=== PATIENT | male | born 1935 | race Caucasian/White ===

== ENCOUNTER 2022-10-11 11:00 | Outpatient (OUT) | payer MEDICARE, OTHER, SELFPAY ==
--- NOTE | 2022-10-11 11:08 | XR_ITS ---
The [address] [address] Patient Name: IRVIN DE OLIVEIRA MRN: [id number] date: 1935 Sex: M Assigned Patient Location: [facility] Current Patient Location: Accession/Order Number: [id number] Exam Date: 10/11/2022 11:15 Report Date: 10/12/2022 06:52 At the request of: ANDREIA LAWLER Procedure: XR pelvis 1-2V PROCEDURE: XR pelvis 1-2V HISTORY: Contusion Of Pelvis S30.0XXA ; right buttock pain radiating into right leg since falling one month ago COMPARISON: None. FINDINGS: BONES:Mild narrowing of the hip joint spaces with small periarticular osteophytes. 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 Degenerative changes of the sacroiliac joints. Mechanical fusion of the visible lumbar spine. SOFT TISSUES:Calcifications within soft tissues projecting left of the pelvis may represent heterotopic bone formation from remote injury or injection granulomas within the gluteus. EFFUSION:None visible. OTHER: Negative. XR/XR pelvis 1-2V IMPRESSION: 1. Multifocal moderate degenerative changes. No appreciable acute abnormality. Electronically authenticated by: DENIA HARRISON Date: 10/12/2022 06:52
== END 2022-10-11 11:01 | disposition home or self-care (01) ==
PROVIDERS: PCP Internal Medicine; Visit Provider Internal Medicine
DX: S30.0XXA Contusion of lower back and pelvis, initial encounter (principal)
CPT/HCPCS: 72170

== ENCOUNTER 2023-05-26 10:16 | Outpatient (OUT) | payer MEDICARE, OTHER, SELFPAY ==
[2023-05-26 10:56] LABS: Basophils Absolute Auto 0.1 10^3/uL (0.0-0.1); Basophils Percent Auto 0.5 % (0.2-2.0); Eosinophils Absolute Auto 0.5 10^3/uL (0.0-0.7); Eosinophils Percent Auto 4.8 % (0.9-7.0); Hematocrit 50.2 % (42.0-54.0); Hemoglobin 15.5 g/dL (14.0-18.0); Immature Granulocytes Abs Auto 0.04 10^3/uL (0.00-0.03); Immature Granulocytes Pct Auto 0.4 % (0.0-0.5); Lymphocytes Percent Auto 30.3 % (20.5-60.0); Mean Corpuscular HGB Conc 30.9 g/dL (29.9-35.2); Mean Corpuscular Hemoglobin 30.4 pg (25.9-34.0); Mean Corpuscular Volume 98.4 fL (80.0-94.0); Mean Platelet Volume 10.7 fL (9.5-13.5); Monocytes Percent Auto 9.5 % (1.7-12.0); Neutrophils Absolute Auto 5.4 10^3/uL (1.4-6.5); Neutrophils Percent Auto 54.5 % (43.0-75.0); Platelet Count 247 10^3/uL (150-450); Red Cell Distribution Width 13.1 % (11.0-15.0)
[2023-05-26 12:45] LABS: Alanine Aminotransferase 18 U/L (16-63); Anion Gap 15.5; BUN Creatinine Ratio 19.4; Calcium 9.3 mg/dL (8.5-10.1); Carbon Dioxide 29.3 mmol/L (21.0-32.0); Chloride 105 mmol/L (98-107); Chol HDL Ratio 1.9; Cholesterol 118 mg/dL (<=200); Estimated GFR (African America >60 (>=60); Estimated GFR (Non-African Ame >60 (>=60); Glucose 167 mg/dL (74-106); HDL Cholesterol 63 mg/dL (40-60); Potassium 3.8 mmol/L (3.5-5.1); Sodium 146 mmol/L (136-145); Triglycerides 87 mg/dL (<=150); VLDL CHOLESTEROL 17.4 mg/dL
[2023-05-26 13:56] LABS: Estimated Average Glucose 143 mg/dL; Glycohemoglobin A1C 6.6 % (4.5-6.2)
== END 2023-05-26 10:17 | disposition home or self-care (01) ==
LOC: LAB 10:16
PROVIDERS: PCP Internal Medicine; Visit Provider Internal Medicine
DX: E11.65 Type 2 diabetes mellitus with hyperglycemia (principal); E78.01 Familial hypercholesterolemia; I10 Essential (primary) hypertension; Z79.899 Other long term (current) drug therapy
CPT/HCPCS: 36415; 80048; 80061; 82043; 83036; 84460; 85025

== ENCOUNTER 2024-03-21 12:47 | Outpatient (OUT) | payer MEDICARE, OTHER, SELFPAY ==
--- OUTSIDE RECORDS SUMMARY | 2024-03-21 13:03 | XMS_ITS | CCD ---
Author Organization [facility] Care Team Providers Care Fire Lookout Name Role Phone PHYSICIAN, DEFAULT Unavailable Unavailable PHYSICIAN, DEFAULT Unavailable Unavailable YULIA RIBEIRO Unavailable Unavailable GRADY RAMIREZEB Osbaldo Unavailable Unavailable GRADY RAMIREZEB A Unavailable Unavailable YULIA RIBEIRO Unavailable Unavailable YULIA RIBEIRO Unavailable Unavailable Jasiel Lawler Primary Care Provider JASIEL LAWLER Primary Care Unavailable SEYMOUR ESPITIA HLee Admitting Unavailable SEYMOUR ESPITIA HLee Attending Unavailable MICHAEL LANE I Consulting Unavailable JASIEL LAWLER Primary Care Physician Petar Lizama Unavailable Dave Vega Unavailable Gabriella Ferrara Unavailable Jasiel Lawler Unavailable BUCKY, DR BOSWELL Attending Unavailable BALL, DR BOSWELL Consulting Unavailable BALL, DR BOSWELL Primary Care Unavailable BALL, DR BOSWELL Admitting Unavailable BALL, DR BOSWELL Consulting Unavailable BUCKY, DR BOSWELL Primary Care Unavailable BALL, DR BOSWELL Admitting Unavailable BALL, DR BOSWELL Attending Unavailable BALL, DR BOSWELL Consulting Unavailable BUCKY, DR BOSWELL Primary Care Unavailable BUCKY, DR BOSWELL Admitting Unavailable BALL, DR BOSWELL Attending Unavailable HARPER BARRETO Attending Unavailable HARPER BARRETO Attending Unavailable Krishan NAGY Attending Unavailable Joanne Crenshaw Attending Unavailable Joanne Crenshaw Admitting Unavailable Jasiel Lawler Primary Care Unavailable DO Jasiel Lawler Primary Care Provider MATILDA Crenshaw Attending Provider [phone] Allergies Allergy Classification Reported Allergen(s) Allergy Type Date of Onset Reaction(s) Facility (2 sources) meperidine Drug Allergy 3 [facility]OF [facility] Repository (1 source) No Known Allergies; Translations: [No Known Allergies] Propensity to adverse reactions (disorder) [facility] Repository (20 sources) Meperidine; Translations: [meperidine] Drug [place] Meperidine; Translations: [Demerol HCl] Drug Allergy [facility] Repository (1 source) patient allergy list reviewed by nurse or physicia Propensity to adverse reactions 3 Comment:Done ilab Other (1 source) Meperidine Drug Allergy 3 [facility] Repository Medications Current Medications Medication Drug Class(es) Dates Sig (Normalized) Sig (Original) acetaminophen 325 mg / HYDROcodone bitartrate 5 mg oral tablet (2 sources) Opioid Agonist Start: 08-20-2019 End: 08-27-2019 take 1 tablet by mouth every six hours as needed for pain HYDROcodone-acetami nophen (NORCO) 5-325 MG per tablet Indications: Spinal stenosis of thoracolumbar region , Pain , Lumbosacral spondylosis without myelopathy , Post-op pain Take 1 tablet by mouth every 6 hours as needed for Pain for up to 7 days. 20 tablet 0 08/20/2019 08/27/2019 Active Start: 08-16-2019 HYDROcodone-ac etaminophen (NORCO) 5-325 MG per tablet 1 tablet alogliptin 6.25 mg oral tablet (1 source) Start: 08-16-2019 alogliptin (NESINA) tablet 25 mg amLODIPine 10 mg oral tablet (20 sources) Dihydropyridine Calcium Channel [place] Start: 02-15-2015 take 10 mg by mouth once daily Amlodipine Active 10 MG PO Daily September 26, 2021 11:00pm Atenolol (1 source) beta-Adrenergic [place] Start: 08-16-2019 atenolol (TENORMIN) tablet 100 mg atenolol 100 mg / chlorthalidone 25 mg oral tablet (20 sources) Thiazide-like Diuretic, beta-Adrenergic [place] Start: 02-15-2015 take 1 tablet by mouth once daily Atenolol-Chlorth alidone Active 1 TAB PO Daily September 26, 2021 11:00pm Atenolol-Chlorth alidone 100-25 MG Oral for 90 Days Active atorvastatin 20 mg oral tablet (20 sources) HMG-CoA Reductase Inhibitor Start: 02-15-2015 take 20 mg by mouth once daily Atorvastatin Active 20 MG PO Daily September 26, 2021 11:00pm benazepril hydrochloride 40 mg oral tablet (20 sources) Angiotensin Converting Enzyme Inhibitor Start: 02-15-2015 take 40 mg by mouth once daily Benazepril Active 40 MG PO Daily September 26, 2021 11:00pm Blood Glucose Monitoring Suppl (TRUE METRIX AIR GLUCOSE METER) NICK (1 source) Blood Glucose Monitoring Suppl (TRUE METRIX AIR GLUCOSE METER) NICK True Metrix Air Glucose Meter 0 Active Calcium (5 sources) Phosphate Binder, Calcium Start: 02-15-2015 Calcium 500+D 1 tab(s), Chewed, Daily, Refill(s) 0, Prophylaxis Start Date: 02/15/15 Status: Ordered calcium carbonate 1250 mg / cholecalciferol 200 unt oral tablet (1 source) Vitamin D Start: 08-17-2019 take 1 tablet by mouth once daily 1 tablet, Oral, DAILY, First dose on 08/17/19 at 0900 Calcium Carbonate / Vitamin D (1 source) take 1 tablet by mouth once daily Calcium Carbonate-Vitamin D (CALCIUM 500 + D PO) Calcium 500 + D 1 tab QD 0 Active cephalexin 500 mg oral capsule (11 sources) Cephalosporin Antibacterial Start: 01-23-2023 take 1 capsule by mouth twice daily Cephalexin 500 MG 1 capsule Orally twice daily for 7 days Dec, Active Start: 01-03-2023 take 1 capsule by mo [facility] every eight hours Cephalexin 500 MG 1 capsule Orally every 8 hrs for 5 days Dec, Active Start: 08-20-2019 End: 08-27-2019 take 1 capsule by mouth every eight hours cephALEXin (KEFLEX) 500 MG capsule Take 1 capsule by mouth every 8 hours for 7 days 21 capsule 0 08/20/2019 08/27/2019 Active Start: 08-20-2019 End: 08-26-2019 take 1 dose by mouth three times daily 500 mg, Oral, EVERY 8 HOURS SCHEDULED (3 times per day), First dose on Sun08/20/19 at 0600, For 20 doses ciclopirox 80 mg/ml topical solution (3 sources) Start: 12-14-2017 apply 1 dose topical ly once daily Topical, NIGHTLY, First dose on 08/16/19 at 2100 Area affected Start: 11-02-2017 ciclopirox (LO PROX) 0.77 % cream Apply topically 2 times daily. 1 Tube 2 11/02/2017 Active cyclobenzaprine hydrochloride 10 mg oral tablet (20 sources) Muscle Relaxant Start: 09-27-2021 take 1 tablet by mouth every twenty-four hours Cyclobenzaprine HCl 10 MG 1 tablet at bedtime as needed Orally Once a day for 30 days Mar, Active Start: 08-08-2019 End: 08-21-2019 take 10 mg by mouth three times daily 10 mg, Oral, 3 TIMES DAILY, First dose on 08/16/19 at 1515 docusate sodium 50 mg / sennosides, chcf 8.6 mg oral capsule (20 sources) Start: 07-04-2021 take 1 capsule by [facility] every twenty-four hours Senna Plus 50-8.6 MG 1 capsule Orally Once a day for 30 days Jul, Active Start: 08-20-2019 End: 09-19-2019 take 1 tablet by mouth once daily sennosides-docusate sodium (SENOKOT-S) 8.6-50 MG tablet Take 1 tablet by mouth daily 30 tablet 0 08/20/2019 09/19/2019 Active DuoDERM CGF Extra Thin - (9 sources) Start: 01-23-2023 DuoDERM CGF Ex tra Thin - as directed Externally daily for 14 days Dec, Active empagliflozin 10 mg oral tablet (20 sources) Sodium-Glucose Cotransporter 2 Inhibitor Start: 11-24-2019 Jardiance Refills(s) 0, High blood sugar Start Date: 11/24/19 Status: Ordered Start: 08-17-2019 take 1 tablet by [facility] once daily Empagliflozin (Jardiance) 10 mg tablet Active 10 MG PO Daily September 26, 2021 11:00pm 0.4 ml enoxaparin sodium 100 mg/ml prefilled syringe (2 sources) Low Molecular Weight Heparin Start: 08-21-2019 inject 40 mg by subcutaneous injection once daily 40 mg, Subcutaneous, DAILY, First dose on Carmen 08/21/19 at 0900 Start: 08-16-2019 End: 08-19-2019 inject 40 mg by subcutaneous injection once daily 40 mg, Subcutaneous, DAILY, First dose on 08/16/19 at 1515 gabapentin 300 mg oral capsule (20 sources) Anti-epileptic Agent Start: 02-15-2015 take 300 mg by mouth four times daily Gabapentin Active 300 MG PO Four times daily September 26, 2021 11:00pm glucagon (rdna) 1 mg injection (1 source) Antihypoglycemic Agent Start: 08-16-2019 glucago n (rDNA) injection 1 mg 150 ml glucose 50 mg/ml injection (3 sources) Start: 08-16-2019 glucose (GLUTOSE) 40 % oral gel 15 g Start: 08-16-2019 dextrose 50 % IV solution Start: 08-16-2019 dextrose 5 % s olution Hydrocolloid Dressing (1 source) Start: 05-12-2023 Hydrocolloid Dressing Active EACH TOPICAL May 12, 2023 12:00am insulin lispro 100 unt/ml injectable solution (2 sources) Insulin Analog Start: 08-16-2019 insulin lispro (HUMALOG) injection vial 0-6 Units lisinopril 20 mg oral tablet (1 source) Angiotensin Converting Enzyme Inhibitor Start: 08-16-2019 lisinopril (PRINIVIL;ZESTRIL) tablet 40 mg metFORMIN hydrochloride 1000 mg oral tablet (20 sources) Biguanide Start: 05-12-2023 take 1000 mg by mouth twice daily at mealtime Metformin Active 1000 MG PO Twice daily with meals May 12, 2023 2:30pm Start: 09-27-2021 End: 05-12-2023 take 1000 mg by mouth once daily Metformin Discontinue d 1000 MG PO Daily September 26, 2021 11:00pm May 12, 2023 2:33pm Start: 08-16-2019 take 1000 mg by mout h twice daily at mealtime 1,000 mg, Oral, 2 TIMES DAILY WITH MEALS, First dose on 08/16/19 at 1700 Start: 02-15-2015 take 1 tablet by sean th twice daily metformin 1000 mg Tab 1,000 mg = 1 tab(s), Oral, BID, # 180 tab(s), Refills(s) 0, High blood sugar Start Date: 02/15/15 Status: Ordered miconazole nitrate 20 mg/ml topical cream (1 source) Azole Antifungal Start: 08-16-2019 apply 1 dose topically twice daily Topical, 2 TIMES DAILY, First dose on 08/16/19 at 2100 Apply to affected area. Substituted for Ciclopirox (LOPROX). 24 hr mirabegron 50 mg extended release oral tablet (20 sources) beta3-Adrenergic Agonist Start: 07-13-2021 take 1 tablet by mouth every twenty-four hours Myrbetriq 50 MG 1 tablet Orally Once a day Jul, Active 1 ml morphine sulfate 4 mg/ml cartridge (1 source) Opioid Agonist Start: 08-19-2019 4 mg, Intravenous, EVERY 4 HOURS PRN, Pain Moderate (4-6), Pain Severe (7-10), Starting 08/19/19 at 1541, For 4 doses, PACU & Post-op Multi Vitamins oral tablet (5 sources) Start: 02-15-2015 Multi Vitamins oral tablet Refill(s) 0 Start Date: 02/15/15 Status: Ordered Multiple Vitamins-Minerals (MULTIVITAMIN ADULT PO) (1 source) Multiple Vitamins-Minerals (MULTIVITAMIN ADULT PO) multivitamin 0 Active mupirocin 0.02 mg/mg topical ointment (10 sources) RNA Synthetase Inhibitor Antibacterial Start: 05-12-2023 Mupirocin Active 1 APPLIC TOPICAL Twice daily May 12, 2023 12:00am FreeTextSi application Externally Twice a day; Note: Source Status: Taking; Refills: 0; Qty: 22 Gram; Provider: Bucky Ly Start: 01-23-2023 Mupirocin 2 % 1 application Externally Twice a day for 30 days Dec, Active ondansetron 4 mg disintegrating oral tablet (1 source) Serotonin-3 Receptor Antagonist Start: 08-16-2019 take 4 mg by mouth every eight hours as needed for nausea 4 mg, Oral, EVERY 8 HOURS PRN, Nausea, Vomiting, Starting 08/16/19 at 1425 polyethylene glycol 3350 09125 mg powder for oral solution (1 source) Osmotic Laxative Start: 08-16-2019 17 g, Oral, DAILY PRN, Constipation, Starting 08/16/19 at 1455 First line therapy for constipation Promethazine (1 source) Phenothiazine Start: 08-16-2019 promethazine (PHENERGAN) tablet 12.5 mg SITagliptin 100 mg oral tablet (20 sources) Dipeptidyl Peptidase 4 Inhibitor Start: 02-15-2015 take 1 tablet by mouth once daily Sitagliptin Phosphate (Januvia) 100 mg tablet Active 100 MG PO Daily September 26, 2021 11:00pm tamsulosin hydrochloride 0.4 mg oral capsule (20 sources) alpha-Adrenergic [place] Start: 02-15-2015 take 0.4 mg by mouth once daily Tamsulosin Active 0.4 MG PO Daily September 26, 2021 11:00pm traMADol hydrochloride 50 mg oral tablet (20 sources) Opioid Agonist Start: 01-08-2023 take 1 tablet by mouth every eight hours as needed for pain traMADol HCl 50 MG 1 tablet Orally every 8 hours as needed for pain for 30 days Rx 04/03/22 w/ 2RF Apr, Active Start: 10-18-2022 take 1 tablet by sean th every eight hours as needed for pain traMADol HCl 50 MG 1 tablet Orally every 8 hours as needed for pain for 30 days start 10/18Sep, Active Start: 09-12-2022 take 1 tablet by sean th every eight hours as needed for pain traMADol HCl 50 MG 1 tablet Orally every 8 hours as needed for pain Aug, Active Start: 04-14-2022 take 1 tablet by sean th every eight hours as needed for pain traMADol HCl 50 MG 1 tablet Orally every 8 hours as needed for pain for 7 days Apr, Active triamcinolone acetonide 0.001 mg/mg topical ointment (20 sources) Corticosteroid Start: 05-12-2023 Triamcinolone Acetonide Active 1 APPLIC TOPICAL Twice daily May 12, 2023 12:00am FreeTextSi application Externally Twice a day; Note: Source Status: Taking; Refills: 0; Qty: 45 Gram; Provider: Bucky Ly Start: 05-12-2023 Triamcinolone Acetonide Active 1 APPLIC TOPICAL Twice daily May 12, 2023 12:00am FreeTextSi application Externally Twice a day; Note: Source Status: Taking; Provider: Bucky Ly Start: 11-17-2022 Triamcinolone Acetonide 0.1 % 1 application Externally Twice a day for 7 days Oct, Active Start: 03-22-2022 Triamcinolone Acetonide 0.5 % 1 application Externally Twice a day Mar, Active Start: 11-01-2021 Kenalog-40 Oct, 20 mg True Metrix Air Glucose Mete r w/Device (20 sources) True Metrix Air Glucose Meter w/Device as directed for 365 days Active True Metrix Blood Glucose Te st - (20 sources) Start: 07-18-2021 True Metrix Bl ood Glucose Test - 1 Each to test home BS As Directed BID Jul, Active True Metrix Bloo d Glucose Test - USE DIRECTED TWICE DAILY for 50 Active True Metrix Pro Blood Glucos e - (20 sources) True Metrix Pro Blood Glucose - Use to test home BS twice a day In Vitro daily for 30 days Active True Metrix Pro Blood Glucose - Use to test home BS qd In Vitro daily for 30 days Active True Metrix Pro Blood Glucose - as directed In Vitro daily for 30 days Active Completed/Discontinued Medications Medication Drug Class(es) Dates Sig (Normalized) Sig (Original) acetaminophen 325 mg / oxyCODONE hydrochloride 5 mg oral tablet (2 sources) Opioid Agonist Start: 08-04-2019 End: 08-20-2019 take 1 tablet by mouth twice daily 1 tablet, Oral, 2 TIMES DAILY, First dose on 08/16/19 at 2100 Maximum dose of acetaminophen is 4000 mg from all sources in 24 hours. betamethasone 0.5 mg/ml / clotrimazole 10 mg/ml topical cream (20 sources) Azole Antifungal, Corticosteroid Start: 06-18-2020 Clotrimazole-Betam ethasone 1-0.05 % 1 application as needed for rash Externally Twice a day May, Not-Taking/PRN ceFAZolin (ANCEF) 1 g in dextrose 5 % 50 mL IVPB (mini-bag) (1 source) Start: 08-19-2019 End: 08-20-2019 1 g, Intravenous, EVERY 8 HOURS, First dose on Sun08/19/19 at 1615, Until Discontinued, PACU & Post-op chlorhexidine gluconate 1.2 mg/ml mouthwash (20 sources) Start: 09-27-2021 End: 01-25-2023 Chlorhexidine Gluconate Discontinued 1 EACH MUCOUS MEM Daily September 26, 2021 11:00pm January 25, 2023 8:46am Chlorhexidine Gl uconate 0.12 % Mouth/Throat for 25 Days Not-Taking/PRN Chlorhexidine Gl uconate 0.12 % Mouth/Throat for 25 Days Not-Taking Chlorhexidine Gl uconate 0.12 % Mouth/Throat for 25 Days Not-Taking diclofenac sodium 0.01 mg/mg topical gel (20 sources) Nonsteroidal Anti-inflammatory Drug Start: 01-25-2022 Diclofenac Sodium 1 % apply a pea sized amount to affected area 2-4 times a daily Externally Dec, Not-Taking/PRN 1 ml HYDROmorphone hydrochloride 1 mg/ml cartridge (1 source) Opioid Agonist Start: 08-19-2019 End: 08-19-2019 HYDROmorphone (DILAUDID) injection 0.5 mg 10 ml lidocaine hydrochloride 10 mg/ml injection (1 source) Antiarrhythmic, Amide Local Anesthetic Start: 08-19-2019 End: 08-19-2019 lidocaine PF 1 % injection 1 mL methylPREDNISolone 4 mg oral tablet (20 sources) Corticosteroid Start: 12-06-2021 methylPREDNISolone 4 MG as directed Orally for 6 days Dec, Not-Taking/PRN nystatin 100 unt/mg topical powder (1 source) Polyene Antifungal Start: 01-25-2023 End: 05-12-2023 Nystatin Discontinued 1 APPLIC TOPICAL Twice daily 30 January 24, 2023 11:00pm May 12, 2023 2:30pm use as per wound care orders to the buttock rash areas 1000 ml sodium chloride 4.5 mg/ml injection (5 sources) Start: 08-18-2019 End: 08-19-2019 0.45 % sodium chloride infusion Start: 08-16-2019 10 mL, Intrave nous, EVERY 12 HOURS SCHEDULED (2 times per day), First dose on 08/16/19 at 2100 Start: 08-16-2019 take 10 mL intraveno us route once as needed 10 mL, Intravenous, PRN, Line Care, After every IV line use, Starting 08/16/19 at 1455 solifenacin succinate 5 mg oral tablet (3 sources) Cholinergic Muscarinic Antagonist Start: 09-06-2021 End: 01-25-2023 take 5 mg by mouth once daily Solifenacin Discontinued 5 MG PO Daily September 26, 2021 11:00pm January 25, 2023 8:46am Problems Active Problems Problem Classification Problem Date Documented Da te Episodic/Chronic Acquired foot deformities (1 source) Hammer toe; Translations: [Other hammer toe(s) (acquired), unspecified foot] Chronic Acquired foot deformities (20 sources) Foot-drop; Translations: [Foot drop, left foot] Episodic Acquired foot deformities (20 sources) Right foot drop; Translations: [Foot drop, right foot] Episodic Acute bronchitis (1 source) Acute bronchitis; Translations: [Acute bronchitis due to other specified organisms] Episodic Allergic reactions (2 sources) Exogenous dermatitis; Translations: [Unspecified contact dermatitis due to other agents] 03-01-2023 Episodic Chronic ulcer of skin (10 sources) Pressure ulcer of sacral region, stage 2; Translations: [Pressure injury of sacral region, stage 2] Chronic Conduction disorders (4 sources) Unspecified right bundle-branch block; Translations: [Right bundle branch block] Onset: 11-15-2017 08-20-2019 Chronic Congestive heart failure; nonhypertensive (20 sources) Chronic combined systolic and diastolic heart failure; Translations: [Chronic combined systolic (congestive) and diastolic (congestive) heart failure] Onset: 01-21-2016 Resolved: 07-16-2019 Chronic Coronary atherosclerosis and other heart disease (20 sources) Atherosclerotic heart disease of [place] coronary artery without angina pectoris; Translations: [Coronary arteriosclerosis] Onset: 12-17-2015 Resolved: 07-16-2019 08-20-2019 Chronic Diabetes mellitus with complications (20 sources) Hyperglycemia due to type 2 diabetes mellitus; Translations: [Polyneuropathy due to type 2 diabetes mellitus] Onset: 07-17-2018 08-20-2019 Chronic Diabetes mellitus without complication (3 sources) Type 2 diabetes mellitus without complications; Translations: [Diabetes mellitus] Onset: 11-15-2017 08-20-2019 Chronic Disorders of lipid metabolism (20 sources) Hyperlipidemia, unspecified; Translations: [Pure hypercholesterolemia] Onset: 04-02-1957 Resolved: 07-16-2019 Chronic Diverticulosis and diverticulitis (1 source) Diverticulosis of large intestine; Translations: [Diverticulosis of large intestine without perforation or abscess without bleeding] Onset: 01-02-2019 08-20-2019 E Codes: Natural/environment (1 source) Bitten or stung by nonvenomous insect and other nonvenomous arthropods, initial encounter Episodic Esophageal disorders (13 sources) Esophageal reflux finding; Translations: [Esophageal reflux] Resolved: 07-16-2019 Chronic Essential hypertension (20 sources) Essential (primary) hypertension; Translations: [Hypertensive disorder] Onset: 12-19-2012 Resolved: 07-16-2019 08-20-2019 Chronic Genitourinary symptoms and ill-defined conditions (20 sources) Incontinence without sensory awareness; Translations: [Urge incontinence] Onset: 07-05-2021 Chronic Genitourinary symptoms and ill-defined conditions (20 sources) Urgent desire to urinate; Translations: [Urgency of urination] Onset: 07-05-2021 Episodic Hyperplasia of prostate (20 sources) Benign prostatic hypertrophy with outflow obstruction; Translations: [Benign prostatic hyperplasia with lower urinary tract symptoms] Onset: 07-05-2021 Chronic Immunizations and screening for infectious disease (1 source) Vaccination given; Translations: [Encounter for immunization] Episodic Malaise and fatigue (3 sources) Malaise and fatigue; Translations: [Other malaise and fatigue] Onset: 01-15-2017 Resolved: 07-16-2019 01-25-2023 Episodic Other acquired deformities (20 sources) Spondylolisthesis; Translations: [Spondylolisthesis, cervical region] Episodic Other aftercare (20 sources) H/O: high risk medication; Translations: [Other intermission coordinator (current) drug therapy] Episodic Other aftercare (3 sources) Other intermission coordinator (current) drug therapy; Translations: [OTH DETENTION CURRENT DRUG THERAPY] Onset: 02-02-2022 Episodic Other aftercare (1 source) Long-term current use of drug therapy; Translations: [Other mcc (current) drug therapy] Episodic Other aftercare (1 source) Drug therapy finding; Translations: [Other mcc (current) drug therapy] 05-12-2023 Episodic Other and unspecified benign neoplasm (20 sources) Benign neoplasm of colon; Translations: [Benign neoplasm of descending colon] Resolved: 07-16-2019 Episodic Other and unspecified benign neoplasm (1 source) Benign neoplasm of descending colon; Translations: [Adenomatous polyp of descending colon] Episodic Other and unspecified benign neoplasm (1 source) Polyp of colon; Translations: [Polyp of colon] Episodic Other and unspecified benign neoplasm (1 source) Benign neoplasm of descending colon; Translations: [Benign neoplasm of descending colon] Episodic Other congenital anomalies (20 sources) Congenital pes planus of right foot; Translations: [Congenital pes planus, right foot] Chronic Other congenital anomalies (1 source) Congenital pes planus, right foot; Translations: [Congenital pes planus, right foot] Chronic Other connective tissue disease (3 sources) Trigger finger, right ring finger Onset: 11-01-2021 Resolved: 11-01-2021 Episodic Other connective tissue disease (1 source) Acquired trigger finger; Translations: [Trigger finger, right ring finger] Episodic Other diseases of kidney and ureters (3 sources) Urinary tract obstruction; Translations: [Other obstructive and reflux uropathy] Onset: 09-06-2021 Episodic Other diseases of veins and lymphatics (20 sources) Peripheral venous insufficiency; Translations: [Venous insufficiency (chronic) (peripheral)] 05-12-2023 Episodic Other diseases of veins and lymphatics (3 sources) Venous insufficiency (chronic) (peripheral); Translations: [Venous (peripheral) insufficiency, unspecified] Episodic Other gastrointestinal disorders (1 source) Constipation; Translations: [Constipation, unspecified] Episodic Other inflammatory condition of skin (1 source) Itching of skin; Translations: [Pruritus, unspecified] Episodic Other injuries and conditions due to external causes (20 sources) At moderate risk for fall; Translations: [History of falling] Episodic Other injuries and conditions due to external causes (2 sources) History of fall; Translations: [Personal history of fall] Onset: 07-28-2016 Resolved: 07-16-2019 Episodic Other nervous system disorders (20 sources) Chronic pain; Translations: [Other chronic pain] Chronic Other nervous system disorders (4 sources) Other chronic pain Onset: 08-23-2021 Resolved: 10-20-2021 Chronic Other nervous system disorders (20 sources) Lesion of ulnar nerve; Translations: [Lesion of ulnar nerve, bilateral upper limbs] Onset: 09-01-2013 Resolved: 07-16-2019 Chronic Other nervous system disorders (20 sources) Carpal tunnel syndrome; Translations: [Carpal tunnel syndrome, bilateral upper limbs] Resolved: 07-16-2019 Chronic Other nervous system disorders (2 sources) Abnormal gait; Translations: [Gait abnormality] Onset: 08-20-2019 08-20-2019 Episodic Other nervous system disorders (1 source) Postoperative pain ; Translations: [Post-op pain] Episodic Other non-traumatic joint disorders (20 sources) Pain in right knee; Translations: [Pain in right knee] Episodic Other nutritional; endocrine; and metabolic disorders (20 sources) Obesity; Translations: [Obesity, unspecified] Chronic Other nutritional; endocrine; and metabolic disorders (1 source) Obesity, unspecified Chronic Paralysis (2 sources) Paraparesis; 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] Onset: 08-16-2019 08-16-2019 Chronic [place]-; endo-; and myocarditis; cardiomyopathy (except that caused by tuberculosis or sexually transmitted disease) (20 sources) Dilated cardiomyopathy; Translations: [Dilated cardiomyopathy] Chronic Poisoning by nonmedicinal substances (1 source) Toxic effect of venom of other arthropod, accidental (unintentional), initial encounter; Translations: [Toxic effect of venom of arthropod, accidental, init] Episodic Residual codes; unclassified (20 sources) Obstructive sleep apnea syndrome; Translations: [Obstructive sleep apnea (adult) (pediatric)] Onset: 01-01-2018 Resolved: 07-16-2019 05-12-2023 Chronic Residual codes; unclassified (7 sources) Obstructive sleep apnea (adult) (pediatric); Translations: [Obstructive sleep apnea (adult)(pediatric)] Chronic Residual codes; unclassified (2 sources) Dependence on other enabling machines and devices; Translations: [Uses walker] 01-25-2023 Chronic Residual codes; unclassified (1 source) Pain; Translations: [Pain] Episodic Skin and subcutaneous tissue infections (3 sources) Cellulitis of right lower limb; Translations: [Cellulitis of right lower limb] Episodic Spondylosis; intervertebral disc disorders; other back problems (20 sources) Lumbosacral spondylosis without myelopathy; Translations: [Herniation of nucleus pulposus] Onset: 08-07-2017 Resolved: 10-20-2021 11-22-2017 Chronic Spondylosis; intervertebral disc disorders; other back problems (20 sources) Spinal stenosis; Translations: [Low back pain] Onset: 10-08-2018 Resolved: 08-23-2021 08-16-2019 Episodic Spondylosis; intervertebral disc disorders; other back problems (1 source) 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; Translations: [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] Onset: 11-22-2017 11-22-2017 Superficial injury; contusion (3 sources) Contusion of lower back and pelvis, initial encounter; Translations: [Contusion of foot] Onset: 08-04-2013 Resolved: 07-16-2019 Episodic Unclassified (2 sources) Unknown / UNK(Unknown) Onset: 11-15-2017 Unclassified (1 source) 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; Translations: [DETENTION (CURRENT) USE OF ORAL HYPOGLYCEMIC DRUGS] Onset: 11-15-2017 Unclassified (3 sources) Finding of sensation of bladder 11-08-2021 Unclassified (1 source) Irritant contact dermatitis due to fecal, urinary or dual incontinence; Translations: [Irritant contact dermatitis due to fecal, urinary or dual incontinence] Onset: 03-01-2023 Past or Other Problems Problem Classification Problem Date Documented Date Episodic/Chronic Abdominal pain (1 source) Right lower quadrant pain; Translations: [Right lower quadrant pain] Onset: 07-03-2017 Resolved: 07-16-2019 Episodic Deficiency and other anemia (1 source) Iron deficiency anemia; Translations: [Unspecified iron deficiency anemia] Onset: 01-21-2016 Resolved: 07-16-2019 Episodic Deficiency and other anemia (1 source) Anemia; Translations: [Anemia, unspecified] Onset: 01-13-2015 Resolved: 07-16-2019 Episodic Esophageal disorders (18 sources) Esophageal disorders; Translations: [Gastroesophageal reflux disease with esophagitis, unspecified whether hemorrhage] Nonspecific chest pain (2 sources) Chest pain; Translations: [Other chest pain] Onset: 01-28-2015 Resolved: 07-16-2019 Episodic Other connective tissue disease (1 source) H/O: arthrodesis; Translations: [Arthrodesis status] Onset: 08-03-2015 Resolved: 07-16-2019 Episodic Other lower respiratory disease (1 source) Pleurodynia Onset: 08-23-2021 Resolved: 08-23-2021 Episodic Other lower respiratory disease (1 source) Dyspnea; Translations: [Other forms of dyspnea] Onset: 01-28-2015 Resolved: 07-16-2019 Episodic Other nutritional; endocrine; and metabolic disorders (6 sources) Body mass index 30+ - obesity; Translations: [Body mass index 36.0-36.9, adult] Onset: 04-02-1959 Resolved: 07-16-2019 10-13-2019 Chronic Other nutritional; endocrine; and metabolic disorders (2 sources) Obese class I; Translations: [Body mass index 34.0-34.9, adult] Onset: 04-02-1959 Resolved: 07-16-2019 Chronic Other nutritional; endocrine; and metabolic disorders (1 source) Simple obesity ; Translations: [Other obesity due to excess calories] Onset: 04-02-1959 Resolved: 07-16-2019 Chronic Other nutritional; endocrine; and metabolic disorders (1 source) Morbid obesity; Translations: [Morbid (severe) obesity due to excess calories] Onset: 04-02-1959 Resolved: 07-16-2019 Chronic Other nutritional; endocrine; and metabolic disorders (1 source) Obese class II; Translations: [Body mass index 37.0-37.9, adult] Onset: 04-02-1959 Resolved: 07-16-2019 Chronic Other nutritional; endocrine; and metabolic disorders (1 source) Abnormal weight loss; Translations: [Abnormal weight loss] Resolved: 07-16-2019 Episodic Residual codes; unclassified (1 source) Requires influenza virus vaccination; Translations: [Need for prophylactic vaccination and inoculation, Influenza] Resolved: 07-16-2019 Episodic Unclassified (6 sources) Abnormal result of other cardiovascular function study; Translations: [Electrocardiogram abnormal] Onset: 01-28-2015 Resolved: 07-16-2019 11-20-2017 Episodic Unclassified (1 source) Low back pain, unspecified M54.50 Onset: 08-23-2021 Resolved: 08-23-2021 Unclassified (1 source) Long-term current use of drug therapy; Translations: [Long-term (current) use of other medications] Onset: 01-15-2017 Resolved: 07-16-2019 Viral infection (1 source) Verruca plantaris; Translations: [Plantar wart] Onset: 12-17-2015 Resolved: 07-16-2019 Episodic Results Test Name Value Interpretation Reference Range Facility Patient Education 09-06-19 Patient Education Obstetrics and Gynecology Overactive Bladder, Adult Overactive bladder is a condition in which a person has a sudden and frequent need to urinate. A person might also leak urine if he or she cannot get to the bathroom fast enough (urinary incontinence). Sometimes, symptoms can interfere with work or social activities. What are the causes? Overactive bladder is associated with poor nerve signals between your bladder and your brain. Your bladder may get the signal to empty before it is full. You may also have very sensitive muscles that make your bladder squeeze too soon. This condition may also be caused by other factors, such as: ? Medical conditions: ? Urinary tract infection. ? Infection of nearby tissues. ? Prostate enlargement. ? Bladder stones, inflammation, or tumors. ? Diabetes. ? Muscle or nerve weakness, especially from these conditions: ? A spinal cord injury. ? Stroke. ? Multiple sclerosis. ? Parkinson's disease. ? Other causes: ? Surgery on the uterus or urethra. ? Drinking too much caffeine or alcohol. ? Certain medicines, especially those that eliminate extra fluid in the body (diuretics). ? Constipation. What increases the risk? You may be at greater risk for overactive bladder if you: ? Are an older adult. ? Smoke. ? Are going through menopause. ? Have prostate problems. ? Have a neurological disease, such as stroke, dementia, Parkinson's disease, or multiple sclerosis (MS). ? Eat or drink alcohol, spicy food, caffeine, and other things that irritate the bladder. ? Are overweight or obese. What are the signs or symptoms? Symptoms of this condition include a sudden, strong urge to urinate. Other symptoms include: ? Leaking urine. ? Urinating 8 or more times a day. ? Waking up to urinate 2 or more times overnight. How is this diagnosed? This condition may be diagnosed based on: ? Your symptoms and medical history. ? A physical exam. ? Blood or urine tests to check for possible causes, such as infection. You may also need to see a health care provider who specializes in urinary tract problems. This is called a urologist. How is this treated? Treatment for overactive bladder depends on the cause of your condition and whether it is mild or severe. Treatment may include: ? Bladder training, such as: ? Learning to control the urge to urinate by following a schedule to urinate at regular intervals. ? Doing Kegel exercises to strengthen the pelvic floor muscles that support your bladder. ? Special devices, such as: ? Biofeedback. This uses sensors to help you become aware of your body's signals. ? Electrical stimulation. This uses electrodes placed inside the body (implanted) or outside the body. These electrodes send gentle pulses of electricity to strengthen the nerves or muscles that control the bladder. ? Women may use a plastic device, called a pessary, that fits into the vagina and supports the bladder. ? Medicines, such as: ? Antibiotics to treat bladder infection. ? Antispasmodics to stop the bladder from releasing urine at the wrong time. ? Tricyclic antidepressants to relax bladder muscles. ? Injections of botulinum toxin type A directly into the bladder tissue to relax bladder muscles. ? Surgery, such as: ? A device may be implanted to help manage the nerve signals that control urination. ? An electrode may be implanted to stimulate electrical signals in the bladder. ? A procedure may be done to change the shape of the bladder. This is done only in very severe cases. Follow these instructions at home: Eating and drinking ? Make diet or lifestyle changes recommended by your health care provider. These may include: ? Drinking fluids throughout the day and not only with meals. ? Cutting down on caffeine or alcohol. ? Eating a healthy and balanced diet to prevent constipation. This may include: ? Choosing foods that are high in fiber, such as beans, whole grains, and fresh fruits and vegetables. ? Limiting foods that are high in fat and processed sugars, such as fried and sweet foods. Lifestyle ? Lose weight if needed. ? Do not use any products that contain nicotine or tobacco. These include cigarettes, chewing tobacco, and vaping devices, such as e-cigarettes. If you need help quitting, ask your health care provider. General instructions ? Take [id number] and prescription medicines only as told by your health care provider. ? If you were prescribed an antibiotic medicine, take it as told by your health care provider. Do not stop taking the antibiotic even if you start to feel better. ? Use any implants or pessary as told by your health care provider. ? If needed, wear pads to absorb urine leakage. ? Keep a log to track how much and when you drink, and when you need to urinate. This will help your health care provider monitor yo (more content not included)... Normal [facility] Provider Letteron 09-05-2022 Provider Letter (Inserted Image. Yesenia ble to display) JASIEL LAWLER, [address] [place] [address] Re: IRVIN DE OLIVEIRA Date of : [address] BUCKY CALDERA, IRVIN MAIER was evaluated at [facility] 09/05/22 13:00:00 As this patient has been stable and doing well on current regimen, they will be released back to your care. He is taking Flomax once daily and says he already receives these refills through your office. Should the patient develop new symptoms or worsening condition in the future, do not hesitate to refer them back. Thanks! Provider Signature: Harper Barreto PA-C Physician [employer] Supervisor [facility] [address] [place] [address] Normal [facility] Urology Office/Clinic Noteon 09-05-2022 Urology Office/Clinic Note Chief Complaint Pt is here for 5m f/u HPI Staff Irvin is a 87 y.o. male PRW pt here for 5 month follow up. Previous DX: BPH, Incontinence & Nocturia. S/P TUIP done on 09/24/20, REZUM 10/30/19. *Tamsulosin 0.4mg QD therapy. Dysuria: denies Incomplete bladder emptying: denies Hematuria: denies Frequency: denies Urgency: yes Nocturia: 4-5x a night Stream: steady stream Leaking: yes Post void dripping: denies Wearing pads/ Depends: yes wears depends Urge incontinence: yes Stress incontinence: denies Incontinence without Sensory Awareness: yes Abdominal pain: denies Flank pain: denies Sexual complaints: _ Review of Systems PHQ Score Initial Depression Screen Score: 0 no fever, chills, malaise, myalgia. no rash/lesions. no chest pain, palpitations, or SOB. no abdominal pain, nausea, vomiting. no unilateral calf swelling, redness, pain Physical Exam Vitals & Measurements HT: 67 in HT: 170 cm WT: 86 kg WT: 189.2 lb BMI: 29.76 General: nontoxic, NAD Mouth: moist mucosa Lungs: normal respiratory effort Cardio: regular rate, good distal perfusion Abdomen: nondistended, no suprapubic distention or tenderness, no CVA tenderness Neurologic: Grossly normal Skin: No rashes or suspicious lesions Assessment/Plan 1. Urge incontinence (N39.41: Urge incontinence) continues to have incontinence throughout the day and frequency at night. at last visit I recommended timed voids (q2-3h during day) and stopping bladder irritants (coffee and peach tea). pt says he tried these recommendations for a day or two and it worked great but then he stopped. pt says I'm 87 years old, I'm not changing these things at this point. I explained that with him holding his urine >3hrs during day, it will be nearly impossible to control his bladder once it gets that full. also explained the affects that coffee and tea have on bladder. pt verbalizes understanding but does not wish to change these things at this time. pt failed oral medication for this previously. I feel risks outweigh benefits of alternative oral meds or more invasive tx options (like Botox) at this time. pt agrees. Ordered: E&M of Est. Patient Moderate 30-39 Min 92076 2. BPH with obstruction/lower urinary tract symptoms (N40.1: Benign prostatic hyperplasia with lower urinary tract symptoms) sp TURP August 2020 on Flomax. no bothersome side effects. no issues w low BP or falls. says PCP gives him refills. this will continue. return to clinic should steam worsen. Ordered: E&M of Est. Patient Moderate 30-39 Min 68410 Urnls Dip Stick Auto w/o Microscopy POC 27224 Other obstructive and reflux uropathy (N13.8: Other obstructive and reflux uropathy) discussed f/u 6-12 mos vs PRN. pt prefers PRN. letter sent to PCP. Follow-up With When Contact Information HARPER BARRETO PA-C, URL Only if needed [address] 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 Medications amLODIPine 10 mg Tab, 10 mg= 1 tab(s), Oral, Daily atenolol-chlorthalidone 100 mg-25 mg Tab, 1 tab(s), Oral, Daily atorvastatin 20 mg Tab, 20 mg= 1 tab(s), Oral, Daily benazepril 40 mg oral tablet, 40 mg= 1 tab(s), Oral, Daily Calcium 500+D, 1 tab(s), Chewed, Daily Flomax, 0.4 mg, Oral, Daily gabapentin 300 mg Cap, 300 mg= 1 cap(s), Oral, QID Januvia 100 mg Tab, 100 mg= 1 tab(s), Oral, Daily Jardiance metformin 1000 mg Tab, 1000 mg= 1 tab(s), Oral, BID Multi Vitamins oral tablet Allergies Demerol HCl meperidine (Unknown, AOF) Social History Alcohol - Low Risk, 09/06/2021 Current, Beer, 1-2 times per week, 09/06/2021 Substance Abuse - Denies Substance Abuse, 09/06/2021 Tobacco Never (less than 100 in lifetime) Tobacco Use:., 09/06/2021 Family History Asthma: Sister. Hypertension: Father. Migraine: Child. Primary malignant neoplasm of bone: Mother. Stroke: Father. Immunizations Vaccine Date Status SARS-CoV-2 (COVID-19) mRNAMUL.ORD![id number] 03/19/2022 Recorded influenza virus vaccine, inactivated 01/17/2022 Recorded influenza virus vaccine, inactivated 12/2020 Recorded SARS-CoV-2 (COVID-19) mRNA-1273 vaccine 05/2020 Recorded SARS-CoV-2 (COVID-19) mRNA-1273 vaccine 06/2019 Recorded influenza virus vaccine, in (more content not included)... Normal [facility] Comment on above: Result Comment: Electronically Signed By : HARPER BARRETO PA-C\.suzanne\Date and Time Signed: 09/05/22 17:49 EDT GLYCOHEMOGLOBIN A1Con 2022 ADA RECOMMENDATION SEE BELOW [facility] Comment on above: Result Comment: ADA RECOMMENDED LIMIT 4. 0 - 6.0 ADA THERAPEUTIC TARGET < 7.0 ACTION SUGGESTED > 7.0 Performed By: #### A 1C #### [facility] [address] [place] [address] Dr. Roseline Kennedy Glucose [Mass/Vol] 157 mg/dL Normal [facility] Comment on above: Performed By: #### A1C #### [facility] [address] [address] [address] Roseline Kennedy HbA1c (Bld) [Mass fraction] 7.1 % Critically high 4.5-6.2 [facility] Comment on above: Performed By: #### A1C #### [facility] [address] [address] [address] Roseline Kennedy ECHOCARDIO M/2D COMPLETEon 0 08-03-2022 ECHOCARDIO M/2D COMPLETE Patient: IRVIN DE OLIVEIRA Exam Date: 08/03/2022 : 1935 Gender:M Ordering : DR JASIEL LAWLER D.O. Admission #: [id number] Family : Order #: [id number] CLICK HERE TO VIEW EXAM ECHOCARDIOGRAM REPORT% PROCEDURE: CARDIO PULMONARY ECHOCARDIO M/2D COMP INDICATIONS: Chronic heart failure with reduced ejection fraction COMPARISON: None. DESCRIPTION: COMPLETE ECHOCARDIOGRAM Real-time transthoracic echocardiography with 2D, M-mode, spectral and color flow Doppler performed. QUALITY: Technical quality was good. LEFT VENTRICLE: Mild dilatation. Thickened septal wall. LV EF: Global left ventricular systolic function is moderately decreased. Visual estimation of left ventricular ejection fraction is 35-40%. Global hypokinesis. Abnormal septal motion; may be related to underlying bundle branch block. DIASTOLIC: Not adequately assessed due to heart rhythm. ATRIAL SEPTUM: Inadequately seen. LEFT ATRIUM: Severe dilatation. RIGHT ATRIUM: Moderate dilatation. RIGHT VENTRICLE: Normal chamber size. Normal right ventricular systolic function. TRICUSPID VALVE: Normal mobility and thickness. No stenosis with trivial regurgitation. No evidence of pulmonary hypertension. RVSP 25mmHg MITRAL VALVE: Normal mobility and thickness. No evidence of mitral valve stenosis. Mitral annular calcification. Mild mitral regurgitation. AORTIC VALVE: Normal trileaflet appearance. Normal leaflet mobility. No evidence of aortic valve stenosis. Trivial aortic regurgitation. AORTIC ROOT: Normal diameter and appearance. PULMONIC VALVE: Normal thickness and mobility. No stenosis. No regurgitation. PERICARDIUM: No evidence of pericardial effusion. IVC: Collapses with inspirations. Normal size. PLEURA: CONCLUSION: Global left ventricular systolic function is moderately reduced; visually estimated ejection fraction is 35 to 40%. Left ventricle is mildly dilated. Biatrial enlargement. Right ventricle is normal in size and systolic function. Mild mitral regurgitation. Adult Echocardiography Procedure Report Left Ventricle LVEDD (3.7 - 5.6 cm): 6.28 cm LVESD (2.2 - 4.0 cm): 4.85 cm LVIVS thickness (0.6 - 1.2 cm): 1.28 cm LVPW thickness (0.5 - 1.0 cm): 0.94 cm e': 0.14 m/s LVOT Max Gradient: 2.92 mm[Hg] Peak Velocity (LVOT): 0.86 m/s Mean Velocity (LVOT): 0.56 m/s LVOT Diameter 2.25 cm Left Ventricular Ejection Fraction: 44.92 %, 44.92 % Left Atrium LA Volume Index (2D A2C): 93.26 ml, 93.26 ml Left Atrium Systolic Dimension: 4.30 cm Mitral Valve Right Ventricle RV Internal Diastolic Dimension: 3.42 cm Aorta AO Root Diam: 3.16 cm Ascending Ao Diam: 2.79 cm Aortic Valve AoV Area (Peak Da): 2.30 cm2, 2.30 cm2 AoV Area (VTI): 2.37 cm2, 2.37 cm2 Peak Velocity(Antegrade Flow): 1.47 m/s Peak Gradient(Antegrade Flow): 8.70 mm[Hg] Mean Velocity(Antegrade Flow): 1.05 m/s Mean Gradient(Antegrade Flow): 5.04 mm[Hg] Velocity Time Integral: 31.71 cm Tricuspid Valve Peak Velocity (Regurgitant Flow): 2.33 m/s, 2.31 m/s Peak Velocity: 0.56 m/s Pulmonic Valve Mean Gradient: 1.39 mm[Hg], 1.57 mm[Hg] Mean Velocity: 0.56 m/s, 0.60 m/s Peak Velocity: 0.81 m/s, 0.81 m/s, 0.85 m/s Peak Gradient: 2.87 mm[Hg], 2.60 mm[Hg], 2.60 mm[Hg] Right Atrium Right Atrium Systolic Pressure: 74.20 ml, 74.20 ml Dictated by: Josh Roque M.D. on 08/04/2022 at 09:30 Approved by: Josh Roque M.D. on 08/04/2022 at 09:34 [facility] Patient Educationon 04-19-19 Patient Education Urology Urinary Incontinence Urinary incontinence refers to a condition in which a person is unable to control where and when to pass urine. A person with this condition will urinate when he or she does not mean to (involuntarily). What are the causes? This condition may be caused by: ? Medicines. ? Infections. ? Constipation. ? Overactive bladder muscles. ? Weak bladder muscles. ? Weak pelvic floor muscles. These muscles provide support for the bladder, intestine, and, in women, the uterus. ? Enlarged prostate in men. The prostate is a gland near the bladder. When it gets too big, it can pinch the urethra. With the urethra blocked, the bladder can weaken and lose the ability to empty properly. ? Surgery. ? Emotional factors, such as anxiety, stress, or post-traumatic stress disorder (PTSD). ? Pelvic organ prolapse. This happens in women when organs shift out of place and into the vagina. This shift can prevent the bladder and urethra from working properly. What increases the risk? The following factors may make you more likely to develop this condition: ? Older age. ? Obesity and physical inactivity. ? and childbirth. ? Menopause. ? Diseases that affect the nerves or spinal cord (neurological diseases). ? Long-term (chronic) coughing. This can increase pressure on the bladder and pelvic floor muscles. What are the signs or symptoms? Symptoms may vary depending on the type of urinary incontinence you have. They include: ? A sudden urge to urinate, but passing urine involuntarily before you can get to a bathroom (urge incontinence). ? Suddenly passing urine with any activity that forces urine to pass, such as coughing, laughing, exercise, or sneezing (stress incontinence). ? Needing to urinate often, but urinating only a small amount, or constantly dribbling urine (overflow incontinence). ? Urinating because you cannot get to the bathroom in time due to a physical disability, such as arthritis or injury, or communication and thinking problems, such as Alzheimer disease (functional incontinence). How is this diagnosed? This condition may be diagnosed based on: ? Your medical history. ? A physical exam. ? Tests, such as: ? Urine tests. ? X-rays of your kidney and bladder. ? Ultrasound. ? CT scan. ? Cystoscopy. In this procedure, a health care provider inserts a tube with a light and camera (cystoscope) through the urethra and into the bladder in order to check for problems. ? Urodynamic testing. These tests assess how well the bladder, urethra, and sphincter can store and release urine. There are different types of urodynamic tests, and they vary depending on what the test is measuring. To help diagnose your condition, your health care provider may recommend that you keep a log of when you urinate and how much you urinate. How is this treated? Treatment for this condition depends on the type of incontinence that you have and its cause. Treatment may include: ? Lifestyle changes, such as: ? Quitting smoking. ? Maintaining a healthy weight. ? Staying active. Try to get 150 minutes of moderate-intensity exercise every week. Ask your health care provider which activities are safe for you. ? Eating a healthy diet. ? Avoid high-fat foods, like fried foods. ? Avoid refined carbohydrates like white bread and white rice. ? Limit how much alcohol and caffeine you drink. ? Increase your fiber intake. Foods such as fresh fruits, vegetables, beans, and whole grains are healthy sources of fiber. ? Pelvic floor muscle exercises. ? Bladder training, such as lengthening the amount of time between bathroom breaks, or using the bathroom at regular intervals. ? Using techniques to suppress bladder urges. This can include distraction techniques or controlled breathing exercises. ? Medicines to relax the bladder muscles and prevent bladder spasms. ? Medicines to help slow or prevent the growth of a man's prostate. ? Botox injections. These can help relax the bladder muscles. ? Using pulses of electricity to help change bladder reflexes (electrical nerve stimulation). ? For women, using a medical biller to prevent urine leaks. This is a small, tampon-like, disposable device that is inserted into the urethra. ? Injecting collagen or carbon beads (bulking agents) into the urinary sphincter. These can help thicken tissue and close the bladder opening. ? Surgery. Follow these instructions at home: Lifestyle ? Limit alcohol and caffeine. These can fill your bladder quickly and irritate it. ? Keep yourself clean to help prevent odors and skin damage. Ask your doctor about special skin creams and cleansers that can protect the skin from urine. ? Consider wearing pads or adult diapers. Make sure to change them regularly, and always change them right after experiencing incontinence. General instructions ? Take iazq-emd-eoezomu and prescription medicines only as (more content not included)... Normal [facility] Urology Office/Clinic Noteon 04-19-2022 Urology Office/Clinic Note Chief Complaint 4 month f/u HPI Staff Irvin is a 87 y/o male here for a 4 month f/u w/PVR. Previous DX: BPH, Feeling of incomplete emptying, mixed incontinence, nocturia, urinary retention, urgency. DLS pt. was previously on Vesicare 5mg. ran out of refills and hasn't been taking it for at least a few months. doesn't think it worked when he was on it, but isn't sure. Pt is unaware when he actually needs to void. He wears a depends with a pad in it. He has accidents daily and has little to no control. No hematuria and denies and infections. Review of Systems PHQ Score Initial Depression Screen Score: 0 no fever, chills, malaise, myalgia. no rash/lesions. no chest pain, palpitations, or SOB. no abdominal pain, nausea, vomiting. no unilateral calf swelling, redness, pain Physical Exam Vitals & Measurements HR: 77(Peripheral) BP: 138/93 WT: 86.1 kg WT: 189.42 lb General: nontoxic, NAD Mouth: moist mucosa Lungs: normal respiratory effort Cardio: regular rate, good distal perfusion Abdomen: nondistended, no suprapubic distention or tenderness, no CVA tenderness Neurologic: Grossly normal Skin: No rashes or suspicious lesions Assessment/Plan 1. BPH with obstruction/lower urinary tract symptoms (N40.1: Benign prostatic hyperplasia with lower urinary tract symptoms) sp TURP August 2020 on Flomax reports variable stream, sometimes strong/steady sometimes dribbles. Ordered: E&M of Est. Patient Low 20-29 Min 42627 Urnls Dip Stick Auto w/o Microscopy POC 52740 2. Incontinence without sensory awareness (N39.42: Incontinence without sensory awareness) was previously on Vesicare 5 mg. doesn't think it helped. does not get urge to void, then when he does it's too late. encouraged q2-3hr timed voiding while awake. discussed bladder irritants - pt drinks 3c coffee in am then switches to tea the rest of the day. printed info given for him to review at home. f/u in 3 mos to see if lifestyle modifications improve sx at all. if not, can consider resuming Vesicare or trial another anticholinergic. Ordered: E&M of Est. Patient Low 20-29 Min 90524 3. Nocturia (R35.1: Nocturia) c/o q1h at last visit. says this has improved a lot. now only gets up a couple times per night. not sure what caused change. Ordered: E&M of Est. Patient Low 20-29 Min 58611 Follow-up With When Contact Information BERTRAND MONTERO, HARPER Ly, URL Within 3 months [address] [place] [place] [address] Additional Instructions: Patient Education Urinary Incontinence Problem List/Past Medical History Ongoing BMI 30.0-30.9,adult BPH with obstruction/lower urinary tract symptoms Feeling of incomplete bladder emptying Incontinence without sensory awareness Male urinary stress incontinence Mixed incontinence Nocturia Retention of urine Urge incontinence Urgency of urination Historical No qualifying data Procedure/Surgical History Cystoscopy (09/24/2020), Cystoscopy (10/02/2019), Cystourethroscopy with dilation of urethral stricture (09/06/2016), Bilateral replacement of knee joints, Cholecystectomy, Colonoscopy, Procedure on back, Transurethral water vapor ablation of prostate. Medications amLODIPine 10 mg Tab, 10 mg= 1 tab(s), Oral, Daily atenolol-chlorthalidone 100 mg-25 mg Tab, 1 tab(s), Oral, Daily atorvastatin 20 mg Tab, 20 mg= 1 tab(s), Oral, Daily benazepril 40 mg oral tablet, 40 mg= 1 tab(s), Oral, Daily Calcium 500+D, 1 tab(s), Chewed, Daily Flomax, 0.4 mg, Oral, Daily gabapentin 300 mg Cap, 300 mg= 1 cap(s), Oral, QID Januvia 100 mg Tab, 100 mg= 1 tab(s), Oral, Daily Jardiance metformin 1000 mg Tab, 1000 mg= 1 tab(s), Oral, BID Multi Vitamins oral tablet Vesicare 5 mg Tab, 5 mg= 1 tab(s), Oral, Daily, 2 refills, Not taking Allergies Demerol HCl meperidine (Unknown, AOF) Social History Alcohol - Low Risk, 09/06/2021 Current, Beer, 1-2 times per week, 09/06/2021 Substance Abuse - Denies Substance Abuse, 09/06/2021 Tobacco Never (less than 100 in lifetime) Tobacco Use:., 09/06/2021 Family History Asthma: Sister. Hypertension: Father. Migraine: Child. Primary malignant neoplasm of bone: Mother. Stroke: Father. Immunizations Vaccine Date Status SARS-CoV-2 (COVID-19) [id number] 03/19/2022 Recorded influenza virus vaccine, inactivated 01/17/2022 Recorded influenza virus vaccine, inactivated 12/2020 Recorded SARS-CoV-2 (COVID-19) mRNA-1273 vaccine 05/2020 Recorded SARS-CoV-2 (COVID-19) mRNA-1273 vaccine 06/2019 Recorded influenza virus vaccine, inactivated 01/01/2018 Recorded influenza virus vaccine, inactivated 01/15/2017 Recorded influenza virus vaccine, inactivated 01/21/2016 Recorded Lab Results Ambulatory Point of Care Results Bilirubin Urine Dipstick: Negative (04/19/22 15:03:00) Blood Urine Dipstick: Negative (04/19/22 15:03:00) Glucose Urine Dipstick: 3+ 1000 mg/dl (04/19/22 15:03:00) Ketones Urine Dipstick: Trace - 5 mg/dl (04/02 (more content not included)... Normal [facility] Comment on above: Result Comment: Electronically Signed By : HARPER BARRETO PA-C\.br\Date and Time Signed: 04/19/22 15:54 EST CBC AUTO DIFFon 01-30-2022 BASO # 0.1 103/ul Normal 0.0-0.1 [facility] Comment on above: Performed By: #### CBC #### [facility] [address] [address] [address] Roseline Kennedy Basophils/100 WBC (Bld) 0.7 % Normal 0.2-2.0 [facility] Comment on above: Performed By: #### CBC #### [facility] [address] [address] [address] Roseline Kennedy EO # 1.1 103/ul Critically high 0.0-0.7 [facility] Comment on above: Performed By: #### CBC #### [facility] [address] [place] [address] Dr. Roseline Kennedy Eosinophils/100 WBC (Bld) 12.2 % Critically high 0.9-7.0 [facility] Comment on above: Performed By: #### CBC #### [facility] [address] [place] [address] Dr. Roseline Kennedy Erythrocyte distribution width (RBC) [Ratio] 14.0 % Normal 11.0-15.0 [facility] Comment on above: Performed By: #### CBC #### [facility] [address] [place] [address] Dr. Roseline Kennedy Hematocrit (Bld) [Volume fraction] 48.1 % Normal 42.0-54.0 [facility] Comment on above: Performed By: #### CBC #### [facility] [address] [place] [address] Dr. Roseline Kennedy Hemoglobin (Bld) [Mass/Vol] 15.8 g/dL Normal 14.0-18.0 [facility] Comment on above: Performed By: #### CBC #### [facility] [address] [place] [address] Dr. Roseline Kennedy IG # 0.06 10e3/ul Critically high 0.00-0.03 [facility] Comment on above: Performed By: #### CBC #### [facility] [address] [place] [address] Dr. Roseline Kennedy IG % 0.7 % Critically high 0.0-0.5 [facility] Comment on above: Performed By: #### CBC #### [facility] [address] [place] [address] Dr. Roseline Kennedy LYMPH # 2.1 103/ul Normal 1.2-3.8 [facility] Comment on above: Performed By: #### CBC #### [facility] [address] [place] [address] Dr. Roseline Kennedy Lymphocytes/100 WBC (Bld) 23.3 % Normal 20.5-60.0 [facility] Comment on above: Performed By: #### CBC #### [facility] [address] [place] [address] Dr. Roseline Kennedy MANUAL DIFF REQ NO Normal [facility] Comment on above: Performed By: #### CBC #### [facility] [address] [place] [address] Dr. Roseline Kennedy MCH (RBC) [Entitic mass] 31.5 pg Normal 25.9-34.0 [facility] Comment on above: Performed By: #### CBC #### [facility] [address] [place] [address] Dr. Roseline Kennedy MCHC (RBC) [Mass/Vol] 32.8 g/dL Normal 29.9-35.2 [facility] Comment on above: Performed By: #### CBC #### [facility] [address] [place] [address] Dr. Roseline Kennedy MCV (RBC) [Entitic vol] 95.8 fL Critically high 80.0-94.0 [facility] Comment on above: Performed By: #### CBC #### [facility] [address] [place] [address] Dr. Roseline Kennedy MONO # 0.8 103/ul Normal 0.3-0.8 [facility] Comment on above: Performed By: #### CBC #### [facility] [address] [place] [address] Dr. Roseline Kennedy Monocytes/100 WBC (Bld) 9.3 % Normal 1.7-12.0 [facility] Comment on above: Performed By: #### CBC #### [facility] [address] [place] [address] Dr. Roseline Kennedy NEUT # 4.9 103/ul Normal 1.4-6.5 [facility] Comment on above: Performed By: #### CBC #### [facility] [address] [place] [address] Dr. Roseline Kennedy Neutrophils/100 WBC (Bld) 53.8 % Normal 43.0-75.0 [facility] Comment on above: Performed By: #### CBC #### [facility] [address] [address] [address] Roseline Kennedy Platelet mean volume (Bld) [Entitic vol] 10.0 fL Normal 9.5-13.5 [facility] Comment on above: Performed By: #### CBC #### [facility] [address] [address] [address] Roseline Kennedy PLT 260 103/ul Normal 150-450 [facility] Comment on above: Performed By: #### CBC #### [facility] [address] [address] [address] Roseline Kennedy RBC 5.02 106/ul Normal 4.70-6.10 [facility] Comment on above: Performed By: #### CBC #### [facility] [address] [place] [address] Dr. Roseline Kennedy WBC 9.0 103/ul Normal 4.0-11.0 [facility] Comment on above: Performed By: #### CBC #### [facility] [address] [address] [address] Roseline Kennedy GLYCOHEMOGLOBIN A1Con 2021 ADA RECOMMENDATION SEE BELOW Normal [facility] Comment on above: Result Comment: ADA RECOMMENDED LIMIT 4. 0 - 6.0 ADA THERAPEUTIC TARGET < 7.0 ACTION SUGGESTED > 7.0 Performed By: #### A 1C #### [facility] [address] [place] [address] Dr. Roseline Kennedy Glucose [Mass/Vol] 154 mg/dL Normal [facility] Comment on above: Performed By: #### A1C #### [facility] [address] [place] [address] Dr. Roseline Kennedy HbA1c (Bld) [Mass fraction] 7.0 % Critically high 4.5-6.2 [facility] Comment on above: Performed By: #### A1C #### [facility] [address] [place] [address] Dr. Roseline Kennedy LIPID PROFILEon 01-30-2022 CHOL-HDL RATIO NORM SEE BELOW Normal [facility] Comment on above: Result Comment: 3.3 - 4.4 LOW RISK 4.4 - 7.1 AVERAGE RISK 7.1 - 11.0 MODERATE RISK >11.0 HIGH RISK Performed By: #### A LT, BMP, LIPID #### [facility] [address] [place] [address] Dr. Roseline Kennedy Cholesterol [Mass/Vol] 113 mg/dL Normal <=200 [facility] Comment on above: Performed By: #### ALT, BMP, LIPID #### [facility] [address] [address] [address] Roseline Kennedy Cholesterol in HDL [Mass/Vol] 62 mg/dL Critically high 40-60 [facility] Comment on above: Performed By: #### ALT, BMP, LIPID #### [facility] [address] [place] [address] Dr. Roseline Kennedy Cholesterol in LDL [Mass/Vol] 31.0 mg/dL Normal [facility] Comment on above: Performed By: #### ALT, BMP, LIPID #### [facility] [address] [place] [address] Dr. Roseline Kennedy Cholesterol.tota l/Cholesterol in HDL [Mass ratio] 1.8 {ratio} Normal [facility] Comment on above: Performed By: #### ALT, BMP, LIPID #### [facility] [address] [place] [address] Dr. Roseline Kennedy HDL NORMAL > or = 60 mg/dl - LO W CARDIOVASCULAR RISK <40 mg/dl - HIGH CARDIOVASCULAR RISK Normal [facility] Comment on above: Performed By: #### ALT, BMP, LIPID #### [facility] [address] [place] [address] Dr. Roseline Kennedy LDL CALC NORMAL SEE BELOW Normal [facility] Comment on above: Result Comment: <100 mg/dl OPTIMAL 100 - 129 mg/dl NEAR OR ABOVE OPTIMAL 130 - 159 mg/dl BORDERLINE HIGH 160 - 189 mg/dl HIGH >190 mg/dl VERY HIGH Performed By: #### A LT, BMP, LIPID #### [facility] [address] [place] [address] Dr. Roseline Kennedy Triglyceride [Mass/Vol] 100 mg/dL Normal <=150 [facility] Comment on above: Performed By: #### ALT, BMP, LIPID #### [facility] [address] [address] [address] Roseline Kennedy VLDL CALC 20.0 mg/dL Normal [facility] Comment on above: Performed By: #### ALT, BMP, LIPID #### [facility] [address] [address] [address] Roseline Kennedy MICROALBUMIN, RAND URon 10-3 mALB <1.3 Normal <=30.0 [facility] Comment on above: Performed By: #### MALBR #### [facility] [address] [address] [address] Roseline Kennedy PROF CHEM 8 (BAS METB)on Anion gap [Moles/Vol] 11.9 mmol/L Normal [facility] Comment on above: Performed By: #### ALT, BMP, LIPID #### [facility] [address] [address] [address] Roseline Kennedy Calcium [Mass/Vol] 9.3 mg/dL Normal 8.5-10.1 [facility] Comment on above: Performed By: #### ALT, BMP, LIPID #### [facility] [address] [address] [address] Roseline Kennedy Chloride [Moles/Vol] 101 mmol/L Normal 98-107 [facility] Comment on above: Performed By: #### ALT, BMP, LIPID #### [facility] [address] [address] [address] Roseline Kennedy CO2 [Moles/Vol] 30.7 mmol/L Normal 21.0-32.0 [facility] Comment on above: Performed By: #### ALT, BMP, LIPID #### [facility] [address] [address] [address] Roseline Kennedy Creatinine [Mass/Vol] 0.97 mg/dL Normal 0.70-1.30 [facility] Comment on above: Performed By: #### ALT, BMP, LIPID #### [facility] [address] [address] [address] Roseline Kennedy EGFR-AF [place] >60 Normal >=60 [facility] Comment on above: Performed By: #### ALT, BMP, LIPID #### [facility] [address] [address] [address] Roseline Kennedy EGFR-NON AF [place] >60 Normal >=60 [facility] Comment on above: Performed By: #### ALT, BMP, LIPID #### [facility] [address] [address] [address] Roseline Kennedy Glucose [Mass/Vol] 150 mg/dL Critically high 74-106 [facility] Comment on above: Performed By: #### ALT, BMP, LIPID #### [facility] [address] [address] [address] Roseline Kennedy Potassium [Moles/Vol] 3.6 mmol/L Normal 3.5-5.1 [facility] Comment on above: Performed By: #### ALT, BMP, LIPID #### [facility] [address] [address] [address] Roseline Kennedy Sodium [Moles/Vol] 140 mmol/L Normal 136-145 [facility] Comment on above: Performed By: #### ALT, BMP, LIPID #### [facility] [address] [address] [address] Roseline Kennedy Urea nitrogen [Mass/Vol] 18.0 mg/dL Normal 7.0-18.0 [facility] Comment on above: Performed By: #### ALT, BMP, LIPID #### [facility] [address] [address] [address] Roseline Kennedy Urea nitrogen/Creatin ine [Mass ratio] 18.6 mg/mg Normal [facility] Comment on above: Performed By: #### ALT, BMP, LIPID #### [facility] [address] [address] [address] Roseline Kennedy [facility] 01-30-2022 ALT [Catalytic activity/Vol] 20 U/L Normal 16-63 [facility] Comment on above: Performed By: #### ALT, BMP, LIPID #### [facility] [address] [address] [address] 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 Feeling of incomplete bladder emptying Other obstructive and reflux uropathy Tests Performed Urnls Dip Stick Auto w/o Microscopy POC 14812 Your Care Team Attending Physician - Michael Trevino Jr., MD Primary Care Physician - JASIEL LAWLER DO This Is Your Medications List Contact prescribing physician if questions or concerns amlodipine (amLODIPine 10 mg Tab) atenolol-chlorthalidone (atenolol-chlorthalidone 100 mg-25 mg Tab) atorvastatin (atorvastatin 20 mg Tab) benazepril (benazepril 40 mg oral tablet) calcium-vitamin D (Calcium 500+D) empagliflozin (Jardiance) gabapentin (gabapentin 300 mg Cap) metformin (metformin 1000 mg Tab) multivitamin (Multi Vitamins oral tablet) sitagliptin (Januvia 100 mg Tab) solifenacin (Vesicare 5 mg Tab) tamsulosin (Flomax) Procedures Performed Cystoscopy (09/24/2020), Cystoscopy (10/02/2019), Cystourethroscopy with dilation of urethral stricture (09/06/2016), Bilateral replacement of knee joints, Cholecystectomy, Colonoscopy, Procedure on back, Transurethral water vapor ablation of prostate. Discharge Vitals Heart Rate (Peripheral) 66 Blood Pressure 122/74 Weight 86.1 kg Weight 86.1 kg What to do next Scheduled Follow-Up Appointments Sunday 10:30 AM EST With: Michael Trevino Jr., MD Where: [facility] Patient Educationon 11-09-19 22 Patient Education Urology Benign Prostatic Hyperplasia Benign prostatic hyperplasia (BPH) is an enlarged prostate gland that is caused by the normal aging process and not by cancer. The prostate is a walnut-sized gland that is involved in the production of semen. It is located in front of the rectum and below the bladder. The bladder stores urine and the urethra is the tube that carries the urine out of the body. The prostate may get bigger as a man gets older. An enlarged prostate can press on the urethra. This can make it harder to pass urine. The build-up of urine in the bladder can cause infection. Back pressure and infection may progress to bladder damage and kidney (renal) failure. What are the causes? This condition is part of a normal aging process. However, not all men develop problems from this condition. If the prostate enlarges away from the urethra, urine flow will not be blocked. If it enlarges toward the urethra and compresses it, there will be problems passing urine. What increases the risk? This condition is more likely to develop in men over the age of 50 years. What are the signs or symptoms? Symptoms of this condition include: ? Getting up often during the night to urinate. ? Needing to urinate frequently during the day. ? Difficulty starting urine flow. ? Decrease in size and strength of your urine stream. ? Leaking (dribbling) after urinating. ? Inability to pass urine. This needs immediate treatment. ? Inability to completely empty your bladder. ? Pain when you pass urine. This is more common if there is also an infection. ? Urinary tract infection (UTI). How is this diagnosed? This condition is diagnosed based on your medical history, a physical exam, and your symptoms. Tests will also be done, such as: ? A post-void bladder scan. This measures any amount of urine that may remain in your bladder after you finish urinating. ? A digital rectal exam. In a rectal exam, your health care provider checks your prostate by putting a lubricated, gloved finger into your rectum to feel the back of your prostate gland. This exam detects the size of your gland and any abnormal lumps or growths. ? An exam of your urine (urinalysis). ? A prostate specific antigen (PSA) screening. This is a blood test used to screen for prostate cancer. ? An ultrasound. This test uses sound waves to electronically produce a picture of your prostate gland. Your health care provider may refer you to a specialist in kidney and prostate diseases (urologist). How is this treated? Once symptoms begin, your health care provider will monitor your condition (active surveillance or watchful waiting). Treatment for this condition will depend on the severity of your condition. Treatment may include: ? Observation and yearly exams. This may be the only treatment needed if your condition and symptoms are mild. ? Medicines to relieve your symptoms, including: ? Medicines to shrink the prostate. ? Medicines to relax the muscle of the prostate. ? Surgery in severe cases. Surgery may include: ? Prostatectomy. In this procedure, the prostate tissue is removed completely through an open incision or with a laparoscope or robotics. ? Transurethral resection of the prostate (TURP). In this procedure, a tool is inserted through the opening at the tip of the penis (urethra). It is used to cut away tissue of the inner core of the prostate. The pieces are removed through the same opening of the penis. This removes the blockage. ? Transurethral incision (TUIP). In this procedure, small cuts are made in the prostate. This lessens the prostate's pressure on the urethra. ? Transurethral microwave thermotherapy (TUMT). This procedure uses microwaves to create heat. The heat destroys and removes a small amount of prostate tissue. ? Transurethral needle ablation (TUNA). This procedure uses radio frequencies to destroy and remove a small amount of prostate tissue. ? Interstitial laser coagulation (ILC). This procedure uses a laser to destroy and remove a small amount of prostate tissue. ? Transurethral electrovaporization (TUVP). This procedure uses electrodes to destroy and remove a small amount of prostate tissue. ? Prostatic urethral lift. This procedure inserts an implant to push the lobes of the prostate away from the urethra. Follow these instructions at home: ? Take iivj-njf-yypdglw and prescription medicines only as told by your health care provider. ? Monitor your symptoms for any changes. Contact your health care provider with any changes. ? Avoid drinking large amounts of liquid before going to bed or out in public. ? Avoid or reduce how much caffeine or alcohol you drink. ? Give yourself time when you urinate. ? Keep all follow-up visits as told by your health care provider. This is important. Contact a health care provider if: ? You have unexplained back pain. ? Your symptoms do not get better with treatment. ? You d (more content not included)... Normal [facility] Urology Office/Clinic Noteon 11-08-2021 Urology Office/Clinic Note Chief Complaint Patient in office for f/u with [facility] HPI Staff Patient in office for 2 month f/u w/PVR. Patient was started on Vesicare 5mg on 09/06/21, patient is also taking Tamsulosin 0.4mg. Patient states he has been having issues with urgency, and leaking prior to voiding. States when he gets up to go to the restroom, at times he cant not make it in time and or is unable to urinate. States he is up almost every hour at night to urinate. Denies any blood, and or burning. Dysuria: denies Incomplete bladder emptying: denies Hematuria: denies Frequency: denies Urgency: admits Nocturia: admits, every hour Stream: steady Leaking: admits Post void dripping: admits Wearing pads/ Depends: admits Urge incontinence: denies Stress incontinence: denies Incontinence without Sensory Awareness: denies Abdominal pain: denies Flank pain: denies Sexual complaints: _ History of Present Illness Tests reviewed: reviewed UA I have reviewed the previous health record information and history for this patient from Dr. Trevino. I have reviewed and verified the staff HPI to be accurate for this encounter. There have been no associated fever, chills, flank pain, or blood in the urine. Denies any urinary infections since last encounter. Review of Systems ROS - Provider Constitutional: denies weight loss, denies hot flashes. Eyes: denies eye problems. Gastrointestinal: denies nausea, denies vomiting. Cardiovascular: denies chest pain or angina. Integumentary: no dryness Musculoskeletal: denies musculoskeletal symptoms. ENMT: denies otolaryngeal symptoms. Respiratory: no shortness of breath. Heme/Lymph: denies easy bleeding tendency, denies easy bruising tendency. Psychiatric: no confusion, no anxiety. Genitourinary: denies dysuria, denies hematuria, denies discharge, denies urinary frequency, denies urinary hesitancy, denies nocturia, denies incontinence, denies genital sores, denies decreased libido, and denies erectile dysfunction. Physical Exam Vitals & Measurements HR: 66(Peripheral) BP: 122/74 WT: 86.1 kg WT: 86.1 kg General Appearance: alert, no distress, well nourished, well developed male. Genitourinary: normal scrotum, normal testes, normal urethra, normal epididymis, normal vas deferens/spermatic cord. Flank Pain: none. Bladder: nonpalpable. Assessment/Plan This patient is an 86-year-old male with a history of urinary incontinence. His incontinence is mostly urgency. States he has difficulty gets to the toilet bowl. He walks fairly slowly around. He is fairly stable. Slow. He was started on Vesicare 5 mg daily on his last visit in August 2021. Overall he thinks the medicine may be helping but only a small amount. He has a fair strength a little less urgency but he still has some urgency incontinence. We discussed the medication in detail and particularly the potential side effects of this medication. Presently does not seem to have any side effects. I like him to stay on Vesicare at 5 mg daily. He has at least 1 more refill will be glad to refill this prescription. We will plan to see him back in the office with a PVR in 4 months. Hopefully he will start having some significant improvement using this medication. Contact office if there is any significant changes. Reviewed urinalysis. No infection identified. 1. BPH with obstruction/lower urinary tract symptoms (N40.1: Benign prostatic hyperplasia with lower urinary tract symptoms) IPSS today; 15. UA today is negative. Pt gets up every hour during the night. Pt states he has urgency before and after meals. Pt to continue Tamsulosin 0.4mg qd. Pt will follow up in 4 months w/ PVR. Ordered: Measure Post Void residual urine and/or bladder capacity by US- non-imaging 77259 Urnls Dip Stick Auto w/o Microscopy POC 56037 Urnls Dip Stick Auto w/o Microscopy POC 45080 2. Mixed incontinence (N39.46: Mixed incontinence) S/p TURP done 09/24/2020 Ordered: Measure Post Void residual urine and/or bladder capacity by US- non-imaging 62816 Urnls Dip Stick Auto w/o Microscopy POC 08340 Urnls Dip Stick Auto w/o Microscopy POC 06632 3. Feeling of incomplete bladder emptying (R39.14: Feeling of incomplete bladder emptying) PVR today is 50mL. Pt wears depends daily. Pt feels his sxs have not improved greatly. Pt to continue VESICARE 5mg qd. Pt to call our office for refills. Ordered: Measure Post Void residual urine and/or bladder capacity by US- non-imaging 45149 Urnls Dip Stick Auto w/o Microscopy POC 73744 Urnls Dip Stick Auto w/o Microscopy POC 22691 Other obstructive and reflux uropathy (N13.8: Other obstructive and reflux uropathy) Follow-up With When Contact Information Uriel Damian MD, Michael Rivera, URO In 4 months [facility] [address], [place] [address] [phone] Additional Instructions: w/ PVR Patient Education Benign Prostatic Hyperplasia I, Magalie Sylvester, personally scribed for Dr. Trevino on 11/08/2021 11:38:02. Electronically signed (more content not included)... Normal [facility] Comment on above: Result Comment: Electronically Signed By : Uriel Damian MD, Michael Rivera\.br\Date and Time Signed: 11/08/21 11:42 EDT\.br\Electronically Co-Signed By: Magalie Sylvester\.br\Date and Time Co-Signed: 11/08/21 11:38 EDT POCT Glucoseon 08-21-2019 Glucose [Mass/Vol] 277 mg/dL Critically high 60-115 [facility] Comment on above: Performed By: #### CMP #### [facility] [address] [place] [address] POC Performed on ACCU-CHEK Normal [facility] Comment on above: Result Comment: Notified RN or MD Performed By: #### C MP #### [facility] [address] [place] [address] Glucose [Mass/Vol] 187 mg/dL Critically high 60-115 [facility] Comment on above: Performed By: #### CMP #### [facility] [address] [place] [address] POC Performed on ACCU-CHEK Normal [facility] Comment on above: Result Comment: Notified RN or MD Performed By: #### C MP #### [facility] [address] [place] [address] Glucose [Mass/Vol] 187 mg/dL High 60 - 115 mg/dl [facility], [place] Interpretation and review of laboratory results Abnormal [facility], [place] Performed on ACCU-CHEK [place], [place] Comment on above: Notified RN or MD Urinalysis, reflex to cultur stefania 08-21-2019 Bilirubin Ql (U) Negative Normal Negative [facility] Comment on above: Performed By: #### CMP #### [facility] [address] [place] [address] Clarity (U) Clear Normal Clear [facility] Comment on above: Performed By: #### CMP #### [facility] [address] [place] [address] Color (U) Yellow Normal Straw/Taliaferro [facility] Comment on above: Performed By: #### CMP #### [facility] [address] [place] [address] Glucose Ql (U) >=1000 Abnormal Negative [facility] Comment on above: Performed By: #### CMP #### [facility] [address] [place] [address] Hemoglobin Ql (U) Negative Normal Negative [facility] Comment on above: Performed By: #### CMP #### [facility] [address] [place] [address] Ketones Ql (U) TRACE Abnormal Negative [facility] Comment on above: Performed By: #### CMP #### [facility] [address] [place] [address] Leukocyte esterase Test strip Ql (U) Negative Normal Negative [facility] Comment on above: Performed By: #### CMP #### [facility] [address] [place] [address] Nitrite Ql (U) Negative Normal Negative [facility] Comment on above: Performed By: #### CMP #### [facility] [address] [place] [address] pH (U) 5.0 [pH] Normal 5.0-9.0 [facility] Comment on above: Performed By: #### CMP #### [facility] [address] [place] [address] Protein Ql (U) Negative Normal Negative [facility] Comment on above: Performed By: #### CMP #### [facility] [address] [place] [address] Specific gravity (U) [Rel density] 1.029 Normal 1.005-1.03 [facility] Comment on above: Performed By: #### CMP #### [facility] [address] [place] [address] Urine Reflexed to Culture Not Indicated Normal [facility] Comment on above: Performed By: #### CMP #### [facility] [address] [place] [address] Urobilinogen Qn (U) 0.2 {Nadeen'U}/dL Normal < 2.0 [facility] Comment on above: Performed By: #### CMP #### [facility] [address] [place] [address] FLUORO FOR SURGICAL PROCEDUR ESon 08-20-2019 Yohan, Chpo Incoming R adiant Results From [employer] - 08/20/2019 1:15 PM EDT EXAM: FLUORO FOR SURGICAL PROCEDURES HISTORY:R52 PAIN ICD10 R52 PAIN ICD10 Findings: Fluoroscopy time was 5.5 seconds A total of 5 fluoroscopic images were obtained by Dr. Espitia during the operative procedure involving the thoracic spine. Please refer to operative report for further details. IMPRESSION: FLUOROSCOPIC ASSISTANCE PROVIDED FOR OPERATIVE GUIDANCE. [place] FLUOROSCOPIC ASSISTA NCE PROVIDED FOR OPERATIVE GUIDANCE. [place] EXAM: FLUORO FOR MONIQUE GICAL PROCEDURES HISTORY:R52 PAIN ICD10 R52 PAIN ICD10 Findings: Fluoroscopy time was 5.5 seconds A total of 5 fluoroscopic images were obtained by Dr. Espitia during the operative procedure involving the thoracic spine. Please refer to operative report for further details. [place] POCT Glucoseon 08-20-2019 Glucose [Mass/Vol] 230 mg/dL Critically high 60-115 [facility] Comment on above: Performed By: #### CMP #### [facility] [address] [facility] [address] POC Performed on ACCU-CHEK Normal [facility] Comment on above: Performed By: #### CMP #### [facility] [address] [place] [address] Glucose [Mass/Vol] 230 mg/dL High 60 - 115 mg/dl [place] Interpretation and review of laboratory results Abnormal [place] Performed on ACCU-CHEK [place] Glucose [Mass/Vol] 186 mg/dL Critically high 60-115 [facility] Comment on above: Performed By: #### CMP #### [facility] [address] [place] [address] POC [facility] Comment on above: Result Comment: Notified RN or MD Performed By: #### C MP #### [facility] [address] [place] [address] Glucose [Mass/Vol] 186 mg/dL High 60 - 115 mg/dl [place] Interpretation and review of laboratory results Abnormal [place] Performed on ACCU-CHEK [place] Comment on above: Notified RN or MD Glucose [Mass/Vol] 209 mg/dL Critically high 60-115 [facility] Comment on above: Performed By: #### CMP #### [facility] [address] [place] [address] POC [facility] Comment on above: Result Comment: Notified RN or MD Performed By: #### C MP #### [facility] [address] [place] [address] Glucose [Mass/Vol] 209 mg/dL High 60 - 115 mg/dl [place] Interpretation and review of laboratory results Abnormal [place] Performed on ACCU-CHEK [place] Comment on above: Notified RN or MD Glucose [Mass/Vol] 138 mg/dL Critically high 60-115 [facility] Comment on above: Performed By: #### CMP #### [facility] [address] [place] [address] POC [facility] Comment on above: Result Comment: Notified RN or MD Performed By: #### C MP #### [facility] [address] [place] [address] Glucose [Mass/Vol] 138 mg/dL High 60 - 115 mg/dl [place] Interpretation and review of laboratory results Abnormal [place] Performed on ACCU-CHEK [place] Comment on above: Notified RN or MD URINE RT REFLEX TO CULTUREon 08-20-2019 Bilirubin Urine Negative Negative [place] Blood, Urine Negative Negative [place] Clarity, UA Clear Clear [place] Color, UA Yellow Straw/Taliaferro ow [place] Glucose, Ur >=1000 Abnormal Negative mg/dL [place] Interpretation and review of laboratory results Abnormal [place] Ketones Ql (U) TRACE Abnormal Negative mg/dL [place] Leukocyte esterase Test strip Ql (U) Negative Negative [place] Nitrite, Urine Negative Negative [place] pH, UA 5.0 [place] Protein (U) [Mass/Vol] Negative Negative mg/dL [place] Specific [place], UA 1.029 [place] Urine Reflex to Culture Not Indicated [place] Urobilinogen, Urine 0.2 <2.0 E.U./dL [place] FLUORO FOR SURGICAL PROCEDUR ESon 08-19-2019 FLUORO FOR SURGICAL PROCEDURES EXAM: FLUORO FOR SURGICAL PROCEDURES HISTORY:R52 PAIN ICD10 R52 PAIN ICD10 Findings: Fluoroscopy time was 5.5 seconds A total of 5 fluoroscopic images were obtained by Dr. Espitia during the operative procedure involving the thoracic spine. Please refer to operative report for further details. IMPRESSION: FLUOROSCOPIC ASSISTANCE PROVIDED FOR OPERATIVE GUIDANCE. Interpreted by: Jimenez Gomez MD Signed by: Jimenez Gomez MD 08/20/19 Final result Normal [facility] POCT Glucoseon 08-19-2019 Glucose [Mass/Vol] 163 mg/dL Critically high 60-115 [facility] Comment on above: Performed By: #### CMP #### [facility] [address] [place] [address] POC Performed on ACCU-CHEK Normal [facility] Comment on above: Result Comment: Notified RN or MD Performed By: #### C MP #### [facility] [address] [place] [address] Glucose [Mass/Vol] 163 mg/dL High 60 - 115 mg/dl [facility] [place], [place] Interpretation and review of laboratory results Abnormal [facility], [place] Performed on ACCU-CHEK [facility] Comment on above: Notified RN or MD Glucose [Mass/Vol] 144 mg/dL Critically high 60-115 [facility] Comment on above: Performed By: #### CMP #### [facility] [address] [place] [address] POC [facility] Normal [facility] Comment on above: Performed By: #### CMP #### [facility] [address] [place] [address] Glucose [Mass/Vol] 132 mg/dL Critically high 60-115 [facility] Comment on above: Performed By: #### UAR #### [facility] [address] [place] [address] POC Performed on ACCU-CHEK [facility] Comment on above: Performed By: #### UAR #### [facility] [address] [place] [address] Glucose [Mass/Vol] 144 mg/dL High 60 - 115 mg/dl [facility] Interpretation and review of laboratory results Abnormal [facility]- [place] Performed on ACCU-CHEK [facility]- [place], [place] Glucose [Mass/Vol] 132 mg/dL High 60 - 115 mg/dl [facility] Interpretation and review of laboratory results Abnormal [facility] Performed on ACCU-CHEK [facility] [place] Glucose [Mass/Vol] 136 mg/dL Critically high 60-115 [facility] Comment on above: Performed By: #### UAR #### [facility] [address] [place] [address] POC Performed on ACCU-CHEK Normal [facility] Comment on above: Performed By: #### UAR #### [facility] [address] [place] [address] Glucose [Mass/Vol] 136 mg/dL High 60 - 115 mg/dl [place] Interpretation and review of laboratory results Abnormal [place] Performed on ACCU-CHEK [facility], [place] Glucose [Mass/Vol] 124 mg/dL Critically high 60-115 [facility] Comment on above: Performed By: #### UAR #### [facility] [address] [place] [address] POC Performed on ACCU-CHEK Normal [facility] Comment on above: Performed By: #### UAR #### [facility] [address] [place] [address] Glucose [Mass/Vol] 124 mg/dL High 60 - 115 mg/dl [place] Interpretation and review of laboratory results Abnormal [facility], [place] Performed on ACCU-CHEK [facility] Surgical Specimenon 08-19-19 Surgical Specimen [facility] [address] [place] [address] FINAL SURGICAL PATHOLOGY REPORT Patient Name: IRVIN DE OLIVEIRA Accession No: [id number] Age Sex: 1935 Location: [facility] [id number] Account No: [id number] Collected: 08/19/2019 Med Rec No: [id number] Received: 08/20/2019 Attend Phys: SEYMOUR ESPITIA Completed: 08/22/2019 Perform Phys: SEYMOUR ESPITIA FINAL DIAGNOSIS: EPIDURAL TISSUE: 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 SPECIMEN: Epidural Tissue GROSS DESCRIPTION: Specimen received in formalin in a container labeled Irvin Yennifer and designated as spine . Specimen consists of brownish-schroeder soft to firm tissue which appears to be possibly lined by skin measuring 1.1 x 0.5 x 0.2 cm. The specimen is submitted in toto in one cassette after decalcification. ALIFA/NIR CPT: 83492 X1 12613 X1 Intradepartmental Consultation performed by: Dr. JEOVANNY NOBLE M.D., who concurs with the above diagnosis. Kenneth DEL ROSARIO M.D. 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 Procedure Date Date: 08/18/2019 Start: 10:22 AM Study Location: Portable Technical Quality: Adequate visualization Indications:Preop cardiac evaluation. Patient Status: Routine Height: 67 inches Weight: 195 pounds BSA: 2 m^2 BMI: 30.54 kg/m^2 BP: 140/83 mmHg Conclusions Summary Mildly reduced LV EF 45-50%, inferolateral hypokinesis. No significant valve disease. Normal estimated PA pressure. Abnormal diastolic relaxation. Signature Findings Left Ventricle Left ventricular ejection fraction is visually estimated at 45-50%. Normal left ventricular size and function. Normal left ventricular wall thickness. Septal hypertrophy. No LVOT obstruction. Impaired diastolic relaxation. Right Ventricle Normal right ventricle structure and function. Normal right ventricle systolic pressure. Left Atrium Mildly dilated left atrium. Right Atrium Normal right atrium. Mitral Valve Mild MVP with trivial MR. Tricuspid Valve Normal tricuspid valve structure and function. Aortic Valve Normal aortic valve structure and function. Pulmonic Valve Normal pulmonic valve structure and function. Pericardial Effusion No evidence of pericardial effusion. Aorta \ Miscellaneous The aorta is within normal limits. M-Mode Measurements (cm) LVIDd: 5.48 cm LVIDs: 4.41 cm IVSd: 1.28 cm IVSs: 1.43 cm LVPWd: 1.1 cm LVPWs: 1.38 cm Rt. Vent. Dimension: 3.6 cm AO Root Dimension: 3.38 cm ACS: 1.96 cm LA: 4.87 cm LVOT: 1.96 cm Doppler Measurements: AV Velocity:0.02 m/s MV Peak E-Wave: 0.55 m/s AV Peak Gradient: 8.28 mmHg MV Peak A-Wave: 0.93 m/s AV Mean Gradient: 3.96 mmHg AV Area (Continuity):1.89 cm^2 TR Velocity:1.96 m/s Estimated RAP:3 mmHg TR Gradient:15.44 mmHg RVSP:18.44 mmHg Valves Mitral Valve Peak E-Wave: 0.55 m/s Peak A-Wave: 0.93 m/s E/A Ratio: 0.59 Peak Gradient: 1.19 mmHg Deceleration Time: 236.6 msec Tissue Doppler E' Septal Velocity: 0.08 m/s E' Lateral Velocity: 0.07 m/s Aortic Valve Peak Velocity: 1.44 m/s Mean Velocity: 0.92 m/s Peak Gradient: 8.28 mmHg Mean Gradient: 3.96 mmHg Area (continuity): 1.89 cm^2 AV VTI: 31.46 cm Cusp Separation: 1.96 cm Tricuspid Valve Estimated RVSP: 18.44 mmHg Estimated RAP: 3 mmHg TR Velocity: 1.96 m/s TR Gradient: 15.44 mmHg Pulmonic Valve Peak Velocity: 1.02 m/s Peak Gradient: 4.2 mmHg Estimated PASP: 18.44 mmHg LVOT Peak Velocity: 0.82 m/s Mean Velocity: 0.58 m/s Peak Gradient: 2.57 mmHg Mean Gradient: 1.46 mmHg LVOT Diameter: 1.96 cm LVOT VTI: 19.72 cm Structures Left Atrium LA Dimension: 4.87 cm LA Area: 19.89 cm^2 LA/Aorta: 1.44 LA Volume/Index: 59.82 ml /30 m^2 Left Ventricle Diastolic Dimension: 5.48 cm Systolic Dimension: 4.41 cm Septum Diastolic: 1.28 cm Septum Systolic: 1.43 cm PW Diastolic: 1.1 cm PW Systolic: 1.38 cm FS: 19.5 % LV EDV/LV EDV Index: 146.34 ml/73 m^2 LV ESV/LV ESV Index: 88.35 ml/44 m^2 EF Calculated: 39.6 % LV Length: 8.09 cm LVOT Diameter: 1.96 cm Right Atrium RA Systolic Pressure: 3 mmHg Right Ventricle Diastolic Dimension: 3.6 cm RV Systolic Pressure: 18.44 mmHg Aorta/ Miscellaneous Aorta Aortic Root: 3.38 cm LVOT Diameter: 1.96 cm [facility] [place], [place] Yohan, Chpo Incoming C ardiovascular Results From [facility] - 08/18/2019 4:14 PM EDT Transthoracic Echocardiography Report (TTE) Demographics Patient Name YENNIFER Ly Gender Male Patient Number [id number] Race Ethnicity Visit Number [id number] Room Number W291 Corporate ID Date of Study 08/18/2019 Referring Physician Number Date of 1935 [employer] 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 Procedure Date Date: 08/18/2019 Start: 10:22 AM Study Location: Portable Technical Quality: Adequate visualization Indications:Preop cardiac evaluation. Patient Status: Routine Height: 67 inches Weight: 195 pounds BSA: 2 m^2 BMI: 30.54 kg/m^2 BP: 140/83 mmHg Conclusions Summary Mildly reduced LV EF 45-50%, inferolateral hypokinesis. No significant valve disease. Normal estimated PA pressure. Abnormal diastolic relaxation. Signature Findings Left Ventricle Left ventricular ejection fraction is visually estimated at 45-50%. Normal left ventricular size and function. Normal left ventricular wall thickness. Septal hypertrophy. No LVOT obstruction. Impaired diastolic relaxation. Right Ventricle Normal right ventricle structure and function. Normal right ventricle systolic pressure. Left Atrium Mildly dilated left atrium. Right Atrium Normal right atrium. Mitral Valve Mild MVP with trivial MR. Tricuspid Valve Normal tricuspid valve structure and function. Aortic Valve Normal aortic valve structure and function. Pulmonic Valve Normal pulmonic valve structure and function. Pericardial Effusion No evidence of pericardial effusion. Aorta \ Miscellaneous The aorta is within normal limits. M-Mode Measurements (cm) LVIDd: 5.48 cm LVIDs: 4.41 cm IVSd: 1.28 cm IVSs: 1.43 cm LVPWd: 1.1 cm LVPWs: 1.38 cm Rt. Vent. Dimension: 3.6 cm AO Root Dimension: 3.38 cm ACS: 1.96 cm LA: 4.87 cm LVOT: 1.96 cm Doppler Measurements: AV Velocity:0.02 m/s MV Peak E-Wave: 0.55 m/s AV Peak Gradient: 8.28 mmHg MV Peak A-Wave: 0.93 m/s AV Mean Gradient: 3.96 mmHg AV Area (Continuity):1.89 cm^2 TR Velocity:1.96 m/s Estimated RAP:3 mmHg TR Gradient:15.44 mmHg RVSP:18.44 mmHg Valves Mitral Valve Peak E-Wave: 0.55 m/s Peak A-Wave: 0.93 m/s E/A Ratio: 0.59 Peak Gradient: 1.19 mmHg Deceleration Time: 236.6 msec Tissue Doppler E' Septal Velocity: 0.08 m/s E' Lateral Velocity: 0.07 m/s Aortic Valve Peak Velocity: 1.44 m/s Mean Velocity: 0.92 m/s Peak Gradient: 8.28 mmHg Mean Gradient: 3.96 mmHg Area (continuity): 1.89 cm^2 AV VTI: 31.46 cm Cusp Separation: 1.96 cm Tricuspid Valve Estimated RVSP: 18.44 mmHg Estimated RAP: 3 mmHg TR Velocity: 1.96 m/s TR Gradient: 15.44 mmHg Pulmonic Valve Peak Velocity: 1.02 m/s Peak Gradient: 4.2 mmHg Estimated PASP: 18.44 mmHg LVOT Peak Velocity: 0.82 m/s Mean Velocity: 0.58 m/s Peak Gradient: 2.57 mmHg Mean Gradient: 1.46 mmHg LVOT Diameter: 1.96 cm LVOT VTI: 19.72 cm Structures Left Atrium LA Dimension: 4.87 cm LA Area: 19.89 cm^2 LA/Aorta: 1.44 LA Volume/Index: 59.82 ml /30 m^2 Left Ventricle Diastolic Dimension: 5.48 cm Systolic Dimension: 4.41 cm Septum Diastolic: 1.28 cm Septum Systolic: 1.43 cm PW Diastolic: 1.1 cm PW Systolic: 1.38 cm FS: 19.5 % LV EDV/LV EDV Index: 146.34 ml/73 m^2 LV ESV/LV ESV Index: 88.35 ml/44 m^2 EF Calculated: 39.6 % LV Length: 8.09 cm LVOT Diameter: 1.96 cm Right Atrium RA Systolic Pressure: 3 mmHg Right Ventricle Diastolic Dimension: 3.6 cm RV Systolic Pressure: 18.44 mmHg Aorta/ Miscellaneous Aorta Aortic Root: 3.38 cm LVOT Diameter: 1.96 cm [facility] [place] E[facility] 12 Lead - Chest Painon 0 08-18-2019 Atrial Rate 61 BPM [facility] [place] 72 degrees [facility] [place] P-R Interval 320 ms [facility] [employer] [place] Q-T Interval 468 ms [facility] QRS Duration 176 ms [facility] [place] QTc Calculation (Bazett) 471 ms [facility], [place] R [place] -83 degrees [facility] [place] T [place] -12 degrees [place] Ventricular Rate 61 BPM [place], [place] Sinus rhythm with 1s t degree AV block with occasional premature ventricular complexes Left axis deviation Right bundle branch block Possible Lateral infarct , age undetermined 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) Abnormal ECG When compared with ECG of 20-NOV-2017 08:05, Borderline criteria for Lateral infarct are now present Questionable change in initial forces of Inferior leads Confirmed by Ted Mcleod ([id number]) on 08/18/2019 4:39:50 PM [place], [place] Yohan, Chpo Incoming R esults From [place] - 08/18/2019 4:39 PM EDT Sinus rhythm with 1st degree AV block with occasional premature ventricular complexes Left axis deviation Right bundle branch block Possible Lateral infarct , age undetermined 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) Abnormal ECG When compared with ECG of 20-NOV-2017 08:05, Borderline criteria for Lateral infarct are now present Questionable change in initial forces of Inferior leads Confirmed by Ted Mcleod ([id number]) on 08/18/2019 4:39:50 PM [place] POCT Glucoseon 08-18-2019 Glucose [Mass/Vol] 141 mg/dL Critically high 60-115 [facility] Comment on above: Performed By: #### UAR #### [facility] [address] [place] [address] [facility] Comment on above: Result Comment: Notified RN or MD Performed By: #### U AR #### [facility] [address] [place] [address] Glucose [Mass/Vol] 141 mg/dL High 60 - 115 mg/dl [place] Interpretation and review of laboratory results Abnormal [place] Performed on ACCU-CHEK [place] Comment on above: Notified RN or MD Glucose [Mass/Vol] 179 mg/dL Critically high 60-115 [facility] Comment on above: Performed By: #### UAR #### [facility] [address] [place] [address] POC [facility] Comment on above: Result Comment: Notified RN or MD Performed By: #### U AR #### [facility] [address] [place] [address] Glucose [Mass/Vol] 179 mg/dL High 60 - 115 mg/dl [facility] Interpretation and review of laboratory results Abnormal [facility], [place] Performed on ACCU-CHEK [place] Comment on above: Notified RN or MD Glucose [Mass/Vol] 121 mg/dL Critically high 60-115 [facility] Comment on above: Performed By: #### UAR #### [facility] [address] [place] [address] POC [facility] Normal [facility] Comment on above: Result Comment: Notified RN or MD Performed By: #### U AR #### [facility] [address] [address] Glucose [Mass/Vol] 121 mg/dL High 60 - 115 mg/dl [place] Interpretation and review of laboratory results Abnormal [facility] [place] Performed on ACCU-CHEK [place] Comment on above: Notified RN or MD Glucose [Mass/Vol] 128 mg/dL Critically high 60-115 [facility] Comment on above: Performed By: #### UAR #### [facility] [address] [place] [address] POC Performed on ACCU-CHEK Normal [facility] Comment on above: Result Comment: Notified RN or MD Performed By: #### U AR #### [facility] [address] [address] Glucose [Mass/Vol] 128 mg/dL High 60 - 115 mg/dl [place] Interpretation and review of laboratory results Abnormal [facility], [place] Performed on ACCU-CHEK [place] Comment on above: Notified RN or MD MRI THORACIC SPINE WO CONTRA STon 08-17-2019 EXAMINATION: MRI THO RACIC SPINE WO CONTRAST DATE AND TIME:08/16/2019 2:30 PM CLINICAL HISTORY: Severe thoracic spine pain. thoracic spinal stenosis, progressve, gait instability COMPARISON: If available previous films were reviewed for comparison. Technique: Multiplanar multisequence MRI scans of the thoracic spine. Findings: Bones: The thoracic vertebrae are normally aligned with no evidence of fracture. There is normal marrow signal throughout the thoracic spine. Disc space: At T7-8 there is a central/right paracentric disc protrusion with deformity of the right half of the thoracic cord. There is prominent posterior soft tissue change suggestive of prominence of the ligamenta flava with possible ossification. These changes are resulting in [id number] central canal stenosis at this level. At T11-12 there is prominent posterior soft tissue density of low signal intensity in T2 consistent with thickening of ligamenta flava with probable ossification. This is combining with broad-based disc bulging resulting in severe/extreme spinal canal stenosis at this level. There may be some slight increase in cord signal intensity suggesting cord edema. Foraminal stenosis right greater than left. At T8-9 there is minimal disc bulging without canal or foraminal narrowing Remainder of the thoracic spine shows mild degenerative change with no signs of any additional disc herniation or spinal canal stenosis Soft tissues: There is no paraspinal soft tissue mass or fluid collection. [facility] [place], [place] Yohan, Chpo Incoming R adiant Results From [facility] - 08/17/2019 6:01 PM EDT EXAMINATION: MRI THORACIC SPINE WO CONTRAST DATE AND TIME:08/16/2019 2:30 PM CLINICAL HISTORY: Severe thoracic spine pain. thoracic spinal stenosis, progressve, gait instability COMPARISON: If available previous films were reviewed for comparison. Technique: Multiplanar multisequence MRI scans of the thoracic spine. Findings: Bones: The thoracic vertebrae are normally aligned with no evidence of fracture. There is normal marrow signal throughout the thoracic spine. Disc space: At T7-8 there is a central/right paracentric disc protrusion with deformity of the right half of the thoracic cord. There is prominent posterior soft tissue change suggestive of prominence of the ligamenta flava with possible ossification. These changes are resulting in [id number] central canal stenosis at this level. At T11-12 there is prominent posterior soft tissue density of low signal intensity in T2 consistent with thickening of ligamenta flava with probable ossification. This is combining with broad-based disc bulging resulting in severe/extreme spinal canal stenosis at this level. There may be some slight increase in cord signal intensity suggesting cord edema. Foraminal stenosis right greater than left. At T8-9 there is minimal disc bulging without canal or foraminal narrowing Remainder of the thoracic spine shows mild degenerative change with no signs of any additional disc herniation or spinal canal stenosis Soft tissues: There is no paraspinal soft tissue mass or fluid collection. IMPRESSION: At T11-12 there is broad-based disc bulging/protrusion combine with exuberant ligamenta flava resulting in severe/extreme spinal canal stenosis. There may be some mild cord edema. At T7-8 there is a right paracentric disc protrusion with contact and deformity of the right ventral thoracic cord. Mild/moderate canal stenosis at this level. No abnormal cord signal intensity at this level. [place] At T11-[address]-based disc bulging/protrusion combine with exuberant ligamenta flava resulting in severe/extreme spinal canal stenosis. There may be some mild cord edema. At T7-8 there is a right paracentric disc protrusion with contact and deformity of the right ventral thoracic cord. Mild/moderate canal stenosis at this level. No abnormal cord signal intensity at this level. [place] POCT Glucoseon 08-17-2019 Glucose [Mass/Vol] 189 mg/dL Critically high 60-115 [facility] Comment on above: Performed By: #### UAR #### [facility] [address] [facility] [address] POC [facility] Comment on above: Performed By: #### UAR #### [facility] [address] [place] [address] Glucose [Mass/Vol] 189 mg/dL High 60 - 115 mg/dl [place] Interpretation and review of laboratory results Abnormal [place] Performed on ACCU-CHEK [place] Glucose [Mass/Vol] 126 mg/dL Critically high 60-115 [facility] Comment on above: Performed By: #### UAR #### [facility] [address] [address] POC [facility] Comment on above: Performed By: #### UAR #### [facility] [address] [place] [address] Glucose [Mass/Vol] 126 mg/dL High 60 - 115 mg/dl [place] Interpretation and review of laboratory results Abnormal [place] Performed on ACCU-CHEK [place] Glucose [Mass/Vol] 138 mg/dL Critically high 60-115 [facility] Comment on above: Performed By: #### PGLU #### [facility] [address] [place] [address] POC [facility] Comment on above: Performed By: #### PGLU #### [facility] [address] [place] [address] Glucose [Mass/Vol] 138 mg/dL High 60 - 115 mg/dl [place] Interpretation and review of laboratory results Abnormal [place] Performed on ACCU-CHEK [place] Glucose [Mass/Vol] 142 mg/dL Critically high 60-115 [facility] Comment on above: Performed By: #### PGLU #### [facility] [address] [place] [address] POC [facility] Comment on above: Performed By: #### PGLU #### [facility] [address] [place] [address] Glucose [Mass/Vol] 142 mg/dL High 60 - 115 mg/dl [place] Interpretation and review of laboratory results Abnormal [place] Performed on ACCU-CHEK [place] TYPE AND SCREENon 08-17-2019 ABO/Rh Positive [place], [place] Type and Screen Capture 3 sc rn cellon 08-17-2019 Type and Screen Capture 3 scrn cell PATIENT: YENNIFER Ly LOC: [id number] BILL# : [id number] : 1935 SEX: M ORDERED BY: NUPUR MAE ORDERED : 08/17/2019 12:06 COLLECTED: 08/17/2019 13:57 ORDER : [id number] RECEIVED : 08/17/2019 14:37 TEST NAME RESULT UNITS RANGES ABN FL ST ABORH Capture O POS F Antibody 3 Cell Scrn Captu NEG F Normal [facility] Comment on above: Performed By: #### TS3C #### [facility] [address] [place] [address] XR CHEST STANDARD (2 VW)on 08-17-2019 NO ACTIVE LUNG DISEASE. [place] EXAMINATION: XR CHES T (2 VW). DATE AND TIME:08/16/2019 3:00 PM CLINICAL HISTORY: Shortness of breath Preop COMPARISONS: None FINDINGS: The heart, mediastinum and pulmonary vasculature are within normal limits. Visualized lung queen are clear. Bones unremarkable. [place], [place] Yohan, Chpo Incoming R adiant Results From [employer] - 08/17/2019 8:10 AM EDT EXAMINATION: XR CHEST (2 VW). DATE AND TIME:08/16/2019 3:00 PM CLINICAL HISTORY: Shortness of breath Preop COMPARISONS: None FINDINGS: The heart, mediastinum and pulmonary vasculature are within normal limits. Visualized lung queen are clear. Bones unremarkable. IMPRESSION: NO ACTIVE LUNG DISEASE. [place] CBC Auto Differentialon 07-31 Basophils (Bld) [#/Vol] 0.1 10*3/uL 0 - 0.2 K/uL [place] Basophils/100 WBC (Bld) 1.0 % [place] Eosinophils (Bld) [#/Vol] 0.4 10*3/uL 0 - 0.7 K/uL [place] Eosinophils/100 WBC (Bld) 4 % [place] Erythrocyte distribution width (RBC) [Ratio] 17.1 % High 11.5 - 14.5 % [place] Hematocrit (Bld) [Volume fraction] 46.2 % 42 - 52 % [place] Hemoglobin (Bld) [Mass/Vol] 15.5 g/dL 14 - 18 g/dL [place] Interpretation and review of laboratory results Abnormal [place] Lymphocytes (Bld) [#/Vol] 2.0 10*3/uL 1 - 4.8 K/uL [place] Lymphocytes/100 WBC (Bld) 22.8 % [place] MCH (RBC) [Entitic mass] 30.4 pg 27 - 31.3 pg [place] MCHC (RBC) [Mass/Vol] 33.6 % 33 - 37 % [place] MCV (RBC) [Entitic vol] 90.4 fL 80 - 100 fL [place] Monocytes (Bld) [#/Vol] 0.9 10*3/uL High 0.2 - 0.8 K/uL [place] Monocytes/100 WBC (Bld) 9.5 % [place] Neutrophils Absolute 5.6 K/uL 1.4 - 6.5 K/uL [place] Neutrophils/100 WBC (Bld) 62.7 % [place] Platelets (Bld) [#/Vol] 257 10*3/uL 130 - 400 K/uL [place] RBC (Bld) [#/Vol] 5.11 10*6/uL [place] WBC (Bld) [#/Vol] 9.0 10*3/uL 4.8 - 10.8 K/uL [place] CBC With Platelet and Differ entialon 08-16-2019 Basophils (Bld) [#/Vol] 0.1 10*3/uL Normal 0.0-0.2 [facility] Comment on above: Performed By: #### CBCWD #### [facility] [address] [place] [address] Basophils/100 WBC (Bld) 1.0 % Normal [facility] Comment on above: Performed By: #### CBCWD #### [facility] [address] [place] [address] Eosinophils (Bld) [#/Vol] 0.4 10*3/uL Normal 0.0-0.7 [facility] Comment on above: Performed By: #### CBCWD #### [facility] [address] [place] [address] Eosinophils/100 WBC (Bld) 4.0 % Normal [facility] Comment on above: Performed By: #### CBCWD #### [facility] [address] [place] [address] Erythrocyte distribution width (RBC) [Ratio] 17.1 % Critically high 11.5-14.5 [facility] Comment on above: Performed By: #### CBCWD #### [facility] [address] [place] [address] Hematocrit (Bld) [Volume fraction] 46.2 % Normal 42.0-52.0 [facility] Comment on above: Performed By: #### CBCWD #### [facility] [address] [place] [address] Hemoglobin (Bld) [Mass/Vol] 15.5 g/dL Normal 14.0-18.0 [facility] Comment on above: Performed By: #### CBCWD #### [facility] [address] [place] [address] Lymphocytes (Bld) [#/Vol] 2.0 10*3/uL Normal 1.0-4.8 [facility] Comment on above: Performed By: #### CBCWD #### [facility] [address] [place] [address] Lymphocytes/100 WBC (Bld) 22.8 % Normal [facility] Comment on above: Performed By: #### CBCWD #### [facility] [address] [place] [address] MCH (RBC) [Entitic mass] 30.4 pg Normal 27.0-31.3 [facility] Comment on above: Performed By: #### CBCWD #### [facility] [address] [place] [address] MCHC (RBC) [Mass/Vol] 33.6 % Normal 33.0-37.0 [facility] Comment on above: Performed By: #### CBCWD #### [facility] [address] [place] [address] MCV (RBC) [Entitic vol] 90.4 fL Normal 80.0-100.0 [facility] Comment on above: Performed By: #### CBCWD #### [facility] [address] [place] [address] Monocytes (Bld) [#/Vol] 0.9 10*3/uL Critically high 0.2-0.8 [facility] Comment on above: Performed By: #### CBCWD #### [facility] [address] [place] [address] Monocytes/100 WBC (Bld) 9.5 % Normal [facility] Comment on above: Performed By: #### CBCWD #### [facility] [address] [place] [address] Neutrophils (Bld) [#/Vol] 5.6 10*3/uL Normal 1.4-6.5 [facility] Comment on above: Performed By: #### CBCWD #### [facility] [address] [place] [address] Neutrophils/100 WBC (Bld) 62.7 % Normal [facility] Comment on above: Performed By: #### CBCWD #### [facility] [address] [place] [address] Platelets (Bld) [#/Vol] 257 10*3/uL Normal 130-400 [facility] Comment on above: Performed By: #### CBCWD #### [facility] [address] [place] [address] RBC (Bld) [#/Vol] 5.11 10*6/uL Normal 4.70-6.10 [facility] Comment on above: Performed By: #### CBCWD #### [facility] [address] [place] [address] WBC (Bld) [#/Vol] 9.0 10*3/uL Normal 4.8-10.8 [facility] Comment on above: Performed By: #### CBCWD #### [facility] [address] [place] [address] Comprehensive Metabolic Pane chaparro 08-16-2019 Albumin [Mass/Vol] 4.1 g/dL Normal 3.5-4.6 [facility] Comment on above: Performed By: #### CMP #### [facility] [address] [place] [address] ALP [Catalytic activity/Vol] 65 U/L Normal 35-104 [facility] Comment on above: Performed By: #### CMP #### [facility] [address] [place] [address] ALT [Catalytic activity/Vol] 12 U/L Normal 0-41 [facility] Comment on above: Performed By: #### CMP #### [facility] [address] [place] [address] Anion gap [Moles/Vol] 16 mmol/L Critically high 9-15 [facility] Comment on above: Performed By: #### CMP #### [facility] [address] [place] [address] AST [Catalytic activity/Vol] 23 U/L Normal 0-40 [facility] Comment on above: Result Comment: Specimen hemolysis has e xceeded the interference as defined by Tara. Value may be falsely increased. Suggest recollection if clinically indicated. Performed By: #### C MP #### [facility] [address] [place] [address] Bilirubin [Mass/Vol] 1.0 mg/dL Critically high 0.2-0.7 [facility] Comment on above: Performed By: #### CMP #### [facility] [address] [place] [address] Calcium [Mass/Vol] 9.6 mg/dL Normal 8.5-9.9 [facility] Comment on above: Performed By: #### CMP #### [facility] [address] [place] [address] Chloride [Moles/Vol] 102 mmol/L Normal 95-107 [facility] Comment on above: Performed By: #### CMP #### [facility] [address] [place] [address] CO2 [Moles/Vol] 27 mmol/L Normal 20-31 [facility] Comment on above: Performed By: #### CMP #### [facility] [address] [place] [address] Creatinine [Mass/Vol] 0.70 mg/dL Normal 0.70-1.20 [facility] Comment on above: Performed By: #### CMP #### [facility] [address] [place] [address] GFR/1.73 sq M predicted among blacks MDRD (S/P/Bld) [Vol rate/Area] mL/min/{1.73_m2} Normal >60 [facility] Comment on above: Result Comment: >60 mL/min/1.73m2 EGFR, calc. for ages 18 and older using the MDRD formula (not corrected for weight), is valid for stable renal function. Performed By: #### C MP #### [facility] [address] [place] [address] GFR/1.73 sq M.predicted MDRD (S/P/Bld) [Vol rate/Area] mL/min/{1.73_m2} Normal >60 [facility] Comment on above: Result Comment: >60 mL/min/1.73m2 EGFR, calc. for ages 18 and older using the MDRD formula (not corrected for weight), is valid for stable renal function. Performed By: #### C MP #### [facility] [address] [place] [address] Globulin (S) [Mass/Vol] 2.8 g/dL Normal 2.3-3.5 [facility] Comment on above: Performed By: #### CMP #### [facility] [address] [place] [address] Glucose [Mass/Vol] 129 mg/dL Critically high 70-99 [facility] Comment on above: Performed By: #### CMP #### [facility] [address] [place] [address] Potassium [Moles/Vol] 3.9 mmol/L Normal 3.4-4.9 [facility] Comment on above: Performed By: #### CMP #### [facility] [address] [place] [address] Protein [Mass/Vol] 6.9 g/dL Normal 6.3-8.0 [facility] Comment on above: Performed By: #### CMP #### [facility] [address] [place] [address] Sodium [Moles/Vol] 145 mmol/L Critically high 135-144 [facility] Comment on above: Performed By: #### CMP #### [facility] [address] [place] [address] Urea nitrogen [Mass/Vol] 17 mg/dL Normal 8-23 [facility] Comment on above: Performed By: #### CMP #### [facility] [address] [place] [address] Albumin [Mass/Vol] 4.1 g/dL 3.5 - 4.6 g/dL [place] ALP [Catalytic activity/Vol] 65 U/L 35 - 104 U/L [place] ALT [Catalytic activity/Vol] 12 U/L 0 - 41 U/L [place] Anion gap [Moles/Vol] 16 mmol/L High [place] AST [Catalytic activity/Vol] 23 U/L 0 - 40 U/L [place] Comment on above: Specimen hemolysis has exceeded the inte rference as defined by Tara. Value may be falsely increased. Suggest recollection if clinically indicated. Bilirubin Ql (U) 1.0 mg/dL High 0.2 - 0.7 mg/dL [place] Calcium [Mass/Vol] 9.6 mg/dL 8.5 - 9.9 mg/dL [place] Chloride [Moles/Vol] 102 mmol/L [place] CO2 [Moles/Vol] 27 mmol/L [place] Creatinine [Mass/Vol] 0.7 mg/dL 0.7 - 1.2 mg/dL [place] GFR >60.0 >60 [place] Comment on above: >60 mL/min/1.73m2 EGFR, calc. for ages 1 8 and older using the MDRD formula (not corrected for weight), is valid for stable renal function. GFR Non- >60.0 >60 [place] Comment on above: >60 mL/min/1.73m2 EGFR, calc. for ages 1 8 and older using the MDRD formula (not corrected for weight), is valid for stable renal function. Globulin (S) [Mass/Vol] 2.8 g/dL 2.3 - 3.5 g/dL [place] Glucose [Mass/Vol] 129 mg/dL High 70 - 99 mg/dL [place] Interpretation and review of laboratory results Abnormal [place] Potassium [Moles/Vol] 3.9 mmol/L [place] Protein [Mass/Vol] 6.9 g/dL 6.3 - 8 g/dL [place] Sodium [Moles/Vol] 145 mmol/L High [place] Urea nitrogen [Mass/Vol] 17 mg/dL 8 - 23 mg/dL [facility] MRI THORACIC SPINE WO CONTRA STon 08-16-2019 MRI THORACIC SPINE WO CONTRAST EXAMINATION: MRI THORACIC SPINE WO CONTRAST DATE AND TIME:08/16/2019 2:30 PM CLINICAL HISTORY: Severe thoracic spine pain. thoracic spinal stenosis, progressve, gait instability COMPARISON: If available previous films were reviewed for comparison. Technique: Multiplanar multisequence MRI scans of the thoracic spine. Findings: Bones: The thoracic vertebrae are normally aligned with no evidence of fracture. There is normal marrow signal throughout the thoracic spine. Disc space: At T7-8 there is a central/right paracentric disc protrusion with deformity of the right half of the thoracic cord. There is prominent posterior soft tissue change suggestive of prominence of the ligamenta flava with possible ossification. These changes are resulting in yubm-iw-qtodjlym central canal stenosis at this level. At T11-12 there is prominent posterior soft tissue density of low signal intensity in T2 consistent with thickening of ligamenta flava with probable ossification. This is combining with broad-based disc bulging resulting in severe/extreme spinal canal stenosis at this level. There may be some slight increase in cord signal intensity suggesting cord edema. Foraminal stenosis right greater than left. At T8-9 there is minimal disc bulging without canal or foraminal narrowing Remainder of the thoracic spine shows mild degenerative change with no signs of any additional disc herniation or spinal canal stenosis Soft tissues: There is no paraspinal soft tissue mass or fluid collection. IMPRESSION: At T11-12 there is broad-based disc bulging/protrusion combine with exuberant ligamenta flava resulting in severe/extreme spinal canal stenosis. There may be some mild cord edema. At T7-8 there is a right paracentric disc protrusion with contact and deformity of the right ventral thoracic cord. Mild/moderate canal stenosis at this level. No abnormal cord signal intensity at this level. Interpreted by: Jimenez Gomez MD Signed by: Jimenez Gomez MD 08/17/19 Final result Normal [facility] POCT Glucoseon 08-16-2019 Glucose [Mass/Vol] 121 mg/dL Critically high 60-115 [facility] Comment on above: Performed By: #### PGLU #### [facility] [address] [place] [address] POC Performed on ACCU-CHEK Normal [facility] Comment on above: Result Comment: Notified RN or MD Performed By: #### P GLU #### [facility] [address] [place] [address] Glucose [Mass/Vol] 121 mg/dL High 60 - 115 mg/dl [place], [place] Interpretation and review of laboratory results Abnormal [place] Performed on ACCU-CHEK [place] Comment on above: Notified RN or MD Glucose [Mass/Vol] 193 mg/dL Critically high 60-115 [facility] Comment on above: Performed By: #### PGLU #### [facility] [address] [place] [address] POC [facility] Comment on above: Performed By: #### PGLU #### [facility] [address] [place] [address] Glucose [Mass/Vol] 193 mg/dL High 60 - 115 mg/dl [place] Interpretation and review of laboratory results Abnormal [place] Performed on ACCU-CHEK [place] Sedimentation Rateon 020 Sedimentation Rate 8 mm Normal 0-20 [facility] Comment on above: Performed By: #### ESR #### [facility] [address] [place] [address] Sed Rate 8 mm 0 - 20 mm [place] Urinalysis, reflex to cultur stefania 08-16-2019 Bilirubin Ql (U) Negative Normal Negative [facility] Comment on above: Performed By: #### UAR #### [facility] [address] [place] [address] Clarity (U) Clear Normal Clear [facility] Comment on above: Performed By: #### UAR #### [facility] [address] [place] [address] Color (U) Yellow Normal Straw/Taliaferro [facility] Comment on above: Performed By: #### UAR #### [facility] [address] [place] [address] Glucose Ql (U) >=1000 Abnormal Negative [facility] Comment on above: Performed By: #### UAR #### [facility] [address] [place] [address] Hemoglobin Ql (U) Negative Normal Negative [facility] Comment on above: Performed By: #### UAR #### [facility] [address] [place] [address] Ketones Ql (U) Negative Normal Negative [facility] Comment on above: Performed By: #### UAR #### [facility] [address] [place] [address] Leukocyte esterase Test strip Ql (U) Negative Normal Negative [facility] Comment on above: Performed By: #### UAR #### [facility] [address] [place] [address] Nitrite Ql (U) Negative Normal Negative [facility] Comment on above: Performed By: #### UAR #### [facility] [address] [place] [address] pH (U) 7.0 [pH] Normal 5.0-9.0 [facility] Comment on above: Performed By: #### UAR #### [facility] [address] [place] [address] Protein Ql (U) Negative Normal Negative [facility] Comment on above: Performed By: #### UAR #### [facility] [address] [place] [address] Specific gravity (U) [Rel density] 1.036 Normal 1.005-1.03 [facility] Comment on above: Performed By: #### UAR #### [facility] [address] [place] [address] Urine Reflexed to Culture Not Indicated Normal [facility] Comment on above: Performed By: #### UAR #### [facility] [address] [place] [address] Urobilinogen Qn (U) 1.0 {Nadeen'U}/dL Normal < 2.0 [facility] Comment on above: Performed By: #### UAR #### [facility] [address] [place] [address] Urine Reflex to Cultureon Bilirubin Urine Negative Negative [place] Blood, Urine Negative Negative [place] Clarity, UA Clear Clear [place] Color, UA Yellow Straw/Taliaferro [place] Glucose, Ur >=1000 Abnormal Negative mg/dL [place] Interpretation and review of laboratory results Abnormal [place] Ketones Ql (U) Negative Negative mg/dL [place] Leukocyte esterase Test strip Ql (U) Negative Negative [place] Nitrite, Urine Negative Negative [place] pH, UA 7.0 [place] Protein (U) [Mass/Vol] Negative Negative mg/dL [place] Specific [place], UA 1.036 [place] Urine Reflex to Culture Not Indicated [place] Urobilinogen, Urine 1.0 <2.0 E.U./dL [place] XR CHEST (2 VW)on 08-16-2019 XR CHEST (2 VW) EXAMINATION: XR CHES T (2 VW). DATE AND TIME:08/16/2019 3:00 PM CLINICAL HISTORY: Shortness of breath Preop COMPARISONS: None FINDINGS: The heart, mediastinum and pulmonary vasculature are within normal limits. Visualized lung queen are clear. Bones unremarkable. IMPRESSION: NO ACTIVE LUNG DISEASE. Interpreted by: Jimenez Gomez MD Signed by: Jimenez Gomez MD 08/17/19 Final result Normal [facility] Cardiovascular Lab Reporton 11-16-2017 Cardiovascular Lab Report [facility] Patient Name: Irvin De Oliveira MR #[facility] [id number] Physician: Bear Ramirez M.D.Department of Service Date: 11/15/2017Medicine Birthdate: 1935Division of Room #: [facility]iologyAdult CardiovascularUT [facility] Hospitaler[address] [place], [place] [address]Kfzfz Fax Cardiovascular Laboratory ReportFINAL IMPRESSION:Mild single-vessel coronary artery disease.INDICATION: Irvin De Oliveira is an 82-year-old male who is planned for a backsurgery. He had a stress test, which was positive for lateral ischemiawith an EF of 40%. Thus, he was considered for heart catheterization.PROCEDURE:Coronar y angiography.RECOMMENDATIONS:The current angiogram demonstrates mild epicardial coronary artery disease.He can undergo surgery as per schedule.METHODS:After risks, benefits, and alternatives were explained to the patient, hewas brought to catheterization lab in a fasting state. Right wrist wasdraped and prepped in usual sterile fashion. Using a modified Seldingertechnique, 6-German sheath was placed in right radial artery. Then, a6-German JL3.5 and JR5 catheter used for coronary angiography. Aftercoronary angiography was performed, catheter was removed and hemostasis wasobtained with TR band. There were no complications during the procedure.HEMODYNAMIC DATA:AO 165/87 (120).TOTAL CONTRAST: 40 mL.TOTAL FLUORO TIME: 4.5 minutes.CORONARY ANGIOGRAPHY:1. Left main. This is a moderate-sized vessel, bifurcates into LAD and circumflex. Left main is angiographically normal.2. Circumflex. This gives rise to 2 obtuse marginal branches, which are angiographically normal.3. LAD. The proximal LAD is normal. The mid LAD has 20% to 30% plaque stenosis. Distal LAD is angiographically normal. The diagonal branches coming off the LAD are angiographically normal.4. Right coronary artery: This is large, dominant, and is angiographically normal.Electronically Signed by:Bear Ramirez M.D. 11/27/2017 02:51 P Bear Ramirez M.D.Date Dict: 11/15/2017/02:26 P/Bear Ramirez M.D.Date Trans: 11/16/2017 04:54 [id number]: Yulia Ribeiro M.D. [address] [place], [place] [id number] Charly Polo M.D. [address] [place] [id number] [facility] Vital Signs Date Time Vital Sign Value Performing Clinician Facility 05-16-2023 14:41-0500 Body height 170.18 cm DO Jasiel Ball Work Phone: [facility] 05-16-2023 14:41-0500 Body mass index (BMI) [Ratio] 28.3 kg/m2 DO Jasiel Ball Work Phone: [facility] 05-16-2023 14:41-0500 Body weight 82.15 kg DO Jasiel Ball Work Phone: [facility] 05-16-2023 14:41-0500 Diastolic blood pressure 73 mm[Hg] DO Jasiel Ball Work Phone: [facility] 05-16-2023 14:41-0500 Heart rate 64 /min DO Jasiel Ball Work Phone: [facility] 05-16-2023 14:41-0500 Respiratory rate 12 /min DO Jasiel Ball Work Phone: [facility] 05-16-2023 14:41-0500 Systolic blood pressure 131 mm[Hg] DO Jasiel Ball Work Phone: [facility] 03-01-2023 14:54-0500 Body height 170.18 cm DO Jasiel Ball Work Phone: [facility] 03-01-2023 14:54-0500 Body mass index (BMI) [Ratio] 28.1 kg/m2 DO Jasiel Ball Work Phone: [facility] 03-01-2023 14:54-0500 Body weight 81.64 kg DO Jasiel Ball Work Phone: [facility] 03-01-2023 14:49-0500 Body temperature 97.3 [degF] DO Jasiel Ball Work Phone: [facility] 03-01-2023 14:49-0500 Diastolic blood pressure 75 mm[Hg] DO Jasiel Ball Work Phone: [facility] 03-01-2023 14:49-0500 Heart rate 71 /min DO Jasiel Ball Work Phone: [facility] 03-01-2023 14:49-0500 Respiratory rate 20 /min DO Jasiel Ball Work Phone: [facility] 03-01-2023 14:49-0500 Systolic blood pressure 140 mm[Hg] DO Jasiel Ball Work Phone: [facility] 02-13-2023 14:30-0500 Body height 171.45 cm Jasiel Ball Other [facility] [employer] Other 02-13-2023 14:30-0500 Body mass index (BMI) [Ratio] 28.27 kg/m2 Jasiel Ball Other [facility] [employer] Other 02-13-2023 14:30-0500 Body weight 83.1 kg Jasiel Ball Other [facility] Other 02-13-2023 14:30-0500 Diastolic blood pressure 73 mm[Hg] Jasiel Ball Other [facility] Other 02-13-2023 14:30-0500 Respiratory rate 12 /min Jasiel Ball Other [facility] Other 02-13-2023 14:30-0500 Systolic blood pressure 119 mm[Hg] Jasiel Ball Other [facility] Other 01-23-2023 13:45-0400 Body height 171.45 cm Jasiel Ball Other [facility] Other 01-23-2023 13:45-0400 Body mass index (BMI) [Ratio] 27.77 kg/m2 Jasiel Ball Other [facility] Other 01-23-2023 13:45-0400 Body weight 81.65 kg Jasiel Ball Other [facility] Other 01-23-2023 13:45-0400 Diastolic blood pressure 73 mm[Hg] Jasiel Ball Other [facility] Other 01-23-2023 13:45-0400 Respiratory rate 12 /min Jasiel Ball Other [facility] Other 01-23-2023 13:45-0400 Systolic blood pressure 123 mm[Hg] Jasiel Ball Other [facility] Other 11-17-2022 14:00-0400 Body height 171.45 cm Jasiel Ball Other [facility] Other 11-17-2022 14:00-0400 Body mass index (BMI) [Ratio] 28.61 kg/m2 Jasiel Ball Other [facility] Other 11-17-2022 14:00-0400 Body weight 84.1 kg Jasiel Ball Other [facility] Other 11-17-2022 14:00-0400 Diastolic blood pressure 69 mm[Hg] Jasiel Ball Other [facility] Other 11-17-2022 14:00-0400 Respiratory rate 16 /min Jasiel Ball Other [facility] Other 11-17-2022 14:00-0400 Systolic blood pressure 128 mm[Hg] Jasiel Ball Other [facility] Other 10-10-2022 15:15-0400 Body height 171.45 cm Jasiel Ball Other [facility] Other 10-10-2022 15:15-0400 Body mass index (BMI) [Ratio] 27.93 kg/m2 Jasiel Ball Other [facility] Other 10-10-2022 15:15-0400 Body weight 82.1 kg Jasiel Ball Other [facility] Other 10-10-2022 15:15-0400 Diastolic blood pressure 71 mm[Hg] Jasiel Ball Other [facility] Other 10-10-2022 15:15-0400 Respiratory rate 16 /min Jasiel Ball Other [facility] Other 10-10-2022 15:15-0400 Systolic blood pressure 125 mm[Hg] Jasiel Ball Other [facility] Other 07-18-2022 15:00-0400 Body height 171.45 cm Jasiel Ball Other [facility] Other 07-18-2022 15:00-0400 Body mass index (BMI) [Ratio] 28.76 kg/m2 Jasiel Ball Other [facility] Other 07-18-2022 15:00-0400 Body weight 84.55 kg Jasiel Ball Other [facility] Other 07-18-2022 15:00-0400 Diastolic blood pressure 75 mm[Hg] Jasiel Ball Other [facility] Other 07-18-2022 15:00-0400 Respiratory rate 20 /min Jasiel Ball Other [facility] Other 07-18-2022 15:00-0400 Systolic blood pressure 144 mm[Hg] Jasiel Ball Other [facility] [employer] Other 04-19-2022 15:09-0500 Blood Pressure Location HARPERBASIM BARRETO [facility] 04-19-2022 15:09-0500 Diastolic blood pressure 93 mm[Hg] HARPER BARRETO [facility] 04-19-2022 15:09-0500 Heart rate 77 /min HARPER BARRETO [facility] 04-19-2022 15:09-0500 Systolic blood pressure 138 mm[Hg] HARPER BARRETO [facility] 04-14-2022 15:00-0500 Body height 171.45 cm Jasiel Ball Other [facility] [employer] Other 04-14-2022 15:00-0500 Body mass index (BMI) [Ratio] 29.16 kg/m2 Jasiel Ball Other [facility] [employer] Other 04-14-2022 15:00-0500 Body weight 85.73 kg Jasiel Ball Other [facility] Other 04-14-2022 15:00-0500 Diastolic blood pressure 70 mm[Hg] Jasiel Ball Other [facility] Other 04-14-2022 15:00-0500 Respiratory rate 20 /min Jasiel Ball Other [facility] Other 04-14-2022 15:00-0500 Systolic blood pressure 122 mm[Hg] Jasiel Ball Other [facility] Other 11-08-2021 11:24-0400 Blood Pressure Location Michael Uriel Damian [facility] 11-08-2021 11:24-0400 Diastolic blood pressure 74 mm[Hg] Michael Uriel Damian [facility] 11-08-2021 11:24-0400 Heart rate 66 /min Michael Uriel Damian [facility] 11-08-2021 11:24-0400 Systolic blood pressure 122 mm[Hg] Michael Uriel Damian [facility] 11-01-2021 09:00-0400 Body height 171.45 cm Gabriella Ferrara Other [facility] [employer] Other 11-01-2021 09:00-0400 Body mass index (BMI) [Ratio] 29.16 kg/m2 Gabriella Calvpuja Other [facility] [employer] Other 11-01-2021 09:00-0400 Body weight 85.73 kg Gabriella Salvadorpuja Other [facility] Other 10-20-2021 16:00-0400 Body height 171.45 cm Petar Lizama Other [facility] Other 10-20-2021 16:00-0400 Body mass index (BMI) [Ratio] 29.16 kg/m2 Petar Lizama Other [facility] Other 10-20-2021 16:00-0400 Body weight 85.73 kg Petar Lizama Other [facility] Other 10-20-2021 16:00-0400 Diastolic blood pressure 62 mm[Hg] Petar Lizama Other [facility] Other 10-20-2021 16:00-0400 Systolic blood pressure 110 mm[Hg] Petar Lizama Other [facility] Other 09-08-2021 15:00-0400 Body height 171.45 cm Petar Lizama Other [facility] Other 09-08-2021 15:00-0400 Diastolic blood pressure 60 mm[Hg] Petar Lizama Other [facility] Other 09-08-2021 15:00-0400 SaO2% (BldA) [Mass fraction] 99 % Petar Lizama Other [facility] Other 09-08-2021 15:00-0400 Systolic blood pressure 110 mm[Hg] Petar Lizama Other [facility] Other 09-06-2021 11:19-0400 Blood Pressure Location Michael Trevino Jr. [facility] 09-06-2021 11:19-0400 Diastolic blood pressure 65 mm[Hg] Michael Trevino Jr. [facility] 09-06-2021 11:19-0400 Heart rate 58 /min Michael Trevino Jr. [facility] 09-06-2021 11:19-0400 Respiratory rate 18 /min Michael Trevino Jr. [facility] 09-06-2021 11:19-0400 Systolic blood pressure 108 mm[Hg] Michael Trevino Jr. [facility] 08-23-2021 10:20-0400 Body height 171.45 cm Dave Silvia Other [facility] Other 08-23-2021 10:20-0400 Body mass index (BMI) [Ratio] 27.77 kg/m2 Dave Vega Other [facility] Other 08-23-2021 10:20-0400 Body weight 81.65 kg Dave Vega Other [facility] Other 07-05-2021 10:49-0400 Blood Pressure Location Michael Trevino Jr. [facility] 07-05-2021 10:49-0400 Diastolic blood pressure 72 mm[Hg] Michael Trevino Jr. [facility] 07-05-2021 10:49-0400 Heart rate 61 /min Michael Trevino Jr. [facility] 07-05-2021 10:49-0400 Respiratory rate 16 /min Michael Trevino Jr. [facility] 07-05-2021 10:49-0400 Systolic blood pressure 125 mm[Hg] Michael Trevino Jr. [facility] 08-21-2019 07:45-0400 Body Temperature 99 [degF] [facility] [place] 08-21-2019 07:45-0400 BP Diastolic 84 mm[Hg] [facility] , [place] 08-21-2019 07:45-0400 BP Systolic 131 mm[Hg] [facility] [place] 08-21-2019 07:45-0400 Pulse (Heart Rate) 83 /min [facility] 08-21-2019 07:45-0400 Pulse Oximetry 95 % [facility] [place] 08-21-2019 04:12-0400 Respiratory Rate 16 /min [facility] [place] 08-20-2019 07:17-0400 BMI (Body Mass Index) 31.03 kg/m2 [facility] 08-20-2019 07:17-0400 Body weight 89.86 kg [facility] [place] 08-20-2019 07:17-0400 Height 170.2 cm [place], [place] Encounters Encounter Date Encounter Type Care Provider Facility Start: 05-16-2023 End: 05-16-2023 ambulatory DO Jasiel Lalwer Work Phone: [facility] Work Phone: Start: 05-16-2023 End: 05-16-2023 Patient encounter procedure DO Jasiel Lawler Work Phone: [facility] Work Phone: Start: 04-23-2023 End: 04-23-2023 ambulatory Jasiel Lawler Other [facility] Other Start: 04-23-2023 Telephone encounter Jasiel [facility] Start: 04-09-2023 End: 04-09-2023 ambulatory Jasiel Lawler Other [facility] Other Start: 04-09-2023 Telephone encounter Jasiel Lawler [facility] Start: 04-03-2023 End: 04-03-2023 ambulatory Jasiel Lawler Other [facility] Other Start: 04-03-2023 Telephone encounter Jasiel Lawler [facility] Start: 03-28-2023 End: 03-28-2023 ambulatory Jasiel Lawler Other [facility] Other Start: 03-28-2023 Telephone encounter Jasiel Lawler [facility] Start: 03-19-2023 End: 03-19-2023 ambulatory Jasiel Lawler Other [facility] Other Start: 03-19-2023 Telephone encounter Jasiel Lawler [facility] Start: 03-01-2023 End: 03-01-2023 ambulatory Joanne Mayasey Facility:[facility] Start: 03-01-2023 End: 03-01-2023 Discharged Recurring DO Jasiel Lawler Work Phone: [facility] Work Phone: Start: 02-13-2023 End: 02-13-2023 ambulatory Jasiel Lawler Other [facility] Other Start: 02-13-2023 Patient encounter procedure Jasiel Lawler [facility] Start: 02-09-2023 End: 02-09-2023 ambulatory Jasiel Lawler Other [facility] Other Start: 02-09-2023 Telephone encounter Jasiel WHIT[facility]IDE [facility] Start: 01-23-2023 End: 01-23-2023 ambulatory Jasiel Lawler Other [facility] Other Start: 01-23-2023 Patient encounter procedure Jasiel Lawler [facility] Start: 01-23-2023 Telephone encounter Jasiel Ball [facility] Start: 01-08-2023 End: 01-08-2023 ambulatory Jasiel Ball Other [facility] Other Start: 01-08-2023 Telephone encounter Jasiel Ball [facility] Start: 01-03-2023 End: 01-03-2023 ambulatory Jasiel Ball Other [facility] Other Start: 01-03-2023 Office outpatient vi sit 15 minutes Jasiel Ball [facility] Start: 12-18-2022 End: 12-18-2022 ambulatory Jasiel Ball Other [facility] Other Start: 12-18-2022 Telephone encounter Jasiel Ball [facility] Start: 12-11-2022 End: 12-11-2022 ambulatory Jasiel Ball Other [facility] Other Start: 12-11-2022 Telephone encounter Jasiel Ball [facility] Start: 11-17-2022 End: 11-17-2022 ambulatory Jasiel Ball Other [facility] Other Start: 11-17-2022 Office outpatient vi sit 25 minutes Jasiel Ball [facility] Start: 11-03-2022 End: 11-03-2022 ambulatory Jasiel Ball Other [facility] Other Start: 11-03-2022 Telephone encounter Jasiel Ball [facility] Start: 10-18-2022 End: 10-18-2022 ambulatory Jasiel Ball Other [facility] Other Start: 10-18-2022 Telephone encounter Jasiel Ball [facility] Start: 10-13-2022 End: 10-13-2022 ambulatory Jasiel Ball Other [facility] Other Start: 10-13-2022 Telephone encounter Jasiel Ball [facility] Start: 10-10-2022 End: 10-10-2022 ambulatory Jasiel Bucky Other [facility] Other Start: 10-10-2022 Office outpatient vi sit 15 minutes Jasiel Lawler [facility] Start: 09-12-2022 End: 09-12-2022 ambulatory Jasiel Lawler Other [facility] Other Start: 09-12-2022 Telephone encounter Jasiel Bucky [facility] Start: 09-05-2022 End: 09-06-2022 ambulatory HARPER BARRETO Facility:[facility] Start: 09-05-2022 End: 09-05-2022 Patient encounter procedure HARPER BARRETO [facility] Start: 08-08-2022 End: 08-08-2022 ambulatory Jasiel Lawler Other [facility] Other Start: 08-08-2022 Telephone encounter Jasiel Bucky [facility] Start: 08-04-2022 Telephone encounter Jasiel Lawler [facility] Start: 08-04-2022 End: 08-05-[address] JASIEL LAWLER [facility] Other Start: 08-03-2022 End: 08-04-[address] JASIEL LAWLER Facility: Start: 07-18-2022 End: 07-18-2022 ambulatory Jasiel Lawler Other [facility] Other Start: 07-18-2022 Office outpatient vi sit 25 minutes Jasiel Lawler [facility] Start: 07-11-2022 End: 07-11-2022 ambulatory Jasiel Lawler Other [facility] Other Start: 07-11-2022 Telephone encounter Jasiel Bucky [facility] Start: 06-29-2022 End: 06-29-2022 ambulatory Jasiel Lawler Other [facility] Other Start: 06-29-2022 Telephone encounter [facility] Start: 04-19-2022 End: 04-20-2022 ambulatory HARPER Malachi BERTRAND Facility:[facility] Start: 04-19-2022 End: 04-19-2022 Patient encounter procedure HARPER BARRETO [facility] Start: 04-14-2022 End: 04-14-2022 ambulatory Jasiel Lawler Other [facility] Other Start: 04-14-2022 Office outpatient vi sit 25 minutes Jasiel Lwaler [facility] Start: 04-04-2022 End: 04-04-2022 ambulatory Jasiel Lawler Other [facility] Other Start: 04-04-2022 Telephone encounter Jasiel [facility] Start: 03-21-2022 Adult health examination Kemal elina [facility] Other [facility] Other Start: 01-30-2022 End: 01-31-[address] JASIEL LAWLER Facility: Start: 01-25-2022 End: 01-25-2022 ambulatory Gabriella Ferrara Other [facility] Other Start: 01-25-2022 Office outpatient vi sit 15 minutes Gabriella Josias [facility] Start: 12-06-2021 End: 12-06-2021 ambulatory Gabriellatalia Ferrara Other [facility] Other Start: 12-06-2021 Office outpatient vi sit 15 minutes Gabriella Calvey [facility] Start: 11-08-2021 End: 11-09-2021 ambulatory Krishan NAGY Facility:[facility] [place] Start: 11-08-2021 End: 11-08-2021 Patient encounter procedure Michael Trevino Jr. [facility] Start: 11-07-2021 End: 11-07-2021 ambulatory Dave Vega Other [facility] Other Start: 11-07-2021 Telephone encounter Dave Vega [facility] Start: 11-01-2021 End: 11-01-2021 ambulatory Gabriella Ferrara Other [facility] Other Start: 11-01-2021 Office outpatient ne w 30 minutes Gabriella Madeleineey [facility] Start: 10-20-2021 End: 10-20-2021 ambulatory Petar Lizama Other [facility] Other Start: 10-20-2021 Office outpatient vi sit 25 minutes Petar Dl [facility] Start: 09-09-2021 End: 09-09-2021 ambulatory Petar Dl Other [facility] Other Start: 09-09-2021 Telephone encounter Petar Dl [facility] Start: 09-08-2021 End: 09-08-2021 ambulatory Petar Dl Other [facility] Other Start: 09-08-2021 Office consultation new/estab patient 60 min Petar Dl [facility] Start: 09-06-2021 End: 09-06-2021 Patient encounter procedure Michael Trevino Jr. [facility] Start: 08-23-2021 End: 08-23-2021 ambulatory Dave Vega Other [facility] Other Start: 08-23-2021 Office outpatient ne w 30 minutes Dave Vega [facility] Start: 07-05-2021 End: 07-05-2021 Patient encounter procedure Michael Trevino Jr. [facility] Start: 08-16-2019 End: 08-21-2019 Evaluation and management of inpatient JASIEL LAWLER [facility] Start: 08-16-2019 End: 08-21-2019 Evaluation and management of inpatient Aiden Rangel Work Phone: [id number] Comment on above: Spinal stenosis of t horacolumbar region (Primary Dx); Pain; Lumbosacral spondylosis without myelopathy; Post-op pain Start: 11-15-2017 End: 11-16-2017 Patient encounter BERKLEYPABLITO RAMIREZ Facility:[facility] Start: 11-13-2017 End: 11-14-2017 Patient encounter DEFAULT PHYSICIAN Facility:[facility] Procedures Date Procedure Procedure Detail Performing Clinician Start: 09-24-2020 Cystoscopy Michael stovall Jr. Start: 10-02-2019 Cystoscopy Michael stovall Jr. Start: 08-21-2019 INCENTIVE SPIROMETRY RT JASIEL LAWLER Start: 08-21-2019 Gluc bld gluc mntr d ev cleared fda spec home use JASIEL LAWLER Start: 08-21-2019 INCENTIVE SPIROMETRY RT JASIEL LAWLER Start: 08-21-2019 INITIATE OXYGEN THER APY PROTOCOL JASIEL LAWLER Start: 08-21-2019 Gluc bld gluc mntr d ev cleared fda spec home use Unknown Provider Result Start: 08-21-2019 INCENTIVE SPIROMETRY RT JASIEL LAWLER Start: 08-21-2019 Gluc bld gluc mntr d ev cleared fda spec home use JASIEL LAWLER Start: 08-21-2019 Urnls dip stick/tabl et rgnt auto w/o microscopy JASIEL LAWLER Start: 08-21-2019 Gluc bld gluc mntr d ev cleared fda spec home use JASIEL LAWLER Start: 08-21-2019 STRAIGHT CATH JASIEL LAWLER Start: 08-21-2019 INCENTIVE SPIROMETRY RT JASIEL Start: 08-20-2019 Gluc bld gluc mntr d ev cleared fda spec home use JASIEL LAWLER Start: 08-20-2019 Urnls dip stick/tabl et rgnt auto w/o microscopy Ramya Hennessy Work Phone: Start: 08-20-2019 INCENTIVE SPIROMETRY RT JASIEL Start: 08-20-2019 Gluc bld gluc mntr d ev cleared fda spec home use Unknown Provider Result Start: 08-20-2019 INCENTIVE SPIROMETRY RT JASIEL Start: 08-20-2019 Gluc bld gluc mntr d ev cleared fda spec home use JASIEL Start: 08-20-2019 INCENTIVE SPIROMETRY RT JASIEL Start: 08-20-2019 Gluc bld gluc mntr d ev cleared fda spec home use Unknown Provider Result Start: 08-20-2019 DISCHARGE PATIENT KEMAL MIN BALL Start: 08-20-2019 AMB EXTERNAL REFERRA L TO PHYSICAL THERAPY JASIEL Start: 08-20-2019 INCENTIVE SPIROMETRY RT JASIEL Start: 08-20-2019 INCENTIVE SPIROMETRY RT JASIEL Start: 08-20-2019 Gluc bld gluc mntr d ev cleared fda spec home use JASIEL Start: 08-20-2019 INCENTIVE SPIROMETRY RT JASIEL Start: 08-20-2019 Gluc bld gluc mntr d ev cleared fda spec home use Unknown Provider Result Start: 08-20-2019 Gluc bld gluc mntr d ev cleared fda spec home use JASIEL Start: 08-20-2019 INCENTIVE SPIROMETRY RT JASIEL Start: 08-20-2019 INITIATE OXYGEN THER APY PROTOCOL JASIEL Start: 08-20-2019 Gluc bld gluc mntr d ev cleared fda spec home use Unknown Provider Result Start: 08-20-2019 INCENTIVE SPIROMETRY RT JASIEL Start: 08-20-2019 RADIOLOGY REPORT BENJAM IN [place] Start: 08-20-2019 Gluc bld gluc mntr d ev cleared fda spec home use JASIEL Start: 08-20-2019 RADIOLOGY REPORT Hpf Sc anning Start: 08-20-2019 Gluc bld gluc mntr d ev cleared fda spec home use JASIEL Start: 08-20-2019 INCENTIVE SPIROMETRY RT JASIEL Start: 08-19-2019 INCENTIVE SPIROMETRY RT JASIEL Start: 08-19-2019 Gluc bld gluc mntr d ev cleared fda spec home use JASIEL Start: 08-19-2019 INCENTIVE SPIROMETRY RT JASIEL Start: 08-19-2019 Gluc bld gluc mntr d ev cleared fda spec home use Unknown Provider Result Start: 08-19-2019 DIET CARB CONTROL KEMAL MIN BALL Start: 08-19-2019 IP CONSULT TO REHAB/ TCU ADMISSION COORDINATOR JASIEL Start: 08-19-2019 OT EVAL AND TREAT KEMAL MIN BALL Start: 08-19-2019 PT EVAL AND TREAT KEMAL MIN BALL Start: 08-19-2019 FLUORO FOR SURGICAL PROCEDURES JASIEL LAWLER Start: 08-19-2019 CATHETER REMOVAL BENJAM IN [place] Start: 08-19-2019 INCENTIVE SPIROMETRY RT JASIEL LAWLER Start: 08-19-2019 TRANSFER PATIENT NIA IN [place] Start: 08-19-2019 Gluc bld gluc mntr d ev cleared fda spec home use Unknown Provider Result Start: 08-19-2019 Level iv surg pathol ogy gross&microscopic exam JASIEL LAWLER Start: 08-19-2019 FLUORO FOR SURGICAL PROCEDURES Seymour Frieda Espitia Work Phone: Start: 08-19-2019 INCENTIVE SPIROMETRY RT JASIEL LAWLER Start: 08-19-2019 Gluc bld gluc mntr d ev cleared fda spec home use Unknown Provider Result Start: 08-19-2019 Gluc bld gluc mntr d ev cleared fda spec home use JASIEL LAWLER Start: 08-19-2019 INCENTIVE SPIROMETRY RT JASIEL LAWLER Start: 08-19-2019 End: 08-19-2019 Lamnotmy incl w/dcmprsn nrv root 1 intrspc lumbr Seymour Frieda Espitia Work Phone: Start: 08-19-2019 Gluc bld gluc mntr d ev cleared fda spec home use Unknown Provider Result Start: 08-19-2019 Level iv surg pathol ogy gross&microscopic exam JASIEL LAWLER Start: 08-19-2019 INITIATE OXYGEN THER APY PROTOCOL JASIEL LAWLER Start: 08-19-2019 Gluc bld gluc mntr d ev cleared fda spec home use JASIEL LAWLER Start: 08-19-2019 Gluc bld gluc mntr d ev cleared fda spec home use Unknown Provider Result Start: 08-19-2019 Gluc bld gluc mntr d ev cleared fda spec home use JASIEL LAWLER Start: 08-19-2019 Gluc bld gluc mntr d ev cleared fda spec home use JASIEL LAWLER Start: 08-18-2019 Gluc bld gluc mntr d ev cleared fda spec home use JASIEL LAWLER Start: 08-18-2019 Gluc bld gluc mntr d ev cleared fda spec home use Unknown Provider Result Start: 08-18-2019 Gluc bld gluc mntr d ev cleared fda spec home use JASIEL LAWLER Start: 08-18-2019 Gluc bld gluc mntr d ev cleared fda spec home use Unknown Provider Result Start: 08-18-2019 Gluc bld gluc mntr d ev cleared fda spec home use JASIEL LAWLER Start: 08-18-2019 Echo tthrc r-t 2d w/ wom-mode compl spec&colr d JASIEL LAWLER Start: 08-18-2019 Gluc bld gluc mntr d ev cleared fda spec home use Unknown Provider Result Start: 08-18-2019 Echo tthrc r-t 2d w/ wom-mode compl spec&colr d Michael Lane Work Phone: Start: 08-18-2019 INITIATE OXYGEN THER APY PROTOCOL JASIEL LAWLER Start: 08-18-2019 Gluc bld gluc mntr d ev cleared fda spec home use JASIEL LAWLER Start: 08-18-2019 Gluc bld gluc mntr d ev cleared fda spec home use Unknown Provider Result Start: 08-18-2019 Gluc bld gluc mntr d ev cleared fda spec home use JASIEL LAWLER Start: 08-18-2019 Gluc bld gluc mntr d ev cleared fda spec home use JASIEL LAWLER Start: 08-17-2019 Gluc bld gluc mntr d ev cleared fda spec home use JASIEL LAWLER Start: 08-17-2019 Gluc bld gluc mntr d ev cleared fda spec home use Unknown Provider Result Start: 08-17-2019 Gluc bld gluc mntr d ev cleared fda spec home use JASIEL LAWLER Start: 08-17-2019 Gluc bld gluc mntr d ev cleared fda spec home use Unknown Provider Result Start: 08-17-2019 TYPE AND SCREEN YANET LAWLER Start: 08-17-2019 Antibody screen Aiden Rangel Start: 08-17-2019 Mri spinal canal tho racic w/o contrast matrl JASIEL LAWLER Start: 08-17-2019 Blood typing serologic abo Seymour H. Nupur Work Phone: Start: 08-17-2019 Gluc bld gluc mntr d ev cleared fda spec home use JASIEL LAWLER Start: 08-17-2019 Mri spinal canal tho racic w/o contrast matrl Seymour H. Nupur Work Phone: Start: 08-17-2019 Gluc bld gluc mntr d ev cleared fda spec home use Unknown Provider Result Start: 08-17-2019 Gluc bld gluc mntr d ev cleared fda spec home use JASIEL LAWLER Start: 08-17-2019 INITIATE OXYGEN THER APY PROTOCOL JASIEL LAWLER Start: 08-17-2019 Gluc bld gluc mntr d ev cleared fda spec home use Unknown Provider Result Start: 08-17-2019 Gluc bld gluc mntr d ev cleared fda spec home use JASIEL LAWLER Start: 08-17-2019 Gluc bld gluc mntr d ev cleared fda spec home use JASIEL LAWLER Start: 08-16-2019 Gluc bld gluc mntr d ev cleared fda spec home use JASIEL LAWLER Start: 08-16-2019 Gluc bld gluc mntr d ev cleared fda spec home use Unknown Provider Result Start: 08-16-2019 Radiologic exam chest 2 views JASIEL LAWLER Start: 08-16-2019 Gluc bld gluc mntr d ev cleared fda spec home use JASIEL LAWLER Start: 08-16-2019 Radiologic exam chest 2 views Seymour Frieda Espitia Work Phone: Start: 08-16-2019 IP CONSULT TO CARDIOLOGY JASIEL BUCKY Start: 08-16-2019 FULL CODE JASIEL Cruz ALL Start: 08-16-2019 INITIATE OXYGEN THER APY PROTOCOL JASIEL BUCKY Start: 08-16-2019 NEURO CHECKS JASIEL Cruz ALL Start: 08-16-2019 NURSING SWALLOW ASSESSMENT JASIEL LAWLER Start: 08-16-2019 PATIENT STATUS (DIRECT) JASIEL LAWLER Start: 08-16-2019 TOBACCO CESSATION EDUCATION JASIEL LAWLER Start: 08-16-2019 Gluc bld gluc mntr d ev cleared fda spec home use Unknown Provider Result Start: 08-16-2019 NOTIFY PHYSICIAN (SPECIFY) JASIEL LAWLER Start: 08-16-2019 REASON FOR NO MECHAN ICAL VTE PROPHYLAXIS JASIEL LAWLER Start: 08-16-2019 VITAL SIGNS JASIEL Cruz ALL Start: 08-16-2019 Sedimentation rate r bc automated JASIEL LAWLER Start: 08-16-2019 Ecg routine ecg w/le ast 12 lds w/i&r JSAIEL LAWLER Start: 08-16-2019 Blood count complete auto&auto difrntl wbc JASIEL LAWLER Start: 08-16-2019 Comprehensive metabolic panel JASIEL LAWLER Start: 08-16-2019 Urnls dip stick/tabl et rgnt auto w/o microscopy JASIEL LAWLER Start: 08-16-2019 PATIENT STATUS (FROM ED OR OR/PROCEDURAL) JASIEL BUCKY Start: 08-16-2019 Sedimentation rate r bc automated [employer] Work Phone: Start: 08-16-2019 Ecg routine ecg w/le ast 12 lds i&r only [employer] Work Phone: Start: 08-16-2019 Blood count complete auto&auto difrntl wbc Aiden Rangel Work Phone: Start: 08-16-2019 Comprehensive metabolic panel Aiden Rangel Work Phone: Start: 08-16-2019 Urnls dip stick/tabl et rgnt auto w/o microscopy Aiden Rangel Work Phone: Start: 09-06-2016 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 Transurethral water vapor ablation of prostate Michael Trevino Plan of Treatment Date Care Activity Detail Author Start: 08-15-2020 Creatinine measurement Creatinine mo nitoring [place], [place] Start: 08-15-2020 Potassium monitoring Potassium monit [place]ing [place] Start: 12-02-2019 Influenza vaccination Flu vacc ine (Season Ended) [place] Start: 09-05-2019 End: 09-05-2019 Office Visit 09/05/2019 Office Visit Neurosurgery Seymour Espitia MD [address], [address] [place] [address] [employer] Start: 09-22-2018 Annual Wellness Visi t (AWV) Annual Wellness Visit (AWV) [place], [place] Start: 2002 Pneumococcal 65+ yea rs Vaccine (1 of 1 - PPSV23) Pneumococcal 65+ years Vaccine (1 of 1 - PPSV23) [place] Start: 1987 Shingles Vaccine (1 of 2) Bolden gles Vaccine (1 of 2) [place] Start: 02-29-1956 DTaP/Tdap/Td vaccine (1 - Tdap) DTaP/Tdap/Td vaccine (1 - Tdap) [place], [place] Start: 1947 Lipid panel Lipid screen [place], [place] Incentive spirometry Incentive s pirometry Respiratory Care Routine Every 2hr while awake until discontinued starting 08/19/2019 [place] Comment on above: Every 2hr while awak e until discontinued starting 08/19/2019 Initiate Oxygen Ther apy Protocol Initiate Oxygen Therapy Protocol Respiratory Care Routine Daily until discontinued starting 08/16/2019 [place] Comment on above: Daily until disconti nued starting 08/16/2019 POCT glucose [place], [place] Comment on above: 4X Daily (AC & HS) u ntil discontinued starting 08/16/2019 As Needed until disc ontinued starting 08/16/2019 Surgical Pathology [place], [place] Comment on above: Release Upon Orderin g for 1 Occurrences starting 08/19/2019 End: 08-19-2019 Surgical Pathology Surgical Pathology Lab Routine Once for 1 Occurrences starting 08/19/2019 until 08/19/2019 [place] Comment on above: Once for 1 Occurrenc es starting 08/19/2019 until 08/19/2019 Immunizations Immunization Date Immunization Notes Care Provider Kieran shipley 02-13-2023 influenza, high dose seasonal, preservative-free Jasiel Lawler Other [facility] Other 02-13-2023 influenza virus vaccine, unspecified formulation DO Jasiel Lawler Work Phone: [facility] 03-19-2022 SARS-CoV-2 (COVID-19 ) [id number] [place] [facility] 01-17-2022 influenza virus vaccine, split virus (incl. purified surface antigen) Jasiel Lawler Other [facility] [employer] Other 01-17-2022 influenza virus vaccine, unspecified formulation [place] [facility] 01-04-2021 influenza virus vaccine, split virus (incl. purified surface antigen) Jasiel Lawler Other [facility] [employer] Other 01-04-2021 influenza virus vaccine, unspecified formulation DO Jaseil Lawler Work Phone: [facility] 12-31-2020 influenza virus vaccine, unspecified formulation Michael Trevino Jr. [facility] 05-31-2020 SARS-CoV-2 (COVID-19 ) mRNA-1273 vaccine Michael Trevino Jr. [facility] 01-19-2020 influenza virus vaccine, split virus (incl. purified surface antigen) Jasiel Lawler Other [facility] [employer] Other 01-19-2020 influenza virus vaccine, unspecified formulation DO Jasiel Lawler Work Phone: [facility] 06-01-2019 SARS-CoV-2 (COVID-19 ) mRNA-1273 vaccine Michael Trevino Jr. [facility] 01-13-2019 influenza virus vaccine, split virus (incl. purified surface antigen) Jasiel Lawler Other [facility] [employer] Other 01-13-2019 influenza virus vaccine, unspecified formulation DO Jasiel Lawler Work Phone: [facility] 01-01-2018 influenza virus vaccine, split virus (incl. purified surface antigen) Jasiel Lawler Other [facility] [employer] Other 01-01-2018 influenza virus vaccine, unspecified formulation [place] [facility] 01-15-2017 influenza virus vaccine, split virus (incl. purified surface antigen) Jasiel Lawler Other [facility] [employer] Other 01-15-2017 influenza virus vaccine, unspecified formulation [place] [facility] 01-21-2016 influenza virus vaccine, split virus (incl. purified surface antigen) Jasiel Lawler Other [facility] [employer] Other 01-21-2016 influenza virus vaccine, unspecified formulation [place] [facility] 01-12-2015 influenza virus vaccine, split virus (incl. purified surface antigen) Jasiel Lawler Other [facility] [employer] Other 01-12-2015 influenza virus vaccine, unspecified formulation DO Jasiel Lawler Work Phone: [facility] 01-12-2015 pneumococcal conjuga te vaccine, 13 valent Jasiel Lawler Other [facility] 01-23-2014 tetanus and diphther ia toxoids, adsorbed, preservative free, for adult use (5 Lf of tetanus toxoid and 2 Lf of diphtheria toxoid) Jasiel Lawler Other [facility] 01-20-2013 tetanus and diphther ia toxoids, adsorbed, preservative free, for adult use (5 Lf of tetanus toxoid and 2 Lf of diphtheria toxoid) Jasiel Lawler Other [facility] 12-13-2011 tetanus and diphther ia toxoids, adsorbed, preservative free, for adult use (5 Lf of tetanus toxoid and 2 Lf of diphtheria toxoid) Jasiel Lawler Other [facility] 12-07-2010 pneumococcal polysaccharide vaccine, 23 valent Jasiel Lawler Other [facility] Payers Date Payer Category Payer Self-pay 2022 [employer] ( [employer] others) 2017 [employer] ( [employer] others) [id number] 2017 Medicare xxxxxxxxx [id number] 1959 [employer] ( and others) [id number] 1959 Unknown [id number] 1937 Unknown [id number] 1937 Unknown [id number] 1937 Unknown [id number] 1937 Unknown [id number] 1937 Unknown [id number] 1937 Unknown [id number] 1937 Unknown [id number] 1937 Unknown [id number] Unknown Unknown [id number] Social History Date Type Detail Facility Start: 08-20-2019 End: 03-01-2023 Tobacco smoking status NHIS Never smoker [place] Start: 08-20-2019 Alcohol intake Current drinke r of alcohol (finding) [place] Start: 08-20-2019 History SDOH Social Connections Phone 5 [place] Start: 08-20-2019 History SDOH Social Connections Get Together 2 [place] Start: 08-20-2019 History SDOH Social Connections Meetings 1 [place] Start: 08-20-2019 History SDOH Social Connections Living 3 [place] Start: 08-20-2019 History SDOH Physica l Activity DPW 0 [place] Start: 08-20-2019 History SDOH Education 13 [place] Start: 11-20-2017 Alcohol Comment occ [place] Sex Assigned At Not on file [place] Exposure to SARS-CoV -2 (event) Unable to assess [place] Tobacco smoking status Never [facility] Sex Assigned At Male [facility] [employer] Start: 1935 Sex Assigned At Male F [facility] Medical Equipment Procedure Code Equipment Code Equipment Original Text Equipment Identifier Dates Floseal Hemostat Matrx 5ml Needle Free [id number] Start: 11-22-2017 [id number] Start: 03-19-2022 True Metrix Gluc ose Test Strip [id number] Patient-worn bon e growth electromagnetic stimulator [id number] [facility] Start: 04-02-2012 Functional Status Date Assessment Result Facility 09-05-2022 Functional Status N/A [facility] 04-19-2022 Functional Status N/A [facility] 11-08-2021 Functional Status N/A [facility] [employer] Clinical Notes 07-05-2021 to 04-23-2023 Note Date & Type Note Facility 04-23-2023 Evaluation note Encounter Date Diagnosis Assessment Notes Apr, Controlled type 2 diabetes mellitus with hyperglycemia, without long-term current use of insulin (ICD-10 - E11.65) [facility] Other 01-08-2024 Evaluation note* Encounter Date Diagnosis Assessment Notes Treatment Notes Treatment Clinical Notes Apr, Benign prostatic hyperplasia with lower urinary tract symptoms (ICD-10 - N40.1) [facility] Other 01-02-2024 Evaluation note* Encounter Date Diagnosis Assessment Notes Treatment Notes Treatment Clinical Notes Apr, Lumbosacral spondylosis (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) [facility] Other 12-27-2023 Evaluation note* Encounter Date Diagnosis Assessment Notes Treatment Notes Treatment Clinical Notes Mar, Lumbosacral spondylosis (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) [facility] Other 12-18-2023 Evaluation note* Encounter Date Diagnosis Assessment Notes Treatment Notes Treatment Clinical Notes Mar, Controlled type 2 diabetes mellitus with hyperglycemia, without long-term current use of insulin (ICD-10 - E11.65) [facility] Other 11-14-2023 Evaluation note* Encounter Date Diagnosis Assessment Notes Treatment Notes Treatment Clinical Notes Jan, Medicare annual wellness visit, subsequent (ICD-10 - Z00.00) Personalized health advice was given to the beneficiary including a written plan for screenings discussed and provided. Advanced care planning reviewed and/or information given as requested. Additional counseling was provided here today in regards to, [ ]. The above visit was performed by [ ], under direct supervision of [ ]. Document reviewed and amended by provider signed below. Jan, Ischemic cardiomyopathy (ICD-10 - I25.5) ECHOCARDIOGRAM - 08/2020 - LVEF 45-50%. Abnormal septal motion. - The right ventricle is normal in size and systolic function. This patient is stable without activity related CP, dyspnea or lightheadedness. They are instructed to continue exercise and AHA diet plan. Continue secondary prevention measures. Jan, Chronic HFrEF (heart failure with reduced ejection fraction) (ICD-10 - I50.22) ECHOCARDIOGRAM - 08/2020 - LVEF 45-50%. Abnormal septal motion. - The right ventricle is normal in size and systolic function. Instructed on low salt diet, exercise and daily weights. Instructed to notify office for any unexpected weight gain > 3lbs and/or increased dyspnea, difficulty breathing during sleep, worsening lower extremity swelling, chest pain or lightheadedness. Reviewed GDMT w/ beta blockers, HENRIETTA/ARB/ARNI, MRA and SGLT-2 Jan, Primary hypertension (ICD-10 - I10) This patient is instructed to consume a healthy, low-fat, low-salt diet. They are also encouraged to continue exercise to achieve/maintain a normal BMI. Jan, Controlled type 2 diabetes mellitus with hyperglycemia, without long-term current use of insulin (ICD-10 - E11.65) This patient is following a comprehensive diabetic treatment plan. They are checking their feet daily for calluses and nonhealing ulcers. They are being seen for yearly dilated eye examinations. Goals: SBP less than 130, LDL less than 100, FBS less than 140, A1C less than 7%. They are checking their BS daily, will which are reviewed at the office visit. Continue regular routine monitoring of A1C,] Microalbumin, Dilated eye exam and Foot exam Jan, Controlled type 2 diabetes mellitus with diabetic polyneuropathy, without long-term current use of insulin (ICD-10 - E11.42) Inspect feet daily for cuts and calluses.Recommend diabetic shoes and inserts to prevent callus formation.Fall precautions. Jan, SNEHA (obstructive sleep apnea) (ICD-10 - G47.33) This patient is aware of the benefits associated with SNEHA: With continued use, the patient reduces the risk for NC, CVA, HTN, cardiac dysrhythmias and sudden cardiac deaths.The patient is also aware of the association between SNEHA and morning headaches, daytime somnolence, fatigue and obesity Intolerant to mask, only tried for 2 wks. Jan, Hyperlipidemia type II (ICD-10 - E78.01) Instructed on diet and exercise with continued statin therapy.Discussed the beneficial effects of lowering cholesterol in reducing the risk for cerebrovascular and cardiovascular disease. Jan, Chronic venous insufficiency (ICD-10 - I87.2) Avoid salt and elevate lower extremities, support stockings, inspect legs and feet daily for blisters and ulcerations. Jan, Lumbosacral spondylosis (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) The patient is instructed to avoid bending, twisting or lifting. They are to use intermittent heat and ice as needed. They may schedule a massage or gentle manipulation. They may safely use Tylenol as needed. No significant improvement w/ PT, pain management. Jan, Post-void dribbling (ICD-10 - N39.43) Jan, Benign prostatic hyperplasia with lower urinary tract symptoms (ICD-10 - N40.1) Jan, High risk medication use (ICD-10 - Z79.899) Check CBC, ALT [facility] Other 11-10-2023 Evaluation note* Encounter Date Diagnosis Assessment Notes Treatment Notes Treatment Clinical Notes Jan, Hyperlipidemia type II (ICD-10 - E78.01) [facility] Other 10-24-2023 Evaluation note* Encounter Date Diagnosis Assessment Notes Treatment Notes Treatment Clinical Notes Dec, Pressure injury of sacral region, stage 2 (ICD-10 - L89.152) Shallow ulcer, approximately 1cm in diameter on the left buttocks. Surrounding skin is erythematous, irritated w/o bleeding or drainage. Instructed to keep pressure off area: - sit on donut - lie on sides Instructed to cleanse after BM w/ medicated wipes and keep dry. Dec, Controlled type 2 diabetes mellitus with hyperglycemia, without long-term current use of insulin (ICD-10 - E11.65) This patient is following a comprehensive diabetic treatment plan. They are checking their feet daily for calluses and nonhealing ulcers. They are being seen for yearly dilated eye examinations. Goals: SBP less than 130, LDL less than 100, FBS less than 140, A1C less than 7%. They are checking their BS daily, will which are reviewed at the office visit. Continue regular routine monitoring of A1C,] Microalbumin, Dilated eye exam and Foot exam Dec, Primary hypertension (ICD-10 - I10) This patient is instructed to consume a healthy, low-fat, low-salt diet. They are also encouraged to continue exercise to achieve/maintain a normal BMI. [facility] Other 10-09-2023 Evaluation note* Encounter Date Diagnosis Assessment Notes Treatment Notes Treatment Clinical Notes Dec, Lumbar spondylosis with myelopathy (ICD-10 - M47.16) [facility] Other 10-04-2023 Evaluation note* Encounter Date Diagnosis Assessment Notes Treatment Notes Treatment Clinical Notes Dec, Insect bite (nonvenomous), left thigh, initial encounter (ICD-10 - S70.362A) Continue Triamcinolone cream Cool compresses Avoid scratching Dec, Bitten or stung by nonvenomous insect and other nonvenomous arthropods, initial encounter (ICD-10 - W57.XXXA) Dec, Cellulitis of left lower extremity (ICD-10 - L03.116) Elevate, cleanse w/ soap and water. Begin antibiotics [facility] Other 09-18-2023 Evaluation note* Encounter Date Diagnosis Assessment Notes Treatment Notes Treatment Clinical Notes Dec, Ischemic cardiomyopathy (ICD-10 - I25.5) [facility] Other 09-11-2023 Evaluation note* Encounter Date Diagnosis Assessment Notes Treatment Notes Treatment Clinical Notes Dec, Essential hypertension (ICD-10 - I10) [facility] Other 08-18-2023 Evaluation note* Encounter Date Diagnosis Assessment Notes Treatment Notes Treatment Clinical Notes Oct, Ischemic cardiomyopathy (ICD-10 - I25.5) This patient is stable without activity related CP, dyspnea or lightheadedness. They are instructed to continue exercise and AHA diet plan. Continue secondary prevention measures Oct, Chronic HFrEF (heart failure with reduced ejection fraction) (ICD-10 - I50.22) ECHOCARDIOGRAM - 08/2020 - LVEF 45-50%. Abnormal septal motion. - The right ventricle is normal in size and systolic function. Instructed on low salt diet, exercise and daily weights. Instructed to notify office for any unexpected weight gain > 3lbs and/or increased dyspnea, difficulty breathing during sleep, worsening lower extremity swelling, chest pain or lightheadedness. Reviewed GDMT w/ beta blockers, HENRIETTA/ARB/ARNI, MRA and SGLT-2 Oct, Controlled type 2 diabetes mellitus with hyperglycemia, without long-term current use of insulin (ICD-10 - E11.65) This patient is following a comprehensive diabetic treatment plan. They are checking their feet daily for calluses and nonhealing ulcers. They are being seen for yearly dilated eye examinations. Goals: SBP less than 130, LDL less than 100, FBS less than 140, AC and A1C less than 7%. They are checking their BS daily, will which are reviewed at the office visit. Continue regular routine monitoring of A1C,] Microalbumin, Dilated eye exam and Foot exam Oct, Controlled type 2 diabetes mellitus with diabetic polyneuropathy, without long-term current use of insulin (ICD-10 - E11.42) Inspect feet daily for cuts and calluses.Recommend diabetic shoes and inserts to prevent callus formation.Fall precautions. Oct, Hyperlipidemia type II (ICD-10 - E78.01) Instructed on diet and exercise with continued statin therapy.Discussed the beneficial effects of lowering cholesterol in reducing the risk for cerebrovascular and cardiovascular disease. Oct, SNEHA (obstructive sleep apnea) (ICD-10 - G47.33) This patient is aware of the benefits associated with SNEHA: With continued use, the patient reduces the risk for NC, CVA, HTN, cardiac dysrhythmias and sudden cardiac deaths.The patient is also aware of the association between SNEHA and morning headaches, daytime somnolence, fatigue and obesity, which also has been improved with continued use.The patient is compliant with treatment, wearing the equipment every night for greater than 4 hours.The patient is instructed to continue use of the CPAP for SNEHA treatment. Oct, Primary hypertension (ICD-10 - I10) This patient is instructed to consume a healthy, low-fat, low-salt diet. They are also encouraged to continue exercise to achieve/maintain a normal BMI. 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 They are instructed to continue exercise and AHA diet plan. Continue secondary prevention measures Oct, Chronic HFrEF (heart failure with reduced ejection fraction) (ICD-10 - I50.22) ECHOCARDIOGRAM - 08/2020 - LVEF 45-50%. Abnormal septal motion. - The right ventricle is normal in size and systolic function. Instructed on low salt diet, exercise and daily weights. Instructed to notify office for any unexpected weight gain > 3lbs and/or increased dyspnea, difficulty breathing during sleep, worsening lower extremity swelling, chest pain or lightheadedness. Reviewed GDMT w/ beta blockers, HENRIETTA/ARB/ARNI, MRA and SGLT-2 Oct, Controlled type 2 diabetes mellitus with hyperglycemia, without long-term current use of insulin (ICD-10 - E11.65) This patient is following a comprehensive diabetic treatment plan. They are checking their feet daily for calluses and nonhealing ulcers. They are being seen for yearly dilated eye examinations. Goals: SBP less than 130, LDL less than 100, FBS less than 140, AC and A1C less than 7%. They are checking their BS daily, will which are reviewed at the office visit. Continue regular routine monitoring of A1C,] Microalbumin, Dilated eye exam and Foot exam Oct, Controlled type 2 diabetes mellitus with diabetic polyneuropathy, without long-term current use of insulin (ICD-10 - E11.42) Inspect feet daily for cuts and calluses.Recommend diabetic shoes and inserts to prevent callus formation.Fall precautions. Oct, Hyperlipidemia type II (ICD-10 - E78.01) Instructed on diet and exercise with continued statin therapy.Discussed the beneficial effects of lowering cholesterol in reducing the risk for cerebrovascular and cardiovascular disease. Oct, SNEHA (obstructive sleep apnea) (ICD-10 - G47.33) This patient is aware of the benefits associated with SNEHA: With continued use, the patient reduces the risk for NC, CVA, HTN, cardiac dysrhythmias and sudden cardiac deaths.The patient is also aware of the association between SNEHA and morning headaches, daytime somnolence, fatigue and obesity, which also has been improved with continued use.The patient is compliant with treatment, wearing the equipment every night for greater than 4 hours.The patient is instructed to continue use of the CPAP for SNEHA treatment. Oct, Primary hypertension (ICD-10 - I10) This patient is instructed to consume a healthy, low-fat, low-salt diet. They are also encouraged to continue exercise to achieve/maintain a normal BMI. 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 They are to use intermittent heat and ice as needed. They may schedule a massage or gentle manipulation. They may safely use Tylenol as needed. [facility] Other 08-04-2023 Evaluation note* Encounter Date Diagnosis Assessment Notes Treatment Notes Treatment Clinical Notes Oct, Controlled type 2 diabetes mellitus with hyperglycemia, without long-term current use of insulin (ICD-10 - E11.65) [facility] Other 07-19-2023 Evaluation note* Encounter Date Diagnosis Assessment Notes Treatment Notes Treatment Clinical Notes Sep, Lumbar spondylosis with myelopathy (ICD-10 - M47.16) [facility] Other 07-11-2023 Evaluation note* Encounter Date Diagnosis Assessment Notes Treatment Notes Treatment Clinical Notes Sep, Contusion of pelvis, initial encounter (ICD-10 - S30.0XXA) Ice, heat and Voltaren Gel XR to r/o fx Continue activity as tolerated Fall precaution Sep, Pain in right knee (ICD-10 - M25.561) Ice/heat and Voltaren Gel. ROM exercises, quad exercises Fall precaution Sep, Lumbosacral spondylosis (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) The patient is instructed to avoid bending, twisting or lifting. They are to use intermittent heat and ice as needed. They may schedule a massage. They may safely use Tylenol as needed. Sep, Foot drop, right (ICD-10 - M21.371) Fall precaution, use of cane for stability. Stopped use of AFO brace Sep, Other chronic pain (ICD-10 - G89.29) [facility] Other 06-13-2023 Evaluation note* Encounter Date Diagnosis Assessment Notes Treatment Notes Treatment Clinical Notes Aug, Lumbar spondylosis with myelopathy (ICD-10 - M47.16) [facility] Other 06-06-2023 Hospital Discharge instructions Patient Education 09/05/2022 17:47:33 Overactive Bladder, Adult Overactive Bladder, Adult Overactive bladder is a condition in which a person has a sudden and frequent need to urinate. A person might also leak urine if he or she cannot get to the bathroom fast enough (urinary incontinence). Sometimes, symptoms can interfere with work or social activities. What are the causes? Overactive bladder is associated with poor nerve signals between your bladder and your brain. Your bladder may get the signal to empty before it is full. You may also have very sensitive muscles thatmake your bladder squeeze too soon. This condition may also be caused by other factors, such as: Medical conditions: ?Urinary tract infection. ?Infection of nearby tissues. ?Prostate enlargement. ?Bladder stones, inflammation, or tumors. ?Diabetes. ?Muscle or nerve weakness, especially from these conditions: ?A spinal cord injury. ?Stroke. ?Multiple sclerosis. ?Parkinson's disease. Other causes: ?Surgery on the uterus or urethra. ?Drinking too much caffeine or alcohol. ?Certain medicines, especially those that eliminate extra fluid in the body (diuretics). ?Constipation. What increases the risk? You may be at greater risk for overactive bladder if you: Are an older adult. Smoke. Are going through menopause. Have prostate problems. Have a neurological disease, such as stroke, dementia, Parkinson's disease, or multiple sclerosis (MS). Eat or drink alcohol, spicy food, caffeine, and other things that irritate the bladder. Are overweight or obese. What are the signs or symptoms? Symptoms of this condition include a sudden, strong urge to urinate. Other symptoms include: Leaking urine. Urinating 8 or more times a day. Waking up to urinate 2 or more times overnight. How is this diagnosed? This condition may be diagnosed based on: Your symptoms and medical history. A physical exam. Blood or urine tests to check for possible causes, such as infection. You may also need to see a health care provider who specializes in urinary tract problems. This is called a urologist. How is this treated? Treatment for overactive bladder depends on the cause of your condition and whether it is mild or severe. Treatment may include: Bladder training, such as: ?Learning to control the urge to urinate by following a schedule to urinate at regular intervals. ?Doing Kegel exercises to strengthen the pelvic floor muscles that support your bladder. Special devices, such as: ?Biofeedback. This uses sensors to help you become aware of your body's signals. ?Electrical stimulation. This uses electrodes placed inside the body (implanted) or outside the body. These electrodes send gentle pulses of electricity to strengthen the nerves or muscles that control the bladder. ?Women may use a plastic device, called a pessary, that fits into the vagina and supports the bladder. Medicines, such as: ?Antibiotics to treat bladder infection. ?Antispasmodics to stop the bladder from releasing urine at the wrong time. ?Tricyclic antidepressants to relax bladder muscles. ?Injections of botulinum toxin type A directly into the bladder tissue to relax bladder muscles. Surgery, such as: ?A device may be implanted to help manage the nerve signals that control urination. ?An electrode may be implanted to stimulate electrical signals in the bladder. ?A procedure may be done to change the shape of the bladder. This is done only in very severe cases. Follow these instructions at home: Eating and drinking Make diet or lifestyle changes recommended by your health care provider. These may include: ?Drinking fluids throughout the day and not only with meals. ?Cutting down on caffeine or alcohol. ?Eating a healthy and balanced diet to prevent constipation. This may include: ?Choosing foods that are high in fiber, such as beans, whole grains, and fresh fruits and vegetables. ?Limiting foods that are high in fat and processed sugars, such as fried and sweet foods. Lifestyle Lose weight if needed. Do not use any products that contain nicotine or tobacco. These include cigarettes, chewing tobacco, and vaping devices, such as e-cigarettes. If you need help quitting, ask your health care provider. General instructions Take sqmr-dpp-wrpphbu and prescription medicines only as told by your health care provider. If you were prescribed an antibiotic medicine, take it as told by your health care provider. Do notstop taking the antibiotic even if you start to feel better. Use any implants or pessary as told by your health care provider. If needed, wear pads to absorb urine leakage. Keep a log to track how much and when you drink, and when you need to urinate. This will help your health care provider monitor your condition. Keep all follow-up visits. This is important. Contact a health care provider if: You have a fever or chills. Your symptoms do not get better with treatment. Your pain and discomfort get worse. You have more frequent urges to urinate. Get help right away if: You are not able to control your bladder. Summary Overactive bladder refers to a condition in which a person has a sudden and frequent need to urinate. Several conditions may lead to an overactive bladder. Treatment for overactive bladder depends on the cause and severity of your condition. Making lifestyle changes, doing Kegel exercises, keeping a log, and taking medicines can help with this condition. This information is not intended to replace advice given to you by your health care provider. Make sure you discuss any questions you have with your health care provider. Document Revised: 12/06/2020 Document Reviewed: 12/06/2020 [employer] Patient Education 2022 [employer]. Follow Up Care 04/19/2022 15:27:00 With:BERTRAND MONTERO, HARPER Ly, URL Address: [address] [place] [address] Business (1) When: only if needed [facility] 05-05-2023 Evaluation note* Encounter Date Diagnosis Assessment Notes Treatment Notes Treatment Clinical Notes July, Chronic HFrEF (heart failure with reduced ejection fraction) (ICD-10 - I50.22) ECHOCARDIOGRAM: - LVEF is 35 to 40%. Left ventricle is mildly dilated. - Biatrial enlargement. - Right ventricle is normal in size and systolic function. - Mild mitral regurgitation. [facility] Other 04-18-2023 Evaluation note* Encounter Date Diagnosis Assessment Notes Treatment Notes Treatment Clinical Notes Jul, Ischemic cardiomyopathy (ICD-10 - I25.5) ECHOCARDIOGRAM - 08/2020 - LVEF 45-50%. Abnormal septal motion. - The right ventricle is normal in size and systolic function. Low salt diet, consistent exercise routine, continue secondary prevention measures. - control BP, LDL<70, A1C<7.5% Jul, Chronic HFrEF (heart failure with reduced ejection fraction) (ICD-10 - I50.22) Continue GDMT Low salt diet, daily weights. Extra dose of diuretic for unexplained weight gain > 3lbs No change in medications Echocardiogram qoy Jul, Essential hypertension (ICD-10 - I10) This patient is instructed to consume a healthy, low-fat, low-salt diet. They are also encouraged to continue exercise to achieve/maintain a normal BMI. Jul, Controlled type 2 diabetes mellitus with hyperglycemia, without long-term current use of insulin (ICD-10 - E11.65) This patient is following a comprehensive diabetic treatment plan. They are checking their feet daily for calluses and nonhealing ulcers. They are being seen for yearly dilated eye examinations. Goals: SBP less than 130, LDL less than 100, FBS less than 140, AC and A1C less than 7%. They are checking their BS daily, will which are reviewed at the office visit. A1C:due Jul, Controlled type 2 diabetes mellitus with diabetic polyneuropathy, without long-term current use of insulin (ICD-10 - E11.42) Inspect feet daily for cuts and calluses.Recommend diabetic shoes and inserts to prevent callus formation.Fall precautions. Jul, SNEHA (obstructive sleep apnea) (ICD-10 - G47.33) This patient is aware of the benefits associated with SNEHA: With continued use, the patient reduces the risk for NC, CVA, HTN, cardiac dysrhythmias and sudden cardiac deaths.The patient is also aware of the association between SNEHA and morning headaches, daytime somnolence, fatigue and obesity, which also has been improved with continued use.The patient is compliant with treatment, wearing the equipment every night for greater than 4 hours.The patient is instructed to continue use of the CPAP for SNEHA treatment. Jul, Chronic venous insufficiency (ICD-10 - I87.2) Avoid salt and elevate lower extremities, support stockings, inspect legs and feet daily for blisters and ulcerations. Jul, Lumbar spondylosis with myelopathy (ICD-10 - M47.16) The patient is instructed to avoid bending, twisting or lifting. They are to use intermittent heat and ice as needed. They may schedule a massage or gentle manipulation. They may safely use Tylenol as needed. Jul, Hyperlipidemia type II (ICD-10 - E78.01) Diet and exercise with continued statin therapy. [facility] Other 01-18-2023 Hospital Discharge instructions Patient Education 04/19/2022 15:53:57 Urinary Incontinence Urinary Incontinence Urinary incontinence refers to a condition in which a person is unable to control where and when topass urine. A person with this condition will urinate when he or she does not mean to (involuntarily). What are the causes? This condition may be caused by: Medicines. Infections. Constipation. Overactive bladder muscles. Weak bladder muscles. Weak pelvic floor muscles. These muscles provide support for the bladder, intestine, and, in women,the uterus. Enlarged prostate in men. The prostate is a gland near the bladder. When it gets too big, it can pinch the urethra. With the urethra blocked, the bladder can weaken and lose the ability to empty properly. Surgery. Emotional factors, such as anxiety, stress, or post-traumatic stress disorder (PTSD). Pelvic organ prolapse. This happens in women when organs shift out of place and into the vagina. This shift can prevent the bladder and urethra from working properly. What increases the risk? The following factors may make you more likely to develop this condition: Older age. Obesity and physical inactivity. and childbirth. Menopause. Diseases that affect the nerves or spinal cord (neurological diseases). Long-term (chronic) coughing. This can increase pressure on the bladder and pelvic floor muscles. What are the signs or symptoms? Symptoms may vary depending on the type of urinary incontinence you have. They include: A sudden urge to urinate, but passing urine involuntarily before you can get to a bathroom (urge incontinence). Suddenly passing urine with any activity that forces urine to pass, such as coughing, laughing, exercise, or sneezing (stress incontinence). Needing to urinate often, but urinating only a small amount, or constantly dribbling urine (overflow incontinence). Urinating because you cannot get to the bathroom in time due to a physical disability, such as arthritis or injury, or communication and thinking problems, such as Alzheimer disease (functional incontinence). How is this diagnosed? This condition may be diagnosed based on: Your medical history. A physical exam. Tests, such as: ?Urine tests. ?X-rays of your kidney and bladder. ?Ultrasound. ?CT scan. ?Cystoscopy. In this procedure, a health care provider inserts a tube with a light and camera (cystoscope) through the urethra and into the bladder in order to check for problems. ?Urodynamic testing. These tests assess how well the bladder, urethra, and sphincter can store and release urine. There are different types of urodynamic tests, and they vary depending on what the test is measuring. To help diagnose your condition, your health care provider may recommend that you keep a log of when you urinate and how much you urinate. How is this treated? Treatment for this condition depends on the type of incontinence that you have and its cause. Treatment may include: Lifestyle changes, such as: ?Quitting smoking. ?Maintaining a healthy weight. ?Staying active. Try to get 150 minutes of moderate-intensity exercise every week. Ask your health care provider which activities are safe for you. ?Eating a healthy diet. ?Avoid high-fat foods, like fried foods. ?Avoid refined carbohydrates like white bread and white rice. ?Limit how much alcohol and caffeine you drink. ?Increase your fiber intake. Foods such as fresh fruits, vegetables, beans, and whole grains are healthy sources of fiber. Pelvic floor muscle exercises. Bladder training, such as lengthening the amount of time between bathroom breaks, or using the bathroom at regular intervals. Using techniques to suppress bladder urges. This can include distraction techniques or controlled breathing exercises. Medicines to relax the bladder muscles and prevent bladder spasms. Medicines to help slow or prevent the growth of a man's prostate. Botox injections. These can help relax the bladder muscles. Using pulses of electricity to help change bladder reflexes (electrical nerve stimulation). For women, using a medical biller to prevent urine leaks. This is a small, tampon-like, disposable device that is inserted into the urethra. Injecting collagen or carbon beads (bulking agents) into the urinary sphincter. These can help thicken tissue and close the bladder opening. Surgery. Follow these instructions at home: Lifestyle Limit alcohol and caffeine. These can fill your bladder quickly and irritate it. Keep yourself clean to help prevent odors and skin damage. Ask your doctor about special skin creams and cleansers that can protect the skin from urine. Consider wearing pads or adult diapers. Make sure to change them regularly, and always change them right after experiencing incontinence. General instructions Take plog-xef-ujaostg and prescription medicines only as told by your health care provider. Use the bathroom about every 3 4 hours, even if you do not feel the need to urinate. Try to empty your bladder completely every time. After urinating, wait a minute. Then try to urinate again. Make sure you are in a relaxed position while urinating. If your incontinence is caused by nerve problems, keep a log of the medicines you take and the times you go to the bathroom. Keep all follow-up visits as told by your health care provider. This is important. Contact a health care provider if: You have pain that gets worse. Your incontinence gets worse. Get help right away if: You have a fever or chills. You are unable to urinate. You have redness in your groin area or down your legs. Summary Urinary incontinence refers to a condition in which a person is unable to control where and when topass urine. This condition may be caused by medicines, infection, weak bladder muscles, weak pelvic floor muscles, enlargement of the prostate (in men), or surgery. The following factors increase your risk for developing this condition: older age, obesity, and childbirth, menopause, neurological diseases, and chronic coughing. There are several types of urinary incontinence. They include urge incontinence, stress incontinence, overflow incontinence, and functional incontinence. This condition is usually treated first with lifestyle and behavioral changes, such as quitting smoking, eating a healthier diet, and doing regular pelvic floor exercises. Other treatment options include medicines, bulking agents, medical devices, electrical nerve stimulation, or surgery. This information is not intended to replace advice given to you by your health care provider. Make sure you discuss any questions you have with your health care provider. Document Released: 04/26/2005 Document Revised: 03/29/2018 Document Reviewed: 06/28/2017 [employer] Patient Education 2020 [employer]. Follow Up Care 11/08/2021 11:37:35 With:HARPER BARRETO PA-C, URL Address: [address] [place] [address] When:3 months [facility] 01-13-2023 Evaluation note* Encounter Date Diagnosis Assessment Notes Treatment Notes Treatment Clinical Notes Apr, Controlled type 2 diabetes mellitus with hyperglycemia, without long-term current use of insulin (ICD-10 - E11.65) This patient is following a comprehensive diabetic treatment plan. They are checking their feet daily for calluses and nonhealing ulcers. They are being seen for yearly dilated eye examinations. Goals: SBP less than 130, LDL less than 100, FBS less than 140, AC and A1C less than 7%. They are checking their BS daily, will which are reviewed at the office visit. A1C: Apr, Ischemic cardiomyopathy (ICD-10 - I25.5) This patient is stable without activity related CP, dyspnea or lightheadedness. They are instructed to continue exercise and AHA diet plan. Apr, Dilated cardiomyopathy (ICD-10 - I42.0) Avoid salt, exercise, daily weights and continue GDMT. Notify office w/ weight gain > 3lbs, SOB or increased peripheral edema Apr, Essential hypertension (ICD-10 - I10) This patient is instructed to consume a healthy, low-fat, low-salt diet. They are also encouraged to continue exercise to achieve/maintain a normal BMI. Apr, Hyperlipidemia type II (ICD-10 - E78.01) Diet and exercise with continued statin therapy. Apr, SNEHA (obstructive sleep apnea) (ICD-10 - G47.33) This patient is aware of the benefits associated with SNEHA: With continued use, the patient reduces the risk for NC, CVA, HTN, cardiac dysrhythmias and sudden cardiac deaths. The patient is also aware of the association between SNEHA and morning headaches, daytime somnolence, fatigue and obesity, Noncompliant despite evidence for reducing risk for stroke, heart attack and AF Apr, Lumbar spondylosis with myelopathy (ICD-10 - M47.16) The patient is instructed to avoid bending, twisting or lifting. They are to use intermittent heat and ice as needed. They may schedule a massage or gentle manipulation. They may safely use Tylenol as needed. Tramadol for severe pain. Discussed PT and pain management as optional treatments Apr, Obesity (BMI 30-39.9) (ICD-10 - E66.9) This patient has been instructed on a low-fat, high-fiber diet. They are instructed to reduce calories, portion sizes and snacks. It is recommended that they exercise for 30 minutes, 3-5 times weekly. Apr, Other Diet and exerci se with continued statin therapy. This patient is aware of the benefits associated with SNEHA: With continued use, the patient reduces the risk for NC, CVA, HTN, cardiac dysrhythmias and sudden cardiac deaths. The patient is also aware of the association between SNEHA and morning headaches, daytime somnolence, fatigue and obesity, which also has been improved with continued use. The patient is compliant with treatment, wearing the equipment every night for greater than 4 hours. The patient is instructed to continue use of the CPAP for SNEHA treatment. The patient is instructed to avoid bending, twisting or lifting. They are to use intermittent heat and ice as needed. They may schedule a massage or gentle manipulation. They may safely use Tylenol as needed. [facility] Other 10-26-2022 Evaluation note* Encounter Date Diagnosis Assessment Notes Treatment Notes Treatment Clinical Notes Dec, Trigger ring finger of right hand (ICD-10 - M65.341) Patient appears to be doing well at this time. We will continue to monitor. Call with symptom reoccurance or questions/concerns. Sent in topical diclofenac gel to use as needed. [facility] Other 09-06-2022 Evaluation note* Encounter Date Diagnosis Assessment Notes Treatment Notes Treatment Clinical Notes Dec, Trigger ring finger of right hand (ICD-10 - M65.341) Patient has improved with cortisone injection, rx given for Medrol Dosepak [facility] Other 08-09-2022 Hospital Discharge instructions Patient Education 11/08/2021 11:32:16 Benign Prostatic Hyperplasia Benign Prostatic Hyperplasia Benign prostatic hyperplasia (BPH) is an enlarged prostate gland that is caused by the normal agingprocess and not by cancer. The prostate is a walnut-sized gland that is involved in the production of semen. It is located in front of the rectum and below the bladder. The bladder stores urine and the urethra is the tube that carries the urine out of the body. The prostate may get bigger as a man gets older. An enlarged prostate can press on the urethra. This can make it harder to pass urine. The build-up of urine in the bladder can cause infection. Back pressure and infection may progress to bladder damage and kidney (renal) failure. What are the causes? This condition is part of a normal aging process. However, not all men develop problems from this condition. If the prostate enlarges away from the urethra, urine flow will not be blocked. If it enlarges toward the urethra and compresses it, there will be problems passing urine. What increases the risk? This condition is more likely to develop in men over the age of 50 years. What are the signs or symptoms? Symptoms of this condition include: Getting up often during the night to urinate. Needing to urinate frequently during the day. Difficulty starting urine flow. Decrease in size and strength of your urine stream. Leaking (dribbling) after urinating. Inability to pass urine. This needs immediate treatment. Inability to completely empty your bladder. Pain when you pass urine. This is more common if there is also an infection. Urinary tract infection (UTI). How is this diagnosed? This condition is diagnosed based on your medical history, a physical exam, and your symptoms. Tests will also be done, such as: A post-void bladder scan. This measures any amount of urine that may remain in your bladder after you finish urinating. A digital rectal exam. In a rectal exam, your health care provider checks your prostate by putting a lubricated, gloved finger into your rectum to feel the back of your prostate gland. This exam detects the size of your gland and any abnormal lumps or growths. An exam of your urine (urinalysis). A prostate specific antigen (PSA) screening. This is a blood test used to screen for prostate cancer. An ultrasound. This test uses sound waves to electronically produce a picture of your prostate gland. Your health care provider may refer you to a specialist in kidney and prostate diseases (urologist). How is this treated? Once symptoms begin, your health care provider will monitor your condition (active surveillance or watchful waiting). Treatment for this condition will depend on the severity of your condition. Treatment may include: Observation and yearly exams. This may be the only treatment needed if your condition and symptoms are mild. Medicines to relieve your symptoms, including: ?Medicines to shrink the prostate. ?Medicines to relax the muscle of the prostate. Surgery in severe cases. Surgery may include: ?Prostatectomy. In this procedure, the prostate tissue is removed completely through an open incision or with a laparoscope or robotics. ?Transurethral resection of the prostate (TURP). In this procedure, a tool is inserted through the opening at the tip of the penis (urethra). It is used to cut away tissue of the inner core of the prostate. The pieces are removed through the same opening of the penis. This removes the blockage. ?Transurethral incision (TUIP). In this procedure, small cuts are made in the prostate. This lessens the prostate's pressure on the urethra. ?Transurethral microwave thermotherapy (TUMT). This procedure uses microwaves to create heat. The heat destroys and removes a small amount of prostate tissue. ?Transurethral needle ablation (TUNA). This procedure uses radio frequencies to destroy and remove a small amount of prostate tissue. ?Interstitial laser coagulation (ILC). This procedure uses a laser to destroy and remove a small amount of prostate tissue. ?Transurethral electrovaporization (TUVP). This procedure uses electrodes to destroy and remove a small amount of prostate tissue. ?Prostatic urethral lift. This procedure inserts an implant to push the lobes of the prostate away from the urethra. Follow these instructions at home: Take tlxa-fgb-cxxwxon and prescription medicines only as told by your health care provider. Monitor your symptoms for any changes. Contact your health care provider with any changes. Avoid drinking large amounts of liquid before going to bed or out in public. Avoid or reduce how much caffeine or alcohol you drink. Give yourself time when you urinate. Keep all follow-up visits as told by your health care provider. This is important. Contact a health care provider if: You have unexplained back pain. Your symptoms do not get better with treatment. You develop side effects from the medicine you are taking. Your urine becomes very dark or has a bad smell. Your lower abdomen becomes distended and you have trouble passing your urine. Get help right away if: You have a fever or chills. You suddenly cannot urinate. You feel lightheaded, or very dizzy, or you faint. There are large amounts of blood or clots in the urine. Your urinary problems become hard to manage. You develop moderate to severe low back or flank pain. The flank is the side of your body between the ribs and the hip. These symptoms may represent a serious problem that is an emergency. Do not wait to see if the symptoms will go away. Get medical help right away. Call your local emergency services (911 in the [place] Do not drive yourself to the hospital. Summary Benign prostatic hyperplasia (BPH) is an enlarged prostate that is caused by the normal aging process and not by cancer. An enlarged prostate can press on the urethra. This can make it hard to pass urine. This condition is part of a normal aging process and is more likely to develop in men over the age of 50 years. Get help right away if you suddenly cannot urinate. This information is not intended to replace advice given to you by your health care provider. Make sure you discuss any questions you have with your health care provider. Document Released: 03/19/2006 Document Revised: 02/11/2019 Document Reviewed: 04/23/2017 [employer] Patient Education [employer] Follow Up Care 09/06/2021 11:57:04 With:Uriel Damian MD, Michael Rivera URO Address: [facility] [address], [place] [address]- [phone] When:Within 4 Month(s) Comments:w/ REINIER [facility] 08-02-2022 Evaluation note* Encounter Date Diagnosis Assessment Notes Treatment Notes Treatment Clinical Notes Oct, Trigger ring finger of right hand (ICD-10 - M65.341) This appears to trigger finger. We discussed the cause of this condition and the treatment options. We discussed stretching of the finger as well as massage of the palmar MCP region. We discussed the use of cortisone injection into the palmar aspect of the hand at the trigger site can be helpful in relieving painful symptoms. We also discussed the option of surgical release which can eliminate the problem. We performed a marcaine/40mg kenalog cortisone injection into the palmar aspect of the finger near at the A1 melany under sterile technique. The patient tolerated this well without complication. We discussed that the finger may feel numb and tingle for hours after this injection. [facility] Other 07-21-2022 Evaluation note* Encounter Date Diagnosis Assessment Notes Treatment Notes Treatment Clinical Notes Sep, Degenerative disc disease, cervical (ICD-10 - M50.30) Continue with current treatment plan. Sep, Cervical spondylosis (ICD-10 - M47.812) 86 year old male here for follow up for chronic pain. He voices complaints of neck and bilateral shoulder pain with radiation into the back of the head. He also voices complaints of mild low back pain and numbness and tingling in bilateral calves. He feels pain can negatively impact his ADLs and sleeping pattern. Pertinent imaging of the cervical spine were reviewed and discussed in detail with the patient which showed multiple levels of disc degeneration and arthritis as well as a lesion near the brain stem, possible meningioma. Patient denies any persistant dizziness or headaches at this time. I recommend he follow up with Dr Vega for surgical evaluation prior to proceeding with interventional options for neck pain. If his pain persists or worsens, we will consider proceeding with a cervical facet MBB in the future. Patient is advised to call the office for a follow up appointment after Neurosurgery consultation. Sep, Sacroiliitis (ICD-10 - M46.1) Patient feels low back pain is manageable at this time. Continue with current treatment plan. Sep, Lumbosacral spondylosis (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) Stable. Sep, Chronic pain (ICD-10 - G89.29) Continue with current treatment plan. [facility] Other 06-09-2022 Evaluation note* Encounter Date Diagnosis Assessment Notes Treatment Notes Treatment Clinical Notes Aug, Sacroiliitis (ICD-10 - M46.1) 86 y/o male here with complaints of low back pain with intermittent numbness/tingling down the bilateral lower extremities. He also notes drop foot on the right. He feels his low back pain is most bothersome today. He states his pain started at least 16 years ago. He reports 5 prior back surgeries with Dr. Espitia, with the last one being in 2012. He states he has had physical therapy throughout the years which provided some marginal improvement. He also voices complaints of neck pain, most bothersome in the mornings. Prior to examining the patient, I reviewed progress notes from his referring physician Dr Vega. I also independently reviewed recent MRI of the lumbar spine which shows, L5-S1 fusion as well as multilevel foraminal stenosis and facet arthropathy. Anatomy of spine discussed in detail with patient in regards to patients condition. I recommend we proceed with a bilateral sacroiliac joint injection under fluoroscopic guidance. Risks and benefits of procedure explained to patient; patient verbalizes understanding. Aug, Lumbosacral spondylosis (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) In the future if the pain persists, we can consider proceeding with a lumbar facet MBB followed by a RFA if applicable under fluoroscopic guidance. 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 Proceed with current treatment plan Aug, Chronic pain (ICD-10 - G89.29) Continue with current treatment plan Aug, Other Medical deci jazmin making shows a new problem to me with further workup planned or suggested with the potential for extensive treatment options that were considered with the most applicable given this patient's situation as noted above. Treatment options considered include a combination of physical therapy approaches, pharmacologic management, and interventional procedures. Those most applicable to the patient were discussed at this time. Risk of complications and/or morbidity and mortality is high given that acute and chronic pain poses a threat to life and bodily function if undertreated, poorly treated or with failure to maintain adequate treatment and timely followup. Given the serious and fluctuating nature of pain with extensive consideration for whenever pain changes, there always remains the possibility of prolonged functional impairment requiring constant patient reassessment and high-level medical decision making. The amount and complexity of data reviewed is high given that patient labs, radiology reports, and other test were obtained, reviewed and summarized as applicable from the physician portal and/or outside medical records. Pertinent positive and negative findings were considered in medical decision-making. [facility] Other [id number] Hospital Discharge instructions Patient Education 09/06/2021 11:55:48 Overactive Bladder, Adult Overactive Bladder, Adult Overactive bladder refers to a condition in which a person has a sudden need to pass urine. The person may leak urine if he or she cannot get to the bathroom fast enough (urinary incontinence). A person with this condition may also wake up several times in the night to go to the bathroom. Overactive bladder is associated with poor nerve signals between your bladder and your brain. Your bladder may get the signal to empty before it is full. You may also have very sensitive muscles thatmake your bladder squeeze too soon. These symptoms might interfere with daily work or social activities. What are the causes? This condition may be associated with or caused by: Urinary tract infection. Infection of nearby tissues, such as the prostate. Prostate enlargement. Surgery on the uterus or urethra. Bladder stones, inflammation, or tumors. Drinking too much caffeine or alcohol. Certain medicines, especially medicines that get rid of extra fluid in the body (diuretics). Muscle or nerve weakness, especially from: ?A spinal cord injury. ?Stroke. ?Multiple sclerosis. ?Parkinson's disease. Diabetes. Constipation. What increases the risk? You may be at greater risk for overactive bladder if you: Are an older adult. Smoke. Are going through menopause. Have prostate problems. Have a neurological disease, such as stroke, dementia, Parkinson's disease, or multiple sclerosis (MS). Eat or drink things that irritate the bladder. These include alcohol, spicy food, and caffeine. Are overweight or obese. What are the signs or symptoms? Symptoms of this condition include: Sudden, strong urge to urinate. Leaking urine. Urinating 8 or more times a day. Waking up to urinate 2 or more times a night. How is this diagnosed? Your health care provider may suspect overactive bladder based on your symptoms. He or she will diagnose this condition by: A physical exam and medical history. Blood or urine tests. You might need bladder or urine tests to help determine what is causing your overactive bladder. You might also need to see a health care provider who specializes in urinary tract problems (urologist). How is this treated? Treatment for overactive bladder depends on the cause of your condition and whether it is mild or severe. You can also make lifestyle changes at home. Options include: Bladder training. This may include: ?Learning to control the urge to urinate by following a schedule that directs you to urinate at regular intervals (timed voiding). ?Doing Kegel exercises to strengthen your pelvic floor muscles, which support your bladder. Toning these muscles can help you control urination, even if your bladder muscles are overactive. Special devices. This may include: ?Biofeedback, which uses sensors to help you become aware of your body's signals. ?Electrical stimulation, which uses electrodes placed inside the body (implanted) or outside the body. These electrodes send gentle pulses of electricity to strengthen the nerves or muscles that control the bladder. ?Women may use a plastic device that fits into the vagina and supports the bladder (pessary). Medicines. ?Antibiotics to treat bladder infection. ?Antispasmodics to stop the bladder from releasing urine at the wrong time. ?Tricyclic antidepressants to relax bladder muscles. ?Injections of botulinum toxin type A directly into the bladder tissue to relax bladder muscles. Lifestyle changes. This may include: ?Weight loss. Talk to your health care provider about weight loss methods that would work best for you. ?Diet changes. This may include reducing how much alcohol and caffeine you consume, or drinking fluids at different times of the day. ?Not smoking. Do not use any products that contain nicotine or tobacco, such as cigarettes and e-cigarettes. If you need help quitting, ask your health care provider. Surgery. ?A device may be implanted to help manage the nerve signals that control urination. ?An electrode may be implanted to stimulate electrical signals in the bladder. ?A procedure may be done to change the shape of the bladder. This is done only in very severe cases. Follow these instructions at home: Lifestyle Make any diet or lifestyle changes that are recommended by your health care provider. These may include: ?Drinking less fluid or drinking fluids at different times of the day. ?Cutting down on caffeine or alcohol. ?Doing Kegel exercises. ?Losing weight if needed. ?Eating a healthy and balanced diet to prevent constipation. This may include: ?Eating foods that are high in fiber, such as fresh fruits and vegetables, whole grains, and beans. ?Limiting foods that are high in fat and processed sugars, such as fried and sweet foods. General instructions Take khhg-rmi-jtoypzn and prescription medicines only as told by your health care provider. If you were prescribed an antibiotic medicine, take it as told by your health care provider. Do notstop taking the antibiotic even if you start to feel better. Use any implants or pessary as told by your health care provider. If needed, wear pads to absorb urine leakage. Keep a journal or log to track how much and when you drink and when you feel the need to urinate. This will help your health care provider monitor your condition. Keep all follow-up visits as told by your health care provider. This is important. Contact a health care provider if: You have a fever. Your symptoms do not get better with treatment. Your pain and discomfort get worse. You have more frequent urges to urinate. Get help right away if: You are not able to control your bladder. Summary Overactive bladder refers to a condition in which a person has a sudden need to pass urine. Several conditions may lead to an overactive bladder. Treatment for overactive bladder depends on the cause and severity of your condition. Follow your health care provider's instructions about lifestyle changes, doing Kegel exercises, keeping a journal, and taking medicines. This information is not intended to replace advice given to you by your health care provider. Make sure you discuss any questions you have with your health care provider. Document Released: 01/13/2010 Document Revised: 07/10/2019 Document Reviewed: 04/04/2018 [employer] Patient Education 2020 [employer]. Follow Up Care 07/05/2021 11:30:39 With:Uriel Damian MD, Michael Rivera, URO Address: [facility] [address], [place] [address]- When:11/06/2021 Comments:w/ REINIER [facility] 05-24-2022 Evaluation note* Encounter Date Diagnosis Assessment Notes Treatment Notes Treatment Clinical Notes July, Other chronic pain (ICD-10 - G89.29) July, Low back pain, unspecified (ICD-10 - M54.50) July, Rib pain on right side (ICD-10 - R07.81) July, Fusion of lumbar spine (ICD-10 - M43.26) This is a gentleman who has had an extensive lumbar fusion with advanced age imbalance. He has rib pain on the right that comes and goes and he has low back pain that comes and goes sometimes; it depends if he plays shuffle board or not. I have independently reviewed the MRI of the lumbar spine that shows overall adequate canal extensive lumbar fusion multiple levels of foraminal narrowing. At this point I see no evidence for surgical intervention on this patient, his pain needs to be taken care of in the arena of pain management. A referral will be sent [facility] Other 04-05-2022 Hospital Discharge instructions Patient Education 07/05/2021 11:10:16 Transurethral Resection of the Prostate Transurethral Resection of the Prostate Transurethral resection of the prostate (TURP) is the removal (resection) of part of the gland thatproduces semen (prostate gland). This procedure is done to treat benign prostatic hyperplasia (BPH). BPH is an abnormal, noncancerous (benign) increase in the number of cells that make up the prostate tissue. BPH causes the prostate to get bigger. The enlarged prostate can push against or block thetube that drains urine from the bladder out of the body (urethra). BPH can affect normal urine flowby causing bladder infections, difficulty controlling bladder function, and difficulty emptying thebladder. The goal of TURP is to remove enough prostate tissue to allow for a normal flow of urine. The procedure will allow you to empty your bladder more completely when you urinate so that you can urinate less often. In a transurethral resection, a thin telescope with a light, a tiny camera, and an electric cuttingedge (resectoscope) is passed through the urethra and into the prostate. The opening of the urethrais at the end of the penis. Tell a health care provider about: Any allergies you have. All medicines you are taking, including vitamins, herbs, eye drops, creams, and yqyd-hbt-airaatz medicines. Any problems you or family members have had with anesthetic medicines. Any blood disorders you have. Any surgeries you have had. Any medical conditions you have. Any prostate infections you have had. What are the risks? Generally, this is a safe procedure. However, problems may occur, including: Infection. Bleeding. Allergic reactions to medicines. Damage to other structures or organs, such as: ?The urethra. ?The bladder. ?Muscles that surround the prostate. Difficulty getting an erection. Inability to control when you urinate (incontinence). Scarring, which may cause problems with urine flow. What happens before the procedure? Medicines Ask your health care provider about: Changing or stopping your regular medicines. This is especially important if you are taking diabetes medicines or blood thinners. Taking medicines such as aspirin and ibuprofen. These medicines can thin your blood. Do not take these medicines unless your health care provider tells you to take them. Taking oajd-hza-vtfpltf medicines, vitamins, herbs, and supplements. Eating and drinking Follow instructions from your health care provider about eating and drinking, which may include: 8 hours before the procedure stop eating heavy meals or foods, such as meat, fried foods, or fatty foods. 6 hours before the procedure stop eating light meals or foods, such as toast or cereal. 6 hours before the procedure stop drinking milk or drinks that contain milk. 2 hours before the procedure stop drinking clear liquids. Staying hydrated Follow instructions from your health care provider about hydration, which may include: Up to 2 hours before the procedure you may continue to drink clear liquids, such as water, clear fruit juice, black coffee, and plain tea. General instructions You may have a physical exam. You may have a blood or urine sample taken. Ask your health care provider what steps will be taken to help prevent infection. These may include: ?Washing skin with a germ-killing soap. ?Taking antibiotic medicine. Plan to have someone take you home from the hospital or clinic. You may not be able to drive for upto 10 days after your procedure. Plan to have a responsible adult care for you for at least 24 hours after you leave the hospital orclinic. This is important. What happens during the procedure? An IV will be inserted into one of your veins. You will be given one or more of the following: ?A medicine to help you relax (sedative). ?A medicine to make you fall asleep (general anesthetic). ?A medicine that is injected into your spine to numb the area below and slightly above the injection site (spinal anesthetic). Your legs will be placed in foot rests (stirrups) so that your legs are apart and your knees are bent. The resectoscope will be passed through your urethra to your prostate. Parts of your prostate will be resected using the cutting edge of the resectoscope. The resectoscope will be removed. A small, thin tube (catheter) will be passed through your urethra and into your bladder. The catheter will drain urine into a bag outside of your body. ?Fluid may be passed through the catheter to keep the catheter open. The procedure may vary among health care providers and hospitals. What happens after the procedure? Your blood pressure, heart rate, breathing rate, and blood oxygen level will be monitored until youleave the hospital or clinic. You may continue to receive fluids and medicines through an IV. You may have some pain. Pain medicine will be available to help you. You will have a catheter draining your urine. ?You may have blood in your urine. Your catheter may be kept in until your urine is clear. ?Your urinary drainage will be monitored. If necessary, your bladder may be rinsed out (irrigated) through your catheter. You will be encouraged to walk around as soon as possible. You may have to wear compression stockings. These stockings help prevent blood clots and reduce swelling in your legs. Do not drive for 24 hours if you were given a sedative during your procedure. Summary Transurethral resection of the prostate (TURP) is the removal (resection) of part of the gland thatproduces semen (prostate gland). The goal of this procedure is to remove enough prostate tissue to allow for a normal flow of urine. Follow instructions from your health care provider about taking medicines and about eating and drinking before the procedure. This information is not intended to replace advice given to you by your health care provider. Make sure you discuss any questions you have with your health care provider. Document Released: 03/19/2006 Document Revised: 07/09/2019 Document Reviewed: 12/18/2018 [employer] Patient Education 2020 [employer]. Follow Up Care 11/30/2020 15:18:02 With:Michael Trevino Jr., MD, URO Address: [facility] [address], [place] [address]- [phone] When:09/04/2021 [facility] evaluation + Plan note Future Appointments Appointment Date:09/06/2021 11:15:00 AM Scheduled Provider:Michael Trevino Jr., MD Location:[facility] Appointment Type:URO Office Visit [facility] evaluation + Plan note Future Appointments Appointment Date:11/08/2021 10:45:00 AM Scheduled Provider:Michael Trevino Jr., MD Location:[facility] Appointment Type:URO Office Visit [facility] evaluation + Plan note Future Appointments Appointment Date:03/28/2022 10:30:00 AM Scheduled Provider:Michael Trevino Jr., MD Location:[facility] Appointment Type:URO Office Visit [facility] evaluation + Plan note Future Appointments Appointment Date:07/18/2022 01:00:00 PM Scheduled Provider:HARPER BARRETO PA-C Location:[facility] Appointment Type:URO Office Visit [facility] [employer] Other Evaluation note* Diagnosis Onset Date Resolution Status Urinary incontinence chronic Uses walker chronic Weakness chronic Incontinence associated dermatitis resolved Chronic HFrEF (heart failure with reduced ejection fraction) acute Chronic venous insufficiency acute [id number] acute [id number] acute Hyperlipidemia type II acute Ischemic cardiomyopathy acut e Lumbosacral spondylosis acut e SNEHA (obstructive sleep apnea) acute Primary hypertension acute [facility] Work Phone: History general Narrative - Reported* Type Description Date Medical History Esophageal reflux Medical History hypertension Medical History hyperlipidemia Medical History diabetes mallitus Medical History ischemic cardiomyopathy Surgical History back surgery X5 Surgical History Bilateral TKA Surgical History Ulnar Nerve Surgical History [facility] Hospitalization History See Above ilab Other Hisuvwq general Narrative - Reported* Type Description Date Medical History Chronic bilateral lo w back pain with left-sided sciatica Medical History Chronic bilateral lo w back pain with right-sided sciatica Medical History High risk medication use Medical History Flat foot [pes planus] (acquired ), right foot Medical History 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, without long-term current use of insulin Medical History 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 Medical History Ischemic cardiomyopathy Medical History Dilated cardiomyopathy Medical History Benign prostatic hyp erplasia with lower urinary tract symptoms, symptom details unspecified Medical History Gastroesophageal ref lux disease with esophagitis, unspecified whether hemorrhage Medical History SNEHA (obstructive sleep apnea) Medical History Controlled type 2 di abetes mellitus with hyperglycemia, without long-term current use of insulin Medical History Lumbar spondylosis with myelopat hy Medical History Chronic venous insufficiency Medical History Hyperlipidemia type II Medical History Essential hypertension Medical History Foot drop, left Medical History Foot drop, right Medical History Adenomatous polyp of descending colon Medical History ASHD (arteriosclerotic heart dis ease) Medical History 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 Medical History Carpal tunnel syndrome, bilatera l Medical History Congenital pes planus, right alyssa t Medical History Obesity (BMI 30-39.9) Surgical History back surgery X5 Surgical History Bilateral TKA 2003 Surgical History Ulnar Nerve Surgical History [facility] 12/2017 Surgical History TURP, with Cystoscopy 09/24/2020 Surgical History Colonoscopy - 2003, 2006, 01/2015 Surgical History Lumbar Decompression, Lumbar Fu jazmin 2004 Surgical History Discectomy/Fusion L3L4 2011 Surgical History Right Shoulder Arthroscopy Surgical History Discectomy Lumbar Spine 2012 Surgical History Left Ulnar Nerve Release 12/2017 Surgical History Left CTR 09/2013 Hospitalization History See Above ilab Other Hospital course Narrative No data available for this section [facility] progress note No data available for this section [facility] reason for referral (narrative)* Reason Referral for sacral pressure ulceration Diagnosis 1 Pressure injury of s acral region, stage 2 (L89.152) Referral Organization [facility] Bucky conrad Referring Provider First Name Jasiel Referring Provider Last Name Bucky Referring Provider Specialty Internal Me dicine Referred Organization [facility] Referred Address [place], [place],[address] Referred Provider Specialty Wound Care Referral Priority Routine General Notes Mr. De Oliveira is being r eferred for a sacral ulcer. This has developed over the past several months. His back condition renders him sedentary, which has contributed to this problem. He also is diabetic, which results in prolonged healing and increased risk for deep infection. ilab Other Summary Purpose Family History Relationship Condition Age at Onset Recorded Date/T ned sister Hypertension Unknown father Hypertension Unknown Coronary artery disease Unknown Cerebrovascular accident (CVA) Unknown Unknown Not Specified Malignant neoplasm of bone Unknown Advance Directives Documents on File Type Date Recorded Patient Natural Resource Specialist Expl anation Advance Directives and Livin g Will 11/22/2017 8:38 AM Advance Directives and Livin g Will 11/22/2017 8:39 AM Power of Automatic Dry Starch Operator 11/22/2017 8:36 AM Latest Code Status on File Code Status Date Activated Date Inactivated Comments Full Code 08/16/2019 2:57 PM Full Code 08/16/2019 2:25 PM 08/16/2019 2:57 PM Full Code 11/22/2017 2:02 PM 11/23/2017 1:51 PM Full Code 10/11/2017 11:59 AM 10/14/2017 2:32 AM Advance Directive Response Recorded Date/ Time Advance Directives No August 28, 201 8 1:11pm Reason for Referral Status Reason Specialty Diagnoses / Procedures Referred By Contact Referred To Contact Open Specialty Services Required Physical Therapy Diagnoses Spinal stenosis of thoracolumbar region Lumbosacral spondylosis without myelopathy Ramya Hennessy, PRACTICE MANAGEMENT CONSULTANT - IMPLANT POLISHER [address] [place] [address] Scheduling Instructions S/p t-spine decompression bilateral lower extremity weakness Reason *Waiting for appt Evaluate and Treat Rib and Low Back Pain Diagnosis 1 Other chronic pain ( G89.29) Referral Organization [facility] Ne urosurgery Referring Provider First Name Dave Referring Provider Last Name Silvia Referring Provider Specialty Neurologica l Surgery Referred Organization [facility] Pain Managemen t Referred Provider Petar Lizama Referred Address [address] [place] [address] ,[place], [place],[address] Referred Provider Specialty Pain Medicin e Referral Priority Routine General Notes Fore, Niki M 022 07:26:20 AM >Received today and sent P2P Reason Please evaluate and treat for left cerebellar lesion found on MRI, possible meningioma Diagnosis 1 Cervical spondylosis (M47.812) Referral Organization [facility] Pain Managemen t Referring Provider First Name Petar Referring Provider Last Name Dl Referring Provider Specialty Pain Medici ne Referred Organization [facility] Sp[facility] Center Referred Provider Dave Vega Referred Address [address] [place] [address] ,[place], [place],[address] Referred Provider Specialty Neurological Surgery Referral Priority Routine Discharge Instructions * Discharge Instr - Activity* Carrie Keating RN - 08/20/2019 2:45 PM EDT Up as tolerated per neuro spine orders * Additional Instructions* Ramya Hennessy, MATIDLA - IMPLANT POLISHER - 08/20/2019 dication given may have significant effects after discharge. Therefore on the day of surgery: 1) you should be accompanied by a responsible adult upon discharge and for 24 hours after surgery. Do not drive a motor vehicle, operate machinery, power tools or appliance, drink alcoholic beverages, or make critical decisions for 24 hours 2) Be aware of dizziness, which may cause a fall. Change positions slowly. 3) Eating: you may resume your regular diet but it is better to increase intake slowly with mild foods and working up to your regular diet. 4) Nausea/Vomiting: Nausea and vomiting may occur as you become more active or begin to increase food intake. If this should happen, decrease activity and return to liquids. 5) Pain: Your surgeon may have given you a prescription for pain medication. Take pain medication with food as prescribed. Pain medication may cause constipation, so drink plenty of fluids. You may need to use laxatives. 6) Ice: You may use a cool pack to operative site for 20 min 5-6 times a day as needed for comfort. 8) Dressing: Change dressing as frequently as needed to keep clean and dry. Remove all sticky tape in 5 days. May shower in three days. Do not put soap or soak on the incision until healed. 9) INCREASE ACTIVITY TOLERATED AND INSTRUCTED. GO BY HOW YOU FEEL. 10) See physical therapist when advised by your physician 11) Call your doctor at [phone] for an appointment (or follow up as scheduled). 12) If have an order for X-Rays have done within a week before your follow up appointment. ? Contact OFFICE IF o Increased redness, swelling, excess drainage, and/or pain to surgery site. As well as new onset fevers and or chills. These could signify an infection. o Calf or thigh tenderness to touch as well as increased swelling or redness. This could signify a clot formation. o Numbness or tingling to an area around the incision site or below the incision site (toes). Or ifthe operative extremity becomes cold, blue. o Any rash appears, increased or new onset nausea/vomiting occur. This may indicate a reaction to amedication. o Temp is 38.5 C (101F) 12) If you have any concerns or questions, please call OFFICE. The 24- hour phone is [phone] 13) If you are unable to contact your surg Patient is to use ice bags 10 minutes on 10 minutes off as needed basis Patient may shower in 5 days postop. Patient is to ambulate as much as possible Patient is to not drive until follow up documented in this encounter History of Present Illness * Michael Lane MD - 08/21/2019 11:01 AM EDT Progress Note Patient: Irvin De Oliveira Unit/Bed: W291/W291-01 Date of : 1935 Acct: [id number] Admitting Diagnosis: Spinal stenosis of thoracolumbar region [M48.05] Weakness of both lower limbs [R29.898] Admit Date: 08/16/2019 Hospital Day: 5 Chief Complaint: Post OP Histories: Past Medical History: Diagnosis Date Arthritis Asthma as a child Back pain Basal cell carcinoma Broken wrist right Cancer (HCC) CTS (carpal tunnel syndrome) Foot drop, right foot Hammertoe Herniated nucleus pulposus History of broken leg right History of cardiac cath 2018 WNL Hyperlipidemia Hypertension 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 Shoulder injury left Past Surgical History: Procedure Laterality Date BLEPHAROPLASTY Bilateral CARPAL TUNNEL RELEASE Right CATARACT REMOVAL Bilateral COLONOSCOPY EYE SURGERY JOINT REPLACEMENT LUMBAR SPINE SURGERY N/A 08/19/2019 THORACIC DECOMPRESSION T11, T12 REMOVAL OF IBGS performed by Seymour Espitia MD at [facility] [place] LAMNOTMY INCL W/DCMPRSN NRV ROOT 1 INTRSPC LUMBR N/A 11/22/2017 T 12- L1 DISKECTOMY RIGHT THORACIC DISC performed by Seymour Espitia MD at [facility] OR SHOULDER SURGERY Right tendons SPINE SURGERY cages x3 TOTAL KNEE ARTHROPLASTY Bilateral both twice Family History Problem Relation Age of Onset Cancer Mother Thyroid Disease Mother High Blood Pressure Father Stroke Father Other Father stomach issues COPD Sister Asthma Sister Allergic Rhinitis Sister Heart Disease Sister No Known Problems Son No Known Problems Son Obesity Daughter Migraines Daughter Social History Socioeconomic History Marital status: Spouse name: Shazia Number of children: 4 Years of education: 12 Highest education level: High school graduate Occupational History Occupation: retired Employer: [employer] 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 Comment: [employer] [place] Social Needs Financial resource strain: Not hard at all Food insecurity Worry: Never true Inability: Never true Transportation needs Medical: No Non-medical: No Tobacco Use Smoking status: Never Smoker Smokeless tobacco: Never Used Substance and Sexual Activity Alcohol use: Yes Comment: occ Drug use: No Sexual activity: Not Currently Partners: Female Lifestyle Physical activity Days per week: 0 days Minutes per session: 0 min Stress: Only a little Relationships Social connections Talks on phone: More than three times a week Gets together: Once a week Attends [employer] service: 1 to 4 times per year Active member of club or organization: No Attends meetings of clubs or organizations: Never Relationship status: Intimate partner violence Fear of current or ex partner: No Emotionally abused: No Physically abused: No Forced sexual activity: No Other Topics Concern None Social History Narrative Lives With: Spouse Type of Home: [address] [facility] Home Layout: One level Home Access: Stairs to enter without rails Entrance Stairs - Number of Steps: 2 Bathroom Shower/Tub: Walk-in shower Bathroom Equipment: Grab bars in shower, Shower chair Home Equipment: Rolling walker ADL Assistance: Independent Homemaking Responsibilities: No Ambulation Assistance: Independent Transfer Assistance: Independent Active Imagery Analyst: No Subjective/HPI discharge held due to confusion last pm. AO3 this am. No cp no sob. Walked in room. Eating ok. Feet legs feel better. EKG: Review of Systems: Review of Systems Constitutional: Negative. Negative for diaphoresis and fatigue. HENT: Negative. Eyes: Negative. Respiratory: Negative. Negative for cough, chest tightness, shortness of breath, wheezing and stridor. Cardiovascular: Negative. Negative for chest pain, palpitations and leg swelling. Gastrointestinal: Negative. Negative for blood in stool and nausea. Genitourinary: Negative. Musculoskeletal: Positive for arthralgias, back pain and gait problem. Skin: Negative. Neurological: Positive for weakness. Negative for dizziness, syncope and light-headedness. Hematological: Negative. Psychiatric/Behavioral: Negative. Physical Examination: BP 131/84 Pulse 83 Temp 99 F (37.2 C) Resp 16 Ht 5' 7 (1.702 m) Wt 198 lb 1.6 oz (89.9 kg) SpO2 95% BMI 31.03 kg/m Physical Exam Constitutional: He appears healthy. No distress. HENT: Normal cephalic and Atraumatic Eyes: Pupils are equal, round, and reactive to light. Neck: Normal range of motion and thyroid normal. Neck supple. No JVD present. No neck adenopathy. No thyromegaly present. Cardiovascular: Normal rate, regular rhythm, intact distal pulses and normal pulses. Murmur heard. Pulmonary/Chest: Effort normal and breath sounds normal. He has no wheezes. He has no rales. He exhibits no tenderness. Abdominal: Soft. Bowel sounds are normal. There is no abdominal tenderness. Musculoskeletal: Normal range of motion. General: No tenderness or edema. Neurological: He is alert and oriented to person, place, and time. Skin: Skin is warm. No cyanosis. Nails show no clubbing. LABS: CBC: Lab Results Component Value Date WBC 9.0 08/16/2019 RBC 5.11 08/16/2019 HGB 15.5 08/16/2019 HCT 46.2 08/16/2019 MCV 90.4 08/16/2019 MCH 30.4 08/16/2019 MCHC 33.6 08/16/2019 RDW 17.1 08/16/2019 PLT 257 08/16/2019 CBC with Differential: Lab Results Component Value Date WBC 9.0 08/16/2019 RBC 5.11 08/16/2019 HGB 15.5 08/16/2019 HCT 46.2 08/16/2019 PLT 257 08/16/2019 MCV 90.4 08/16/2019 MCH 30.4 08/16/2019 MCHC 33.6 08/16/2019 RDW 17.1 08/16/2019 LYMPHOPCT 22.8 08/16/2019 MONOPCT 9.5 08/16/2019 BASOPCT 1.0 08/16/2019 MONOSABS 0.9 08/16/2019 LYMPHSABS 2.0 08/16/2019 EOSABS 0.4 08/16/2019 BASOSABS 0.1 08/16/2019 CMP: Lab Results Component Value Date NA 145 08/16/2019 K 3.9 08/16/2019 CL 102 08/16/2019 CO2 27 08/16/2019 BUN 17 08/16/2019 CREATININE 0.70 08/16/2019 GFRAA >60.0 08/16/2019 LABGLOM >60.0 08/16/2019 GLUCOSE 129 08/16/2019 PROT 6.9 08/16/2019 LABALBU 4.1 08/16/2019 CALCIUM 9.6 08/16/2019 BILITOT 1.0 08/16/2019 ALKPHOS 65 08/16/2019 AST 23 08/16/2019 ALT 12 08/16/2019 BMP: Lab Results Component Value Date NA 145 08/16/2019 K 3.9 08/16/2019 CL 102 08/16/2019 CO2 27 08/16/2019 BUN 17 08/16/2019 LABALBU 4.1 08/16/2019 CREATININE 0.70 08/16/2019 CALCIUM 9.6 08/16/2019 GFRAA >60.0 08/16/2019 LABGLOM >60.0 08/16/2019 GLUCOSE 129 08/16/2019 Magnesium: No results found for: MG Troponin: No results found for: TROPONINI Active Hospital Problems Diagnosis Date Noted Gait abnormality [R26.9] 08/20/2019 Priority: Low Spinal stenosis of thoracolumbar region [M48.05] 08/16/2019 Priority: Low Weakness of both lower limbs [R29.898] 08/16/2019 Priority: Low Type 2 diabetes mellitus with hyperglycemia (HCC) [E11.65] 07/17/2018 Priority: Low Right bundle branch block [I45.10] 11/20/2017 Priority: Low Hypertensive disorder [I10] 11/20/2017 Priority: Low Diabetes mellitus (HCC) [E11.9] 11/20/2017 Priority: Low Coronary arteriosclerosis [I25.10] 11/20/2017 Priority: Low Lumbosacral spondylosis without myelopathy [M47.817] 08/07/2017 Priority: Low Assessment/Plan: 1. POD2 Neurosurgery - Thoracic Spine 2. Echo - Prelim results EF 40-45. Inferior wall hypokinesis 3. 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 No angina complaints. 5. Continue BB 6. OK for dc * Michael Lane MD - 08/20/2019 10:49 AM EDT Progress Note Patient: Irvin De Oliveira Unit/Bed: W291/W291-01 Date of : 1935 Acct: [id number] Admitting Diagnosis: Spinal stenosis of thoracolumbar region [M48.05] Weakness of both lower limbs [R29.898] Admit Date: 08/16/2019 Hospital Day: 4 Chief Complaint: Post OP Histories: Past Medical History: Diagnosis Date Arthritis Asthma as a child Back pain Basal cell carcinoma Broken wrist right Cancer (HCC) CTS (carpal tunnel syndrome) Foot drop, right foot Hammertoe Herniated nucleus pulposus History of broken leg right History of cardiac cath 2018 WNL Hyperlipidemia Hypertension 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 Shoulder injury left Past Surgical History: Procedure Laterality Date BLEPHAROPLASTY Bilateral CARPAL TUNNEL RELEASE Right CATARACT REMOVAL Bilateral COLONOSCOPY EYE SURGERY JOINT REPLACEMENT LUMBAR SPINE SURGERY N/A 08/19/2019 THORACIC DECOMPRESSION T11, T12 REMOVAL OF IBGS performed by Seymour Espitia MD at [facility] [place] LAMNOTMY INCL W/DCMPRSN NRV ROOT 1 INTRSPC LUMBR N/A 11/22/2017 T 12- L1 DISKECTOMY RIGHT THORACIC DISC performed by Seymour Espitia MD at [facility] [place] SHOULDER SURGERY Right tendons SPINE SURGERY cages x3 TOTAL KNEE ARTHROPLASTY Bilateral both twice Family History Problem Relation Age of Onset Cancer Mother Thyroid Disease Mother High Blood Pressure Father Stroke Father Other Father stomach issues COPD Sister Asthma Sister Allergic Rhinitis Sister Heart Disease Sister No Known Problems Son No Known Problems Son Obesity Daughter Migraines Daughter Social History Socioeconomic History Marital status: Spouse name: None Number of children: None Years of education: None Highest education level: None Occupational History Occupation: retired Social Needs Financial resource strain: None Food insecurity Worry: Never true Inability: Never true Transportation needs Medical: No Non-medical: No Tobacco Use Smoking status: Never Smoker Smokeless tobacco: Never Used Substance and Sexual Activity Alcohol use: Yes Comment: occ Drug use: No Sexual activity: None Lifestyle Physical activity Days per week: 0 days Minutes per session: 0 min Stress: Only a little Relationships Social connections Talks on phone: More than three times a week Gets together: Once a week Attends [employer] service: 1 to 4 times per year Active member of club or organization: No Attends meetings of clubs or organizations: Never Relationship status: Intimate partner violence Fear of current or ex partner: No Emotionally abused: No Physically abused: No Forced sexual activity: No Other Topics Concern None Social History Narrative Lives With: Spouse Type of Home: [address] [facility] Home Layout: One level Home Access: Stairs to enter without rails Entrance Stairs - Number of Steps: 2 Bathroom Shower/Tub: Walk-in shower Bathroom Equipment: Grab bars in shower, Shower chair Home Equipment: Rolling walker ADL Assistance: Independent Homemaking Responsibilities: No Ambulation Assistance: Independent Transfer Assistance: Independent Active Imagery Analyst: No Subjective/HPI no events overnight. No cp no sob. Legs feel little better. Walked little w assist. EKG: Review of Systems: Review of Systems Constitutional: Negative. Negative for diaphoresis and fatigue. HENT: Negative. Eyes: Negative. Respiratory: Negative. Negative for cough, chest tightness, shortness of breath, wheezing and stridor. Cardiovascular: Negative. Negative for chest pain, palpitations and leg swelling. Gastrointestinal: Negative. Negative for blood in stool and nausea. Genitourinary: Negative. Musculoskeletal: Positive for arthralgias, back pain and gait problem. Skin: Negative. Neurological: Positive for weakness. Negative for dizziness, syncope and light-headedness. Hematological: Negative. Psychiatric/Behavioral: Negative. Physical Examination: BP 120/78 Pulse 86 Temp 97.5 F (36.4 C) (Oral) Resp 16 Ht 5' 7 (1.702 m) Wt 198 lb 1.6 oz (89.9 kg) SpO2 92% BMI 31.03 kg/m Physical Exam Constitutional: He appears healthy. No distress. HENT: Normal cephalic and Atraumatic Eyes: Pupils are equal, round, and reactive to light. Neck: Normal range of motion and thyroid normal. Neck supple. No JVD present. No neck adenopathy. No thyromegaly present. Cardiovascular: Normal rate, regular rhythm, intact distal pulses and normal pulses. Murmur heard. Pulmonary/Chest: Effort normal and breath sounds normal. He has no wheezes. He has no rales. He exhibits no tenderness. Abdominal: Soft. Bowel sounds are normal. There is no abdominal tenderness. Musculoskeletal: Normal range of motion. General: No tenderness or edema. Neurological: He is alert and oriented to person, place, and time. Skin: Skin is warm. No cyanosis. Nails show no clubbing. LABS: CBC: Lab Results Component Value Date WBC 9.0 08/16/2019 RBC 5.11 08/16/2019 HGB 15.5 08/16/2019 HCT 46.2 08/16/2019 MCV 90.4 08/16/2019 MCH 30.4 08/16/2019 MCHC 33.6 08/16/2019 RDW 17.1 08/16/2019 PLT 257 08/16/2019 CBC with Differential: Lab Results Component Value Date WBC 9.0 08/16/2019 RBC 5.11 08/16/2019 HGB 15.5 08/16/2019 HCT 46.2 08/16/2019 PLT 257 08/16/2019 MCV 90.4 08/16/2019 MCH 30.4 08/16/2019 MCHC 33.6 08/16/2019 RDW 17.1 08/16/2019 LYMPHOPCT 22.8 08/16/2019 MONOPCT 9.5 08/16/2019 BASOPCT 1.0 08/16/2019 MONOSABS 0.9 08/16/2019 LYMPHSABS 2.0 08/16/2019 EOSABS 0.4 08/16/2019 BASOSABS 0.1 08/16/2019 CMP: Lab Results Component Value Date NA 145 08/16/2019 K 3.9 08/16/2019 CL 102 08/16/2019 CO2 27 08/16/2019 BUN 17 08/16/2019 CREATININE 0.70 08/16/2019 GFRAA >60.0 08/16/2019 LABGLOM >60.0 08/16/2019 GLUCOSE 129 08/16/2019 PROT 6.9 08/16/2019 LABALBU 4.1 08/16/2019 CALCIUM 9.6 08/16/2019 BILITOT 1.0 08/16/2019 ALKPHOS 65 08/16/2019 AST 23 08/16/2019 ALT 12 08/16/2019 BMP: Lab Results Component Value Date NA 145 08/16/2019 K 3.9 08/16/2019 CL 102 08/16/2019 CO2 27 08/16/2019 BUN 17 08/16/2019 LABALBU 4.1 08/16/2019 CREATININE 0.70 08/16/2019 CALCIUM 9.6 08/16/2019 GFRAA >60.0 08/16/2019 LABGLOM >60.0 08/16/2019 GLUCOSE 129 08/16/2019 Magnesium: No results found for: MG Troponin: No results found for: TROPONINI Active Hospital Problems Diagnosis Date Noted Gait abnormality [R26.9] 08/20/2019 Priority: Low Spinal stenosis of thoracolumbar region [M48.05] 08/16/2019 Priority: Low Weakness of both lower limbs [R29.898] 08/16/2019 Priority: Low Type 2 diabetes mellitus with hyperglycemia (HCC) [E11.65] 07/17/2018 Priority: Low Right bundle branch block [I45.10] 11/20/2017 Priority: Low Hypertensive disorder [I10] 11/20/2017 Priority: Low Diabetes mellitus (HCC) [E11.9] 11/20/2017 Priority: Low Coronary arteriosclerosis [I25.10] 11/20/2017 Priority: Low Lumbosacral spondylosis without myelopathy [M47.817] 08/07/2017 Priority: Low Assessment/Plan: 1. POD1 Neurosurgery - Thoracic Spine 2. Echo - Prelim results EF 40-45. Inferior wall hypokinesis 3. 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 No angina complaints. 5. Continue BB 6. Plan dc tomorrow if continues to do well. * Chaim Hendrix, OTR/L - 08/20/2019 10:36 AM EDT [facility] OCCUPATIONAL THERAPY EVALUATION - ACUTE NAME: Irvin De Oliveira : 1935 (84 y.o.) CODE STATUS: Full Code Room: [place] [address] Date of Service: 08/20/2019 Patient Diagnosis(es): Spinal stenosis of thoracolumbar region [M48.05] Weakness of both lower limbs [R29.898] Chief Complaint Patient presents with Back Pain Patient Active Problem List Diagnosis Date Noted Gait abnormality 08/20/2019 Spinal stenosis of thoracolumbar region 08/16/2019 Weakness of both lower limbs 08/16/2019 Diverticulosis of large intestine without perforation or abscess without bleeding 01/02/2019 Low back pain 10/08/2018 Type 2 diabetes mellitus with hyperglycemia (HCC) 07/17/2018 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 11/22/2017 Coronary arteriosclerosis 11/20/2017 Diabetes mellitus (HCC) 11/20/2017 Electrocardiogram abnormal 11/20/2017 Hypertensive disorder 11/20/2017 Right bundle branch block 11/20/2017 Herniated nucleus pulposus 11/20/2017 Lumbosacral spondylosis without myelopathy 08/07/2017 Past Medical History: Diagnosis Date Arthritis Asthma as a child Back pain Basal cell carcinoma Broken wrist right Cancer (HCC) CTS (carpal tunnel syndrome) Foot drop, right foot Hammertoe Herniated nucleus pulposus History of broken leg right History of cardiac cath 2018 WNL Hyperlipidemia Hypertension 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 Shoulder injury left Past Surgical History: Procedure Laterality Date BLEPHAROPLASTY Bilateral CARPAL TUNNEL RELEASE Right CATARACT REMOVAL Bilateral COLONOSCOPY EYE SURGERY JOINT REPLACEMENT LUMBAR SPINE SURGERY N/A 08/19/2019 THORACIC DECOMPRESSION T11, T12 REMOVAL OF IBGS performed by Seymour Espitia [place] [facility] [place] LAMNOTMY INCL W/DCMPRSN NRV ROOT 1 INTRSPC LUMBR N/A 11/22/2017 T 12- L1 DISKECTOMY RIGHT THORACIC DISC performed by Seymour Espitia MD at [facility] [place] SHOULDER SURGERY Right tendons SPINE SURGERY cages x3 TOTAL KNEE ARTHROPLASTY Bilateral both twice Restrictions;Fall Safety Devices: Safety Devices Safety Devices in place: Yes Type of devices: All fall risk precautions in place Subjective:Pt pleasant and cooperative with session. Pain Reassessment: 07/10 back pain Prior Level of Function: Social/Functional History Lives With: Spouse Type of Home: House Home Layout: One level Home Access: Stairs to enter without rails Entrance Stairs - Number of Steps: 2 Bathroom Shower/Tub: Walk-in shower Bathroom Equipment: Grab bars in shower, Shower chair Home Equipment: Rolling walker ADL Assistance: Independent Homemaking Assistance: Needs assistance Homemaking Responsibilities: No Ambulation Assistance: Independent Transfer Assistance: Independent Active Imagery Analyst: No Additional Comments: pt has had 5 back surgeries per pt report- reports current pain is no worse than prior to surgery OBJECTIVE: Orientation Status: Orientation Overall Orientation Status: Within Functional Limits Observation: Observation/Palpation Posture: Fair Observation: mild flexed posture Cognition Status: Cognition Overall Cognitive Status: WFL Perception Status: Perception Overall Perceptual Status: WFL Sensation Status: Sensation Overall Sensation Status: Impaired Light Touch: Partial deficits in the LLE, Partial deficits in the RLE, Partial deficits in the LUE Vision and Hearing Status: Vision Vision: Impaired Vision Exceptions: Wears glasses for reading Hearing Hearing: Exceptions to WFL Hearing Exceptions: Bilateral hearing aid, Hard of hearing/hearing concerns ROM: LUE AROM (degrees) LUE AROM : WFL Left Hand AROM (degrees) Left Hand AROM: WFL RUE AROM (degrees) RUE AROM : WFL Right Hand AROM (degrees) Right Hand AROM: WFL Strength: LUE Strength Gross LUE Strength: WFL L Hand General: 4/5 RUE Strength Gross RUE Strength: WFL R Hand General: 4/5 Coordination, Tone, Quality of Movement: Tone RUE RUE Tone: Normotonic Tone LUE LUE Tone: Normotonic Coordination Movements Are Fluid And Coordinated: Yes Hand Dominance: Hand Dominance Hand Dominance: Right ADL Status: ADL Feeding: Unable to assess(comment) Grooming: Setup UE Bathing: Setup LE Bathing: Minimal assistance UE Dressing: Stand by assistance LE Dressing: Minimal assistance Toileting: Unable to assess(comment) Therapy lee for assistance levels Independent = Pt. is able to perform task with no assistance but may require a device Stand by assistance = Pt. does not perform task at an independent level but does not need physical assistance, requires verbal cues Minimal, Moderate, Maximal Assistance = Pt. requires physical assistance (25%, 50%, 75% assist fromhelper) for task but is able to actively participate in task Dependent = Pt. requires total assistance with task and is not able to actively participate with task completion Functional Mobility: Transfers Sit to stand: Contact guard assistance Stand to sit: Contact guard assistance Bed Mobility Bed mobility Supine to Sit: Stand by assistance Sit to Supine: Stand by assistance Seated and Standing Balance: Balance Sitting Balance: Supervision Standing Balance: Contact guard assistance Functional Endurance: Activity Tolerance Activity Tolerance: Patient Tolerated treatment well Activity Tolerance: fair- D/C Recommendations: OT D/C RECOMMENDATIONS REQUIRES OT FOLLOW UP: Yes Equipment Recommendations: OT Education: OT Follow Up: OT D/C RECOMMENDATIONS REQUIRES OT FOLLOW UP: Yes Assessment/Discharge Disposition: Performance deficits / Impairments: Decreased functional mobility , Decreased endurance, Decreased balance, Decreased ADL status, Decreased strength, Decreased posture Prognosis: Good Discharge Recommendations: Continue to assess pending progress Decision Making: Medium Complexity History: multiple Exam: 6 deficits Assistance / Modification: Min A Six Click Score How much help for putting on and taking off regular lower body clothing?: A Little How much help for Bathing?: A Little How much help for Toileting?: None How much help for putting on and taking off regular upper body clothing?: None How much help for taking care of personal grooming?: None How much help for eating meals?: None AM-PAC Inpatient Daily Activity Raw Score: 22 AM-PAC Inpatient ADL T-Scale Score : 47.1 ADL Inpatient CMS 0-100% Score: 25.8 Plan: Plan Times per week: 1-4x/wk Current Treatment Recommendations: Strengthening, Balance Training, Endurance Training, Functional Mobility Training, Equipment Evaluation, Education, & procurement, Self-Care / ADL, Neuromuscular Re-education Goals: Patient will: - Improve functional endurance to tolerate/complete 12-18 mins of ADL's - Be indpeendent in UB ADLs - Be SBA in LB ADLs - Be independent in ADL transfers without LOB - Be independent in toileting tasks - Improve bilateral UE strength and endurance to Fair+ in order to participate in self-care activities as projected. - Access appropriate D/C site with as few architectural barriers as possible. Patient Goal: Patient goals : To return to home with spouse Discussed and agreed upon: Yes Comments: Therapy Time: OT Individual Minutes Time In: 0840 Time Out: 0900 Minutes: 20 Electronically signed by: Chaim Hendrix OTR/Nicole 08/20/2019, 10:36 AM * Lana Flynn, PT - 08/20/2019 10:34 AM EDT Physical Therapy Med Surg Initial Assessment Facility/Department: [address] ORTHO TELE Room: W291/W291-01 NAME: Irvin De Oliveira : 1935 (84 y.o.) CODE STATUS: Full Code Date of Service: 08/20/2019 Patient Diagnosis(es): Spinal stenosis of thoracolumbar region [M48.05] Weakness of both lower limbs [R29.898] Chief Complaint Patient presents with Back Pain Patient Active Problem List Diagnosis Date Noted Gait abnormality 08/20/2019 Spinal stenosis of thoracolumbar region 08/16/2019 Weakness of both lower limbs 08/16/2019 Diverticulosis of large intestine without perforation or abscess without bleeding 01/02/2019 Low back pain 10/08/2018 Type 2 diabetes mellitus with hyperglycemia (HCC) 07/17/2018 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 11/22/2017 Coronary arteriosclerosis 11/20/2017 Diabetes mellitus (HCC) 11/20/2017 Electrocardiogram abnormal 11/20/2017 Hypertensive disorder 11/20/2017 Right bundle branch block 11/20/2017 Herniated nucleus pulposus 11/20/2017 Lumbosacral spondylosis without myelopathy 08/07/2017 Past Medical History: Diagnosis Date Arthritis Asthma as a child Back pain Basal cell carcinoma Broken wrist right Cancer (HCC) CTS (carpal tunnel syndrome) Foot drop, right foot Hammertoe Herniated nucleus pulposus History of broken leg right History of cardiac cath 2018 WNL Hyperlipidemia Hypertension 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 Shoulder injury left Past Surgical History: Procedure Laterality Date BLEPHAROPLASTY Bilateral CARPAL TUNNEL RELEASE Right CATARACT REMOVAL Bilateral COLONOSCOPY EYE SURGERY JOINT REPLACEMENT LUMBAR SPINE SURGERY N/A 08/19/2019 THORACIC DECOMPRESSION T11, T12 REMOVAL OF IBGS performed by Seymour Espitia MD at [facility] [place] LAMNOTMY INCL W/DCMPRSN NRV ROOT 1 INTRSPC LUMBR N/A 11/22/2017 T 12- L1 DISKECTOMY RIGHT THORACIC DISC performed by Seymour Espitia MD at [facility] [place] SHOULDER SURGERY Right tendons SPINE SURGERY cages x3 TOTAL KNEE ARTHROPLASTY Bilateral both twice Chart Reviewed: Yes Patient assessed for rehabilitation services?: Yes Family / Caregiver Present: No General Comment Comments: Pt awake in bed, agreeable to PT eval. Restrictions: Restrictions/Precautions: Fall Risk Position Activity Restriction Other position/activity restrictions: [employer]as[employer] SUBJECTIVE: Subjective: Per nsg staff report, pt was very agitated/confused last night, is alert, oriented, cooperative this a.m. Pain Pre Treatment Pain Screening Pain at present: 4 Intervention List: Patient able to continue with treatment;Patient declined any intervention Post Treatment Pain Screening: Pain Screening Patient Currently in Pain: Yes Pain Assessment Pain Level: 4 Pain Type: Chronic pain Pain Location: Back(radiates across low back) Prior Level of Function: Social/Functional History Lives With: Spouse Type of Home: House Home Layout: One level Home Access: Stairs to enter without rails Entrance Stairs - Number of Steps: 2 Bathroom Shower/Tub: Walk-in shower Bathroom Equipment: Grab bars in shower, Shower chair Home Equipment: Rolling walker(sleeps in recliner) ADL Assistance: Independent Homemaking Assistance: Needs assistance(spouse provides) Homemaking Responsibilities: No Ambulation Assistance: Independent(WW) Transfer Assistance: Independent Active Imagery Analyst: No Additional Comments: pt has had 5 back surgeries per pt report- reports current pain is no worse than prior to surgery OBJECTIVE: Vision: Impaired Vision Exceptions: Wears glasses for reading Hearing: Exceptions to WFL Hearing Exceptions: Bilateral hearing aid;Hard of hearing/hearing concerns Cognition: Overall Orientation Status: Within Functional Limits(demo's mild confusion with tasks) Follows Commands: Within Functional Limits Observation/Palpation Posture: Fair(fwd flexed, kyphotic, rigid) ROM: RLE AROM: WFL LLE AROM : WFL Strength: Strength RLE Comment: grossly 4-/5 throughout, ankle PF 3+/5, ankle DF 1+/5 Strength LLE Comment: grossly 4-/5 throughout Neuro: Balance Sitting - Static: Good Sitting - Dynamic: Good Standing - Static: Fair;- Standing - Dynamic: Fair;- Comments: pt compensates appropriately for balance deficits with BUE support on walker Sensation Overall Sensation Status: Impaired(bilat feet with numbness, reports occasional episodes in hands) Bed mobility Supine to Sit: Stand by assistance Transfers Sit to Stand: Stand by assistance Stand to sit: Stand by assistance Bed to Chair: Stand by assistance(pt required cues for safety and sequencing) Ambulation Ambulation?: Yes Ambulation 1 Surface: level tile Device: Rolling Walker Assistance: Stand by assistance Quality of Gait: pt with high steppage gait R hip to compensate for R foot drop, flexed posture Distance: 100 ft Comments: pt with minimal ability to correct posture, reports it hurts - encouraged to continue topractice upright to re-strengthen back extensors and decrease spinal stresses Activity Tolerance Activity Tolerance: Patient Tolerated treatment well Activity Tolerance: fatigued with 100 ft gait PT Education PT Education: Goals;PT Role;Precautions;General Safety;Equipment ASSESSMENT: Body structures, Functions, Activity limitations: Decreased functional mobility ;Decreased strength;Decreased endurance;Decreased balance;Decreased ROM;Increased pain Decision Making: Medium Complexity History: medium Exam: high Clinical Presentation: medium Prognosis: Good DISCHARGE RECOMMENDATIONS: Discharge Recommendations: Continue to assess pending progress, Patient would benefit from continued therapy after discharge Assessment: Pt demonstrates the above deficits and decline in functional mobility s/p lumbar surgery. Pt would benefit from physical therapy to address above deficits and allow for safe return home at highest level of function, decrease risk for falls, and improve QOL. REQUIRES PT FOLLOW UP: Yes PLAN OF CARE: Plan Times per week: 3-6 Current Treatment Recommendations: Strengthening, Functional Mobility Training, Neuromuscular Re-education, Home Exercise Program, Equipment Evaluation, Education, & procurement, Transfer Training, Gait Training, Safety Education & Training, Balance Training, Endurance Training, Pain Management, Patient/Caregiver Education & Training, Stair training Safety Devices Type of devices: Call light within reach, Chair alarm in place, Telesitter in use Goals: Patient goals : to go home skilled nursing goals ad terminal makeup operator goal 1: pt to be indep with transfers skilled nursing goal 2: pt to ambulate >150 ft with WW modified indep ad terminal makeup operator goal 3: pt to navigate 4 steps with supervision ad terminal makeup operator goal 4: pt to be indep with HEP [facility] (6 CLICK) BASIC MOBILITY [facility] Inpatient Mobility Raw Score : 18 Therapy Time: Individual Time In 0840 Time Out 0900 Minutes 20 Lana Flynn PT, 08/20/19 at 10:34 AM Definitions for assistance levels Independent = pt does not require any physical supervision or assistance from another person for activity completion. Device may be needed. Stand by assistance = pt requires verbal cues or instructions from another person, close to but nottouching, to perform the activity Minimal assistance= pt performs 75% or more of the activity; assistance is required to complete theactivity Moderate assistance= pt performs 50% of the activity; assistance is required to complete the activity Maximal assistance = pt performs 25% of the activity; assistance is required to complete the activity Dependent = pt requires total physical assistance to accomplish the task * Ramya Hennessy, MATILDA - IMPLANT POLISHER - 08/20/2019 8:02 AM EDT DAILY PROGRESS NOTE POD: 1 Patient doing fairly well Vitals: 08/20/19 0717 BP: 120/78 Pulse: 86 Resp: 16 Temp: 97.5 F (36.4 C) SpO2: 92% Temp (24hrs), Av.6 F (35.9 C), Min:95.5 F (35.3 C), Max:98.4 F (36.9 C) Pain Control Good No chest pain or shortness of breath. No calf pain Exam: Incision(s): surgical dressing in place Dressing clean, dry, and intact Operative extremity shows neuro vascular status intact. Flexion and extension intact on operative extremity Calves soft and non-tender without evidence of DVT. . Labs reviewed: CBC: No results for input(s): WBC, HGB, PLT in the last 72 hours. BMP: No results for input(s): NA, K, CL, CO2, BUN, CREATININE, GLUCOSE in the last 72 hours. I&O I/O last 3 completed shifts: In: 1240 [P.O.:240; I.V.:1000] Out: 2775 [Urine:2775] Assessment: Good Post Operative Course. Pt was very confused and combative postt anesthesia- he is ok and alert this am. We will see how he does with therapy and plan will be home with antibiotic and stool softner sent to pharmacy. remove montes and make sure no urinary retention prior to d/c PT/ OT Plan: Ok to d/c if above met Ramya Hennessy IMPLANT POLISHER 08/20/2019 8:02 AM * Rachele Wallis RCP - 08/19/2019 7:48 PM EDT Patient refused to do Incentive spirometer * Harmony Gauthier RN - 08/19/2019 7:36 PM EDT Per report pt came back from surgery violent, tried to punch his nurse, and being aggressive to others. He is on 1:1 now. Will monitor. * Malissa Garcia RN - 08/19/2019 4:50 PM EDT Condition is stable and ready to return to 2WT. Patient was very angry and belligerent d/t Montes catheter earlier while in PACU. Contacted Dr. Espitia, and order was received for removal of catheter. However, since that time, he has become much more relaxed and calm, dozing quietly throughout remainderof PACU care. Therefore will transfer with Montes catheter in place, as he is now tolerating iti. Assessment unchanged. Nasal cannula very effective placed near mouth d/t his mouth breathing. * Simi Cooper RN - 08/19/2019 12:44 PM EDT Report to Karrie Garcia RN aware that consent still needs signed. Patient is resting comfortably currently. Respirations even unlabored. Rails up, call cord in reach. * Dona Grider RN - 08/19/2019 12:14 PM EDT 0721: Shift handoff complete. Pt is in bed with eyes closed. No complaints or needs voiced. Bed [facility] with wheels locked and alarm on. Bedside table and call light within reach. Will continue to monitor throughout this shift. 0845: Shift assessment complete. Pt is A&O x 4, LS are clear, BS are active x 4 quadrants, HR is NSR. Pt denies any needs at this time. 1047: Report given to the short stay nurse for this pts surgery with Dr. Espitia. Pt informed that he would not be able to wear any jewelry or clothing other than the hospital gown when he goes to surgery. Pt verbalized understanding. 1126: Pt departed unit en route to surgery at this time. 1708: Pt arrived back to his room at this time. Pt transferred from cart to bed via 1 transporter, 1 SCOURING PADS SUPERVISOR and 1 RN. Pt tolerated well. Linens removed from under pt by SCOURING PADS SUPERVISOR and RN. VS set up to cycle every 15 minutes. RN assessed pts surgical incisions. 2 incisions located in the middle of the mid to lower back. Surgical glue closure, no drainage noted and open to air. Ice pack removed during transfe r. Pt is still lethargic and unable to stay awake to participate in a bedside swallow eval. Will continue to monitor. 1600: Pt attempting to get out of bed, unable to be redirected. Pt because physically and verbally aggressive with this RN cussing and telling her to get out of his house, grabbing RNs finger and twisting it, swinging at RN in attempt to punch her. Carmine Potts, bail bondsman spoke with pt and attemptedto redirect pt. Pt stated he would do what Carmine wanted him to do because Carmine was bigger than him. This RN recommended to KIRAN Lou that the pt be a 1:1. Will continue to monitor. * Simi Cooper RN - 08/19/2019 12:[address] neumann and Dr. Espitia are aware that consent needs to be done. Dr. Espitia said that he will write itout. * Simi Cooper RN - 08/19/2019 12:10 PM EDT To block area in stable condition. * Michael Lane MD - 08/18/2019 10:49 AM EDT Progress Note Patient: Irvin De Oliveira Unit/Bed: W291/W291-01 Date of : 1935 Acct: [id number] Admitting Diagnosis: Spinal stenosis of thoracolumbar region [M48.05] Weakness of both lower limbs [R29.898] Admit Date: 08/16/2019 Hospital Day: 2 Chief Complaint: Preop Histories: Past Medical History: Diagnosis Date Arthritis Asthma as a child Back pain Basal cell carcinoma Broken wrist right Cancer (HCC) CTS (carpal tunnel syndrome) Foot drop, right foot Hammertoe Herniated nucleus pulposus History of broken leg right History of cardiac cath 2018 WNL Hyperlipidemia Hypertension 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 Shoulder injury left Past Surgical History: Procedure Laterality Date BLEPHAROPLASTY Bilateral CARPAL TUNNEL RELEASE Right CATARACT REMOVAL Bilateral COLONOSCOPY EYE SURGERY JOINT REPLACEMENT ND LAMNOTMY INCL W/DCMPRSN NRV ROOT 1 INTRSPC LUMBR N/A 11/22/2017 T 12- L1 DISKECTOMY RIGHT THORACIC DISC [place]ymour Espitia [place] [facility] [place] SHOULDER SURGERY Right tendons SPINE SURGERY cages x3 TOTAL KNEE ARTHROPLASTY Bilateral both twice Family History Problem Relation Age of Onset Cancer Mother Thyroid Disease Mother High Blood Pressure Father Stroke Father Other Father stomach issues COPD Sister Asthma Sister Allergic Rhinitis Sister Heart Disease Sister No Known Problems Son No Known Problems Son Obesity Daughter Migraines Daughter Social History Socioeconomic History Marital status: Spouse name: None Number of children: None Years of education: None Highest education level: None Occupational History None Social Needs Financial resource strain: None Food insecurity Worry: None Inability: None Transportation needs Medical: None Non-medical: None Tobacco Use Smoking status: Never Smoker Smokeless tobacco: Never Used Substance and Sexual Activity Alcohol use: Yes Comment: occ Drug use: No Sexual activity: None Lifestyle Physical activity Days per week: None Minutes per session: None Stress: None Relationships Social connections Talks on phone: None Gets together: None Attends presybeterian service: None Active member of club or organization: None Attends meetings of clubs or organizations: None Relationship status: None Intimate partner violence Fear of current or ex partner: None Emotionally abused: None Physically abused: None Forced sexual activity: None Other Topics Concern None Social History Narrative None Subjective/HPI no events overnight. No cp no sob EKG: Review of Systems: Review of Systems Constitutional: Negative. Negative for diaphoresis and fatigue. HENT: Negative. Eyes: Negative. Respiratory: Negative. Negative for cough, chest tightness, shortness of breath, wheezing and stridor. Cardiovascular: Negative. Negative for chest pain, palpitations and leg swelling. Gastrointestinal: Negative. Negative for blood in stool and nausea. Genitourinary: Negative. Musculoskeletal: Positive for arthralgias, back pain and gait problem. Skin: Negative. Neurological: Positive for weakness. Negative for dizziness, syncope and light-headedness. Hematological: Negative. Psychiatric/Behavioral: Negative. Physical Examination: BP 126/76 Pulse 59 Temp 97.3 F (36.3 C) (Oral) Resp 16 Ht 5' 7 (1.702 m) Wt 195 lb (88.5kg) SpO2 97% BMI 30.54 kg/m Physical Exam Constitutional: He appears healthy. No distress. HENT: Normal cephalic and Atraumatic Eyes: Pupils are equal, round, and reactive to light. Neck: Normal range of motion and thyroid normal. Neck supple. No JVD present. No neck adenopathy. No thyromegaly present. Cardiovascular: Normal rate, regular rhythm, intact distal pulses and normal pulses. Murmur heard. Pulmonary/Chest: Effort normal and breath sounds normal. He has no wheezes. He has no rales. He exhibits no tenderness. Abdominal: Soft. Bowel sounds are normal. There is no abdominal tenderness. Musculoskeletal: Normal range of motion. General: No tenderness or edema. Neurological: He is alert and oriented to person, place, and time. Skin: Skin is warm. No cyanosis. Nails show no clubbing. LABS: CBC: Lab Results Component Value Date WBC 9.0 08/16/2019 RBC 5.11 08/16/2019 HGB 15.5 08/16/2019 HCT 46.2 08/16/2019 MCV 90.4 08/16/2019 MCH 30.4 08/16/2019 MCHC 33.6 08/16/2019 RDW 17.1 08/16/2019 PLT 257 08/16/2019 CBC with Differential: Lab Results Component Value Date WBC 9.0 08/16/2019 RBC 5.11 08/16/2019 HGB 15.5 08/16/2019 HCT 46.2 08/16/2019 PLT 257 08/16/2019 MCV 90.4 08/16/2019 MCH 30.4 08/16/2019 MCHC 33.6 08/16/2019 RDW 17.1 08/16/2019 LYMPHOPCT 22.8 08/16/2019 MONOPCT 9.5 08/16/2019 BASOPCT 1.0 08/16/2019 MONOSABS 0.9 08/16/2019 LYMPHSABS 2.0 08/16/2019 EOSABS 0.4 08/16/2019 BASOSABS 0.1 08/16/2019 CMP: Lab Results Component Value Date NA 145 08/16/2019 K 3.9 08/16/2019 CL 102 08/16/2019 CO2 27 08/16/2019 BUN 17 08/16/2019 CREATININE 0.70 08/16/2019 GFRAA >60.0 08/16/2019 LABGLOM >60.0 08/16/2019 GLUCOSE 129 08/16/2019 PROT 6.9 08/16/2019 LABALBU 4.1 08/16/2019 CALCIUM 9.6 08/16/2019 BILITOT 1.0 08/16/2019 ALKPHOS 65 08/16/2019 AST 23 08/16/2019 ALT 12 08/16/2019 BMP: Lab Results Component Value Date NA 145 08/16/2019 K 3.9 08/16/2019 CL 102 08/16/2019 CO2 27 08/16/2019 BUN 17 08/16/2019 LABALBU 4.1 08/16/2019 CREATININE 0.70 08/16/2019 CALCIUM 9.6 08/16/2019 GFRAA >60.0 08/16/2019 LABGLOM >60.0 08/16/2019 GLUCOSE 129 08/16/2019 Magnesium: No results found for: MG Troponin: No results found for: TROPONINI Active Hospital Problems Diagnosis Date Noted Spinal stenosis of thoracolumbar region [M48.05] 08/16/2019 Priority: Low Weakness of both lower limbs [R29.898] 08/16/2019 Priority: Low Assessment/Plan: 1. Preop Neurosurgery - Moderate but acceptable risk for planned surgery. 2. Echo - Prelim results EF 40-45. Inferior wall hypokinesis 3. 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 No angina complaints. 5. Continue BB * Seymour Espitia MD - 08/18/2019 9:36 AM EDT Patient: Irvin De Oliveira Unit/Bed: [facility]/W[facility] Date of : 1935 Acct: [id number] Admitting Diagnosis: Spinal stenosis of thoracolumbar region [M48.05] Weakness of both lower limbs [R29.898] Admit Date: 08/16/2019 Hospital Day: 2 Current Medications: Scheduled Meds: ceFAZolin 2 g Intravenous Event Host to OR sodium chloride flush 10 mL Intravenous 2 times per day amLODIPine 10 mg Oral Daily atorvastatin 20 mg Oral Daily calcium-vitamin D 1 tablet Oral Daily metFORMIN 1,000 mg Oral BID WC tamsulosin 0.4 mg Oral Daily miconazole Topical BID empagliflozin 10 mg Oral Daily ciclopirox Topical Nightly gabapentin 300 mg Oral 4x Daily oxyCODONE-acetaminophen 1 tablet Oral BID cyclobenzaprine 10 mg Oral TID sodium chloride flush 10 mL Intravenous 2 times per day enoxaparin 40 mg Subcutaneous Daily atenolol 100 mg Oral Daily And chlorthalidone 25 mg Oral Daily lisinopril 40 mg Oral Daily alogliptin 25 mg Oral Daily insulin lispro 0-12 Units Subcutaneous TID WC insulin lispro 0-6 Units Subcutaneous Nightly Continuous Infusions: dextrose PRN Meds:.sodium chloride flush, acetaminophen, HYDROcodone 5 mg - acetaminophen OR HYDROcodone5 mg - acetaminophen, ondansetron, sodium chloride flush, acetaminophen OR acetaminophen, polyethylene glycol, promethazine OR ondansetron, glucose, dextrose, glucagon (rDNA), dextrose . dextrose Recent Labs 08/16/19 1230 WBC 9.0 HGB 15.5 HCT 46.2 MCV 90.4 PLT 257 Recent Labs 08/16/19 1230 NA 145* K 3.9 CL 102 CO2 27 BUN 17 CREATININE 0.70 Recent Labs 08/16/19 1230 AST 23 ALT 12 BILITOT 1.0* ALKPHOS 65 No results for input(s): LIPASE, AMYLASE in the last 72 hours. Recent Labs 08/16/19 1230 PROT 6.9 Imaging Results: Xr Chest Standard (2 Vw) Result Date: 08/17/2019 EXAMINATION: XR CHEST (2 VW). DATE AND TIME:08/16/2019 3:00 PM CLINICAL HISTORY: Shortness of breathPreop COMPARISONS: None FINDINGS: The heart, mediastinum and pulmonary vasculature are within normal limits. Visualized lung queen are clear. Bones unremarkable. NO ACTIVE LUNG DISEASE. Mri Thoracic Spine Wo Contrast Result Date: 08/17/2019 EXAMINATION: MRI THORACIC SPINE WO CONTRAST DATE AND TIME:08/16/2019 2:30 PM CLINICAL HISTORY: Severe thoracic spine pain. thoracic spinal stenosis, progressve, gait instability COMPARISON: If available previous films were reviewed for comparison. Technique: Multiplanar multisequence MRI scans of the thoracic spine. Findings: Bones: The thoracic vertebrae are normally aligned with no evidence of fracture. There is normal marrow signal throughout the thoracic spine. Disc space: At T7-8 there is acentral/right paracentric disc protrusion with deformity of the right half of the thoracic cord. There is prominent posterior soft tissue change suggestive of prominence of the ligamenta flava with possible ossification. These changes are resulting in [id number]-[id number] central canal stenosis at thislevel. At T11-12 there is prominent posterior soft tissue density of low signal intensity in T2 consistent with thickening of ligamenta flava with probable ossification. This is combining with broad-based disc bulging resulting in severe/extreme spinal canal stenosis at this level. There may be some slight increase in cord signal intensity suggesting cord edema. Foraminal stenosis right greater than left. At T8-9 there is minimal disc bulging without canal or foraminal narrowing Remainder of the thoracic spine shows mild degenerative change with no signs of any additional disc herniation or spinal canal stenosis Soft tissues: There is no paraspinal soft tissue mass or fluid collection. At T11-12 there is broad-based disc bulging/protrusion combine with exuberant ligamenta flava resulting in severe/extreme spinal canal stenosis. There may be some mild cord edema. At T7-8 there is a right paracentric disc protrusion with contact and deformity of the right ventral thoracic cord. Mild/moderate canal stenosis at this level. No abnormal cord signal intensity at this level. BP (!) 140/83 Pulse 59 Temp 97.3 F (36.3 C) (Oral) Resp 16 Ht 5' 7 (1.702 m) Wt 195 lb (88.5 kg) SpO2 97% BMI 30.54 kg/m Co pain and weakness low exs weaknes illiopsoas bilat and ta Numbness Mri noted Pending card clearance Or in am for thoraci decom Removal of the ibgs documented in this encounter Assessments Diagnosis Spinal stenosis of thoracolumbar region Spinal stenosis of thoracic region Pain Generalized pain Lumbosacral spondylosis without myelopathy Post-op pain Other acute postoperative pain Weakness of both lower limbs Other musculoskeletal symptoms referable to limbs Right bundle branch block Hypertensive disorder Unspecified essential hypertension Diabetes mellitus (HCC) Type II or unspecified type diabetes mellitus without mention of complication, not stated as uncontrolled Coronary arteriosclerosis Coronary atherosclerosis of unspecified type of vessel, [place] or graft Gait abnormality Abnormality of gait Type 2 diabetes mellitus with hyperglycemia (HCC) Type II or unspecified type diabetes mellitus without mention of complication, not stated as uncontrolled Chief Complaint and Reason for Visit Chief Complaint Open Wound 3 month Reason for Visit Urinary incontinence Uses walker Weakness Incontinence associated dermatitis Chronic HFrEF (heart failure with reduced ejection fraction) Chronic venous insufficiency [id number] Hyperlipidemia type II Ischemic cardiomyopathy Lumbosacral spondylosis SNEHA (obstructive sleep apnea) Primary hypertension Additional Source Comments (unrecognized sect ion and content) No Status Records FoundNo Status Records FoundNo Status Records FoundNo Status Records FoundNo Status Records Found INFORMATION SOURCE (unrecogn ized section and content) DATE CREATED AUTHOR 11/30/2017 [facility] DATE CREATED AUTHOR AUTHOR'S ORGANIZ ATION 08/22/2019 [facility] DATE CREATED AUTHOR AUTHOR'S ORGANIZ ATION 08/11/2022 [facility] DATE CREATED AUTHOR AUTHOR'S ORGANIZ ATION 09/10/2022 [facility] [place] DATE CREATED AUTHOR AUTHOR'S ORGANIZ ATION 05/11/2023 [facility] Reason for Visit (unrecogniz ed section and content) Reason Comments Back Pain Status Reason Specialty Diagnoses / Procedures Referre d By Contact Referred To Contact Diagnoses Spinal stenosis of thoracolumbar region Weakness of both lower limbs Seymour Espitia MD [address], [address] [place] [address] [facility] Care Team (unrecognized sect ion and content) Team Status: Active Member Role Status Dates Jasiel Lawler DO Primary Care Provider Active Team Status: Inactive Member Role Status Dates Jasiel Lawler DO Primary Care Provider Active Start: March 01, 2023 End: March 01, 2023 Joanne Crenshaw APRN Attending Provider Active St art: March 01, 2023 End: March 01, 2023 Team Status: Inactive Member Role Status Dates Jasiel Lawler DO Primary Care Provide r, Attending Provider Active Start: May 16, 2023 End: May 16, 2023 Goals (unrecognized section and content) Goals may be documented in a n alternate section FOR RECORDS PERTAINING TO PATIENTS WHO ARE OR HAVE BEEN ENROLLED IN A CHEMICAL DEPENDENCY/SUBSTANCEABUSE PROGRAM, SOME INFORMATION MAY BE OMITTED. This clinical summary was aggregated from multiple sources. Caution should be exercised in using it in the provision of clinical care. This summary normalizes information from multiple sources, and as a consequence, information in this document may materially change the coding, format and clinical context of patient data. In addition, data may be omitted in some cases. CLINICAL DECISIONS SHOULD BE BASED ON THE PRIMARY CLINICAL RECORDS. [facility]. provides no warranty or guarantee of the accuracy or completeness of information in this document.
[2024-03-21 13:12] LABS: Basophils Absolute Auto 0.1 10^3/uL (0.0-0.1); Basophils Percent Auto 0.7 % (0.2-2.0); Eosinophils Absolute Auto 0.5 10^3/uL (0.0-0.7); Eosinophils Percent Auto 4.9 % (0.9-7.0); Hematocrit 47.7 % (42.0-54.0); Hemoglobin 15.3 g/dL (14.0-18.0); Immature Granulocytes Abs Auto 0.03 10^3/uL (0.00-0.03); Immature Granulocytes Pct Auto 0.3 % (0.0-0.5); Lymphocytes Percent Auto 30.4 % (20.5-60.0); Mean Corpuscular HGB Conc 32.1 g/dL (29.9-35.2); Mean Corpuscular Hemoglobin 31.1 pg (25.9-34.0); Mean Platelet Volume 10.1 fL (9.5-13.5); Monocytes Absolute Auto 0.9 10^3/uL (0.3-0.8); Monocytes Percent Auto 9.1 % (1.7-12.0); Neutrophils Absolute Auto 5.4 10^3/uL (1.4-6.5); Neutrophils Percent Auto 54.6 % (43.0-75.0); Platelet Count 286 10^3/uL (150-450); Red Blood Count 4.92 10^6/uL (4.70-6.10); Red Cell Distribution Width 12.7 % (11.0-15.0); White Blood Count 9.9 10^3/uL (4.0-11.0)
[2024-03-21 13:54] LABS: Microalbumin Urine Random <1.3 mg/dL (<=30.0)
[2024-03-21 13:59] LABS: Estimated Average Glucose 140 mg/dL; Glycohemoglobin A1C 6.5 % (4.5-6.2)
[2024-03-21 14:24] LABS: Alanine Aminotransferase 17 U/L (16-63); Albumin Globulin Ratio 1.1; Albumin Level 3.8 g/dL (3.4-5.0); Alkaline Phosphatase 76 U/L (46-116); Anion Gap 11.8; Aspartate Amino Transferase 17 U/L (15-37); BUN Creatinine Ratio 19.1; Bilirubin Total 1.5 mg/dL (0.2-1.0); Calcium 9.3 mg/dL (8.5-10.1); Carbon Dioxide 33.1 mmol/L (21.0-32.0); Chloride 105 mmol/L (98-107); Chol HDL Ratio 1.8; Cholesterol 120 mg/dL (<=200); Estimated GFR (African America >60 (>=60 mL/min/1.73m^2); Estimated GFR (Non-African Ame >60 (>=60 mL/min/1.73m^2); Globulin 3.4 g/dL; Glucose 107 mg/dL (74-106); HDL Cholesterol 67 mg/dL (40-60); Potassium 3.9 mmol/L (3.5-5.1); Sodium 146 mmol/L (136-145); Total Protein 7.2 g/dL (6.4-8.2); Triglycerides 66 mg/dL (<=150); VLDL CHOLESTEROL 13.2 mg/dL
== END 2024-03-21 12:48 | disposition home or self-care (01) ==
LOC: LAB 12:49
PROVIDERS: PCP Internal Medicine; Visit Provider Internal Medicine
DX: R53.83 Other fatigue (principal); E11.65 Type 2 diabetes mellitus with hyperglycemia; I25.5 Ischemic cardiomyopathy; E78.01 Familial hypercholesterolemia; I10 Essential (primary) hypertension
CPT/HCPCS: 36415; 80053; 80061; 82043; 83036; 84443; 85025

== ENCOUNTER 2024-09-11 08:56 | Outpatient (OUT) | payer MEDICARE, OTHER, SELFPAY ==
--- OUTSIDE RECORDS SUMMARY | 2024-09-11 09:01 | XMS_ITS | Continuity of Care Document ---
Author Name [facility] Organization [facility] Care Team Providers Care Mold Maker Name Role Phone [facility] Unavailable Unavailable Medications Combined list of outpatient medications from Department of Defense and Veterans Affairs facilities.Medications provided include 1) outpatient medications from the last 15 months, and 2) patient-reported medications. Medication Details Route Status Patient Instructions Prescription Expires Prescription Number Last Dispense Date Ordering Provider Order Date Order Qty Source GABAPENTIN (GABAPENTIN ), 300 MG, CAPSULE, ORAL, TutorspreeVIS PHARMA,, 500 ea. BOTTLE Active [id number] 2023 120 Pharmac y Data Transac tion Service Facilit y Social History Combined list of available smoking, tobacco, and other social history from Department of Defense and Veterans Affairs facilities. Social History Type Response Date Comment Sourc e This section is an empty social history section. DoD
--- OUTSIDE RECORDS SUMMARY | 2024-09-11 09:03 | XMS_ITS | Clinical Summary ---
Author Organization [employer] Address [id number] [address] [place] [address] Care Team Providers Care Caustics Loader Name Role Phone Unavailable Primary Care Provider Unavailabl e Social History Tobacco Use Types Packs/Day Years Used Date Smoking Tobacco: Never Assessed Childcare Answer Date Recorded Childcare Unknown 09/11/2018 Employment Answer Date Recorded Employment Unknown 09/11/2018 Purpose - Life Answer Date Recorded Purpose and direction in life Unknown Sex and Gender Information Value Date Recorded Sex Assigned at Not on file Legal Sex Male 11:25 AM EDT Gender Identity Not on file Sexual Orientation Not on file Plan of Treatment Health Maintenance Due Date Last Done Comments Depression Screening 1947 Tobacco Screening 1947 DTaP,Tdap and Td Vaccines (1 - Tdap) 02/29/1956 Zoster (Shingles) Vaccine (1 of 2) 1987 Fall Risk Screening 2002 Influenza Vaccine 12/01/2024 Medical Devices Not on file Insurance MEDICARE HMO/PPO - GENERIC PLAN QPD
--- OUTSIDE RECORDS SUMMARY | 2024-09-11 09:03 | XMS_ITS | Encounter Summary ---
Author Organization [facility] Address [address] [place] [address] Care Team Providers Care Chief Deputy Coroner Name Role Phone Jasiel Smith DO Primary Care Provider [phone] Reason for Visit * Reason Comments Medication Refill Encounter Details Date Type Department Care Team (Late st Contact Info) Description 09/12/[address] [facility] Neurosurgery [address] [place] [address] Seymour Arias MD Medication Refill Social History Tobacco Use Types Packs/Day Years Used Date Smoking Tobacco: Never Smokeless Tobacco: Never Alcohol Use Standard Drinks/Week Comments Yes 0 (1 standard drink = 0.6 oz pur e alcohol) occ Social Connection and Isolat ion Panel [NHANES] Answer Date Recorded Frequency of Communication w ith Friends and Family More than three times a week 08/20/2019 Frequency of Social Gatherin gs with Friends and Family Once a week 08/20/2019 Attends Temple Services 1 to 4 times per year 08/20/2019 Active Member of Clubs or Organizations No 08/20/2019 Attends Club or Organization Meetings Never 08/20/2019 Marital Status 08/20/2019 Overall Financial Resource Strain (CARDIA) Answe r Date Recorded Difficulty of Paying Living Expenses Not hard at all 08/20/2019 [facility] Occupat ional Health - Occupational Stress Questionnaire Answer Date Recorded Feeling of Stress Only a little 08/20/2019 Exercise Vital Sign Answer Date Recorde d Days of Exercise per Week 0 days 2019 Minutes of Exercise per Session 0 min 08/20/2019 Hunger Vital Sign Answer Date Recorded Worried About Running Out of Food in the Last Ye ar Never true 08/20/2019 Ran Out of Food in the Last Year Never true 08/20/2019 PRAPARE - Transportation Answer Date Re corded Lack of Transportation (Medical) No 08/20/2019 Lack of Transportation (Non-Medical) No 08/20/2019 Education Answer Date Recorded What is the highest level of school you have completed or the highest degree you have received? 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
--- OUTSIDE RECORDS SUMMARY | 2024-09-11 09:03 | XMS_ITS | Encounter Summary ---
Author Organization [facility] Address [address] [place] [address] Care Team Providers Care Beveller Operator Name Role Phone Jasiel Smith DO Primary Care Provider [phone] Encounter Details Date Type Department Care Team (Late st Contact Info) Description 10/10/2017 [facility] Scan [address] [place], [place] [id number] Inna Desai, RN Social History Tobacco Use Types Packs/Day Years Used Date Smoking Tobacco: Never Smokeless Tobacco: Never Sex and Gender Information Value Date Recorded Sex Assigned at Not on file Legal Sex Male 9:22 AM EST Gender Identity Not on file Sexual Orientation Not on file documented as of this encounter Plan of Treatment Not on file documented as of this encounter Visit Diagnoses Not on filedocumented in this encounter Care Teams Beveller Operator Relationship Specialty Start Date End Date Jasiel Smith DO PCP - General Internal Medicine 07/10/17 documented as of this encounter
--- OUTSIDE RECORDS SUMMARY | 2024-09-11 09:03 | XMS_ITS | Clinical Summary ---
Author Organization [facility] Address [address] [place] [address] Care Team Providers Care Embedded Systems Software Developer Name Role Phone Jasiel Smith DO Primary Care Provider Allergies Active Allergy Reactions Criticality Noted Date Comments Meperidine 07/10/2017 Mental status change Medications metFORMIN (GLUCOPHAGE) 1000 MG tablet Take 1,000 mg by mouth 2 times daily (with meals) Active SITagliptin (JANUVIA) 100 MG tablet Take 100 mg by mouth daily Active atorvastatin (LIPITOR) 20 MG tablet Take 20 mg by mouth daily Active amLODIPine (NORVASC) 10 MG tablet Take 10 mg by mouth daily Active tamsulosin (FLOMAX) 0.4 MG capsule Take 0.4 mg by mouth daily Active ciclopirox (LOPROX) 0.77 % cream Apply topically 2 times daily. 1 Tube 2 11/03/19 18 Active atenolol-chlor thalidone (TENORETIC) 100-25 MG per tablet atenolol 100 mg-chlorthalidone 25 mg tablet Take 1 tablet every day by oral route for 90 days. Active ACCU-CHEK SOFTCLIX LANCETS MISC Accu-Chek Softclix Lancets Active benazepril (LOTENSIN) 40 MG tablet benazepril 40 mg tablet Active Calcium Carbonate-Deysi min D (CALCIUM 500 + D PO) Calcium 500 + D 1 tab QD Active empagliflozin (JARDIANCE) 10 MG tablet Jardiance 10 mg tablet Active Blood Glucose Monitoring Suppl (TRUE METRIX AIR GLUCOSE METER) NICK True Metrix Air Glucose Meter Active Multiple Vitamins-Bar Machine Operator Production als (MULTIVITAMIN ADULT PO) multivitamin Active blood glucose test strips (ASCENSIA AUTODISC ;ONE TOUCH ULTRA TEST ) strip True Metrix Glucose Test Strip Active ciclopirox (PENLAC) 8 % solution Apply to toenails daily. 1 Bottle 5 12/15/19 18 Active gabapentin (NEURONTIN) 300 MG capsule Take 1 capsule by mouth 4 times daily for 30 days.. 90 capsule 12/20/19 18 Active cyclobenzaprin e (FLEXERIL) 10 MG tablet cyclobenzaprine 10 mg tablet TAKE 1 TABLET BY MOUTH EVERY NIGHT NEEDED FOR MUSCLE SPASMS Active cephALEXin (KEFLEX) 500 MG capsule TAKE 1 CAPSULE BY MOUTH THREE TIMES DAILY 11/26/19 21 Active MYRBETRIQ 50 MG TB24 TAKE 1 TABLET BY MOUTH DAILY 12/08/19 21 Active Active Problems Problem Noted Date Diagnosed Date Gait abnormality 08/20/2019 Spinal stenosis of thoracolumbar region 08/16/19 Weakness of both lower limbs 08/16/2019 Diverticulosis of large inte maicol without perforation or abscess without bleeding 01/02/2019 Low back pain 10/08/2018 Type 2 diabetes mellitus with hyperglycemia 07/01 Herniation of nucleus pulpos us of thoracic intervertebral disc 11/22/2017 Coronary arteriosclerosis 11/20/2017 Diabetes mellitus 11/20/2017 Electrocardiogram abnormal 11/20/2017 Hypertensive disorder 11/20/2017 Right bundle branch block 11/20/2017 Herniated nucleus pulposus 11/20/2017 Lumbosacral spondylosis without myelopathy 08/07 Immunizations Immunization Administration Dates Next Due Influenza, FLUAD, (age 65 y+), IM, Trivalent PF, 0.5mL 01/01/2018 Family History Medical History Relation Name Comments Obesity Daughter 1 Migraines Daughter 2 High Blood Pressure Father Other Father stomach issues Stroke Father Cancer Mother Thyroid Disease Mother Allergic Rhinitis Sister Asthma Sister COPD Sister Heart Disease Sister No Known Problems Son 1 No Known Problems Son 2 Relation Name Status Comments Daughter 1 Alive Daughter 2 Alive Father Mother Sister Alive Son 1 Alive Son 2 Alive Social History Tobacco Use Types Packs/Day Years [...] and Family Once a week 08/20/2019 Attends Buddhism Services 1 to 4 times per year 08/20/2019 Active Member of Clubs or Organizations No 08/20/2019 Attends Club or Organization Meetings Never 08/20/2019 Marital Status 08/20/2019 Overall Financial Resource Strain (CARDIA) Answe r Date Recorded Difficulty of Paying Living Expenses Not hard at all 08/20/2019 [facility] of Occupat ional Health - Occupational Stress [...] file 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 on 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 on file Not on file Last Filed Vital Signs Vital Sign Reading Time Taken Comments Blood Pressure 131/84 08/21/2019 7:45 AM EDT Pulse 83 08/21/2019 7:45 AM EDT Temperature 36.2 C (97.1 F) 01/11/2021 1:28 PM EDT Respiratory Rate 16 08/21/2019 4:12 AM EDT Oxygen Saturation 95% 08/21/2019 7:45 AM EDT Inhaled Oxygen Concentration - - Weight 83.5 kg (184 lb) 01/11/2021 1:28 PM EDT Height 170.2 cm (5' 7 ) 01/11/2021 1:28 PM EDT Body Mass Index 28.82 01/11/2021 1:28 PM EDT Plan of Treatment Not on file Medical Devices Implanted Type Area Driver Education Instructor Device Identifier Shelf Expiration Date Model / Serial / Lot Floseal Hemostat Matrx 5ml Needle Free Implanted:Qty: 1 on 11/22/2017 by Seymour Arias MD at [facility] Bone/Caraway t/Tissue/ Human/Syn th [facility] 04/11/2019 [id number] / / [id number] Insurance [facility] MED[facility] [employer] FOR LIFE MEDICARE SUPP [facility] MEDICARE [facility] MEDICARE SUPP Advance Directives Documents on File Type Date Recorded Patient Fire And Safety Helper Expl anation ACP-Advance Directive 11/22/2017 8:39 AM ACP-Advance Directive 11/22/2017 8:38 AM ACP-Advance Directive 11/22/2017 8:38 AM ACP-Power of Stencil Inspector 11/22/2017 8:36 AM * Full Code (Latest Code Status on File) Date Activated Date Inactivated Comments 08/16/2019 2:57 PM 08/21/2019 1:21 PM * Full Code Date Activated Date Inactivated Comments 08/16/2019 2:25 PM 08/16/2019 2:57 PM * Full Code Date Activated Date Inactivated Comments 11/22/2017 2:02 PM 11/23/2017 1:51 PM * Full Code Date Activated Date Inactivated Comments 10/11/2017 11:59 AM 10/14/2017 2:32 AM Care Teams Embedded Systems Software Developer Relationship Specialty Start Date End Date Jasiel Smith DO PCP - General Internal Medicine 07/10/17
--- OUTSIDE RECORDS SUMMARY | 2024-09-11 09:03 | XMS_ITS | Clinical Summary ---
Author Organization [facility] Address [address] [place] [address] Care Team Providers Care Anodiser Name Role Phone Jasiel Smith DO Primary Care Provider [phone] Active Problems Problem Noted Date Diagnosed Date Coronary artery disease invo lving [place] coronary artery of [place] heart without angina pectoris 08/30/2022 CHF (congestive heart failur e), NYHA class II, acute on chronic, systolic 08/30/2022 Benign hypertensive cardiomyopathy with heart fa ilure 08/30/2022 Mixed dyslipidemia 08/30/2022 Social History Tobacco Use Types Packs/Day Years Used Date Smoking Tobacco: Never Assessed [place] Safety & Environment Answer Date Rec orded Fear of Current or Ex-Partner Not on file Emotionally Abused Not on file 05/24/2023 Physically Abused Not on file 05/24/2023 Sexually Abused Not on file 05/24/2023 Physically or Sexually Abused Not on file Sex and Gender Information Value Date Recorded Sex Assigned at Not on file Legal Sex Male 9:55 PM EDT Gender Identity Not on file Sexual Orientation Not on file Last Filed Vital Signs Vital Sign Reading Time Taken Comments Blood Pressure 124/69 07/08/2021 9:13 AM EDT Pulse - - Temperature - - Respiratory Rate - - Oxygen Saturation 99% 07/08/2021 9:12 AM EDT Inhaled Oxygen Concentration - - Weight 86.6 kg (191 lb) 07/08/2021 9:06 AM EDT Height 170.2 cm (5' 7 ) 07/08/2021 9:03 AM EDT Body Mass Index 29.91 07/08/2021 9:03 AM EDT Plan of Treatment Health Maintenance Due Date Last Done Comments Diabetes: Hemoglobin A1C 1937 Medicare Annual Wellness (AWV) 1937 Diabetes: Retinopathy Screening 1947 Depression Screening 1949 Diabetes: Urine Protein Screening 02/29/1956 Pneumococcal Vaccine: 50+ Years (1 of 2 - PCV) 02/29/1956 Adult Tetanus 1959 Zoster Vaccines (1 of 2) 1987 Fall Risk Screening 2002 COVID-19 Vaccine (2 - season) 2023 03/19/2022 Influenza Vaccine (Season Ended) 2024 01/17/2022, 01/01/2018, 01/15/2017, Additional history exists HIB Vaccines Aged Out No longer eligi ble based on patient's age to complete this topic HPV Vaccines Aged Out No longer eligi ble based on patient's age to complete this topic IPV Vaccines Aged Out No longer eligi ble based on patient's age to complete this topic Meningococcal B Vaccine Aged Out No l onger eligible based on patient's age to complete this topic Meningococcal Vaccine Aged Out No chaparro michael eligible based on patient's age to complete this topic Rotavirus Vaccines Aged Out No longer eligible based on patient's age to complete this topic Insurance [employer] MEDICARE ADVANTAGE [facility] Care Teams Anodiser Relationship Specialty Start Date End Date Jasiel Smith DO [address] [place] [address] PCP - General 08/25/22
--- OUTSIDE RECORDS SUMMARY | 2024-09-11 09:03 | XMS_ITS | Referral Summary ---
Author Organization [facility] Address [address] [place] [address] Care Team Providers Care Licensing Registration Examiner Name Role Phone Jasiel Smith DO Primary Care Provider [phone] Active Problems Problem Noted Date Diagnosed Date Coronary artery disease invo lving [place] coronary artery of [place] heart without angina pectoris 08/30/2022 CHF (congestive heart failur e), NYHA class II, acute on chronic, systolic 08/30/2022 Benign hypertensive cardiomyopathy with heart fa ilure 08/30/2022 Mixed dyslipidemia 08/30/2022 Social History Tobacco Use Types Packs/Day Years Used Date Smoking Tobacco: Never Assessed [place] Safety & Environment Answer Date Rec orded [...] 07/08/2021 9:03 AM EDT Plan of Treatment Not on file Insurance [facility] MEDICARE ADVANTAGE [facility] Care Teams Licensing Registration Examiner Relationship Specialty Start Date End Date Jasiel Smith DO [address] [facility] [place] [id number] PCP - General 08/25/22
--- OUTSIDE RECORDS SUMMARY | 2024-09-11 09:03 | XMS_ITS | Encounter Summary ---
Author Organization [facility] Address [address] [place] [address] Care Team Providers Care Reservationist Name Role Phone Jasiel Smith DO Primary Care Provider [phone] Reason for Visit * Reason Comments Medication Refill Encounter Details Date Type Department Care Team (Late st Contact Info) Description 09/11/2020 Refill [facility] Neurosurgery [address] [place] [address] Seymour Arias MD Medication Refill Social History [...] and Family Once a week 08/20/2019 Attends Rastafarian Services 1 to 4 times per year 08/20/2019 Active Member of Clubs or Organizations No 08/20/2019 Attends Club or Organization Meetings Never 08/20/2019 Marital Status 08/20/2019 Overall Financial Resource Strain (CARDIA) Answe r Date Recorded Difficulty of Paying Living Expenses Not hard at all 08/20/2019 [facility] [place] of Occupat ional Health - Occupational Stress [...] file Not on 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
--- OUTSIDE RECORDS SUMMARY | 2024-09-11 09:03 | XMS_ITS | Encounter Summary ---
Author Organization [facility] Address [address] [place] [address] Care Team Providers Care Landscape Gardener Name Role Phone Jasiel Smith DO Primary Care Provider [phone] Reason for Visit * Reason Comments Medication Refill Encounter Details Date Type Department Care Team (Late st Contact Info) Description 10/18/2020 Refill [facility] Neurosurgery [address] [place] [address] Seymour Arias MD Medication Refill Social History [...] and Family Once a week 08/20/2019 Attends Church Services 1 to 4 times per year 08/20/2019 Active Member of Clubs or Organizations No 08/20/2019 Attends Club or Organization Meetings Never 08/20/2019 Marital Status 08/20/2019 Overall Financial Resource Strain (CARDIA) Answe r Date Recorded Difficulty of Paying Living Expenses Not hard at all 08/20/2019 [facility] [place] of Occupat ional Health - Occupational Stress [...] file Not on file 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
--- OUTSIDE RECORDS SUMMARY | 2024-09-11 09:03 | XMS_ITS | Clinical Summary ---
Author Organization [facility] Address [address] [place] [address] Care Team Providers Care Personal Computer Network Engineer Name Role Phone Unavailable Primary Care Provider Unavailabl e Social History Tobacco Use Types Packs/Day Years Used Date Smoking Tobacco: Never Assessed Sex and Gender Information Value Date Recorded Sex Assigned at Not on file Legal Sex Male 8:34 PM EDT Gender Identity Not on file Sexual Orientation Not on file Plan of Treatment Not on file Insurance [employer] MEDICARE ADVANTAGE
--- OUTSIDE RECORDS SUMMARY | 2024-09-11 09:14 | XMS_ITS | CCD ---
Author Organization [facility] Care Team Providers Care Development Expert Name Role Phone PHYSICIAN, DEFAULT Unavailable Unavailable PHYSICIAN, DEFAULT Unavailable Unavailable YULIA RIBEIRO Unavailable Unavailable GRADY RAMIREZEB Osbaldo Unavailable Unavailable GRADY RAMIREZEB A Unavailable Unavailable YULIA RIBEIRO Unavailable Unavailable YULIA RIBEIRO Unavailable Unavailable Jasiel Lawler Primary Care Provider [phone] JASIEL LAWLER Primary Care Unavailable SEYMOUR ESPITIA [...] Primary Care Provider MATILDA Crenshaw Attending Provider Allergies Allergy Classification Reported Allergen(s) Allergy Type Date of Onset Reaction(s) Facility (2 sources) meperidine Drug Allergy 3 AOF [facility] Repository (1 source) No Known Allergies; Translations: [No Known Allergies] Propensity to adverse reactions (disorder) [facility] Repository (20 sources) Meperidine; Translations: [meperidine] Drug Allergy 3 Unknown, AOF, Confusion [place], [place] (1 source) Meperidine; Translations: [Demerol HCl] Drug Allergy [facility] Repository (1 source) patient allergy list reviewed by nurse or physicia Propensity to adverse reactions 3 Comment:Done [email or web address] Other (1 source) Meperidine Drug Allergy 3 [facility] Repository Medications Current Medications Medication Drug [...] Start: 01-03-2023 take 1 capsule by mo [facility] every eight hours Cephalexin 500 MG 1 [...] 1515 docusate sodium 50 mg / sennosides, residential 8.6 mg oral capsule (20 sources) Start: 07-04-2021 take 1 capsule by [facility] every twenty-four hours Senna Plus [...] Ordered Start: 08-17-2019 take 1 tablet by [facility] once daily Empagliflozin (Jardiance) 10 mg [...] Starting 08/16/19 at 1425 polyethylene glycol 3350 23772 mg powder for oral solution (1 source) [...] (20 sources) Opioid Agonist Start: 01-08-2023 take 50 mg by mouth every eight hours Tramadol Active 50 MG PO Q8H January 24, 2023 11:00pm Start: 10-18-2022 take 1 tablet by sean [...] Oral, 2 TIMES DAILY, First dose on Sun08/16/19 at 2100 Maximum dose of acetaminophen is [...] Dec, Not-Taking/PRN nystatin 100 unt/mg topical powder (2 sources) Polyene Antifungal Start: 01-25-2023 End: 05-12-2023 Nystatin Discontinued 1 APPLIC TOPICAL Twice daily January 24, 2023 11:00pm May 12, 2023 [...] 1455 solifenacin succinate 5 mg oral tablet (4 sources) Cholinergic Muscarinic Antagonist Start: 09-06-2021 End: [...] to other specified organisms] Episodic Allergic reactions (4 sources) Exogenous dermatitis; Translations: [Unspecified contact dermatitis [...] disease (20 sources) 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; Translations: [Coronary arteriosclerosis] Onset: 12-17-2015 Resolved: 07-16-2019 08-20-2019 Chronic Diabetes mellitus with complications (20 sources) Hyperglycemia due to type 2 diabetes mellitus; Translations: [Polyneuropathy due to type 2 diabetes mellitus] Onset: 07-17-2018 08-20-2019 Chronic Diabetes mellitus without complication (5 sources) Type 2 diabetes mellitus without complications; [...] [Encounter for immunization] Episodic Malaise and fatigue (5 sources) Malaise and fatigue; Translations: [Other malaise and fatigue] Onset: 01-15-2017 Resolved: 07-16-2019 01-25-2023 Episodic Other acquired deformities (20 sources) Spondylolisthesis; Translations: [Spondylolisthesis, cervical region] Episodic Other aftercare (20 sources) H/O: high risk medication; Translations: [Other long-term (current) drug therapy] Episodic Other aftercare (3 sources) Other weight checker (current) drug therapy; Translations: [OTH PRISON CURRENT DRUG THERAPY] Onset: 02-02-2022 Episodic Other aftercare (1 source) Long-term current use of drug therapy; Translations: [Other long-term (current) drug therapy] Episodic Other aftercare (1 source) Drug therapy finding; Translations: [Other weight checker (current) drug therapy] 05-12-2023 Episodic Other and [...] sleep apnea (adult)(pediatric)] Chronic Residual codes; unclassified (4 sources) Dependence on other enabling machines and [...] / UNK(Unknown) Onset: 11-15-2017 Unclassified (1 source) manager home improvement (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) use of oral hypoglycemic drugs; Translations: [LEARNING TECHNOLOGIES SPECIALIST (CURRENT) USE OF ORAL HYPOGLYCEMIC DRUGS] Onset: 11-15-2017 Unclassified (3 sources) Finding of sensation of bladder 11-08-2021 Unclassified (1 source) Irritant contact dermatitis due to fecal, urinary or dual incontinence; Translations: [Irritant contact dermatitis due to fecal, urinary or dual incontinence] Onset: 03-01-2023 Unclassified (2 sources) Inflammatory disorder; Translations: [Inflammation] 01-25-2023 Past or Other Problems Problem Classification Problem [...] reflux disease with esophagitis, unspecified whether hemorrhage] Mycoses (2 sources) Candidiasis; Translations: [Candidiasis, unspecified] 02-15-2023 Episodic Nonspecific chest pain (2 sources) Chest pain; [...] health care provider. General instructions ? Take bkub-nts-twygtqe and prescription medicines only as told by [...] monitor yo (more content not included)... Normal [facility] Provider Letteron 09-05-2022 Provider Letter (Inserted Image. Yesenia ble to display) JASIEL LAWLER, [address] [place] [address] Re: IRVIN DE OLIVEIRA Date of : [address] LAWLER DO, IRVIN MAIER was evaluated at [facility] 09/05/22 13:00:00 As this patient [...] Thanks! Provider Signature: Harper Barreto PA-C Physician [employer] [facility] [address] [place] [address] Normal [facility] Office/Clinic Noteon 09-05-2022 Urology Office/Clinic [...] E&M of Est. Patient Moderate 30-39 Min 13198 2. BPH with obstruction/lower urinary tract symptoms (N40.1: Benign prostatic hyperplasia with lower urinary tract symptoms) sp TURP August 2020 on Flomax. no bothersome side effects. no issues w low BP or falls. says PCP gives him refills. this will continue. return to clinic should steam worsen. Ordered: E&M of Est. Patient Moderate 30-39 Min 53278 Urnls Dip Stick Auto w/o Microscopy POC 58728 Other obstructive and reflux uropathy (N13.8: Other obstructive and reflux uropathy) discussed f/u 6-12 mos vs PRN. pt prefers PRN. letter sent to PCP. Follow-up With When Contact Information BERTRAND MONTERO, HARPER Ly, URL Only if needed [address] [place] [address] [facility] (1) Additional Instructions: Patient Education Overactive Bladder, [...] Father. Immunizations Vaccine Date Status SARS-CoV-2 (COVID-19) mRNAMUL.ORD![id number] 03/19/2022 Recorded influenza virus vaccine, inactivated 01/17/2022 Recorded influenza virus vaccine, inactivated 12/2020 Recorded SARS-CoV-2 (COVID-19) mRNA-1273 vaccine 05/2020 Recorded SARS-CoV-2 (COVID-19) mRNA-1273 vaccine 06/2019 Recorded influenza virus vaccine, in (more content not included)... Normal [facility] Comment on above: Result Comment: Electronically Signed By : HARPER BARRETO PA-C\.suzanne\Date and Time Signed: 09/05/22 17:49 EDT GLYCOHEMOGLOBIN A1Con 2022 ADA RECOMMENDATION SEE BELOW Normal [facility] Comment on above: Result Comment: ADA RECOMMENDED LIMIT 4. 0 - 6.0 ADA THERAPEUTIC TARGET < 7.0 ACTION SUGGESTED > 7.0 Performed By: #### A 1C #### [facility] [address] [place] [address] Dr. Roseline Kennedy Glucose [Mass/Vol] 157 mg/dL Normal [facility] Comment on above: Performed By: #### A1C #### [facility] [address] [address] [address] Roseline Kennedy HbA1c (Bld) [Mass fraction] 7.1 % Critically high 4.5-6.2 [facility] Comment on above: Performed By: #### A1C #### [facility] [address] [address] [address] Roseline Kennedy ECHOCARDIO M/2D COMPLETEon 0 08-03-2022 ECHOCARDIO M/2D COMPLETE Patient: IRVIN DE OLIVEIRA Exam Date: 08/03/2022 : 1935 Gender:M Ordering : DR JASIEL LAWLER D.O. Admission #: [id number] Family : Order #: [id number] CLICK HERE TO VIEW EXAM ECHOCARDIOGRAM REPORT% [...] Josh Roque M.D. on 08/04/2022 at 09:34 Normal [facility] Patient Educationon 04-19-19 Patient Education Urology [...] stimulation). ? For women, using a medical radiation dosimetrist to prevent urine leaks. This is a [...] after experiencing incontinence. General instructions ? Take sogz-yoj-dxpbjwn and prescription medicines only as (more content not included)... Normal [facility] Office/Clinic Noteon 04-19-2022 Urology Office/Clinic Note [...] E&M of Est. Patient Low 20-29 Min 97292 Urnls Dip Stick Auto w/o Microscopy POC 09982 2. Incontinence without sensory awareness (N39.42: Incontinence [...] E&M of Est. Patient Low 20-29 Min 09546 3. Nocturia (R35.1: Nocturia) c/o q1h at last visit. says this has improved a lot. now only gets up a couple times per night. not sure what caused change. Ordered: E&M of Est. Patient Low 20-29 Min 02792 Follow-up With When Contact Information BRETRAND MONTERO, HARPER Ly, ASHLEY Within 3 months [address] [place] [address] Additional Instructions: Patient Education Urinary Incontinence Problem [...] Father. Immunizations Vaccine Date Status SARS-CoV-2 (COVID-19) mRNAMUL.ORD![id number] 03/19/2022 Recorded influenza virus vaccine, inactivated 01/17/2022 [...] mg/dl (04/02 (more content not included)... Normal [facility] Comment on above: Result Comment: Electronically Signed By : HARPER BARRETO PA-C\Date and Time Signed: 04/19/22 15:54 EST CBC AUTO DIFFon 01-30-2022 BASO # 0.1 103/ul Normal 0.0-0.1 [facility] Comment on above: Performed By: #### CBC #### [facility] [address] [address] [address] Roseline Kennedy Basophils/100 WBC (Bld) 0.7 % Normal 0.2-2.0 [facility] Comment on above: Performed By: #### CBC #### [facility] [address] [address] [address] Roseline Kennedy EO # 1.1 103/ul Critically high 0.0-0.7 [facility] Comment on above: Performed By: #### CBC #### [facility] [address] [place] [address] Dr. Roseline Kennedy Eosinophils/100 WBC (Bld) 12.2 % Critically high 0.9-7.0 [facility] Comment on above: Performed By: #### CBC #### [facility] [address] [place] [address] Dr. Roseline Kennedy Erythrocyte distribution width (RBC) [Ratio] 14.0 % Normal 11.0-15.0 [facility] Comment on above: Performed By: #### CBC #### [facility] [address] [place] [address] Dr. Roseline Kennedy Hematocrit (Bld) [Volume fraction] 48.1 % Normal 42.0-54.0 [facility] Comment on above: Performed By: #### CBC #### [facility] [address] [place] [address] Dr. Roseline Kennedy Hemoglobin (Bld) [Mass/Vol] 15.8 g/dL Normal 14.0-18.0 [facility] Comment on above: Performed By: #### CBC #### [facility] [address] [place] [address] Dr. Roseline Kennedy IG # 0.06 10e3/ul Critically high 0.00-0.03 [facility] Comment on above: Performed By: #### CBC #### [facility] [address] [place] [address] Dr. Roseline Kennedy IG % 0.7 % Critically high 0.0-0.5 [facility] Comment on above: Performed By: #### CBC #### [facility] [address] [place] [address] Dr. Roseline Kennedy LYMPH # 2.1 103/ul Normal 1.2-3.8 [facility] Comment on above: Performed By: #### CBC #### [facility] [address] [place] [address] Dr. Roseline Kennedy Lymphocytes/100 WBC (Bld) 23.3 % Normal 20.5-60.0 [facility] Comment on above: Performed By: #### CBC #### [facility] [address] [place] [address] Dr. Roseline Kennedy MANUAL DIFF REQ NO Normal [facility] Comment on above: Performed By: #### CBC #### [facility] [address] [place] [address] Dr. Roseline Kennedy MCH (RBC) [Entitic mass] 31.5 pg Normal 25.9-34.0 [facility] Comment on above: Performed By: #### CBC #### [facility] [address] [place] [address] Dr. Roseline Kennedy MCHC (RBC) [Mass/Vol] 32.8 g/dL Normal 29.9-35.2 [facility] Comment on above: Performed By: #### CBC #### [facility] [address] [place] [address] Dr. Roseline Kennedy MCV (RBC) [Entitic vol] 95.8 fL Critically high 80.0-94.0 [facility] Comment on above: Performed By: #### CBC #### [facility] [address] [place] [address] Dr. Roseline Kennedy MONO # 0.8 103/ul Normal 0.3-0.8 [facility] Comment on above: Performed By: #### CBC #### [facility] [address] [place] [address] Dr. Roseline Kennedy Monocytes/100 WBC (Bld) 9.3 % Normal 1.7-12.0 [facility] Comment on above: Performed By: #### CBC #### [facility] [address] [place] [address] Dr. Roseline Kennedy NEUT # 4.9 103/ul Normal 1.4-6.5 [facility] Comment on above: Performed By: #### CBC #### [facility] [address] [place] [address] Dr. Roseline Kennedy Neutrophils/100 WBC (Bld) 53.8 % Normal 43.0-75.0 [facility] Comment on above: Performed By: #### CBC #### [facility] [address] [address] [address] Roseline Kennedy Platelet mean volume (Bld) [Entitic vol] 10.0 fL Normal 9.5-13.5 [facility] Comment on above: Performed By: #### CBC #### [facility] [address] [address] [address] Roseline Kennedy PLT 260 103/ul Normal 150-450 [facility] Comment on above: Performed By: #### CBC #### [facility] [address] [address] [address] Roseline Kennedy RBC 5.02 106/ul Normal 4.70-6.10 [facility] Comment on above: Performed By: #### CBC #### [facility] [address] [place] [address] Dr. Roseline Kennedy WBC 9.0 103/ul Normal 4.0-11.0 [facility] Comment on above: Performed By: #### CBC #### [facility] [address] [place] [address] Dr. Roseline Kennedy GLYCOHEMOGLOBIN A1Con 2021 ADA RECOMMENDATION SEE BELOW Normal [facility] Comment on above: Result Comment: ADA RECOMMENDED LIMIT 4. 0 - 6.0 ADA THERAPEUTIC TARGET < 7.0 ACTION SUGGESTED > 7.0 Performed By: #### A 1C #### [facility] [address] [place] [address] Dr. Roseline Kennedy Glucose [Mass/Vol] 154 mg/dL Normal [facility] Comment on above: Performed By: #### A1C #### [facility] [address] [address] [address] Roseline Kennedy HbA1c (Bld) [Mass fraction] 7.0 % Critically high 4.5-6.2 [facility] Comment on above: Performed By: #### A1C #### [facility] [address] [place] [address] Dr. Roseline Kennedy LIPID PROFILEon 01-30-2022 CHOL-HDL RATIO NORM SEE BELOW Normal [facility] Comment on above: Result Comment: 3.3 - 4.4 LOW RISK 4.4 - 7.1 AVERAGE RISK 7.1 - 11.0 MODERATE RISK >11.0 HIGH RISK Performed By: #### A LT, BMP, LIPID #### [facility] [address] [address] [address] Roseline Kennedy Cholesterol [Mass/Vol] 113 mg/dL Normal <=200 [facility] Comment on above: Performed By: #### ALT, BMP, LIPID #### [facility] [address] [address] [address] Roseline Kennedy Cholesterol in HDL [Mass/Vol] 62 mg/dL Critically high 40-60 [facility] Comment on above: Performed By: #### ALT, BMP, LIPID #### [facility] [address] [address] [address] Roseline Kennedy Cholesterol in LDL [Mass/Vol] 31.0 mg/dL Normal [facility] Comment on above: Performed By: #### ALT, BMP, LIPID #### [facility] [address] [address] [address] Roseline Kennedy Cholesterol.tota l/Cholesterol in HDL [Mass ratio] 1.8 {ratio} Normal [facility] Comment on above: Performed By: #### ALT, BMP, LIPID #### [facility] [address] [address] [address] Roseline Kennedy HDL NORMAL > or = 60 mg/dl - LO W CARDIOVASCULAR RISK <40 mg/dl - HIGH CARDIOVASCULAR RISK Normal [facility] Comment on above: Performed By: #### ALT, BMP, LIPID #### [facility] [address] [address] [address] Roseline Kennedy LDL CALC NORMAL SEE BELOW Normal [facility] Comment on above: Result Comment: <100 mg/dl OPTIMAL 100 - 129 mg/dl NEAR OR ABOVE OPTIMAL 130 - 159 mg/dl BORDERLINE HIGH 160 - 189 mg/dl HIGH >190 mg/dl VERY HIGH Performed By: #### A LT, BMP, LIPID #### [facility] [address] [address] [address] Roseline Kennedy Triglyceride [Mass/Vol] 100 mg/dL Normal <=150 [facility] Comment on above: Performed By: #### ALT, BMP, LIPID #### [facility] [address] [place] [address] Dr. Roseline Kennedy VLDL CALC 20.0 mg/dL Normal [facility] Comment on above: Performed By: #### ALT, BMP, LIPID #### [facility] [address] [place] [address] Dr. Roseline Kennedy MICROALBUMIN, RAND URon 10-3 mALB <1.3 Normal <=30.0 [facility] Comment on above: Performed By: #### MALBR #### [facility] [address] [place] [address] Dr. Roseline Kennedy PROF CHEM 8 (BAS METB)on Anion gap [Moles/Vol] 11.9 mmol/L Normal [facility] Comment on above: Performed By: #### ALT, BMP, LIPID #### [facility] [address] [place] [address] Dr. Roseline Kennedy Calcium [Mass/Vol] 9.3 mg/dL Normal 8.5-10.1 [facility] Comment on above: Performed By: #### ALT, BMP, LIPID #### [facility] [address] [place] [address] Dr. Roseline Kennedy Chloride [Moles/Vol] 101 mmol/L Normal 98-107 [facility] Comment on above: Performed By: #### ALT, BMP, LIPID #### [facility] [address] [place] [address] Dr. Roseline Kennedy CO2 [Moles/Vol] 30.7 mmol/L Normal 21.0-32.0 [facility] Comment on above: Performed By: #### ALT, BMP, LIPID #### [facility] [address] [place] [address] Dr. Roseline Kennedy Creatinine [Mass/Vol] 0.97 mg/dL Normal 0.70-1.30 [facility] Comment on above: Performed By: #### ALT, BMP, LIPID #### [facility] [address] [address] [address] Roseline Kennedy EGFR-AF GUYANESE >60 Normal >=60 [facility] Comment on above: Performed By: #### ALT, BMP, LIPID #### [facility] [address] [address] [address] Roseline Kennedy EGFR-NON AF GUYANESE >60 Normal >=60 [facility] Comment on above: Performed By: #### ALT, BMP, LIPID #### [facility] [address] [address] [address] Roseline Kennedy Glucose [Mass/Vol] 150 mg/dL Critically high 74-106 [facility] Comment on above: Performed By: #### ALT, BMP, LIPID #### [facility] [address] [address] [address] Roseline Kennedy Potassium [Moles/Vol] 3.6 mmol/L Normal 3.5-5.1 [facility] Comment on above: Performed By: #### ALT, BMP, LIPID #### [facility] [address] [place] [address] Dr. Roseline Kennedy Sodium [Moles/Vol] 140 mmol/L Normal 136-145 [facility] Comment on above: Performed By: #### ALT, BMP, LIPID #### [facility] [address] [address] [address] Roseline Kennedy Urea nitrogen [Mass/Vol] 18.0 mg/dL Normal 7.0-18.0 [facility] Comment on above: Performed By: #### ALT, BMP, LIPID #### [facility] [address] [place] [address] Dr. Roseline Kennedy Urea nitrogen/Creatin ine [Mass ratio] 18.6 mg/mg Normal [facility] Comment on above: Performed By: #### ALT, BMP, LIPID #### [facility] [address] [address] [address] Roseline Kennedy [facility] 01-30-2022 ALT [Catalytic activity/Vol] 20 U/L Normal 16-63 [facility] Comment on above: Performed By: #### ALT, BMP, LIPID #### [facility] [address] [address] [address] 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 Feeling of incomplete bladder emptying Other obstructive and reflux uropathy Tests Performed Urnls Dip Stick Auto w/o Microscopy POC 02456 Your Care Team Attending Physician - Michael [...] Trevino Jr., MD Where: [facility] Patient Educationon 11-09-19 Patient Education Urology Benign Prostatic Hyperplasia Benign [...] Follow these instructions at home: ? Take wmzy-udg-vukvcyb and prescription medicines only as told by [...] You d (more content not included)... [facility] Office/Clinic Noteon 11-08-2021 Urology Office/Clinic [...] urine and/or bladder capacity by US- non-imaging 61672 Urnls Dip Stick Auto w/o Microscopy POC 92162 Urnls Dip Stick Auto w/o Microscopy POC 03485 2. Mixed incontinence (N39.46: Mixed incontinence) S/p TURP done 09/24/2020 Ordered: Measure Post Void residual urine and/or bladder capacity by US- non-imaging 33301 Urnls Dip Stick Auto w/o Microscopy POC 47415 Urnls Dip Stick Auto w/o Microscopy POC 55491 3. Feeling of incomplete bladder emptying (R39.14: Feeling of incomplete bladder emptying) PVR today is 50mL. Pt wears depends daily. Pt feels his sxs have not improved greatly. Pt to continue VESICARE 5mg qd. Pt to call our office for refills. Ordered: Measure Post Void residual urine and/or bladder capacity by US- non-imaging 94630 Urnls Dip Stick Auto w/o Microscopy POC 95007 Urnls Dip Stick Auto w/o Microscopy POC 49838 Other obstructive and reflux uropathy (N13.8: Other obstructive and reflux uropathy) Follow-up With When Contact Information Uriel Damian MD, Michael Rivera, URO In 4 months [facility] [address], [place] [address]- [phone] Additional Instructions: w/ PVR Patient Education Benign Prostatic Hyperplasia I, Magalie Sylvester, personally scribed for Dr. Trevino on 11/08/2021 11:38:02. Electronically signed (more content not included)... [facility] Comment on above: Result Comment: Electronically Signed By : Uriel Damian MD, Michael Rivera\.br\Date and Time Signed: 11/08/21 11:42 EDT\.br\Electronically Co-Signed By: Magalie Sylvester\.br\Date and Time Co-Signed: 11/08/21 11:38 EDT POCT Glucoseon 08-21-2019 Glucose [Mass/Vol] 277 mg/dL Critically high 60-115 [facility] Comment on above: Performed By: #### CMP #### [facility] [address] [place] [address] POC Performed on [facility] Comment on above: Result Comment: Notified RN or MD Performed By: #### C MP #### [facility] [address] [place] [address] Glucose [Mass/Vol] 187 mg/dL Critically high 60-115 [facility] Comment on above: Performed By: #### CMP #### [facility] [address] [place] [address] POC Performed on [facility] Comment on above: Result Comment: Notified RN or MD Performed By: #### C MP #### [facility] [address] [place] [address] Glucose [Mass/Vol] 187 mg/dL High 60 - 115 mg/dl [facility] [place], [place] Interpretation and review of laboratory results Abnormal [facility], [place] Performed on ACCU-CHEK [facility] [place], [place] Comment on above: Notified RN or MD Urinalysis, reflex to cultur stefania 08-21-2019 Bilirubin Ql (U) Negative Normal Negative [facility] Comment on above: Performed By: #### CMP #### [facility] [address] [place] [address] Clarity (U) Clear Normal Clear [facility] Comment on above: Performed By: #### CMP #### [facility] [address] [place] [address] Color (U) Yellow Normal Straw/Barber [facility] Comment on above: Performed By: #### CMP #### [facility] [address] [place] [address] Glucose Ql (U) >=1000 Abnormal Negative [facility] Comment on above: Performed By: #### CMP #### [facility] [address] [place] [address] Hemoglobin Ql (U) Negative Normal Negative [facility] Comment on above: Performed By: #### CMP #### [facility] [address] [place] [address] Ketones Ql (U) TRACE Abnormal Negative [facility] Comment on above: Performed By: #### CMP #### [facility] [address] [place] [address] Leukocyte esterase Test strip Ql (U) Negative Normal Negative [facility] Comment on above: Performed By: #### CMP #### [facility] [address] [place] [address] Nitrite Ql (U) Negative Normal Negative [facility] Comment on above: Performed By: #### CMP #### [facility] [address] [place] [address] pH (U) 5.0 [pH] Normal 5.0-9.0 [facility] Comment on above: Performed By: #### CMP #### [facility] [address] [place] [address] Protein Ql (U) Negative Normal Negative [facility] Comment on above: Performed By: #### CMP #### [facility] [address] [place] [address] Specific gravity (U) [Rel density] 1.029 Normal 1.005-1.03 [facility] Comment on above: Performed By: #### CMP #### [facility] [address] [place] [address] Urine Reflexed to Culture Not Indicated Normal [facility] Comment on above: Performed By: #### CMP #### [facility] [address] [place] [address] Urobilinogen Qn (U) 0.2 {Nadeen'U}/dL Normal < 2.0 [facility] Comment on above: Performed By: #### CMP #### [facility] [address] [place] [address] FLUORO FOR SURGICAL PROCEDUR ESon 08-20-2019 Yohan, Chpo Incoming R adiant Results From [facility]/Pacs - 08/20/2019 1:15 PM EDT EXAM: FLUORO FOR SURGICAL PROCEDURES HISTORY:R52 PAIN ICD10 R52 PAIN ICD10 Findings: Fluoroscopy time was 5.5 seconds A total of 5 fluoroscopic images were obtained by Dr. Espitia during the operative procedure involving the thoracic spine. Please refer to operative report for further details. IMPRESSION: FLUOROSCOPIC ASSISTANCE PROVIDED FOR OPERATIVE GUIDANCE. [place] FLUOROSCOPIC ASSISTA NCE PROVIDED FOR OPERATIVE GUIDANCE. [place] EXAM: FLUORO FOR MONIQUE GICAL PROCEDURES HISTORY:R52 PAIN ICD10 R52 PAIN ICD10 Findings: Fluoroscopy time was 5.5 seconds A total of 5 fluoroscopic images were obtained by Dr. Espitia during the operative procedure involving the thoracic spine. Please refer to operative report for further details. [place] POCT Glucoseon 08-20-2019 Glucose [Mass/Vol] 230 mg/dL Critically high 60-115 [facility] Comment on above: Performed By: #### CMP #### [facility] [address] [place] [address] POC Performed on ACCU-CHEK Normal [facility] Comment on above: Performed By: #### CMP #### [facility] [address] [place] [address] Glucose [Mass/Vol] 230 mg/dL High 60 - 115 mg/dl [facility] Interpretation and review of laboratory results Abnormal [facility] Performed on ACCU-CHEK [facility] [place] Glucose [Mass/Vol] 186 mg/dL Critically high 60-115 [facility] Comment on above: Performed By: #### CMP #### [facility] [address] [place] [address] POC Performed on ACCU-CHEK Normal [facility] Comment on above: Result Comment: Notified RN or MD Performed By: #### C MP #### [facility] [address] [place] [address] Glucose [Mass/Vol] 186 mg/dL High 60 - 115 mg/dl [facility] [place] Interpretation and review of laboratory results Abnormal [facility] [place] Performed on ACCU-CHEK [facility] [place], [place] Comment on above: Notified RN or MD Glucose [Mass/Vol] 209 mg/dL Critically high 60-115 [facility] Comment on above: Performed By: #### CMP #### [facility] [address] [place] [address] POC Performed on ACCU-CHEK Normal [facility] Comment on above: Result Comment: Notified RN or MD Performed By: #### C MP #### [facility] [address] [place] [address] Glucose [Mass/Vol] 209 mg/dL High 60 - 115 mg/dl [facility] [place] Interpretation and review of laboratory results Abnormal [facility] [place] Performed [place] ACCU-CHEK [facility] [place] Comment on above: Notified RN or MD Glucose [Mass/Vol] 138 mg/dL Critically high 60-115 [facility] Comment on above: Performed By: #### CMP #### [facility] [address] [place] [address] POC Performed on ACCU-CHEK Normal [facility] Comment on above: Result Comment: Notified RN or MD Performed By: #### C MP #### [facility] [address] [place] [address] Glucose [Mass/Vol] 138 mg/dL High 60 - 115 mg/dl [place] Interpretation and review of laboratory results Abnormal [place] Performed on ACCU-CHEK [place] Comment on above: Notified RN or MD URINE RT REFLEX TO CULTUREon 08-20-2019 Bilirubin Urine Negative Negative [place] Blood, Urine Negative Negative [place] Clarity, UA Clear Clear [place] Color, UA Yellow Straw/Barber [place] Glucose, Ur >=1000 Abnormal Negative mg/dL [place] Interpretation and review of laboratory results Abnormal [place] Ketones Ql (U) TRACE Abnormal Negative mg/dL [place] Leukocyte esterase Test strip Ql (U) Negative Negative [place] Nitrite, Urine Negative Negative [place] pH, UA 5.0 [place] Protein (U) [Mass/Vol] Negative Negative mg/dL [place] Specific [place], UA 1.029 [place] Urine Reflex to Culture Not Indicated [place] Urobilinogen, Urine 0.2 <2.0 E.U./dL [place] FLUORO FOR SURGICAL PROCEDUR ESon 08-19-2019 [...] Jimenez Gomez MD 08/20/19 Final result Normal [facility] POCT Glucoseon 08-19-2019 Glucose [Mass/Vol] 163 mg/dL Critically high 60-115 [facility] Comment on above: Performed By: #### CMP #### [facility] [address] [place] [address] POC Performed on ACCU-CHEK Normal [facility] Comment on above: Result Comment: Notified RN or MD Performed By: #### C MP #### [facility] [address] [place] [address] Glucose [Mass/Vol] 163 mg/dL High 60 - 115 mg/dl [facility] [place] Interpretation and review of laboratory results Abnormal [facility] [place] Performed on ACCU-CHEK [place] Comment on above: Notified RN or MD Glucose [Mass/Vol] 144 mg/dL Critically high 60-115 [facility] Comment on above: Performed By: #### CMP #### [facility] [address] [place] [address] POC Performed on ACCU-CHEK Normal [facility] Comment on above: Performed By: #### CMP #### [facility] [address] [place] [address] Glucose [Mass/Vol] 132 mg/dL Critically high 60-115 [facility] Comment on above: Performed By: #### UAR #### [facility] [address] [place] [address] POC Performed on ACCU-CHEK Normal [facility] Comment on above: Performed By: #### UAR #### [facility] [address] [place] [address] Glucose [Mass/Vol] 144 mg/dL High 60 - 115 mg/dl [facility] [place] Interpretation and review of laboratory results Abnormal [facility] [place] Performed on ACCU-CHEK [facility] Glucose [Mass/Vol] 132 mg/dL High 60 - 115 mg/dl [facility] [place] Interpretation and review of laboratory results Abnormal [facility] [place] Performed [place] ACCU-CHEK [facility] Glucose [Mass/Vol] 136 mg/dL Critically high 60-115 [facility] Comment on above: Performed By: #### UAR #### [facility] [address] [place] [address] POC Performed on ACCU-CHEK Normal [facility] Comment on above: Performed By: #### UAR #### [facility] [address] [place] [address] Glucose [Mass/Vol] 136 mg/dL High 60 - 115 mg/dl [place] Interpretation and review of laboratory results Abnormal [facility] Performed on ACCU-CHEK [facility], [place] Glucose [Mass/Vol] 124 mg/dL Critically high 60-115 [facility] Comment on above: Performed By: #### UAR #### [facility] [address] [place] [address] POC Performed on ACCU-CHEK Normal [facility] Comment on above: Performed By: #### UAR #### [facility] [address] [facility] [place] [address] Glucose [Mass/Vol] 124 mg/dL High 60 - 115 mg/dl [place] Interpretation and review of laboratory results Abnormal [facility] Performed on ACCU-CHEK [facility], [place] Surgical Specimenon 08-19-19 Surgical Specimen [facility] [address] [place] [address] FINAL SURGICAL PATHOLOGY REPORT Patient Name: YENNIFER IRVIN Ly Accession No: [id number] Age Sex: 1935 Location: [facility] [id number] Account No: [id number] Collected: 08/19/2019 Med Rec No: [id number] Received: 08/20/2019 Attend Phys: SEYMOUR ESPITIA Completed: 08/22/2019 Perform Phys: SEYMOUR ESPITIA FINAL DIAGNOSIS: EPIDURAL TISSUE: 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 SPECIMEN: Epidural Tissue GROSS DESCRIPTION: Specimen received in formalin in a container labeled Irvin De Oliveira and designated as spine . Specimen consists of brownish-schroeder soft to firm tissue which appears to be possibly lined by skin measuring 1.1 x 0.5 x 0.2 cm. The specimen is submitted in toto in one cassette after decalcification. KATLIN/NIR CPT: 61088 X1 99891 X1 Intradepartmental Consultation performed by: Dr. JEOVANNY NOBLE M.D., who concurs with the above diagnosis. Kenneth DEL ROSARIO M.D. 08/22/2019 Electronically signed out by Page 1 of 1 [facility] Comment on above: Performed By: #### ESR #### [facility] [address] [place] [address] ECHO Complete 2D W Doppler W Coloron 08-18-2019 Transthoracic Echoca rdiography Report (TTE) Demographics Patient Name YENNIFER Ly Gender Male Patient Number [id number] Race Ethnicity Visit Number [id number] Room Number W291 Corporate ID Date of Study 08/18/2019 Referring Physician Number Date of 1935 Neurosurgery Research Director Lissette Valadez RDCS Age 84 year(s) Interpreting [facility] Cardiology Physician Ted Mcleod MD Procedure [...] cm LVOT Diameter: 1.96 cm [facility]- [place] Yohan, Chpo Incoming C ardiovascular Results From [facility] - 08/18/2019 4:14 PM EDT Transthoracic Echocardiography Report (TTE) Demographics Patient Name YENNIFER Ly Gender Male Patient Number [id number] Race Ethnicity Visit Number [id number] Room Number W291 Corporate ID Date of Study 08/18/2019 Referring Physician Number Date of 1935 Neurosurgery Research Director Lissette Valadez RDCS Age 84 year(s) Interpreting [facility] Cardiology Physician Ted Mcleod MD Procedure [...] Root: 3.38 cm LVOT Diameter: 1.96 [facility] [place] E[facility] 12 Lead - Chest Painon 0 08-18-2019 Atrial Rate 61 BPM [facility] [place], [place] P [place] 72 degrees [facility], [place] P-R Interval 320 ms [facility] Q-T Interval 468 ms [facility] QRS Duration 176 ms [facility] QTc Calculation (Bazett) 471 ms [facility], [place] R [place] -83 degrees [facility] [place] T [place] -12 degrees [facility] [place] Ventricular Rate 61 BPM [facility] Sinus rhythm with 1s t degree AV block with occasional premature ventricular complexes Left axis deviation Right bundle branch block Possible Lateral infarct , age undetermined 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 Comment on above: Performed By: #### UAR #### [facility] [address] [place] [address] POC Performed on ACCU-CHEK Normal [facility] Comment on above: Result Comment: Notified RN or MD Performed By: #### U AR #### [facility] [address] [place] [address] Glucose [Mass/Vol] 141 mg/dL High 60 - 115 mg/dl [facility] [place] ROD[place] Interpretation and review of laboratory results Abnormal [place] Performed on ACCU-CHEK [place] Comment on above: Notified RN or MD Glucose [Mass/Vol] 179 mg/dL Critically high 60-115 [facility] Comment on above: Performed By: #### UAR #### [facility] [address] [place] [address] POC Performed on ACCU-CHEK Normal [facility] Comment on above: Result Comment: Notified RN or MD Performed By: #### U AR #### [facility] [address] [place] [address] Glucose [Mass/Vol] 179 mg/dL High 60 - 115 mg/dl [place] Interpretation and review of laboratory results Abnormal [place] Performed [place] ACCU-CHEK [place] Comment on above: Notified RN or MD Glucose [Mass/Vol] 121 mg/dL Critically high 60-115 [facility] Comment on above: Performed By: #### UAR #### [facility] [address] [place] [address] POC [facility] Comment on above: Result Comment: Notified RN or MD Performed By: #### U AR #### [facility] [address] [place] [address] Glucose [Mass/Vol] 121 mg/dL High 60 - 115 mg/dl [place] Interpretation and review of laboratory results Abnormal [place] Performed [place] ACCU-CHEK [place] Comment on above: Notified RN or MD Glucose [Mass/Vol] 128 mg/dL Critically high 60-115 [facility] Comment on above: Performed By: #### UAR #### [facility] [address] [place] [address] POC [facility] on above: Result Comment: Notified RN or MD Performed By: #### U AR #### [facility] [address] [place] [address] Glucose [Mass/Vol] 128 mg/dL High 60 - 115 mg/dl [place] Interpretation and review of laboratory results Abnormal [place] Performed [place] ACCU-CHEK [place] Comment on above: Notified RN or MD MRI THORACIC SPINE WO CONTRA Lucio 08-17-2019 EXAMINATION: MRI THO RACIC SPINE WO [...] possible ossification. These changes are resulting in czrw-ju-whzwbeub central canal stenosis at this level. At [...] paraspinal soft tissue mass or fluid collection. [facility] Yohan, Chpo Incoming R adiant Results From [employer] - 08/17/2019 6:01 PM EDT EXAMINATION: MRI [...] possible ossification. These changes are resulting in ogja-kd-ienmwzrd central canal stenosis at this level. At [...] abnormal cord signal intensity at this level. 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 There may be some mild cord edema. At T7-8 there is a right paracentric disc protrusion with contact and deformity of the right ventral thoracic cord. Mild/moderate canal stenosis at this level. No abnormal cord signal intensity at this level. [place] POCT Glucoseon 08-17-2019 Glucose [Mass/Vol] 189 mg/dL Critically high 60-115 [facility] Comment on above: Performed By: #### UAR #### [facility] [address] [facility] [address] POC Performed on ACCU-CHEK Normal [facility] Comment on above: Performed By: #### UAR #### [facility] [address] [facility] [address] Glucose [Mass/Vol] 189 mg/dL High 60 - 115 mg/dl [place] Interpretation and review of laboratory results Abnormal [place] Performed on ACCU-CHEK [place] Glucose [Mass/Vol] 126 mg/dL Critically high 60-115 [facility] Comment on above: Performed By: #### UAR #### [facility] [address] [place] [address] POC Performed on ACCU-CHEK Normal [facility] Comment on above: Performed By: #### UAR #### [facility] [address] [place] [address] Glucose [Mass/Vol] 126 mg/dL High 60 - 115 mg/dl [place] Interpretation and review of laboratory results Abnormal [place] Performed on ACCU-CHEK [place] Glucose [Mass/Vol] 138 mg/dL Critically high 60-115 [facility] Comment on above: Performed By: #### PGLU #### [facility] [address] [place] [address] POC Performed on [facility] Comment on above: Performed By: #### PGLU #### [facility] [address] [place] [address] Glucose [Mass/Vol] 138 mg/dL High 60 - 115 mg/dl [place] Interpretation and review of laboratory results Abnormal [place] Performed on ACCU-CHEK [place] Glucose [Mass/Vol] 142 mg/dL Critically high 60-115 [facility] Comment on above: Performed By: #### PGLU #### [facility] [address] [place] [address] POC Performed on ACCU-CHEK [facility] Comment on above: Performed By: #### PGLU #### [facility] [address] [place] [address] Glucose [Mass/Vol] 142 mg/dL High 60 - 115 mg/dl [place] Interpretation and review of laboratory results Abnormal [place] Performed on ACCU-CHEK [place] TYPE AND SCREENon 08-17-2019 ABO/Rh Positive [place] Type and Screen Capture 3 sc rn cellon 08-17-2019 Type and Screen Capture 3 scrn cell PATIENT: YENNIFER Ly LOC: [id number] BILL# : [id number] : 1935 SEX: M ORDERED BY: NUPUR MAE ORDERED : 08/17/2019 12:06 COLLECTED: 08/17/2019 13:57 ORDER : [id number] RECEIVED : 08/17/2019 14:37 TEST NAME RESULT UNITS RANGES ABN FL ST ABORH Capture O POS F Antibody 3 Cell Scrn Captu NEG F Normal [facility] Comment on above: Performed By: #### TS3C #### [facility] [address] [facility] [address] XR CHEST STANDARD (2 VW)on 0 08-17-2019 NO ACTIVE LUNG DISEASE. [facility] [place] EXAMINATION: XR CHES T (2 VW). DATE AND TIME:08/16/2019 3:00 PM CLINICAL HISTORY: Shortness of breath Preop COMPARISONS: None FINDINGS: The heart, mediastinum and pulmonary vasculature are within normal limits. Visualized lung queen are clear. Bones unremarkable. [facility] [place] Yohan, Chpo Incoming R adiant Results From [facility] - 08/17/2019 8:10 AM EDT EXAMINATION: XR CHEST (2 VW). DATE AND TIME:08/16/2019 3:00 PM CLINICAL HISTORY: Shortness of breath Preop COMPARISONS: None FINDINGS: The heart, mediastinum and pulmonary vasculature are within normal limits. Visualized lung queen are clear. Bones unremarkable. IMPRESSION: NO ACTIVE LUNG DISEASE. [employer] CBC Auto Differentialon 07-31 Basophils (Bld) [#/Vol] 0.1 10*3/uL 0 - 0.2 K/uL [place] Basophils/100 WBC (Bld) 1.0 % [place] Eosinophils (Bld) [#/Vol] 0.4 10*3/uL 0 - 0.7 K/uL [place] Eosinophils/100 WBC (Bld) 4 % [place] Erythrocyte distribution width (RBC) [Ratio] 17.1 % High 11.5 - 14.5 % [place] Hematocrit (Bld) [Volume fraction] 46.2 % 42 - 52 % [place] Hemoglobin (Bld) [Mass/Vol] 15.5 g/dL 14 - 18 g/dL [place] Interpretation and review of laboratory results Abnormal [place] Lymphocytes (Bld) [#/Vol] 2.0 10*3/uL 1 - 4.8 K/uL [place] Lymphocytes/100 WBC (Bld) 22.8 % [place] MCH (RBC) [Entitic mass] 30.4 pg 27 - 31.3 pg [place] MCHC (RBC) [Mass/Vol] 33.6 % 33 - 37 % [place] MCV (RBC) [Entitic vol] 90.4 fL 80 - 100 fL [place] Monocytes (Bld) [#/Vol] 0.9 10*3/uL High 0.2 - 0.8 K/uL [place] Monocytes/100 WBC (Bld) 9.5 % [place] Neutrophils Absolute 5.6 K/uL 1.4 - 6.5 K/uL [place] Neutrophils/100 WBC (Bld) 62.7 % [place] Platelets (Bld) [#/Vol] 257 10*3/uL 130 - 400 K/uL [place] RBC (Bld) [#/Vol] 5.11 10*6/uL [place] WBC (Bld) [#/Vol] 9.0 10*3/uL 4.8 - 10.8 K/uL [facility], [place] CBC With Platelet and Differ entialon 08-16-2019 Basophils (Bld) [#/Vol] 0.1 10*3/uL Normal 0.0-0.2 [facility] Comment on above: Performed By: #### CBCWD #### [facility] [address] [place] [address] Basophils/100 WBC (Bld) 1.0 % Normal [facility] Comment on above: Performed By: #### CBCWD #### [facility] [address] [place] [address] Eosinophils (Bld) [#/Vol] 0.4 10*3/uL Normal 0.0-0.7 [facility] Comment on above: Performed By: #### CBCWD #### [facility] [address] [place] [address] Eosinophils/100 WBC (Bld) 4.0 % Normal [facility] Comment on above: Performed By: #### CBCWD #### [facility] [address] [place] [address] Erythrocyte distribution width (RBC) [Ratio] 17.1 % Critically high 11.5-14.5 [facility] Comment on above: Performed By: #### CBCWD #### [facility] [address] [place] [address] Hematocrit (Bld) [Volume fraction] 46.2 % Normal 42.0-52.0 [facility] Comment on above: Performed By: #### CBCWD #### [facility] [address] [place] [address] Hemoglobin (Bld) [Mass/Vol] 15.5 g/dL Normal 14.0-18.0 [facility] Comment on above: Performed By: #### CBCWD #### [facility] [address] [place] [address] Lymphocytes (Bld) [#/Vol] 2.0 10*3/uL Normal 1.0-4.8 [facility] Comment on above: Performed By: #### CBCWD #### [facility] [address] [place] [address] Lymphocytes/100 WBC (Bld) 22.8 % Normal [facility] Comment on above: Performed By: #### CBCWD #### [facility] [address] [place] [address] MCH (RBC) [Entitic mass] 30.4 pg Normal 27.0-31.3 [facility] Comment on above: Performed By: #### CBCWD #### [facility] [address] [place] [address] MCHC (RBC) [Mass/Vol] 33.6 % Normal 33.0-37.0 [facility] Comment on above: Performed By: #### CBCWD #### [facility] [address] [place] [address] MCV (RBC) [Entitic vol] 90.4 fL Normal 80.0-100.0 [facility] Comment on above: Performed By: #### CBCWD #### [facility] [address] [place] [address] Monocytes (Bld) [#/Vol] 0.9 10*3/uL Critically high 0.2-0.8 [facility] Comment on above: Performed By: #### CBCWD #### [facility] [address] [place] [address] Monocytes/100 WBC (Bld) 9.5 % Normal [facility] Comment on above: Performed By: #### CBCWD #### [facility] [address] [place] [address] Neutrophils (Bld) [#/Vol] 5.6 10*3/uL Normal 1.4-6.5 [facility] Comment on above: Performed By: #### CBCWD #### [facility] [address] [place] [address] Neutrophils/100 WBC (Bld) 62.7 % Normal [facility] Comment on above: Performed By: #### CBCWD #### [facility] [address] [place] [address] Platelets (Bld) [#/Vol] 257 10*3/uL Normal 130-400 [facility] Comment on above: Performed By: #### CBCWD #### [facility] [address] [place] [address] RBC (Bld) [#/Vol] 5.11 10*6/uL Normal 4.70-6.10 [facility] Comment on above: Performed By: #### CBCWD #### [facility] [address] [place] [address] WBC (Bld) [#/Vol] 9.0 10*3/uL Normal 4.8-10.8 [facility] Comment on above: Performed By: #### CBCWD #### [facility] [address] [place] [address] Comprehensive Metabolic Pane chaparro 08-16-2019 Albumin [Mass/Vol] 4.1 g/dL Normal 3.5-4.6 [facility] Comment on above: Performed By: #### CMP #### [facility] [address] [place] [address] ALP [Catalytic activity/Vol] 65 U/L Normal 35-104 [facility] Comment on above: Performed By: #### CMP #### [facility] [address] [place] [address] ALT [Catalytic activity/Vol] 12 U/L Normal 0-41 [facility] Comment on above: Performed By: #### CMP #### [facility] [address] [place] [address] Anion gap [Moles/Vol] 16 mmol/L Critically high 9-15 [facility] Comment on above: Performed By: #### CMP #### [facility] [address] [place] [address] AST [Catalytic activity/Vol] 23 U/L Normal 0-40 [facility] Comment on above: Result Comment: Specimen hemolysis has e xceeded the interference as defined by Tara. Value may be falsely increased. Suggest recollection if clinically indicated. Performed By: #### C MP #### [facility] [address] [place] [address] Bilirubin [Mass/Vol] 1.0 mg/dL Critically high 0.2-0.7 [facility] Comment on above: Performed By: #### CMP #### [facility] [address] [place] [address] Calcium [Mass/Vol] 9.6 mg/dL Normal 8.5-9.9 [facility] Comment on above: Performed By: #### CMP #### [facility] [address] [place] [address] Chloride [Moles/Vol] 102 mmol/L Normal 95-107 [facility] Comment on above: Performed By: #### CMP #### [facility] [address] [place] [address] CO2 [Moles/Vol] 27 mmol/L Normal 20-31 [facility] Comment on above: Performed By: #### CMP #### [facility] [address] [place] [address] Creatinine [Mass/Vol] 0.70 mg/dL Normal 0.70-1.20 [facility] Comment on above: Performed By: #### CMP #### [facility] [address] [place] [address] GFR/1.73 sq M predicted among blacks MDRD (S/P/Bld) [Vol rate/Area] mL/min/{1.73_m2} Normal >60 [facility] Comment on above: Result Comment: >60 mL/min/1.73m2 EGFR, calc. for ages 18 and older using the MDRD formula (not corrected for weight), is valid for stable renal function. Performed By: #### C MP #### [facility] [address] [place] [address] GFR/1.73 sq M.predicted MDRD (S/P/Bld) [Vol rate/Area] mL/min/{1.73_m2} Normal >60 [facility] Comment on above: Result Comment: >60 mL/min/1.73m2 EGFR, calc. for ages 18 and older using the MDRD formula (not corrected for weight), is valid for stable renal function. Performed By: #### C MP #### [facility] [address] [place] [address] Globulin (S) [Mass/Vol] 2.8 g/dL Normal 2.3-3.5 [facility] Comment on above: Performed By: #### CMP #### [facility] [address] [place] [address] Glucose [Mass/Vol] 129 mg/dL Critically high 70-99 [facility] Comment on above: Performed By: #### CMP #### [facility] [address] [place] [address] Potassium [Moles/Vol] 3.9 mmol/L Normal 3.4-4.9 [facility] Comment on above: Performed By: #### CMP #### [facility] [address] [place] [address] Protein [Mass/Vol] 6.9 g/dL Normal 6.3-8.0 [facility] Comment on above: Performed By: #### CMP #### [facility] [address] [place] [address] Sodium [Moles/Vol] 145 mmol/L Critically high 135-144 [facility] Comment on above: Performed By: #### CMP #### [facility] [address] [place] [address] Urea nitrogen [Mass/Vol] 17 mg/dL Normal 8-23 [facility] Comment on above: Performed By: #### CMP #### [facility] [address] [place] [address] Albumin [Mass/Vol] 4.1 g/dL 3.5 - 4.6 g/dL [place] ALP [Catalytic activity/Vol] 65 U/L 35 - 104 U/L [place] ALT [Catalytic activity/Vol] 12 U/L 0 - 41 U/L [place] Anion gap [Moles/Vol] 16 mmol/L [place] AST [Catalytic activity/Vol] 23 U/L 0 - 40 U/L [place] Comment on above: Specimen hemolysis has exceeded the inte rference as defined by Tara. Value may be falsely increased. Suggest recollection if clinically indicated. Bilirubin Ql (U) 1.0 mg/dL High 0.2 - 0.7 mg/dL [place] Calcium [Mass/Vol] 9.6 mg/dL 8.5 - 9.9 mg/dL [place] Chloride [Moles/Vol] 102 mmol/L [place] CO2 [Moles/Vol] 27 mmol/L [place] Creatinine [Mass/Vol] 0.7 mg/dL 0.7 - 1.2 mg/dL [place] GFR >60.0 >60 [place] Comment on above: >60 mL/min/1.73m2 EGFR, calc. for ages 1 8 and older using the MDRD formula (not corrected for weight), is valid for stable renal function. GFR Non- >60.0 >60 [place] Comment on above: >60 mL/min/1.73m2 EGFR, calc. for ages 1 8 and older using the MDRD formula (not corrected for weight), is valid for stable renal function. Globulin (S) [Mass/Vol] 2.8 g/dL 2.3 - 3.5 g/dL [place] Glucose [Mass/Vol] 129 mg/dL High 70 - 99 mg/dL [place] Interpretation and review of laboratory results Abnormal [place] Potassium [Moles/Vol] 3.9 mmol/L [place] Protein [Mass/Vol] 6.9 g/dL 6.3 - 8 g/dL [place] Sodium [Moles/Vol] 145 mmol/L [place] Urea nitrogen [Mass/Vol] 17 mg/dL 8 - 23 mg/dL [place] MRI THORACIC SPINE WO CONTRA STon 08-16-2019 [...] possible ossification. These changes are resulting in [id number] central canal stenosis at this level. At [...] Jimenez Gomez MD 08/17/19 Final result Normal [facility] POCT Glucoseon 08-16-2019 Glucose [Mass/Vol] 121 mg/dL Critically high 60-115 [facility] Comment on above: Performed By: #### PGLU #### [facility] [address] [place] [address] POC [facility] Normal [facility] Comment on above: Result Comment: Notified RN or MD Performed By: #### P GLU #### [facility] [address] [place] [address] Glucose [Mass/Vol] 121 mg/dL High 60 - 115 mg/dl [place] Interpretation and review of laboratory results Abnormal [place] Performed on ACCU-CHEK [place] Comment on above: Notified RN or MD Glucose [Mass/Vol] 193 mg/dL Critically high 60-115 [facility] Comment on above: Performed By: #### PGLU #### [facility] [address] [place] [address] POC Performed [facility] Normal [facility] Comment on above: Performed By: #### PGLU #### [facility] [address] [place] [address] Glucose [Mass/Vol] 193 mg/dL High 60 - 115 mg/dl [place] Interpretation and review of laboratory results Abnormal [place] Performed on ACCU-CHEK [place] Sedimentation Rateon 020 Sedimentation Rate 8 mm Normal 0-20 [facility] Comment on above: Performed By: #### ESR #### [facility] [address] [place] [address] Sed Rate 8 mm 0 - 20 mm [place] Urinalysis, reflex to cultur stefania 08-16-2019 Bilirubin Ql (U) Negative Normal Negative [facility] Comment on above: Performed By: #### UAR #### [facility] [address] [place] [address] Clarity (U) Clear Normal Clear [facility] Comment on above: Performed By: #### UAR #### [facility] [address] [place] [address] Color (U) Yellow Normal Straw/Barber [facility] Comment on above: Performed By: #### UAR #### [facility] [address] [place] [address] Glucose Ql (U) >=1000 Abnormal Negative [facility] Comment on above: Performed By: #### UAR #### [facility] [address] [place] [address] Hemoglobin Ql (U) Negative Normal Negative [facility] Comment on above: Performed By: #### UAR #### [facility] [address] [place] [address] Ketones Ql (U) Negative Normal Negative [facility] Comment on above: Performed By: #### UAR #### [facility] [address] [place] [address] Leukocyte esterase Test strip Ql (U) Negative Normal Negative [facility] Comment on above: Performed By: #### UAR #### [facility] [address] [place] [address] Nitrite Ql (U) Negative Normal Negative [facility] Comment on above: Performed By: #### UAR #### [facility] [address] [place] [address] pH (U) 7.0 [pH] Normal 5.0-9.0 [facility] Comment on above: Performed By: #### UAR #### [facility] [address] [place] [address] Protein Ql (U) Negative Normal Negative [facility] Comment on above: Performed By: #### UAR #### [facility] [address] [place] [address] Specific gravity (U) [Rel density] 1.036 Normal 1.005-1.03 [facility] Comment on above: Performed By: #### UAR #### [facility] [address] [place] [address] Urine Reflexed to Culture Not Indicated Normal [facility] Comment on above: Performed By: #### UAR #### [facility] [address] [place] [address] Urobilinogen Qn (U) 1.0 {Nadeen'U}/dL Normal < 2.0 [facility] Comment on above: Performed By: #### UAR #### [facility] [address] [place] [address] Urine Reflex to Cultureon Bilirubin Urine Negative Negative [place] Blood, Urine Negative Negative [place] Clarity, UA Clear Clear [place] Color, UA Yellow Straw/Barber [place] Glucose, Ur >=1000 Abnormal Negative mg/dL [place] Interpretation and review of laboratory results Abnormal [place] Ketones Ql (U) Negative Negative mg/dL [place] Leukocyte esterase Test strip Ql (U) Negative Negative [place] Nitrite, Urine Negative Negative [place] pH, UA 7.0 [place] Protein (U) [Mass/Vol] Negative Negative mg/dL [place] Specific [place], UA 1.036 [place] Urine Reflex to Culture Not Indicated [place] Urobilinogen, Urine 1.0 <2.0 E.U./dL [place] XR CHEST (2 VW)on 08-16-2019 XR [...] Jimenez Gomez MD 08/17/19 Final result Normal [facility] Cardiovascular Lab Reporton 11-16-2017 Cardiovascular Lab Report [facility] Patient Name: Irvin De Oliveira MR #: [id number] Physician: Lindsey Ramirez M.D.Department of Service Date: 11/15/2017Medicine Birthdate: 1935[facility]ision [facility] [place], [place] [address]Tuch[place] Fax Cardiovascular Laboratory ReportFINAL IMPRESSION:Mild single-vessel coronary [...] usual sterile fashion. Using a modified Seldingertechnique, 6-Chinese sheath was placed in right radial artery. Then, a6-Chinese JL3.5 and JR5 catheter used for coronary [...] large, dominant, and is angiographically normal.Electronically Signed by:Lindsey Ramirez M.D. 11/27/2017 02:51 P Lindsey Ramirez M.D.Date Dict: 11/15/2017/02:26 Prashant/Lindsey Ramirez M.D.Date Trans: 11/16/2017 04:54 [id number]: Yulia Ribeiro M.D. [address] [place] [address] Charly Polo M.D. [facility] Vital Signs Date Time Vital Sign Value Performing Clinician Facility 05-16-2023 14:41-0500 Body height 170.18 cm DO Jasiel Ball Work Phone: [facility] 05-16-2023 14:41-0500 Body mass index (BMI) [Ratio] 28.3 kg/m2 DO Jasiel Ball Work Phone: [facility] 05-16-2023 14:41-0500 Body weight 82.15 kg DO Jasiel Ball Work Phone: [facility] 05-16-2023 14:41-0500 Diastolic blood pressure 73 mm[Hg] DO Jasiel Ball Work Phone: [facility] 05-16-2023 14:41-0500 Heart rate 64 /min DO Jasiel Ball Work Phone: [facility] 05-16-2023 14:41-0500 Respiratory rate 12 /min DO Jasiel Ball Work Phone: [facility] 05-16-2023 14:41-0500 Systolic blood pressure 131 mm[Hg] DO Jasiel Ball Work Phone: [facility] 03-01-2023 14:54-0500 Body height 170.18 cm DO Jasiel Ball Work Phone: [facility] 03-01-2023 14:54-0500 Body mass index (BMI) [Ratio] 28.1 kg/m2 DO Jasiel Ball Work Phone: [facility] 03-01-2023 14:54-0500 Body weight 81.64 kg DO Jasiel Ball Work Phone: [facility] 03-01-2023 14:49-0500 Body temperature 97.3 [degF] DO Jasiel Ball Work Phone: [facility] 03-01-2023 14:49-0500 Diastolic blood pressure 75 mm[Hg] DO Jasiel Ball Work Phone: [facility] 03-01-2023 14:49-0500 Heart rate 71 /min DO Jasiel Ball Work Phone: [facility] 03-01-2023 14:49-0500 Respiratory rate 20 /min DO Jasiel Ball Work Phone: [facility] 03-01-2023 14:49-0500 Systolic blood pressure 140 mm[Hg] DO Jasiel Ball Work Phone: [facility] 02-13-2023 14:30-0500 Body height 171.45 cm Jasiel Ball Other [facility] [employer] Other 02-13-2023 14:30-0500 Body mass index (BMI) [Ratio] 28.27 kg/m2 Jasiel Ball Other [facility] [employer] Other 02-13-2023 14:30-0500 Body weight 83.1 kg Jasiel Ball Other [email or web address] Other 02-13-2023 14:30-0500 Diastolic blood pressure 73 mm[Hg] Jasiel Ball Other [email or web address] Other 02-13-2023 14:30-0500 Respiratory rate 12 /min Jasiel Ball Other [email or web address] Other 02-13-2023 14:30-0500 Systolic blood pressure 119 mm[Hg] Jasiel Ball Other [email or web address] Other 01-23-2023 13:45-0400 Body height 171.45 cm Jasiel Ball Other [email or web address] Other 01-23-2023 13:45-0400 Body mass index (BMI) [Ratio] 27.77 kg/m2 Jasiel Ball Other [email or web address] Other 01-23-2023 13:45-0400 Body weight 81.65 kg Jasiel Ball Other [email or web address] Other 01-23-2023 13:45-0400 Diastolic blood pressure 73 mm[Hg] Jasiel Ball Other [email or web address] Other 01-23-2023 13:45-0400 Respiratory rate 12 /min Jasiel Ball Other [email or web address] Other 01-23-2023 13:45-0400 Systolic blood pressure 123 mm[Hg] Jasiel Ball Other [email or web address] Other 11-17-2022 14:00-0400 Body height 171.45 cm Jasiel Ball Other [email or web address] Other 11-17-2022 14:00-0400 Body mass index (BMI) [Ratio] 28.61 kg/m2 Jasiel Ball Other [email or web address] Other 11-17-2022 14:00-0400 Body weight 84.1 kg Jasiel Ball Other [email or web address] Other 11-17-2022 14:00-0400 Diastolic blood pressure 69 mm[Hg] Jasiel Ball Other [email or web address] Other 11-17-2022 14:00-0400 Respiratory rate 16 /min Jasiel Ball Other [email or web address] Other 11-17-2022 14:00-0400 Systolic blood pressure 128 mm[Hg] Jasiel Ball Other [email or web address] Other 10-10-2022 15:15-0400 Body height 171.45 cm Jasiel Ball Other [email or web address] Other 10-10-2022 15:15-0400 Body mass index (BMI) [Ratio] 27.93 kg/m2 Jasiel Ball Other [email or web address] Other 10-10-2022 15:15-0400 Body weight 82.1 kg Jasiel Ball Other [email or web address] Other 10-10-2022 15:15-0400 Diastolic blood pressure 71 mm[Hg] Jasiel Ball Other [email or web address] Other 10-10-2022 15:15-0400 Respiratory rate 16 /min Jasiel Ball Other [email or web address] Other 10-10-2022 15:15-0400 Systolic blood pressure 125 mm[Hg] Jasiel Ball Other [email or web address] Other 07-18-2022 15:00-0400 Body height 171.45 cm Jasiel Ball Other [email or web address] Other 07-18-2022 15:00-0400 Body mass index (BMI) [Ratio] 28.76 kg/m2 Jasiel Ball Other [email or web address] Other 07-18-2022 15:00-0400 Body weight 84.55 kg Jasiel Ball Other [email or web address] Other 07-18-2022 15:00-0400 Diastolic blood pressure 75 mm[Hg] Jasiel Ball Other [email or web address] Other 07-18-2022 15:00-0400 Respiratory rate 20 /min Jasiel Ball Other [facility] [employer] Other 07-18-2022 15:00-0400 Systolic blood pressure 144 mm[Hg] Jasiel Ball Other [facility] [employer] Other 04-19-2022 15:09-0500 Blood Pressure Location HARPER BARRETO [facility] 04-19-2022 15:09-0500 Diastolic blood pressure 93 mm[Hg] HARPER BARRETO [facility] 04-19-2022 15:09-0500 Heart rate 77 /min HARPER BARRETO [facility] 04-19-2022 15:09-0500 Systolic blood pressure 138 mm[Hg] [facility] 04-14-2022 15:00-0500 Body height 171.45 cm Jasiel Ball Other [facility] [employer] Other 04-14-2022 15:00-0500 Body mass index (BMI) [Ratio] 29.16 kg/m2 Jasiel Ball Other [facility] [employer] Other 04-14-2022 15:00-0500 Body weight 85.73 kg Jasiel Ball Other [facility] [employer] Other 04-14-2022 15:00-0500 Diastolic blood pressure 70 mm[Hg] Jasiel Ball Other [email or web address] Other 04-14-2022 15:00-0500 Respiratory rate 20 /min Jasiel Ball Other [email or web address] Other 04-14-2022 15:00-0500 Systolic blood pressure 122 mm[Hg] Jasiel Ball Other [facility] [employer] Other 11-08-2021 11:24-0400 Blood Pressure Location Michael Trevino Jr. [facility] 11-08-2021 11:24-0400 Diastolic blood pressure 74 mm[Hg] Michael Trevino Jr. [facility] 11-08-2021 11:24-0400 Heart rate 66 /min Michael Trevino Jr. [facility] 11-08-2021 11:24-0400 Systolic blood pressure 122 mm[Hg] Michael Trevino Jr. [facility] 11-01-2021 09:00-0400 Body height 171.45 cm Gabriella Ferrara Other [email or web address] Other 11-01-2021 09:00-0400 Body mass index (BMI) [Ratio] 29.16 kg/m2 Gabriella Ferrara Other [email or web address] Other 11-01-2021 09:00-0400 Body weight 85.73 kg Gabriella Ferrara Other [email or web address] Other 10-20-2021 16:00-0400 Body height 171.45 cm Petar Lizama Other [email or web address] Other 10-20-2021 16:00-0400 Body mass index (BMI) [Ratio] 29.16 kg/m2 Petar Lizama Other [email or web address] Other 10-20-2021 16:00-0400 Body weight 85.73 kg Petar Lizama Other [email or web address] Other 10-20-2021 16:00-0400 Diastolic blood pressure 62 mm[Hg] Petar Lizama Other [email or web address] Other 10-20-2021 16:00-0400 Systolic blood pressure 110 mm[Hg] Petar Lizama Other [email or web address] Other 09-08-2021 15:00-0400 Body height 171.45 cm Petar Lizama Other [email or web address] Other 09-08-2021 15:00-0400 Diastolic blood pressure 60 mm[Hg] Petar Lizama Other [email or web address] Other 09-08-2021 15:00-0400 SaO2% (BldA) [Mass fraction] 99 % Petar Lizama Other [email or web address] Other 09-08-2021 15:00-0400 Systolic blood pressure 110 mm[Hg] Petar Lizama Other [email or web address] Other 09-06-2021 11:19-0400 Blood Pressure Location Michael Trevino Jr. [facility] 09-06-2021 11:19-0400 Diastolic blood pressure 65 mm[Hg] Michael Trevino Jr. [facility] 09-06-2021 11:19-0400 Heart rate 58 /min Michael Trevino Jr. [facility] 09-06-2021 11:19-0400 Respiratory rate 18 /min Michael Trevino Jr. [facility] 09-06-2021 11:19-0400 Systolic blood pressure 108 mm[Hg] Michael Trevino Jr. [facility] 08-23-2021 10:20-0400 Body height 171.45 cm Dave Vega Other [email or web address] Other 08-23-2021 10:20-0400 Body mass index (BMI) [Ratio] 27.77 kg/m2 Dave Vega Other [email or web address] Other 08-23-2021 10:20-0400 Body weight 81.65 kg Dave Vega Other [email or web address] Other 07-05-2021 10:49-0400 Blood Pressure Location Michael Trevino Jr. [facility] 07-05-2021 10:49-0400 Diastolic blood pressure 72 mm[Hg] Michael Trevino Jr. [facility] 07-05-2021 10:49-0400 Heart rate 61 /min Michael Trevino Jr. [facility] 07-05-2021 10:49-0400 Respiratory rate 16 /min Michael Trevino Jr. [facility] 07-05-2021 10:49-0400 Systolic blood pressure 125 mm[Hg] Michael Uriel Damian [facility] 08-21-2019 07:45-0400 Body Temperature 99 [degF] [facility] [place] 08-21-2019 07:45-0400 BP Diastolic 84 mm[Hg] [facility] [place] 08-21-2019 07:45-0400 BP Systolic 131 mm[Hg] [facility] , [place] 08-21-2019 07:45-0400 Pulse (Heart Rate) 83 /min [place] 08-21-2019 07:45-0400 Pulse Oximetry 95 % [place] 08-21-2019 04:12-0400 Respiratory Rate 16 /min [facility] [place] 08-20-2019 07:17-0400 BMI (Body Mass Index) 31.03 kg/m2 [place] 08-20-2019 07:17-0400 Body weight 89.86 kg [place] 08-20-2019 07:17-0400 Height 170.2 cm [place] Encounters Encounter Date Encounter Type Care Provider Facility Start: 05-16-2023 End: 05-16-2023 ambulatory DO Jasiel Bucky Work Phone: [facility] Work Phone: Start: 05-16-2023 End: 05-16-2023 Patient encounter procedure DO Jasiel Bucky Work Phone: [facility] Work Phone: Start: 04-23-2023 End: 04-23-2023 ambulatory Jasiel [place] Other [facility] [employer] Other Start: 04-23-2023 Telephone encounter Jasiel [place] [facility] Start: 04-09-2023 End: 04-09-2023 ambulatory Jasiel [place] Other [email or web address] Other Start: 04-09-2023 Telephone encounter Jasiel [place] [facility] Start: 04-03-2023 End: 04-03-2023 ambulatory Jasiel [place] Other [email or web address] Other Start: 04-03-2023 Telephone encounter Jasiel WHITESIDE [facility] Start: 03-28-2023 End: 03-28-2023 ambulatory Jasiel [place] Other [email or web address] Other Start: 03-28-2023 Telephone encounter Jasiel [place] [facility] Start: 03-19-2023 End: 03-19-2023 ambulatory Jasiel Lawler Other [email or web address] Other Start: 03-19-2023 Telephone encounter Jasiel [place] [facility] Start: 03-01-2023 End: 03-01-2023 ambulatory Joanne Copsey Facility:[facility] Start: 03-01-2023 End: 03-01-2023 ambulatory DO Jasiel [place] Work Phone: [facility] Work Phone: Start: 03-01-2023 End: 03-01-2023 Discharged Recurring DO Jasiel [place] Work Phone: [facility] Work Phone: Start: 02-13-2023 End: 02-13-2023 ambulatory Jasiel [place] Other [email or web address] Other Start: 02-13-2023 Patient encounter procedure Jasiel [facility] Start: 02-09-2023 End: 02-09-2023 ambulatory Jasiel [place] Other [email or web address] Other Start: 02-09-2023 Telephone encounter Jasiel Ball [facility] Start: 01-23-2023 End: 01-23-2023 ambulatory Jasiel Ball Other [email or web address] Other Start: 01-23-2023 Patient encounter procedure Jasiel Ball [facility] Start: 01-23-2023 Telephone encounter Jasiel Ball [facility] Start: 01-08-2023 End: 01-08-2023 ambulatory Jasiel Ball Other [email or web address] Other Start: 01-08-2023 Telephone encounter Jasiel Ball [facility] Start: 01-03-2023 End: 01-03-2023 ambulatory Jasiel Ball Other [email or web address] Other Start: 01-03-2023 Office outpatient vi sit 15 minutes Jasiel Ball [facility] Start: 12-18-2022 End: 12-18-2022 ambulatory Jasiel Ball Other [email or web address] Other Start: 12-18-2022 Telephone encounter Jasiel Ball [facility] Start: 12-11-2022 End: 12-11-2022 ambulatory Jasiel Ball Other [email or web address] Other Start: 12-11-2022 Telephone encounter Jasiel Ball [facility] Start: 11-17-2022 End: 11-17-2022 ambulatory Jasiel Ball Other [email or web address] Other Start: 11-17-2022 Office outpatient vi sit 25 minutes Jasiel Ball [facility] Start: 11-03-2022 End: 11-03-2022 ambulatory Jasiel Ball Other [email or web address] Other Start: 11-03-2022 Telephone encounter Jasiel Ball [facility] Start: 10-18-2022 End: 10-18-2022 ambulatory Jasiel Ball Other [email or web address] Other Start: 10-18-2022 Telephone encounter Jasiel Ball [facility] Start: 10-13-2022 End: 10-13-2022 ambulatory Jasiel Lawler Other [email or web address] Other Start: 10-13-2022 Telephone encounter Jasiel Lawler [facility] Start: 10-10-2022 End: 10-10-2022 ambulatory Jasiel Lawler Other [email or web address] Other Start: 10-10-2022 Office outpatient vi sit 15 minutes Jasiel Lawler [facility] Start: 09-12-2022 End: 09-12-2022 ambulatory Jasiel Lawler Other [email or web address] Other Start: 09-12-2022 Telephone encounter Jasiel Lawler [facility] Start: 09-05-2022 End: 09-06-2022 ambulatory HARPER BARRETO Facility:[facility] Start: 09-05-2022 End: 09-05-2022 Patient encounter procedure HARPER BARRETO [facility] Start: 08-08-2022 End: 08-08-2022 ambulatory Jasiel Lawler Other [email or web address] Other Start: 08-08-2022 Telephone encounter Jasiel Lawler [facility] Start: 08-04-2022 Telephone encounter Jasiel WHITESIDE [facility] Start: 08-04-2022 End: 08-05-[address] JASIEL LAWLER [email or web address] Other Start: 08-03-2022 End: 08-04-[address] JASIEL LAWLER Facility: Start: 07-18-2022 End: 07-18-2022 ambulatory Jasiel Lawler Other [email or web address] Other Start: 07-18-2022 Office outpatient vi sit 25 minutes Jasiel Lawler [facility] Start: 07-11-2022 End: 07-11-2022 ambulatory Jasiel Lawler Other [email or web address] Other Start: 07-11-2022 Telephone encounter Jasiel Lawler [facility] Start: 06-29-2022 End: 06-29-2022 ambulatory Jasiel Lawler Other [email or web address] Other Start: 06-29-2022 Telephone encounter Jasiel WHITESIDE [facility] Start: 04-19-2022 End: 04-20-2022 ambulatory HARPER BARRETO Facility:[facility] Start: 04-19-2022 End: 04-19-2022 Patient encounter procedure HARPER BARRETO [facility] Start: 04-14-2022 End: 04-14-2022 ambulatory Jasiel Lawler Other [email or web address] Other Start: 04-14-2022 Office outpatient vi sit 25 minutes Jasiel Lawler [facility] Start: 04-04-2022 End: 04-04-2022 ambulatory Jasiel Lawler Other [email or web address] Other Start: 04-04-2022 Telephone encounter Jasiel Lawler [facility] Start: 03-21-2022 Adult health examination Kemal elina Lawler Other [email or web address] Other Start: 01-30-2022 End: 01-31-[address] JASIEL LAWLER Facility: Start: 01-25-2022 End: 01-25-2022 ambulatory Gabriella Ferrara Other [email or web address] Other Start: 01-25-2022 Office outpatient vi sit 15 minutes Gabriella Calvey [facility] Start: 12-06-2021 End: 12-06-2021 ambulatory Gabriella Calvey Other [email or web address] Other Start: 12-06-2021 Office outpatient vi sit 15 minutes Gabriella Calvey [facility] Start: 11-08-2021 End: 11-09-2021 ambulatory Krishan NAGY Facility:[facility] Start: 11-08-2021 End: 11-08-2021 Patient encounter procedure Michael Trevino Jr. [facility] Start: 11-07-2021 End: 11-07-2021 ambulatory Dave Vega Other [email or web address] Other Start: 11-07-2021 Telephone encounter Dave Vega [facility] Start: 11-01-2021 End: 11-01-2021 ambulatory Gabriella Ferrara Other [email or web address] Other Start: 11-01-2021 Office outpatient ne w 30 minutes Gabriella Madeleineey [facility] Start: 10-20-2021 End: 10-20-2021 ambulatory Petar Lizama Other [email or web address] Other Start: 10-20-2021 Office outpatient vi sit 25 minutes Petar Dl [facility] Start: 09-09-2021 End: 09-09-2021 ambulatory Petar Dl Other [email or web address] Other Start: 09-09-2021 Telephone encounter Petar Lizama [facility] Start: 09-08-2021 End: 09-08-2021 ambulatory Petar Dl Other [email or web address] Other Start: 09-08-2021 Office consultation new/estab patient 60 min Petar Dl [facility] Start: 09-06-2021 End: 09-06-2021 Patient encounter procedure Michael Trevino Jr. [facility] Start: 08-23-2021 End: 08-23-2021 ambulatory Dave Vega Other [facility] [employer] Other Start: 08-23-2021 Office outpatient ne w 30 minutes Dave Vega [facility] Start: 07-05-2021 End: 07-05-2021 Patient encounter procedure Michael Trevino Jr. [facility] Start: 08-16-2019 End: 08-21-2019 Evaluation and management of inpatient JASIEL LAWLER [facility] Start: 08-16-2019 End: 08-21-2019 Evaluation and management of inpatient Aiden Rangel Work Phone: [facility] Comment on above: Spinal stenosis of t horacolumbar region (Primary Dx); Pain; Lumbosacral spondylosis without myelopathy; Post-op pain Start: 11-15-2017 End: 11-16-2017 Patient encounter LINDSEY RAMIREZ Facility:[facility] Start: 11-13-2017 End: 11-14-2017 Patient encounter DEFAULT PHYSICIAN Facility:[facility] Procedures Date Procedure Procedure Detail Performing Clinician Start: 09-24-2020 Cystoscopy Michael stovall Jr. Start: 10-02-2019 Cystoscopy Michael stovall Jr. Start: 08-21-2019 INCENTIVE SPIROMETRY RT Start: 08-21-2019 Gluc bld gluc mntr d ev cleared fda spec home use Start: 08-21-2019 INCENTIVE SPIROMETRY RT Start: 08-21-2019 INITIATE OXYGEN THER APY PROTOCOL Start: 08-21-2019 Gluc bld gluc mntr d ev cleared fda spec home use Unknown Provider Result Start: 08-21-2019 INCENTIVE SPIROMETRY RT Start: 08-21-2019 Gluc bld gluc mntr d ev cleared fda spec home use Start: 08-21-2019 Urnls dip stick/tabl et rgnt auto w/o microscopy Start: 08-21-2019 Gluc bld gluc mntr d ev cleared fda spec home use Start: 08-21-2019 STRAIGHT CATH JASIEL BALL Start: 08-21-2019 INCENTIVE SPIROMETRY RT JSAIEL BALL Start: 08-20-2019 Gluc bld gluc mntr d ev cleared fda spec home use JASIEL BALL Start: 08-20-2019 Urnls dip stick/tabl et rgnt auto w/o microscopy Ramyasugar Hennessy Work Phone: Start: 08-20-2019 INCENTIVE SPIROMETRY RT JASIEL BALL Start: 08-20-2019 Gluc bld gluc mntr d ev cleared fda spec home use Unknown Provider Result Start: 08-20-2019 INCENTIVE SPIROMETRY RT JASIEL BALL Start: 08-20-2019 Gluc bld gluc mntr d ev cleared fda spec home use JASIEL BALL Start: 08-20-2019 INCENTIVE SPIROMETRY RT JASIEL BALL Start: 08-20-2019 Gluc bld gluc mntr d ev cleared fda spec home use Unknown Provider Result Start: 08-20-2019 DISCHARGE PATIENT KEMAL MCCLOUD BALL Start: 08-20-2019 AMB EXTERNAL REFERRA L TO PHYSICAL THERAPY JASIEL BALL Start: 08-20-2019 INCENTIVE SPIROMETRY RT JASIEL BALL Start: 08-20-2019 INCENTIVE SPIROMETRY RT JASIEL BALL Start: 08-20-2019 Gluc bld gluc mntr d ev cleared fda spec home use JASIEL BALL Start: 08-20-2019 INCENTIVE SPIROMETRY RT JASIEL BALL Start: 08-20-2019 Gluc bld gluc mntr d ev cleared fda spec home use Unknown Provider Result Start: 08-20-2019 Gluc bld gluc mntr d ev cleared fda spec home use JASIEL BALL Start: 08-20-2019 INCENTIVE SPIROMETRY RT JASIEL Start: 08-20-2019 INITIATE OXYGEN THER APY PROTOCOL Start: 08-20-2019 Gluc bld gluc mntr d ev cleared fda spec home use Unknown Provider Result Start: 08-20-2019 INCENTIVE SPIROMETRY RT JASIEL BALL Start: 08-20-2019 RADIOLOGY REPORT BENJAM IN BALL Start: 08-20-2019 Gluc bld gluc mntr d ev cleared fda spec home use JASIEL BALL Start: 08-20-2019 RADIOLOGY REPORT Hpf Sc anning Start: 08-20-2019 Gluc bld gluc mntr d ev cleared fda spec home use JASIEL BALL Start: 08-20-2019 INCENTIVE SPIROMETRY RT JASIEL BALL Start: 08-19-2019 INCENTIVE SPIROMETRY RT JASIEL BALL Start: 08-19-2019 Gluc bld gluc mntr d ev cleared fda spec home use JASIEL BALL Start: 08-19-2019 INCENTIVE SPIROMETRY RT JASIEL BALL Start: 08-19-2019 Gluc bld gluc mntr d ev cleared fda spec home use Unknown Provider Result Start: 08-19-2019 DIET CARB CONTROL KEMAL MIN BALL Start: 08-19-2019 IP CONSULT TO REHAB/ TCU ADMISSION COORDINATOR JASIEL LAWLER Start: 08-19-2019 OT EVAL AND TREAT KEMAL MIN BALL Start: 08-19-2019 PT EVAL AND TREAT KEMAL MIN BALL Start: 08-19-2019 FLUORO FOR SURGICAL PROCEDURES JASIEL LAWLER Start: 08-19-2019 CATHETER REMOVAL BENJAM IN BALL Start: 08-19-2019 INCENTIVE SPIROMETRY RT JASIEL LAWLER Start: 08-19-2019 TRANSFER PATIENT LUISAM IN BUCKY Start: 08-19-2019 Gluc bld gluc mntr d ev cleared fda spec home use Unknown Provider Result Start: 08-19-2019 Level iv surg pathol ogy gross&microscopic exam JASIEL LAWLER Start: 08-19-2019 FLUORO FOR SURGICAL PROCEDURES Seymour Espitia Work Phone: Start: 08-19-2019 INCENTIVE SPIROMETRY RT JASIEL LAWLER Start: 08-19-2019 Gluc bld gluc mntr d ev cleared fda spec home use Unknown Provider Result Start: 08-19-2019 Gluc bld gluc mntr d ev cleared fda spec home use JASIEL LAWLER Start: 08-19-2019 INCENTIVE SPIROMETRY RT JASIEL LAWLER Start: 08-19-2019 End: 08-19-2019 Lamnotmy incl w/dcmprsn nrv root 1 intrspc lumbr Seymour Espitia Work Phone: Start: 08-19-2019 Gluc bld [...] r-t 2d w/ wom-mode compl spec&colr d Michaelrenny Lane Work Phone: Start: 08-18-2019 INITIATE OXYGEN [...] ev cleared fda spec home use JASIEL BUCKY Start: 08-16-2019 Gluc bld gluc mntr d [...] Start: 08-16-2019 IP CONSULT TO CARDIOLOGY JASIEL LAWLER Start: 08-16-2019 FULL CODE JASIEL Cruz ALL Start: 08-16-2019 INITIATE OXYGEN THER APY PROTOCOL JASIEL LAWLER Start: 08-16-2019 NEURO CHECKS JASIEL Cruz ALL [...] routine ecg w/le ast 12 lds w/i&r JASIEL LAWLER Start: 08-16-2019 Blood count complete auto&auto difrntl wbc JASIEL LAWLER Start: 08-16-2019 Comprehensive metabolic panel JASIEL LAWLER Start: 08-16-2019 Urnls dip stick/tabl et rgnt auto w/o microscopy JASIEL LAWLER Start: 08-16-2019 PATIENT STATUS (FROM ED OR OR/PROCEDURAL) JASIEL LAWLER Start: 08-16-2019 Sedimentation rate r bc automated Aiden Rangel Work Phone: Start: 08-16-2019 Ecg routine ecg w/le ast 12 lds i&r only Aiden Rangel Work Phone: Start: 08-16-2019 Blood count complete auto&auto difrntl wbc Aiden Rangel Work Phone: Start: 08-16-2019 Comprehensive metabolic panel Aiden Rangel Work Phone: Start: 08-16-2019 Urnls dip stick/tabl et rgnt auto w/o microscopy Aiden Rangel Work Phone: Start: 09-06-2016 Cystourethroscopy [facility] dilation of urethral stricture Michael Trevino Jr. Start: 01-21-2016 End: 07-16-2019 Screening for malignant neoplasm of colon Jasiel Lawler Other Start: 01-23-2014 End: 07-16-2019 Screening for malignant neoplasm of prostate Jasiel Lawler Other Bilateral replacemen t of knee joints Michael Trevino Jr. Cholecystectomy Michael Trevino Jr. Colonoscopy Michael Howard Depression screening Yanet Lawler Other Procedure on back Michael stovall Jr. Transurethral water vapor ablation of prostate Michael Trevino Jr. Plan of Treatment Date Care Activity Detail Author Start: 08-15-2020 Creatinine measurement Creatinine mo [place]itoring [place] Start: 08-15-2020 Potassium monitoring Potassium monit [place]ing [place] Start: 12-02-2019 Influenza vaccination Flu vacc ine (Season Ended) [place] Start: 09-05-2019 End: 09-05-2019 Office Visit 09/05/2019 Office Visit Neurosurgery Seymour Espitia MD [address], [address] [place] [address] [phone] [employer] Start: 09-22-2018 Annual Wellness Visi t (AWV) Annual Wellness Visit (AWV) [place] Start: 2002 Pneumococcal 65+ yea rs Vaccine (1 of 1 - PPSV23) Pneumococcal 65+ years Vaccine (1 of 1 - PPSV23) [place] Start: 1987 Shingles Vaccine (1 of 2) Bolden gles Vaccine (1 of 2) [place] Start: 02-29-1956 DTaP/Tdap/Td vaccine (1 - Tdap) DTaP/Tdap/Td vaccine (1 - Tdap) [place] Start: 1947 Lipid panel Lipid screen [place], [place] Incentive spirometry Incentive s pirometry Respiratory Care Routine Every 2hr while awake until discontinued starting 08/19/2019 [place] Comment on above: Every 2hr while awak e until discontinued starting 08/19/2019 Initiate Oxygen Ther apy Protocol Initiate Oxygen Therapy Protocol Respiratory Care Routine Daily until discontinued starting 08/16/2019 [place] Comment on above: Daily until disconti nued starting 08/16/2019 POCT glucose [place], [place] Comment on above: 4X Daily (AC & HS) u ntil discontinued starting 08/16/2019 As Needed until disc ontinued starting 08/16/2019 Surgical Pathology [place], [place] Comment on above: Release Upon Orderin g for 1 Occurrences starting 08/19/2019 End: 08-19-2019 Surgical Pathology Surgical Pathology Lab Routine Once for 1 Occurrences starting 08/19/2019 until 08/19/2019 [place] Comment on above: Once for 1 Occurrenc es starting 08/19/2019 until 08/19/2019 Immunizations Immunization Date Immunization Notes Care Provider Kieran shipley 02-13-2023 influenza, high dose seasonal, preservative-free Jasiel Lawler Other [email or web address] Other 02-13-2023 influenza virus vaccine, unspecified formulation DO Jasiel Lawler Work Phone: [facility] 03-19-2022 SARS-CoV-2 (COVID-19 ) [id number] HRAPER BARRETO [facility] 01-17-2022 influenza virus vaccine, split virus (incl. purified surface antigen) Jasiel Lawler Other [email or web address] Other 01-17-2022 influenza virus vaccine, unspecified formulation HARPER BARRETO [facility] 01-04-2021 influenza virus vaccine, split virus (incl. purified surface antigen) Jasiel Lawler Other [employer] [facility] [employer] Other 01-04-2021 influenza virus vaccine, unspecified formulation DO Jasiel Lawler Work Phone: [facility] 12-31-2020 influenza virus vaccine, unspecified formulation Michael Trevino Jr. [facility] 05-31-2020 SARS-CoV-2 (COVID-19 ) mRNA-1273 vaccine Michael Trevino Jr. [facility] 01-19-2020 influenza virus vaccine, split virus (incl. purified surface antigen) Jasiel Lawler Other [email or web address] Other 01-19-2020 influenza virus vaccine, unspecified formulation DO Jasiel Lawler Work Phone: [facility] 06-01-2019 SARS-CoV-2 (COVID-19 ) mRNA-1273 vaccine Michael Trevino Jr. [facility] 01-13-2019 influenza virus vaccine, split virus (incl. purified surface antigen) Jasiel Lawler Other [facility] [employer] Other 01-13-2019 influenza virus vaccine, unspecified formulation DO Jasiel Lawler Work Phone: [facility] 01-01-2018 influenza virus vaccine, split virus (incl. purified surface antigen) Jasiel Lawler Other [facility] [employer] Other 01-01-2018 influenza virus vaccine, unspecified formulation HARPER BARRETO [facility] 01-15-2017 influenza virus vaccine, split virus (incl. purified surface antigen) Jasiel Lawler Other [facility] [employer] Other 01-15-2017 influenza virus vaccine, unspecified formulation HARPER BARRETO [facility] 01-21-2016 influenza virus vaccine, split virus (incl. purified surface antigen) Jasiel Lawler Other [facility] [employer] Other 01-21-2016 influenza virus vaccine, unspecified formulation HARPER BARRETO [facility] 01-12-2015 influenza virus vaccine, split virus (incl. purified surface antigen) Jasiel Lawler Other [facility] [employer] Other 01-12-2015 influenza virus vaccine, unspecified formulation DO Jasiel Lawler Work Phone: [facility] 01-12-2015 pneumococcal conjuga te vaccine, 13 valent Jasiel Lawler Other [facility] 01-23-2014 tetanus and diphther ia toxoids, adsorbed, preservative free, for adult use (5 Lf of tetanus toxoid and 2 Lf of diphtheria toxoid) Jasiel Lawler Other [facility] 01-20-2013 tetanus and diphther ia toxoids, adsorbed, preservative free, for adult use (5 Lf of tetanus toxoid and 2 Lf of diphtheria toxoid) Jasiel Lawler Other [facility] 12-13-2011 tetanus and diphther ia toxoids, adsorbed, preservative free, for adult use (5 Lf of tetanus toxoid and 2 Lf of diphtheria toxoid) Jasiel Lawler Other [facility] 12-07-2010 pneumococcal polysaccharide vaccine, 23 valent Jasiel Lawler Other [facility] Payers Date Payer Category Payer Self-pay 2022 [employer] ( [employer] others) 2017 [employer] ( [employer] others) [id number] 2017 Medicare xxxxxxxxx [id number] 1959 [employer] ( and others) [id number] 1959 Unknown [id number] 1937 Unknown [id number] 1937 Unknown [id number] 1937 Unknown [id number] 1937 Unknown [id number] 1937 Unknown [id number] 1937 Unknown [id number] 1937 Unknown [id number] 1937 Unknown [id number] Unknown Unknown [id number] Social History Date Type Detail Facility Start: 08-20-2019 End: 03-01-2023 Tobacco smoking status NHIS Never smoker [place] Start: 08-20-2019 Alcohol intake Current drinke r of alcohol (finding) [place] Start: 08-20-2019 History SDOH Social Connections Phone 5 [place] Start: 08-20-2019 History SDOH Social Connections Get Together 2 [place] Start: 08-20-2019 History SDOH Social Connections Meetings 1 [place] Start: 08-20-2019 History SDOH Social Connections Living 3 [place] Start: 08-20-2019 History SDOH Physica l Activity DPW 0 [place] Start: 08-20-2019 History SDOH Education 13 [place] Start: 11-20-2017 Alcohol Comment occ [place] Sex Assigned At Not on file [place] Exposure to SARS-CoV -2 (event) Unable to assess [place] Tobacco smoking status Never [facility] Sex Assigned At Male [facility] Start: 1935 Sex Assigned At Male F [facility] Medical Equipment Procedure Code Equipment Code Equipment Original Text Equipment Identifier Dates Floseal Hemostat Matrx 5ml Needle Free [id number] Start: 11-22-2017 [id number] Start: 03-19-2022 True Metrix Gluc ose Test Strip [id number] Patient-worn bon e growth electromagnetic stimulator [id number] [facility] Start: 04-02-2012 Functional Status Date Assessment Result Facility 09-05-2022 Functional Status N/A [facility] 04-19-2022 Functional Status N/A [facility] 11-08-2021 Functional Status N/A [facility] Clinical Notes 07-05-2021 to 04-23-2023 Note Date & Type Note Facility 04-23-2023 Evaluation note Encounter Date Diagnosis Assessment Notes Apr, Controlled type 2 diabetes mellitus with hyperglycemia, without long-term current use of insulin (ICD-10 - E11.65) [email or web address] Other 01-08-2024 Evaluation note* Encounter Date Diagnosis Assessment Notes Treatment Notes Treatment Clinical Notes Apr, Benign prostatic hyperplasia with lower urinary tract symptoms (ICD-10 - N40.1) [email or web address] Other 01-02-2024 Evaluation note* Encounter Date Diagnosis Assessment Notes Treatment Notes Treatment Clinical Notes Apr, Lumbosacral spondylosis (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) [email or web address] Other 12-27-2023 Evaluation note* Encounter Date Diagnosis Assessment Notes Treatment Notes Treatment Clinical Notes Mar, Lumbosacral spondylosis (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) [email or web address] Other 12-18-2023 Evaluation note* Encounter Date Diagnosis Assessment Notes Treatment Notes Treatment Clinical Notes Mar, Controlled type 2 diabetes mellitus with hyperglycemia, without long-term current use of insulin (ICD-10 - E11.65) [email or web address] Other 11-30-2023 Progress note Author Joanne Crenshaw [facility] March 01, 2023 2:54pm Note Date/Time March 01, 2023 2:55pm [facility] [address] [place] [address] Wound Center Provider Note Signed Patient: Irvin De Oliveira MR#: [id number] : 1935 Acct:[id number] Age/Sex: 88 / M Copies to: DO Joanne Anna, RESTAURANT SUPERVISOR~ HPI Date of Visit Date of Visit: Date of Service: 03/01/2023 Time of Service: 14:53 Narrative HPI: 01/25/23 Irvin is an 87-year-old male [facility] for evaluation and treatment of what appears to be a mixture of a contact dermatitis from his urinary incontinence as well as candidiasis. Please note that his is present in the room for the entire visit. We did discuss many options and did finally decide the putting an actualdressing on the area would probably and likely contribute to even more damage and hence we will utilize a mixture of nystatin powder along with coconut oil inorder to treat this from an antifungal, antimicrobial, and anti-inflammatory approach. Yamila does tell us that Irvin does reuse his briefs after they are wet and allows them to dry out and we did highly discourage this practice and hedid state understanding of this. I would like Irvin to return to the office in 1 week so we can see if our treatments have worked or not. I did specifically recommend Florastor probiotic due to to its activity with yeast control as opposed to other probiotics and they did state understanding of picking this up and starting this. Very likely he can be changed to any probiotic once the yeast is under better control. His does tell us that he has suffered with the fungal rash in his groin area in the past. Irvin and Yamila do say that he watches his sugar and carb intake very closely but does enjoy ice cream and pizza at times and they do not eat much as far as processed foods. Healing of this area will be highly dependent on the topical treatment being applied, offloading the area is much as possible, avoiding scooting and sliding as much as possible, having a nutritious diet that is higher in protein and amino acids and low in inflammation, taking supplements such as collagen and vitamin C and the recommended probiotic, having excellent diabetic control, as well as controlling and treating any infections. I do not see any signs of any actual infection other than the yeast. 02/01/23 looks better even if the measurements don't reflect it, 2 week appt, added collagen powder to the coconut oil and nystatin mixture, will continue to apply at least twice daily, no acute infection noted 02/15/23 better, no yeast noted, 2-3 week appt, same topical orders, sounds likehe did not start the probiotic, no infection noted 03/01/23 healed, can use the remainder of the prior topical orders, no further appts needed unless something were to open up Subjective Pain Buttock: Pain Description: Intermittent Pain Intensity: 0 Pain Management Techniques Other/Comment: 02/15/2023 a little less pain Wound/Ulcer History When did wound start?: December 2022 Mode of Arrival/ Unit Secy: Personal vehicle Assistive Device Used Today: Walker Lives with:: Spouse Appetite Description: Within Normal Limits Smoking Status: Never smoker [facility] Medical History (Updated 03/01/23 @ 14:54 by Joanne Crenshaw APRN) Arthritis Back pain Chronic UTI Diabetes mellitus, type 2 Failed spinal cord stimulator Hypercholesteremia Hypertension Murmur, cardiac Surgical History H/O rotator cuff surgery right History of cardiac catheterization History of joint replacement Previous back surgery x4 (3 cages placed) Total knee replacement status bilateral x2 Family History Sister Hypertension Father Hypertension CAD (coronary artery disease) Stroke Mother Bone cancer Social History Smoking Status: Never smoker Substance Use Type: None Grafts History of Graft History of Graft?: No Exam Physical Exam Vital Signs: Temp Pulse Resp BP O2 Del Method 97.3 F L 71 20 140/75 Room Air 03/01/23 14:49 03/01/23 14:49 03/01/23 14:49 03/01/23 14:49 03/01/23 14:49 Const General: cooperative, healthy appearing, comfortable, no acute distress and wellgroomed Nutritional Appearance: overweight Orientation: alert, awake and oriented x3 Lower/Upper Extremity Exam Vascular Exam-Pulses Right Brachial: Pulse Assessment Method: NIBP Objective Meds/Allergies Home Medications amlodipine 10 mg tablet 10 mg PO DAILY 09/27/21 [History Confirmed 03/01/23] atenolol 100 mg-chlorthalidone 25 mg tablet 1 tab PO DAILY 09/27/21 [History Confirmed 03/01/23] atorvastatin 20 mg tablet 20 mg PO DAILY 09/27/21 [History Confirmed 03/01/23] benazepril 40 mg tablet 40 mg PO DAILY 09/27/21 [History Confirmed 03/01/23] cyclobenzaprine 10 mg tablet 10 mg PO DAILY 09/27/21 [History Confirmed 03/01/23] empagliflozin 10 mg tablet (Jardiance) 10 mg PO DAILY 09/27/21 [History Confirmed 03/01/23] gabapentin 300 mg capsule 300 mg PO QID 09/27/21 [History Confirmed 03/01/23] metformin 1,000 mg tablet 1,000 mg PO DAILY 09/27/21 [History Confirmed 03/01/23] sitagliptin phosphate 100 mg tablet (Januvia) 100 mg PO DAILY 09/27/21 [History Confirmed 03/01/23] tamsulosin 0.4 mg capsule 0.4 mg PO DAILY 09/27/21 [History Confirmed 03/01/23] nystatin 100,000 unit/gram topical powder 1 applic topical BID 2 weeks #30 grams01/25/23 [Rx Confirmed 03/01/23] tramadol 50 mg tablet 50 mg PO Q8H PRN Pain 01/25/23 [History Confirmed 03/01/23] Allergies meperidine [From Demerol] Adverse Reaction (Verified 01/25/23 09:44) Confusion Wound/Ulcer Right Buttock: Type: Moisture Damage (w/yeast) Thickness: Full Percent of Wound Bed Granulated/Red: 0 Length (cm): 0 Width (cm): 0 Depth (cm): 0 CM Sq: 0.000 Surrounding Tissue Appearance: Belt Surrounding Tissue Temp: Warm Drainage Amount: None Drainage Odor: No Odor Left Buttock: Type: Moisture Damage (w/yeast) Thickness: Full Percent of Wound Bed Granulated/Red: 0 Length (cm): 0 Width (cm): 0 Depth (cm): 0 CM Sq: 0.000 Surrounding Tissue Appearance: Belt Surrounding Tissue Temp: Warm Drainage Amount: None Drainage Odor: No Odor Results Height: 5 ft 7 in Weight: 81.647 kg Body Mass Index: 28.1 Assessment/Plan Assessment/Plan (1) Incontinence associated dermatitis: Assessment/Problem Details: perirectal area Code(s): L25.8 - Unspecified contact dermatitis due to other agents; R32 - Unspecified urinary incontinence Status: Resolved (2) Candidiasis: Assessment/Problem Details: perirectal area better at 02/02/32 visit Code(s): B37.9 - Candidiasis, unspecified Status: Resolved (3) Diabetes mellitus, type 2: Code(s): E11.9 - Type 2 diabetes mellitus without complications Status: Chronic (4) Urinary incontinence: Code(s): R32 - Unspecified urinary incontinence Status: Chronic (5) Inflammation: Status: Chronic (6) Weakness: Code(s): R53.1 - Weakness Status: Chronic (7) Uses walker: Code(s): Z99.89 - Dependence on other enabling machines and devices Status: Chronic Time spent with patient Time Spent With Patient (min): 8 Dictated By: Joanne Crenshaw APRN DD/ 52 Signed By: <Electronically signed by MATILDA Crenshaw> 03/01/23 1454 [facility] Work Phone: [phone] 539-407511-16-2023 Progress note Author Joanne Crenshaw [facility] February 15, 2023 1:49pm Note Date/Time February 15, 2023 1:50pm [facility] [address] [place] [address] Wound Center Provider Note Signed Patient: Irvin De Oliveira MR#: [id number] : 1935 Acct:[id number] Age/Sex: 87 / M Copies to: Jasiel Lawler,DO Joanne Crenshaw APRN~ HPI Date of Visit Date of Visit: Date of Service: 02/15/2023 Time of Service: 13:48 Narrative HPI: 01/25/23 Irvin is an 87-year-old male [facility] for evaluation and treatment of what appears to be a mixture of a contact dermatitis from his urinary incontinence as well as candidiasis. Please note that his is present in the room for the entire visit. We did discuss many options and did finally decide the putting an actualdressing on the area would probably and likely contribute to even more damage and hence we will utilize a mixture of nystatin powder along with coconut oil inorder to treat this from an antifungal, antimicrobial, and anti-inflammatory approach. Yamila does tell us that Irvin does reuse his briefs after they are wet and allows them to dry out and we did highly discourage this practice and hedid state understanding of this. I would like Irvin to return to the office in 1 week so we can see if our treatments have worked or not. I did specifically recommend Florastor probiotic due to to its activity with yeast control as opposed to other probiotics and they did state understanding of picking this up and starting this. Very likely he can be changed to any probiotic once the yeast is under better control. His does tell us that he has suffered with the fungal rash in his groin area in the past. Irvin and Yamila do say that he watches his sugar and carb intake very closely but does enjoy ice cream and pizza at times and they do not eat much as far as processed foods. Healing of this area will be highly dependent on the topical treatment being applied, offloading the area is much as possible, avoiding scooting and sliding as much as possible, having a nutritious diet that is higher in protein and amino acids and low in inflammation, taking supplements such as collagen and vitamin C and the recommended probiotic, having excellent diabetic control, as well as controlling and treating any infections. I do not see any signs of any actual infection other than the yeast. 02/01/23 looks better even if the measurements don't reflect it, 2 week appt, added collagen powder to the coconut oil and nystatin mixture, will continue to apply at least twice daily, no acute infection noted 02/15/23 better, no yeast noted, 2-3 week appt, same topical orders, sounds likehe did not start the probiotic, no infection noted Subjective Pain Buttock: Pain Description: Intermittent Pain Management Techniques Other/Comment: 02/15/2023 a little less pain Wound/Ulcer History When did wound start?: December 2022 Mode of Arrival/ Unit Secy: Personal vehicle Assistive Device Used Today: Walker Lives with:: Spouse Appetite Description: Within Normal Limits Smoking Status: Never smoker [facility] Medical History (Updated 02/15/23 @ 13:49 by Joanne Crenshaw APRN) Arthritis Back pain Chronic UTI Diabetes mellitus, type 2 Failed spinal cord stimulator Hypercholesteremia Hypertension Murmur, cardiac Surgical History H/O rotator cuff surgery right History of cardiac catheterization History of joint replacement Previous back surgery x4 (3 cages placed) Total knee replacement status bilateral x2 Family History Sister Hypertension Father Hypertension CAD (coronary artery disease) Stroke Mother Bone cancer Social History Smoking Status: Never smoker Substance Use Type: None Grafts History of Graft History of Graft?: No Exam Physical Exam Vital Signs: Temp Pulse Resp BP O2 Del Method 97.4 F L 64 24 133/74 Room Air 02/15/23 13:41 02/15/23 13:41 02/15/23 13:41 02/15/23 13:41 02/01/23 15:18 Const General: cooperative, healthy appearing, comfortable, no acute distress and wellgroomed Nutritional Appearance: overweight Orientation: alert, awake and oriented x3 Lower/Upper Extremity Exam Vascular Exam-Pulses Left Brachial: Pulse Assessment Method: NIBP Objective Meds/Allergies Home Medications amlodipine 10 mg tablet 10 mg PO DAILY 09/27/21 [History Confirmed 02/15/23] atenolol 100 mg-chlorthalidone 25 mg tablet 1 tab PO DAILY 09/27/21 [History Confirmed 02/15/23] atorvastatin 20 mg tablet 20 mg PO DAILY 09/27/21 [History Confirmed 02/15/23] benazepril 40 mg tablet 40 mg PO DAILY 09/27/21 [History Confirmed 02/15/23] cyclobenzaprine 10 mg tablet 10 mg PO DAILY 09/27/21 [History Confirmed 02/15/23] empagliflozin 10 mg tablet (Jardiance) 10 mg PO DAILY 09/27/21 [History Confirmed 02/15/23] gabapentin 300 mg capsule 300 mg PO QID 09/27/21 [History Confirmed 02/15/23] metformin 1,000 mg tablet 1,000 mg PO DAILY 09/27/21 [History Confirmed 02/15/23] sitagliptin phosphate 100 mg tablet (Januvia) 100 mg PO DAILY 09/27/21 [History Confirmed 02/15/23] tamsulosin 0.4 mg capsule 0.4 mg PO DAILY 09/27/21 [History Confirmed 02/15/23] nystatin 100,000 unit/gram topical powder 1 applic topical BID 2 weeks #30 grams01/25/23 [Rx Confirmed 02/15/23] tramadol 50 mg tablet 50 mg PO Q8H PRN Pain 01/25/23 [History Confirmed 02/15/23] Allergies meperidine [From Demerol] Adverse Reaction (Verified 01/25/23 09:44) Confusion Wound/Ulcer Right Buttock: Type: Moisture Damage (w/yeast) Thickness: Full Bed Appearance: Yellow Percent of Wound Bed Granulated/Red: 0 Percent of Devitalized: 100 Length (cm): 0.3 Width (cm): 0.3 Depth (cm): 0.1 CM Sq: 0.090 Surrounding Tissue Appearance: Belt Surrounding Tissue Temp: Warm Drainage Amount: Scant Drainage Description: Serosanguineous Drainage Odor: No Odor Left Buttock: Type: Moisture Damage (w/yeast) Thickness: Full Bed Appearance: Yellow Percent of Wound Bed Granulated/Red: 0 Percent of Devitalized: 100 Length (cm): 0.5 Width (cm): 0.2 Depth (cm): 0.1 CM Sq: 0.100 Surrounding Tissue Appearance: Belt Surrounding Tissue Temp: Warm Drainage Amount: Scant and Small Drainage Description: Serosanguineous Drainage Odor: No Odor Results Height: 5 ft 7 in Weight: 81.647 kg Body Mass Index: 28.1 Assessment/Plan Assessment/Plan (1) Incontinence associated dermatitis: Assessment/Problem Details: perirectal area Code(s): L25.8 - Unspecified contact dermatitis due to other agents; R32 - Unspecified urinary incontinence Status: Chronic (2) Candidiasis: Assessment/Problem Details: perirectal area better at 02/02/32 visit Code(s): B37.9 - Candidiasis, unspecified Status: Resolved (3) Diabetes mellitus, type 2: Code(s): E11.9 - Type 2 diabetes mellitus without complications Status: Chronic (4) Urinary incontinence: Code(s): R32 - Unspecified urinary incontinence Status: Chronic (5) Inflammation: Status: Chronic (6) Weakness: Code(s): R53.1 - Weakness Status: Chronic (7) Uses walker: Code(s): Z99.89 - Dependence on other enabling machines and devices Status: Chronic Time spent with patient Time Spent With Patient (min): 8 Dictated By: Joanne Crenshaw APRN DD/ 47 Signed By: <Electronically signed by MATILDA Crenshaw> 02/15/231348 [facility] Work Phone: [phone]) 532-191711-14-2023 Evaluation note* Encounter Date Diagnosis Assessment Notes [...] use, the patient reduces the risk for HI, CVA, HTN, cardiac dysrhythmias and sudden cardiac deaths.The patient is also aware of the association between SNEHA and morning headaches, daytime somnolence, fatigue and obesity Intolerant to mask, only tried for 2 wks. 14 Jan, 2023 Hyperlipidemia type II (ICD-10 - E78.01) Instructed on diet and exercise with continued statin therapy.Discussed the beneficial effects of lowering cholesterol in reducing the risk for cerebrovascular and cardiovascular disease. 14 Jan, 2023 Chronic venous insufficiency (ICD-10 - I87.2) Avoid salt and elevate lower extremities, support stockings, inspect legs and feet daily for blisters and ulcerations. 14 Jan, 2023 Lumbosacral spondylosis (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) The patient [...] use (ICD-10 - Z79.899) Check CBC, ALT [email or web address] Other 11-10-2023 Evaluation note* Encounter Date Diagnosis Assessment Notes Treatment Notes Treatment Clinical Notes Jan, Hyperlipidemia type II (ICD-10 - E78.01) [email or web address] Other 11-02-2023 Progress note Author Joanne Crenshaw [facility] February 01, 2023 3:30pm Note Date/Time February 01, 2023 3 :30pm [facility] [address] [place] [address] Wound Center Provider Note Signed Patient: Irvin De Oliveira MR#: [id number] : 1935 Acct:[id number] Age/Sex: 87 / M Copies to: DO Joanne Anna APRN~ HPI Date of Visit Date of Visit: Date of Service: 02/01/2023 Time of Service: 15:28 Narrative HPI: 01/25/23 Irvin is an 87-year-old male [facility] for evaluation and treatment of what appears to be a mixture of a contact dermatitis from his urinary incontinence as well as candidiasis. Please note that his is present in the room for the entire visit. We did discuss many options and did finally decide the putting an actualdressing on the area would probably and likely contribute to even more damage and hence we will utilize a mixture of nystatin powder along with coconut oil inorder to treat this from an antifungal, antimicrobial, and anti-inflammatory approach. Yamila does tell us that Irvin does reuse his briefs after they are wet and allows them to dry out and we did highly discourage this practice and hedid state understanding of this. I would like Irvin to return to the office in 1 week so we can see if our treatments have worked or not. I did specifically recommend Florastor probiotic due to to its activity with yeast control as opposed to other probiotics and they did state understanding of picking this up and starting this. Very likely he can be changed to any probiotic once the yeast is under better control. His does tell us that he has suffered with the fungal rash in his groin area in the past. Irvin and Yamila do say that he watches his sugar and carb intake very closely but does enjoy ice cream and pizza at times and they do not eat much as far as processed foods. Healing of this area will be highly dependent on the topical treatment being applied, offloading the area is much as possible, avoiding scooting and sliding as much as possible, having a nutritious diet that is higher in protein and amino acids and low in inflammation, taking supplements such as collagen and vitamin C and the recommended probiotic, having excellent diabetic control, as well as controlling and treating any infections. I do not see any signs of any actual infection other than the yeast. 02/01/23 looks better even if the measurements don't reflect it, 2 week appt, added collagen powder to the coconut oil and nystatin mixture, will continue to apply at least twice daily, no acute infection noted Subjective Pain Buttock: Pain Description: Intermittent Wound/Ulcer History When did wound start?: December 2022 Mode of Arrival/ Unit Secy: Personal vehicle Assistive Device Used Today: Walker Lives with:: Spouse Appetite Description: Within Normal Limits Smoking Status: Never smoker [facility] Medical History (Updated 01/25/23 @ 10:04 by Joanne Crenshaw APRN) Arthritis Back pain Chronic UTI Diabetes mellitus, type 2 Failed spinal cord stimulator Hypercholesteremia Hypertension Murmur, cardiac Surgical History H/O rotator cuff surgery right History of cardiac catheterization History of joint replacement Previous back surgery x4 (3 cages placed) Total knee replacement status bilateral x2 Family History Sister Hypertension Father Hypertension CAD (coronary artery disease) Stroke Mother Bone cancer Social History Smoking Status: Never smoker Substance Use Type: None Grafts History of Graft History of Graft?: No Exam Physical Exam Vital Signs: Temp Pulse Resp BP O2 Del Method 97.3 F L 71 18 117/66 Room Air 02/01/23 15:18 02/01/23 15:18 02/01/23 15:18 02/01/23 15:18 02/01/23 15:18 Const General: cooperative, healthy appearing, comfortable, no acute distress and wellgroomed Nutritional Appearance: overweight Orientation: alert, awake and oriented x3 Lower/Upper Extremity Exam Vascular Exam-Pulses Right Brachial: Pulse Assessment Method: NIBP Objective Meds/Allergies Home Medications amlodipine 10 mg tablet 10 mg PO DAILY 09/27/21 [History Confirmed 01/25/23] atenolol 100 mg-chlorthalidone 25 mg tablet 1 tab PO DAILY 09/27/21 [History Confirmed 01/25/23] atorvastatin 20 mg tablet 20 mg PO DAILY 09/27/21 [History Confirmed 01/25/23] benazepril 40 mg tablet 40 mg PO DAILY 09/27/21 [History Confirmed 01/25/23] cyclobenzaprine 10 mg tablet 10 mg PO DAILY 09/27/21 [History Confirmed 01/25/23] empagliflozin 10 mg tablet (Jardiance) 10 mg PO DAILY 09/27/21 [History Confirmed 01/25/23] gabapentin 300 mg capsule 300 mg PO QID 09/27/21 [History Confirmed 01/25/23] metformin 1,000 mg tablet 1,000 mg PO DAILY 09/27/21 [History Confirmed 01/25/23] sitagliptin phosphate 100 mg tablet (Januvia) 100 mg PO DAILY 09/27/21 [History Confirmed 01/25/23] tamsulosin 0.4 mg capsule 0.4 mg PO DAILY 09/27/21 [History Confirmed 01/25/23] nystatin 100,000 unit/gram topical powder 1 applic topical BID 2 weeks #30 grams01/25/23 [Rx] tramadol 50 mg tablet 50 mg PO Q8H PRN Pain 01/25/23 [History Confirmed 01/25/23] Allergies meperidine [From Demerol] Adverse Reaction (Verified 01/25/23 09:44) Confusion Wound/Ulcer Right Buttock: Type: Moisture Damage (w/yeast) Thickness: Full Bed Appearance: Yellow Percent of Wound Bed Granulated/Red: 0 Percent of Devitalized: 100 Length (cm): 0.6 Width (cm): 0.6 Depth (cm): 0.1 CM Sq: 0.360 Surrounding Tissue Appearance: Belt Surrounding Tissue Temp: Warm Drainage Amount: Small Drainage Description: Serosanguineous Drainage Odor: No Odor Left Buttock: Type: Moisture Damage (w/yeast) Thickness: Full Bed Appearance: Epithelial Tissue or Bridge and Yellow Percent of Wound Bed Granulated/Red: 0 Percent of Devitalized: 100 Length (cm): 2.8 Width (cm): 1.0 Depth (cm): 0.1 CM Sq: 2.800 Surrounding Tissue Appearance: Belt Surrounding Tissue Temp: Warm Drainage Amount: Small Drainage Description: Serosanguineous Drainage Odor: No Odor Results Height: 5 ft 7 in Weight: 81.647 kg Body Mass Index: 28.1 Assessment/Plan Assessment/Plan (1) Incontinence associated dermatitis: Assessment/Problem Details: perirectal area Code(s): L25.8 - Unspecified contact dermatitis due to other agents; R32 - Unspecified urinary incontinence Status: Chronic (2) Candidiasis: Assessment/Problem Details: perirectal area better at 02/02/32 visit Code(s): B37.9 - Candidiasis, unspecified Status: Chronic (3) Diabetes mellitus, type 2: Code(s): E11.9 - Type 2 diabetes mellitus without complications Status: Chronic (4) Urinary incontinence: Code(s): R32 - Unspecified urinary incontinence Status: Chronic (5) Inflammation: Status: Chronic (6) Weakness: Code(s): R53.1 - Weakness Status: Chronic (7) Uses walker: Code(s): Z99.89 - Dependence on other enabling machines and devices Status: Chronic Time spent with patient Time Spent With Patient (min): 12 Dictated By: Joanne Crenshaw APRN DD/ 1528 Signed By: <Electronically signed by MATILDA Crenshaw> 02/01/23 1530 [facility] Work Phone: 1(859) 152-814810-26-2023 Progress note Author Joanne Crenshaw [facility] January 25, 2023 10:10am Note Date/Time January 25, 2023 1 0:10am [facility] [address] [place] [address] Wound Center Provider Note Signed Patient: Irvin De Oliveira MR#: [id number] : 1935 Acct:[id number] Age/Sex: 87 / M Copies to: DO Joanne Anna APRN~ HPI Date of Visit Date of Visit: Date of Service: 01/25/2023 Time of Service: 10:02 Narrative HPI: 01/25/23 Irvin is an 87-year-old male [facility] for evaluation and treatment of what appears to be a mixture of a contact dermatitis from his urinary incontinence as well as candidiasis. Please note that his is present in the room for the entire visit. We did discuss many options and did finally decide the putting an actualdressing on the area would probably and likely contribute to even more damage and hence we will utilize a mixture of nystatin powder along with coconut oil inorder to treat this from an antifungal, antimicrobial, and anti-inflammatory approach. Yamila does tell us that Irvin does reuse his briefs after they are wet and allows them to dry out and we did highly discourage this practice and hedid state understanding of this. I would like Irvin to return to the office in 1 week so we can see if our treatments have worked or not. I did specifically recommend Florastor probiotic due to to its activity with yeast control as opposed to other probiotics and they did state understanding of picking this up and starting this. Very likely he can be changed to any probiotic once the yeast is under better control. His does tell us that he has suffered with the fungal rash in his groin area in the past. Irvin and Yamila do say that he watches his sugar and carb intake very closely but does enjoy ice cream and pizza at times and they do not eat much as far as processed foods. Healing of this area will be highly dependent on the topical treatment being applied, offloading the area is much as possible, avoiding scooting and sliding as much as possible, having a nutritious diet that is higher in protein and amino acids and low in inflammation, taking supplements such as collagen and vitamin C and the recommended probiotic, having excellent diabetic control, as well as controlling and treating any infections. I do not see any signs of any actual infection other than the yeast. Subjective Pain Buttock: Pain Description: Intermittent and Shooting Wound/Ulcer History When did wound start?: December 2022 Mode of Arrival/ Unit Secy: Personal vehicle Assistive Device Used Today: Walker Lives with:: Spouse Appetite Description: Within Normal Limits Smoking Status: Never smoker [facility] Medical History (Updated 01/25/23 @ 10:04 by Joanne Crenshaw APRN) Arthritis Back pain Chronic UTI Diabetes mellitus, type 2 Failed spinal cord stimulator Hypercholesteremia Hypertension Murmur, cardiac Surgical History H/O rotator cuff surgery right History of cardiac catheterization History of joint replacement Previous back surgery x4 (3 cages placed) Total knee replacement status bilateral x2 Family History Sister Hypertension Father Hypertension CAD (coronary artery disease) Stroke Mother Bone cancer Social History Smoking Status: Never smoker Substance Use Type: None Grafts History of Graft History of Graft?: No Exam Physical Exam Vital Signs: Temp Pulse Resp BP O2 Del Method 98.2 F 60 18 118/64 Room Air 01/25/23 09:43 01/25/23 09:43 01/25/23 09:43 01/25/23 09:43 01/25/23 09:43 Const General: cooperative, healthy appearing, comfortable, no acute distress and wellgroomed Nutritional Appearance: overweight Orientation: alert, awake and oriented x3 Lower/Upper Extremity Exam Vascular Exam-Pulses Left Brachial: Pulse Assessment Method: NIBP Objective Meds/Allergies Home Medications amlodipine 10 mg tablet 10 mg PO DAILY 09/27/21 [History Confirmed 01/25/23] atenolol 100 mg-chlorthalidone 25 mg tablet 1 tab PO DAILY 09/27/21 [History Confirmed 01/25/23] atorvastatin 20 mg tablet 20 mg PO DAILY 09/27/21 [History Confirmed 01/25/23] benazepril 40 mg tablet 40 mg PO DAILY 09/27/21 [History Confirmed 01/25/23] cyclobenzaprine 10 mg tablet 10 mg PO DAILY 09/27/21 [History Confirmed 01/25/23] empagliflozin 10 mg tablet (Jardiance) 10 mg PO DAILY 09/27/21 [History Confirmed 01/25/23] gabapentin 300 mg capsule 300 mg PO QID 09/27/21 [History Confirmed 01/25/23] metformin 1,000 mg tablet 1,000 mg PO DAILY 09/27/21 [History Confirmed 01/25/23] sitagliptin phosphate 100 mg tablet (Januvia) 100 mg PO DAILY 09/27/21 [History Confirmed 01/25/23] tamsulosin 0.4 mg capsule 0.4 mg PO DAILY 09/27/21 [History Confirmed 01/25/23] nystatin 100,000 unit/gram topical powder 1 applic topical BID 2 weeks #30 grams01/25/23 [Rx] tramadol 50 mg tablet 50 mg PO Q8H PRN Pain 01/25/23 [History Confirmed 01/25/23] Allergies meperidine [From Demerol] Adverse Reaction (Verified 01/25/23 09:44) Confusion Wound/Ulcer Right Buttock: Type: Moisture Damage (w/yeast) Thickness: Full Bed Appearance: Yellow Percent of Wound Bed Granulated/Red: 0 Percent of Devitalized: 100 Length (cm): 0.6 Width (cm): 0.7 Depth (cm): 0.1 CM Sq: 0.420 Surrounding Tissue Appearance: Belt Surrounding Tissue Temp: Warm Drainage Amount: Small Drainage Description: Serosanguineous Drainage Odor: No Odor Left Buttock: Type: Moisture Damage (w/yeast) Thickness: Full Bed Appearance: Epithelial Tissue or Bridge and Yellow Percent of Wound Bed Granulated/Red: 0 Percent of Devitalized: 100 Length (cm): 3.0 Width (cm): 1.0 Depth (cm): 0.1 CM Sq: 3.000 Surrounding Tissue Appearance: Belt Surrounding Tissue Temp: Warm Drainage Amount: Small Drainage Description: Serosanguineous Drainage Odor: No Odor Results Height: 5 ft 7 in Weight: 81.647 kg Body Mass Index: 28.1 Assessment/Plan Assessment/Plan (1) Incontinence associated dermatitis: Assessment/Problem Details: perirectal area Code(s): L25.8 - Unspecified contact dermatitis due to other agents; R32 - Unspecified urinary incontinence Status: Chronic (2) Candidiasis: Assessment/Problem Details: perirectal area Code(s): B37.9 - Candidiasis, unspecified Status: Chronic (3) Diabetes mellitus, type 2: Code(s): E11.9 - Type 2 diabetes mellitus without complications Status: Chronic (4) Urinary incontinence: Code(s): R32 - Unspecified urinary incontinence Status: Chronic (5) Inflammation: Status: Chronic (6) Weakness: Code(s): R53.1 - Weakness Status: Chronic (7) Uses walker: Code(s): Z99.89 - Dependence on other enabling machines and devices Status: Chronic Time spent with patient Time Spent With Patient (min): 22 Dictated By: Joanne Crenshaw APRN DD/ 1002 Signed By: <Electronically signed by MATILDA Crenshaw> 01/25/23 1010 [facility] Work Phone: [phone]) 957-549610-24-2023 Evaluation note* Encounter Date Diagnosis Assessment Notes [...] continue exercise to achieve/maintain a normal BMI. [email or web address] Other 10-09-2023 Evaluation note* Encounter Date Diagnosis Assessment Notes Treatment Notes Treatment Clinical Notes Dec, Lumbar spondylosis with myelopathy (ICD-10 - M47.16) [email or web address] Other 10-04-2023 Evaluation note* Encounter Date Diagnosis [...] cleanse w/ soap and water. Begin antibiotics [email or web address] Other 09-18-2023 Evaluation note* Encounter Date Diagnosis Assessment Notes Treatment Notes Treatment Clinical Notes Dec, Ischemic cardiomyopathy (ICD-10 - I25.5) [email or web address] Other 09-11-2023 Evaluation note* Encounter Date Diagnosis Assessment Notes Treatment Notes Treatment Clinical Notes Dec, Essential hypertension (ICD-10 - I10) [email or web address] Other 08-18-2023 Evaluation note* Encounter Date Diagnosis [...] use, the patient reduces the risk for HI, CVA, HTN, cardiac dysrhythmias and sudden cardiac [...] pain with right-sided sciatica (ICD-10 - M54.41) [email or web address] Other 08-18-2023 Evaluation note* Encounter Date Diagnosis [...] use, the patient reduces the risk for HI, CVA, HTN, cardiac dysrhythmias and sudden cardiac [...] They may safely use Tylenol as needed. [email or web address] Other 08-04-2023 Evaluation note* Encounter Date Diagnosis Assessment Notes Treatment Notes Treatment Clinical Notes Oct, Controlled type 2 diabetes mellitus with hyperglycemia, without long-term current use of insulin (ICD-10 - E11.65) [email or web address] Other 07-19-2023 Evaluation note* Encounter Date Diagnosis Assessment Notes Treatment Notes Treatment Clinical Notes Sep, Lumbar spondylosis with myelopathy (ICD-10 - M47.16) [email or web address] Other 07-11-2023 Evaluation note* Encounter Date Diagnosis [...] Sep, Other chronic pain (ICD-10 - G89.29) [email or web address] Other 06-13-2023 Evaluation note* Encounter Date Diagnosis Assessment Notes Treatment Notes Treatment Clinical Notes Aug, Lumbar spondylosis with myelopathy (ICD-10 - M47.16) [email or web address] Other 06-06-2023 Hospital Discharge instructions Patient Education [...] your health care provider. General instructions Take cdxn-dyo-tyuykdp and prescription medicines only as told by [...] provider. Document Revised: 12/06/2020 Document Reviewed: 12/06/2020 [email or web address] Patient Education 2022 [employer]. Follow Up Care 04/19/2022 15:27:00 With:BERTRAND MONTERO, HARPER Ly, URL Address: [address] [address] [place] [address] Business (1) When: only if needed [facility] 05-05-2023 Evaluation note* Encounter Date Diagnosis Assessment Notes Treatment Notes Treatment Clinical Notes July, Chronic HFrEF (heart failure with reduced ejection fraction) (ICD-10 - I50.22) ECHOCARDIOGRAM: - LVEF is 35 to 40%. Left ventricle is mildly dilated. - Biatrial enlargement. - Right ventricle is normal in size and systolic function. - Mild mitral regurgitation. [email or web address] Other 04-18-2023 Evaluation note* Encounter Date Diagnosis [...] use, the patient reduces the risk for HI, CVA, HTN, cardiac dysrhythmias and sudden cardiac [...] Diet and exercise with continued statin therapy. [email or web address] Other 01-18-2023 Hospital Discharge instructions Patient Education [...] nerve stimulation). For women, using a medical radiation dosimetrist to prevent urine leaks. This is a [...] right after experiencing incontinence. General instructions Take xapx-doq-uigvqam and prescription medicines only as told by [...] 04/26/2005 Document Revised: 03/29/2018 Document Reviewed: 06/28/2017 [email or web address] Patient Education 2020 [employer]. Follow Up Care 11/08/2021 11:37:35 With:HARPER BARRETO PA-C, URL Address: [address] [place] [address] When:3 months [facility] [place] 01-13-2023 Evaluation note* Encounter Date Diagnosis Assessment [...] use, the patient reduces the risk for HI, CVA, HTN, cardiac dysrhythmias and sudden cardiac [...] use, the patient reduces the risk for HI, CVA, HTN, cardiac dysrhythmias and sudden cardiac [...] They may safely use Tylenol as needed. [email or web address] Other 10-26-2022 Evaluation note* Encounter Date Diagnosis Assessment Notes Treatment Notes Treatment Clinical Notes Dec, Trigger ring finger of right hand (ICD-10 - M65.341) Patient appears to be doing well at this time. We will continue to monitor. Call with symptom reoccurance or questions/concerns. Sent in topical diclofenac gel to use as needed. [email or web address] Other 09-06-2022 Evaluation note* Encounter Date Diagnosis Assessment Notes Treatment Notes Treatment Clinical Notes Dec, Trigger ring finger of right hand (ICD-10 - M65.341) Patient has improved with cortisone injection, rx given for Medrol Dosepak [email or web address] Other 08-09-2022 Hospital Discharge instructions Patient Education [...] urethra. Follow these instructions at home: Take xhdg-pep-jxfaulk and prescription medicines only as told by [...] 03/19/2006 Document Revised: 02/11/2019 Document Reviewed: 04/23/2017 [email or web address] Patient Education 2020 [employer]. Follow Up Care 09/06/2021 11:57:04 With:Uriel Damian MD, Michael Rivera, URO Address: [facility] [address], [place] [address] [phone] When:Within 4 Month(s) Comments:w/ PVR [facility] 08-02-2022 Evaluation note* Encounter Date Diagnosis Assessment [...] and tingle for hours after this injection. [email or web address] Other 07-21-2022 Evaluation note* Encounter Date Diagnosis [...] - G89.29) Continue with current treatment plan. [email or web address] Other 06-09-2022 Evaluation note* Encounter Date Diagnosis [...] negative findings were considered in medical decision-making. [email or web address] Other 06-07-2022 Hospital Discharge instructions Patient Education 09/06/2021 11:55:48 [...] fried and sweet foods. General instructions Take yekl-rtb-qqcrskm and prescription medicines only as told by [...] 01/13/2010 Document Revised: 07/10/2019 Document Reviewed: 04/04/2018 [email or web address] Patient Education 2020 [employer]. Follow Up Care 07/05/2021 11:30:39 With:Uriel Damian MD, Michael Rivera URO Address: [facility] [address] [place] [address]- When:11/06/2021 Comments:kallie/ REINIER [facility] 05-24-2022 Evaluation note* Encounter Date Diagnosis [...] pain management. A referral will be sent [email or web address] Other 04-05-2022 Hospital Discharge instructions Patient Education [...] including vitamins, herbs, eye drops, creams, and mdsg-wmw-lfixdkd medicines. Any problems you or family members [...] provider tells you to take them. Taking gdbc-nph-kwuhfvy medicines, vitamins, herbs, and supplements. Eating and [...] 03/19/2006 Document Revised: 07/09/2019 Document Reviewed: 12/18/2018 [email or web address] Patient Education 2020 [employer]. Follow Up Care 11/30/2020 15:18:02 With:Michael Trevino Jr., MD, URO Address: [facility] [address] [place] [address] [phone] When:09/04/2021 [facility] evaluation + Plan note Future Appointments Appointment Date:09/06/2021 11:15:00 AM Scheduled Provider:Michael Trevino Jr., MD Location:[facility] Appointment Type:URO Office Visit [facility] evaluation + Plan note Future Appointments Appointment Date:11/08/2021 10:45:00 AM Scheduled Provider:Michael Trevino Jr., MD Location:[facility] Appointment Type:URO Office Visit [facility] evaluation + Plan note Future Appointments Appointment Date:03/28/2022 10:30:00 AM Scheduled Provider:Michael Trevino Jr., MD Location:[facility] Appointment Type:URO Office Visit [facility] evaluation + Plan note Future Appointments Appointment Date:07/18/2022 01:00:00 PM Scheduled Provider:HARPER BARRETO PA-C Location:[facility] Appointment Type:URO Office Visit [facility] evaluation noteNo [facility] [employer] Other Evaluation note* Diagnosis Onset Date Resolution Status Urinary incontinence chronic Uses walker chronic Weakness chronic Incontinence associated dermatitis resolved Chronic HFrEF (heart failure with reduced ejection fraction) acute Chronic venous insufficiency acute [id number] acute [id number] acute Hyperlipidemia type II acute Ischemic cardiomyopathy acut e Lumbosacral spondylosis acut e SNEHA (obstructive sleep apnea) acute Primary hypertension acute [facility] Work Phone: Evaluation note* Diagnosis Onset Date Resolution Status Diabetes mellitus, type 2 ch ronic Inflammation chronic Urinary incontinence chronic Uses walker chronic Weakness chronic Candidiasis resolved Incontinence associated dermatitis resolved [facility] Work Phone: Hispnjk general Narrative - Reported* Type Description Date Medical History Esophageal reflux Medical History hypertension Medical History hyperlipidemia Medical History diabetes mallitus Medical History ischemic cardiomyopathy Surgical History back surgery X5 Surgical History Bilateral TKA Surgical History Ulnar Nerve Surgical History [facility] Hospitalization History See Above [email or web address] Other Hisuv[employer] general Narrative - Reported* Type Description Date [...] Shoulder Arthroscopy Surgical History Discectomy Lumbar Spine 2013 Surgical History Left Ulnar Nerve Release 12/2017 Surgical History Left CTR 09/2013 Hospitalization History See Above [email or web address] Other Hospital course Narrative No data available for this section [facility] progress note No data available for this section [facility] reason for referral (narrative)* Reason Referral for sacral pressure ulceration Diagnosis 1 Pressure injury of s acral region, stage 2 (L89.152) Referral Organization [facility] Roel conrad Referring Provider First Name Jasiel Referring Provider Last Name Bucky Referring Provider Specialty Internal Me dicine Referred Organization [facility] Referred Address [address] [place], [place],[address] Referred Provider Specialty Wound Care Referral Priority Routine General Notes Mr. De Oliveira is being r eferred for a sacral ulcer. This has developed over the past several months. His back condition renders him sedentary, which has contributed to this problem. He also is diabetic, which results in prolonged healing and increased risk for deep infection. [email or web address] Other Summary Purpose Family History Relationship Condition Age at Onset Recorded Date/T ned sister Hypertension Unknown father Hypertension Unknown Coronary artery disease Unknown Cerebrovascular accident (CVA) Unknown Unknown Not Specified Malignant neoplasm of bone Unknown Relationship Condition Age at Onset Recorded Date/T ned sister Hypertension Unknown father Hypertension Unknown Coronary artery disease Unknown Cerebrovascular accident (CVA) Unknown Not Specified Malignant neoplasm of bone Unknown Advance Directives Documents on File Type Date Recorded Patient Complex Human Resources Manager Expl anation Advance Directives and Livin g Will 11/22/2017 8:38 AM Advance Directives and Livin g Will 11/22/2017 8:39 AM Power of Battery Plate Remover 11/22/2017 8:36 AM Latest Code Status on File Code Status Date Activated Date Inactivated Comments Full Code 08/16/2019 2:57 PM Full Code 08/16/2019 2:25 PM 08/16/2019 2:57 PM Full Code 11/22/2017 2:02 PM 11/23/2017 1:51 PM Full Code 10/11/2017 11:59 AM 10/14/2017 2:32 AM Advance Directive Response Recorded Date/ Time Advance Directives No August 28, 8 1:11pm Reason for Referral Status Reason Specialty Diagnoses / Procedures Referred By Contact Referred To Contact Open Specialty Services Required Physical Therapy Diagnoses Spinal stenosis of thoracolumbar region Lumbosacral spondylosis without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
[2024-09-11 15:18] LABS: Estimated Average Glucose 151 mg/dL; Glycohemoglobin A1C 6.9 % (4.5-6.2)
== END 2024-09-11 08:57 | disposition home or self-care (01) ==
LOC: LAB 08:59
PROVIDERS: PCP Internal Medicine; Visit Provider Internal Medicine
DX: E11.65 Type 2 diabetes mellitus with hyperglycemia (principal)
CPT/HCPCS: 36415; 83036